=== PATIENT | female | born 1970 | race Caucasian/White ===

== ENCOUNTER 2019-08-09 15:07 | Outpatient (RCR) | payer OTHER, SELFPAY ==
[2019-08-09 15:28] LABS: Prothrombin Time 20.1 Seconds (9.64-11.0)
== END 2019-11-07 23:59 | disposition home or self-care (01) ==
LOC: CHSLAB 15:07
PROVIDERS: PCP Family Medicine; Visit Provider Nurse Practitioner Family
DX: Z86.711 Personal history of pulmonary embolism (principal)
CPT/HCPCS: 36415; 85610

== ENCOUNTER 2019-08-18 09:05 | Outpatient (CLI) | payer OTHER, SELFPAY ==
[2019-08-18 09:16] LABS: Basophils Absolute Auto 0.08 K/mm3 (0.00-0.10); Basophils Percent Auto 0.7 % (0.0-1.0); Eosinophils Absolute Auto 0.49 K/mm3 (0.02-0.50); Eosinophils Percent Auto 4.3 % (1.0-6.0); Hematocrit 45.2 % (35.0-49.0); Hemoglobin 15.2 g/dL (12.0-15.0); Immature Granulocyte Absolute 0.06 K/mm3 (0.00-0.00); Immature Granulocyte Percent A 0.5 % (0.0-0.0); Lymphocytes Percent Auto 25.5 % (18.0-42.0); Mean Corpuscular HGB Conc 33.6 g/dL (32.0-36.0); Mean Corpuscular Hemoglobin 27.5 pg (27.0-31.0); Mean Corpuscular Volume 81.7 fL (78.0-102.0); Mean Platelet Volume 9.4 fl (9.2-11.8); Monocytes Absolute Auto 0.67 K/mm3 (0.10-0.90); Monocytes Percent Auto 5.9 % (2.0-11.0); Neutrophils Absolute Auto 7.2 K/mm3 (1.7-7.2); Neutrophils Percent Auto 63.1 % (50.0-70.0); Platelet Count Result 352 K/mm3 (150-420); Red Blood Count 5.53 M/mm3 (4.20-5.40); Red Cell Distribution Width 13.8 % (11.6-14.4); White Blood Count 11.4 K/mm3 (4.8-10.8)
[2019-08-18 09:28] LABS: INR 2.5; Prothrombin Time 25.3 Seconds (9.64-11.0)
[2019-08-18 09:43] LABS: Hemoglobin A1C 8.4 % (<5.7)
[2019-08-18 10:00] LABS: Alanine Aminotransferase 33 U/L (14-59); Alkaline Phosphatase 125 U/L (46-116); Anion Gap 15.3 mmol/L (7-16); Aspartate Amino Transferase 23 U/L (15-37); Bilirubin,Total 0.3 mg/dL (0.00-1.00); Blood Urea Nitrogen 18 mg/dL (7-18); Calcium 9.4 mg/dL (8.5-10.1); Carbon Dioxide 28 mmol/L (21-32); Chloride 98 mmol/L (98-108); Estimated Glomerular Filt Rate > 60; Glucose 213 mg/dL (70-99); Osmolality Calculated 291 mOsm/kg (285-295); Potassium 4.3 mmol/L (3.5-5.1); Sodium 137 mmol/L (136-145); Total Protein 8.3 g/dL (6.4-8.2)
== END 2019-08-18 09:06 | disposition home or self-care (01) ==
LOC: CHSLAB 09:07
PROVIDERS: PCP Family Medicine; Visit Provider Nurse Practitioner Family
DX: E11.59 Type 2 diabetes mellitus with other circulatory complications (principal); Z86.711 Personal history of pulmonary embolism; E11.9 Type 2 diabetes mellitus without complications; I10 Essential (primary) hypertension
CPT/HCPCS: 36415; 80053; 83036; 85025; 85610

== ENCOUNTER 2019-08-23 13:47 | Inpatient (IN) | payer OTHER, SELFPAY ==
[2019-08-23] VITALS (7 sets, daily range): BP systolic 111–147; BP diastolic 71–99; PULSE 78–110; RESP 12–22; TEMP 36.2–36.7; O2SAT 92–100; BMI 47.1
--- NOTE | ~2019-08-23 | US_ITS ---
US right upper quadrant INDICATION: Right upper quadrant abdominal pain PROCEDURE: Realtime right upper abdominal ultrasound. COMPARISON: Ultrasound dated 05/13/2018 FINDINGS: The pancreas is normal without focal mass or pancreatic ductal dilation. Liver echotexture is increased, consistent with fatty infiltration. Liver is enlarged. There is normal directional fl ow in the portal vein. Gallbladder surgically absent. Common bile duct measures 8 mm. IMPRESSION: 1: Hepatomegaly with fatty infiltration. 2: Status post cholecystectomy with expected prominence of the common bile duct. Reviewed, dictated and finalized at location A. IMPRESSION: 1: Hepatomegaly with fatty infiltration. 2: Status post cholecystectomy with expected prominence of the common bile duct .
--- NOTE | ~2019-08-23 | CT_ITS ---
EXAMINATION: CT abdomen pelvis w con EXAM DATE: 08/23/2019 18:57 INDICATION: Epigastric pain. TECHNIQUE: Spiral CT of the abdomen and pelvis was performed following intravenous injection of 100 m L Omnipaque 350. Axial, coronal and sagittal images were reviewed. The dose-length product (DLP) fo r this examination was 1455.10 mGy-cm. The exposure was tailored according to patient size (auto mA exposure control), and iterative reconstruction (ASIR) was used as additional dose reduction techniqu e. There is no prior study for comparison. FINDINGS: There is mild descending/sigmoid colonic diverticulosis with mild adjacent inflammation, ac la posta uncomplicated diverticulitis. The liver, spleen, adrenal glands and pancreas are unremarkable. There are cholecystectomy clips. P ortal and splenic veins are patent. Kidneys enhance symmetrically. There is no hydronephrosis. Th e uterus is not identified and has likely been surgically resected. The bladder is unremarkable. Th ere is no retroperitoneal or pelvic lymphadenopathy. The appendix is not positively visualized. There is no pericecal inflammatory change to suggest appe ndicitis. The stomach and small bowel are unremarkable. There is expected amount of colonic stool. No free intraperitoneal gas. The heart is normal in size. There are no pericardial or pleural e ffusions. The lung bases are unremarkable. The bones are unremarkable. Chronic bilateral L5 spondyl olysis with posterior and interbody fusion. There are no osteoblastic or osteolytic lesions identifie d. IMPRESSION: 1. Mild acute uncomplicated descending/sigmoid colonic diverticulitis. Reviewed, dictated and finalized at location A.
[2019-08-23 14:13] LABS: Basophils Absolute Auto 0.1 K/mm3 (0.0-0.1); Basophils Percent Auto 0.7 % (0.2-1.2); Eosinophils Absolute Auto 0.5 K/mm3 (0-0.3); Eosinophils Percent Auto 3.1 % (0-4.4); Hematocrit 46.4 % (37.0-47.0); Hemoglobin 15.3 g/dL (12.0-15.0); Immature Granulocyte Absolute 0.08 K/mm3 (0.00-0.031); Immature Granulocyte Percent A 0.5 % (0-0.5); Lymphocytes Absolute Auto 3.26 K/mm3 (0.9-3.2); Lymphocytes Percent Auto 21.2 % (18.3-44.2); Mean Corpuscular Hemoglobin 27.4 pg (26-34); Mean Corpuscular Volume 83.2 fl (80-100); Mean Platelet Volume 9.8 fl (7.4-10.4); Monocytes Absolute Auto 0.8 K/mm3 (0.1-0.6); Monocytes Percent Auto 5.3 % (2.6-8.5); Neutrophils Absolute Auto 10.6 K/mm3 (1.3-6.7); Neutrophils Percent Auto 69.2 % (45.5-73.1); Platelet Count Result 351 k/mm3 (150-375); Red Blood Count 5.58 M/mm3 (4.2-5.4); Red Cell Distribution Width 14.1 % (11.5-14.5); White Blood Count 15.4 K/mm3 (4.5-10.0)
[2019-08-23 14:17] LABS: Add Urine Microscopic? YES; Appearance Urine Clear (Clear); Bacteria Urine Trace /hpf; Bilirubin Urine Negative (Negative); Blood Urine Negative (Negative); Color Urine Straw (Yellow); Glucose Urine UA 1+ mg/dL (Negative); Ketones Urine Negative (Negative); Leukocyte Esterase Ur Negative LEU/UL (Negative); Mucus Urine Rare /lpf; Nitrate Urine Negative (Negative); Protein Urine Negative (Negative); Squamous Epithelial Cell Urine Few /hpf (Few); Urobilinogen Urine Negative mg/dL (<2.0); WBC Urine 0-3 /hpf
[2019-08-23 14:25] LABS: Alanine Aminotransferase 28 U/L (4-35); Albumin Level 4.7 g/dL (3.5-5.1); Alkaline Phosphatase 128 U/L (38-126); Aspartate Amino Transferase 26 U/L (14-36); Bilirubin,Total 0.4 mg/dL (0.2-1.3); Blood Urea Nitrogen 13 mg/dL (7-17); Calcium 9.9 mg/dL (8.4-10.2); Carbon Dioxide 26 mmol/L (22-30); Chloride 100 mmol/L (98-107); Estimated CRCL calculation 109 ml/min; Estimated Glomerular Filt Rate > 60; Glucose 186 mg/dL (65-105); Lipase 101 U/L (23-300); Sodium 135 mmol/L (137-145)
--- NOTE | 2019-08-23 17:56 | ED.ABDPAIN ---
HPI - Abdominal Pain General Chief Complaint: Abdominal Pain Stated Complaint: bile duct disorder, abdominal pain Time Seen by Provider: 08/23/19 17:56 Source: patient and RN notes reviewed Mode of arrival: other Limitations: no limitations History of Present Illness HPI narrative: Pt is a 49 y/o female who presents to the ED with c/o intermittent sharp RUQ abdominal pain that began three weeks ago, but she notes that her pain has been worsened and been more constant for the past two days. Pt notes that her pain migrates to her LUQ abdomen and to her RLQ abdomen. Pt has a hx of biliary dysfunction and she notes that her last flare up was 2 years ago. She notes that her GI recently moved to [place] and she recently moved to the area. Pt took Tylenol this morning. Pt also reports a 101 degree fever, chills, and diaphoresis. Pt is taking Warfarin. MD elicited complaint: abdominal pain Onset (ago): week(s) (2) Pain Consistency: other (progressively worsening) Location: RUQ Quality: sharp Migration to: LUQ and RLQ Context: confirms history of similar episodes Associated symptoms: fever (of 101 degrees), chills and other (diaphoresis) Treatments prior to arrival: other (Tylenol) Related Data Home Medications Medication Instructions Recorded Confirmed gabapentin 600 mg tablet 600 mg PO TID 05/27/19 08/23/19 magnesium oxide 400 mg (241.3 mg 400 mg PO BID tablet 05/27/19 08/23/19 magnesium) tablet spironolactone 25 mg tablet 25 mg PO DAILY 05/27/19 08/23/19 hyoscyamine sulfate 0.25 mg PO TID 08/23/19 08/23/19 furosemide 80 mg PO DAILY 08/26/19 08/26/19 Allergies Allergy/AdvReac Type Severity Reaction Status Date / Time epinephrine Allergy Severe Unknown Verified 08/23/19 14:03 ibuprofen Allergy Intermediate Unknown Verified 08/23/19 14:03 bupropion Allergy Unknown Unknown Verified 08/23/19 14:03 celecoxib Allergy Unknown Unknown Verified 08/23/19 14:03 Sulfa (Sulfonamide Allergy Unknown Unknown Verified 08/23/19 14:03 Antibiotics) tetanus and diphtheria Allergy Unknown Unknown Verified 08/23/19 14:03 toxoids Review of Systems Review of Systems: All systems reviewed & are unremarkable except as noted in HPI and below Constitutional: Constitutional: Reports chills and Reports fever(s) (of 101 degrees) Cardiovascular: Cardiovascular: Reports diaphoresis Gastrointestinal: Gastrointestinal: Reports abdominal pain (RUQ, migrates to her LUQ and RLQ abdomen) [facility] Past Medical History Medical History Anxiety Arthritis Asthma 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 venous thrombosis) (~2015) 03/2000 & 04/2016 Fatty liver Fibromyalgia (~2011) Headache History of angina Hyperlipidemia associated with type 2 diabetes mellitus Hypertension associated with diabetes Kidney stone Major depression, recurrent Medical non-compliance Migraines Obesity, morbid, BMI 40.0-49.9 Ovarian cyst Overweight PCOS (polycystic ovarian syndrome) Peripheral vascular disease Post concussive syndrome (~2017) Pulmonary embolism Renal failure (~2017) Sepsis Sleep-disordered breathing Uterine fibroid Surgical History Surgical History History of adenoidectomy History of appendectomy History of cholecystectomy History of hysterectomy History of intravascular stent placement with removal in 2017 History of removal of ovarian cyst Hx of tonsillectomy Previous back surgery L4 and L5 fusion Status post lumbar spine surgery for decompression of spinal cord Family History Family History Mother Hypertension Fibromyalgia Osteoarthritis Father DVT (deep venous thrombosis)
[2019-08-23] MEDS: ONDANSETRON INJ 4 MG/2 ML VIAL IV PUSH ×3 (19:21→23:32)
[2019-08-23] MEDS: HYDROMORPHONE HCL 1 MG/ML INJ 0.5 MG IV PUSH ×2 (19:22→20:32)
--- NOTE | 2019-08-23 20:21 | PC.NURSE ---
pt reports pain 03/25 edp notified no further orders at this time.
[2019-08-23] MEDS: metroNIDAZOLE 500 MG/ISO 100ML 500 MG/100 ML BAG 100 MG IVPB (20:32)
[2019-08-23] MEDS: PANTOPRAZOLE SODIUM IV 40 MG VIAL IV PUSH (20:45)
--- NOTE | 2019-08-23 22:42 | ADMGEN ---
This patient, Olivia Thomas [facility], was admitted to 2 Medical Room 255-. Patient/family oriented to hospital policies and general routines including ID bracelet, bed and alarms, visiting hours, pain management, procedures, bathroom and other care routines, personal items, smoking policy, room service/diet, and visiting hours. Valuables list has been completed. Information on how to activate the Rapid Response Team has been discussed. Patient/Family are encouraged to report perceived risks to care and to ask questions if they do not understand what they are told or what they should do.
[2019-08-23] MEDS: LACTATED RINGERS 1,000 ML 125 ML IV CONT (23:06)
[2019-08-23] MEDS: FAMOTIDINE 20 MG/2 ML VIAL IV PUSH (23:20)
[2019-08-24] MEDS: HYDROMORPHONE HCL 1 MG/ML INJ 0.5 MG IV PUSH (00:21)
[2019-08-24 02:00] VITALS: BP 133/90; PULSE 95; RESP 20; TEMP 36.3; O2SAT 98
[2019-08-24] MEDS: HYDROMORPHONE HCL 1 MG/ML INJ IV PUSH ×6 (03:07→23:47)
[2019-08-24 05:45] LABS: Basophils Percent Auto 0.4 % (0.2-1.2); Eosinophils Absolute Auto 0.3 K/mm3 (0-0.3); Eosinophils Percent Auto 2.9 % (0-4.4); Hematocrit 41.7 % (37.0-47.0); Hemoglobin 13.3 g/dL (12.0-15.0); Immature Granulocyte Absolute 0.06 K/mm3 (0.00-0.031); Immature Granulocyte Percent A 0.5 % (0-0.5); Lymphocytes Absolute Auto 2.56 K/mm3 (0.9-3.2); Lymphocytes Percent Auto 23.2 % (18.3-44.2); Mean Corpuscular HGB Conc 31.9 g/dl (32-36); Mean Corpuscular Hemoglobin 27.1 pg (26-34); Mean Corpuscular Volume 84.9 fl (80-100); Mean Platelet Volume 9.7 fl (7.4-10.4); Monocytes Absolute Auto 0.7 K/mm3 (0.1-0.6); Monocytes Percent Auto 6.6 % (2.6-8.5); Neutrophils Absolute Auto 7.3 K/mm3 (1.3-6.7); Neutrophils Percent Auto 66.4 % (45.5-73.1); Platelet Count Result 295 k/mm3 (150-375); Red Blood Count 4.91 M/mm3 (4.2-5.4); Red Cell Distribution Width 14.2 % (11.5-14.5)
[2019-08-24] MEDS: metroNIDAZOLE 500 MG/ISO 100ML 500 MG/100 ML BAG 100 MG IVPB ×3 (05:48→23:17)
[2019-08-24 05:55] LABS: Prothrombin Time 13.1 Seconds (11.1-14.7)
[2019-08-24 06:00] VITALS: BP 130/81; PULSE 92; RESP 21; TEMP 36.9; O2SAT 100
[2019-08-24 06:14] LABS: Blood Urea Nitrogen 13 mg/dL (7-17); Carbon Dioxide 33 mmol/L (22-30); Chloride 96 mmol/L (98-107); Estimated CRCL calculation 96 ml/min; Estimated Glomerular Filt Rate > 60; Glucose 161 mg/dL (65-105); Potassium 4.2 mmol/L (3.4-5.0); Sodium 136 mmol/L (137-145)
[2019-08-24] MEDS: ONDANSETRON INJ 4 MG/2 ML VIAL IV PUSH ×3 (07:20→15:31)
[2019-08-24] MEDS: LACTATED RINGERS 1,000 ML 125 ML IV CONT (08:43)
[2019-08-24] MEDS: FAMOTIDINE 20 MG/2 ML VIAL IV PUSH ×2 (08:46→20:26)
--- NOTE | 2019-08-24 09:52 | PM.IMHP ---
H&P: HPI History of Present Illness Chief complaint: acute diverticulitis intractable right upper quadr Narrative: Date and Time of Service of History & Physical: August 24, 2019 at 9:30 a.m.. Date and Time of Placement in Observation Order: August 23, 2019 at 8:55 p.m.. Chief Complaint: Epigastric pain x3 and half to 4 weeks with nausea, vomiting and fever. History of Present Illness: Olivia Burks is a 49 year old female with multiple medical problems including heart failure, hypertension, hyperlipidemia and previous biliary disorder due to sphincter of OD dysfunction who presented to the emergency department yesterday with complaint of epigastric pain over the past 3 and half to 4 weeks. Patient reports 5 years ago she was hospitalized at [facility] in [place], [place], at which time she was evaluated by GI. Eventually, she had ERCP showing multiple stones and sludge with stent placed. Patient reports stent was removed 1 year later. She has had periodic problems with similar pain at least once a year. Current episode did begin 3 and half to 4 weeks ago as noted. Pain became more consistent in the past week. She does note her stool has now been a fluorescent green. She began having nausea and vomiting yesterday. She does report hematemesis x1 yesterday. She also had fever up to 101 yesterday along with cold sweats. Patient has had previous gallbladder removal 20 years prior to 1st episode of sludge issues. Patient was noted to have diverticulitis in the emergency room but patient reports no significant pain in the lower abdomen. No current chest pain or shortness of breath. She does have headache. She does report generalized itching in the past week but no rash. No urinary symptoms. Review of Systems Review of Systems: All systems reviewed & are unremarkable except as noted in HPI and below Constitutional: Constitutional: Reports fever(s) Eyes: Eyes: Denies blurry vision and Denies diplopia ENT: Denies nasal congestion and Denies nasal discharge Cardiovascular: Cardiovascular: Denies chest pain and Denies palpitations Respiratory: Respiratory: Denies dyspnea Gastrointestinal: Gastrointestinal: Reports abdominal pain (epigatric), Denies diarrhea, Reports nausea and Reports vomiting Genitourinary: Genitourinary: Denies hematuria, Denies nocturia and Denies dysuria Musculoskeletal: Musculoskeletal: Reports no additional musculoskeletal complaints Integumentary/Breasts: Skin/Breast: Reports pruritus (generalized) Neurologic: Denies confusion and Reports headache(s) Psychiatric: Psychiatric: Denies anxiety and Denies depression Endocrine: Endocrine: Reports no additional endocrine complaints Hematologic/Lymphatic: Hematologic/Lymphatic: Reports no additional hematologic/lymphatic complaints Allergic/Immunologic: Allergic/Immunologic: Reports no additional allergic/immunologic complaints [facility] Past Medical History Medical History Anxiety Arthritis Asthma 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 venous thrombosis) (~2015) 03/2000 & 04/2016 Fatty liver Fibromyalgia (~2011) Headache History of angina Hyperlipidemia associated with type 2 diabetes mellitus Hypertension associated with diabetes Kidney stone Major depression, recurrent Medical non-compliance Migraines Ovarian cyst Overweight PCOS (polycystic ovarian syndrome) Peripheral vascular disease Post concussive syndrome (~2017) Pulmonary embolism Renal failure (~2017) Sepsis Sleep-disordered breathing Uterine fibroid Surgical History Surgical History History of adenoidectomy History of appendectomy History of cholecystectomy His
[2019-08-24 10:50] VITALS: BP 133/81; PULSE 111; RESP 18; TEMP 36.1; O2SAT 96
[2019-08-24 12:00] LABS: Glucose Point of Care 143 (65-105)
[2019-08-24 14:00] VITALS: BP 128/87; PULSE 113; RESP 18; TEMP 35.9; O2SAT 97
[2019-08-24 16:33] LABS: Basophils Absolute Auto 0.1 K/mm3 (0.0-0.1); Basophils Percent Auto 0.7 % (0.2-1.2); Eosinophils Absolute Auto 0.3 K/mm3 (0-0.3); Eosinophils Percent Auto 3.3 % (0-4.4); Hematocrit 40.7 % (37.0-47.0); Hemoglobin 13.1 g/dL (12.0-15.0); Immature Granulocyte Absolute 0.05 K/mm3 (0.00-0.031); Immature Granulocyte Percent A 0.5 % (0-0.5); Lymphocytes Absolute Auto 1.64 K/mm3 (0.9-3.2); Lymphocytes Percent Auto 16.3 % (18.3-44.2); Mean Corpuscular HGB Conc 32.2 g/dl (32-36); Mean Corpuscular Hemoglobin 27.3 pg (26-34); Mean Corpuscular Volume 84.8 fl (80-100); Mean Platelet Volume 9.8 fl (7.4-10.4); Monocytes Absolute Auto 0.7 K/mm3 (0.1-0.6); Monocytes Percent Auto 6.7 % (2.6-8.5); Neutrophils Absolute Auto 7.3 K/mm3 (1.3-6.7); Neutrophils Percent Auto 72.5 % (45.5-73.1); Platelet Count Result 263 k/mm3 (150-375); Red Cell Distribution Width 14.2 % (11.5-14.5); White Blood Count 10.1 K/mm3 (4.5-10.0)
[2019-08-24 16:42] LABS: Partial Thromboplastin Time 23.6 SECONDS (22.3-36.8); Prothrombin Time 13.2 Seconds (11.1-14.7)
[2019-08-24] MEDS: HEPARIN SOD/D5W 100 UNITS/ML 25,000 UNITS/250 ML BAG 15 UNITS IV CONT (17:09)
[2019-08-24] MEDS: HEPARIN SODIUM 5,000 UNITS/ML VIAL 6500 UNITS IV PUSH (17:10)
[2019-08-24 18:00] VITALS: BP 129/75; PULSE 103; RESP 18; TEMP 36.1; O2SAT 94
[2019-08-24 18:07] LABS: Glucose Point of Care 145 (65-105)
--- NOTE | 2019-08-24 18:10 | WPDGICN ---
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 Continue with iv antibiotics for now (also mild diverticulitis) (2) Acute diverticulitis: Code(s): K57.92 - Diverticulitis of intestine, part unspecified, without perforation or abscess without bleeding Status: Acute Assessment and Plan: on iv abx but her pain is mostly ruq, denies pain in llq (3) Vomiting: Qualifiers: Nausea presence: with nausea Vomiting Intractability: intractable Vomiting type: unspecified Qualified Code(s): R11.2 - Nausea with vomiting, unspecified Code(s): R11.10 - Vomiting, unspecified Status: Acute Assessment and Plan: ok to try liquid diet as tolerated (4) Intractable right upper quadrant abdominal pain: Code(s): R10.11 - Right upper quadrant pain Status: Acute (5) History of pulmonary embolism: Code(s): Z86.711 - Personal history of pulmonary embolism Status: Acute Assessment and Plan: keep coumadin on hold- preparation for possible ERCP, she is on iv heparin (6) Diastolic dysfunction with heart failure: Qualifiers: Heart failure chronicity: chronic Qualified Code(s): I50.32 - Chronic diastolic (congestive) heart failure Code(s): I50.30 - Unspecified diastolic (congestive) heart failure Status: Acute (7) Obesity, morbid, BMI 40.0-49.9: Code(s): E66.01 - Morbid (severe) obesity due to excess calories Status: Acute GI Consult Note Consult date/time: 08/24/19 18:10 Reason for consult: ruq pain, SOD, diverticulitis HPI: Olivia Burks is a 49 year old female with 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 She had cholecystectomy ~ 26 yo ago, then about 4 years ago had severe pain in RUQ, work up by her GI doctor in [place] unrevealing and finally performed ERCP which revealed sludge with choledocholithiasis, had biliary stent placed and finally removed 1 year later, this helped with her symptoms. She started having nausea and vomiting last 1-2 days, also loose stool and fever T 101 F with chills. This was similar to her previous presentation of biliary pain. Ultrasound showed Hepatomegaly with fatty infiltration and status post cholecystectomy with expected prominence of the common bile duct. CT scan mild acute uncomplicated descending/sigmoid colonic diverticulitis. Started on iv antibiotics, pain is mostly in RUQ and better with iv pain meds. WBC 15k, now 11k, inr 1 despite using coumadin and now on iv heparin. Review of Systems Constitutional: Constitutional: Reports chills and Denies headache(s) Eyes: Eyes: Denies blurry vision ENT: Reports Normal hearing present, Denies headache(s) and Denies neck pain Cardiovascular: Cardiovascular: Denies chest pain and Denies dyspnea Respiratory: Respiratory: Denies dyspnea Gastrointestinal: Gastrointestinal: Reports abdominal pain and Reports vomiting Genitourinary: Genitourinary: Denies dysuria Musculoskeletal: Musculoskeletal: Denies neck pain Integumentary/Breasts: Skin/Breast: Denies dry skin Neurologic: Reports Normal hearing present, Denies headache(s) and Denies weakness Psychiatric: Psychiatric: Denies anxiety Endocrine: Endocrine: Denies change in body appearance Hematologic/Lymphatic: Hematologic/Lymphatic: Denies easy bleeding Allergic/Immunologic: Allergic/Immunologic: Denies urticaria PMFSH Past Medical History Medical History
[2019-08-24] MEDS: LACTATED RINGERS 1,000 ML 75 ML IV CONT (18:20)
[2019-08-24 22:00] VITALS: BP 143/92; PULSE 98; RESP 20; TEMP 36.2; O2SAT 97
[2019-08-24 23:30] LABS: Partial Thromboplastin Time 109.1 SECONDS (22.3-36.8)
[2019-08-25 02:00] VITALS: BP 116/67; PULSE 96; RESP 20; TEMP 35.9; O2SAT 98
[2019-08-25] MEDS: HYDROMORPHONE HCL 1 MG/ML INJ IV PUSH ×6 (02:49→21:31)
[2019-08-25 06:00] VITALS: BP 139/99; PULSE 92; RESP 21; TEMP 36; O2SAT 100
[2019-08-25 06:09] LABS: Basophils Percent Auto 0.5 % (0.2-1.2); Eosinophils Absolute Auto 0.3 K/mm3 (0-0.3); Eosinophils Percent Auto 4.3 % (0-4.4); Hematocrit 40.4 % (37.0-47.0); Hemoglobin 12.7 g/dL (12.0-15.0); Immature Granulocyte Absolute 0.04 K/mm3 (0.00-0.031); Immature Granulocyte Percent A 0.5 % (0-0.5); Lymphocytes Absolute Auto 2.06 K/mm3 (0.9-3.2); Lymphocytes Percent Auto 28.3 % (18.3-44.2); Mean Corpuscular HGB Conc 31.4 g/dl (32-36); Mean Platelet Volume 10.1 fl (7.4-10.4); Monocytes Absolute Auto 0.5 K/mm3 (0.1-0.6); Monocytes Percent Auto 6.3 % (2.6-8.5); Neutrophils Absolute Auto 4.4 K/mm3 (1.3-6.7); Neutrophils Percent Auto 60.1 % (45.5-73.1); Platelet Count Result 258 k/mm3 (150-375); Red Cell Distribution Width 14.2 % (11.5-14.5); White Blood Count 7.3 K/mm3 (4.5-10.0)
[2019-08-25 06:18] LABS: Prothrombin Time 12.7 Seconds (11.1-14.7)
[2019-08-25 06:53] LABS: Glucose Point of Care 146 (65-105)
[2019-08-25 07:20] LABS: Alanine Aminotransferase 43 U/L (4-35); Albumin Level 3.7 g/dL (3.5-5.1); Alkaline Phosphatase 126 U/L (38-126); Aspartate Amino Transferase 48 U/L (14-36); Bilirubin,Total 0.4 mg/dL (0.2-1.3); Blood Urea Nitrogen 9 mg/dL (7-17); Calcium 8.9 mg/dL (8.4-10.2); Carbon Dioxide 32 mmol/L (22-30); Chloride 99 mmol/L (98-107); Estimated CRCL calculation 109 ml/min; Estimated Glomerular Filt Rate > 60; Glucose 158 mg/dL (65-105); Potassium 3.9 mmol/L (3.4-5.0); Sodium 135 mmol/L (137-145)
[2019-08-25] MEDS: HEPARIN SODIUM 5,000 UNITS/ML VIAL 3500 UNITS IV PUSH (07:47)
[2019-08-25 07:52] LABS: Glucose Point of Care 151 (65-105)
[2019-08-25] MEDS: ONDANSETRON INJ 4 MG/2 ML VIAL IV PUSH ×2 (08:49→17:29)
[2019-08-25 09:13] LABS: Glucose Point of Care 160 (65-105)
[2019-08-25] MEDS: FAMOTIDINE 20 MG/2 ML VIAL IV PUSH ×2 (09:20→21:34)
[2019-08-25 10:00] VITALS: BP 122/83; PULSE 98; RESP 16; TEMP 36.9; O2SAT 98
[2019-08-25] MEDS: metroNIDAZOLE 500 MG/ISO 100ML 500 MG/100 ML BAG 100 MG IVPB ×2 (10:24→17:24)
[2019-08-25] MEDS: HEPARIN SOD/D5W 100 UNITS/ML 25,000 UNITS/250 ML BAG 15 UNITS IV CONT (11:22)
[2019-08-25] MEDS: HYOSCYAMINE SULFATE 0.125 MG TABLET 0.25 MG PO ×2 (12:44→17:25)
[2019-08-25] MEDS: GABAPENTIN 300 MG CAPSULE 600 MG PO ×2 (12:44→17:26)
[2019-08-25 14:00] VITALS: BP 117/74; PULSE 87; RESP 16; TEMP 36.6; O2SAT 95
[2019-08-25 14:17] LABS: Partial Thromboplastin Time 145.2 SECONDS (22.3-36.8)
[2019-08-25 14:37] LABS: Glucose Point of Care 170 (65-105)
--- NOTE | 2019-08-25 15:57 | PM.IMPN ---
Progress Note: A&P Assessment and Plan (1) Intractable right upper quadrant abdominal pain: Code(s): R10.11 - Right upper quadrant pain Status: Acute Assessment and Plan: Pain in the epigastric/RUQ area. Patient reports pain is same as when she has been known have sludge in ducts identified by ERCP. GI consulted and appreciate input. Did discuss with Dr. Dai yesterday. Currently on clear liquids. Records received from outside facility from procedure when stent was removed and filling defects were noted at that time. Additionally hospitalized at later time in 2018 with patient requesting ERCP but not felt appropriate at that point. LFTs minimally elevated with AST 48 and ALT 43 today. Normal total bilirubin. Will continue IV Benadryl for itching. Will add K-pad for symptomatic control. May continue IV Dilaudid. Now has scheduled IV acetaminophen every 6 hours. Per GI, plan for EGD tomorrow. 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 Plan for EGD alone tomorrow. (3) Acute diverticulitis: Code(s): K57.92 - Diverticulitis of intestine, part unspecified, without perforation or abscess without bleeding Status: Acute Assessment and Plan: CT abdomen/pelvis with mild uncomplicated descending/sigmoid diverticulitis. Does not appear to be causing more acute abdominal pain. Will leave IV metronidazole in place. Did receive dose of IV Levaquin in ER. WBC normal at 7.3 today. (4) History of pulmonary embolism: Code(s): Z86.711 - Personal history of pulmonary embolism Status: Acute Assessment and Plan: History of multiple upper extremity DVTs, lower extremity DVTs and pulmonary embolism. Normally on warfarin 9 mg. INR is 1.0 again today. Continue heparin drip at this time. (5) Hypertension associated with diabetes: Code(s): E11.59 - Type 2 diabetes mellitus with other circulatory complications; I10 - Essential (primary) hypertension Status: Acute Assessment and Plan: Blood pressure reviewed on 08/25/2019 and stable. Will continue to hold lisinopril metoprolol today. If necessary, can give IV medication. (6) DM2 (diabetes mellitus, type 2): Qualifiers: Diabetes mellitus complication status: without complication Diabetes mellitus retirement insulin use: without termite treater use Qualified Code(s): E11.9 - Type 2 diabetes mellitus without complications Code(s): E11.9 - Type 2 diabetes mellitus without complications Status: Acute Assessment and Plan: Hemoglobin A1c 8.4 on 08/18/2019. Glucose reviewed on 08/25/2019 and stable. Will continue to hold home metformin for now. Sliding scale insulin as needed. Will monitor glucose. (7) Diastolic dysfunction with heart failure: Qualifiers: Heart failure chronicity: chronic Qualified Code(s): I50.32 - Chronic diastolic (congestive) heart failure Code(s): I50.30 - Unspecified diastolic (congestive) heart failure Status: Acute Assessment and Plan: Remains stable. Holding lisinopril and metoprolol with GI issues but will monitor. Home spironolactone also on hold. Time Spent With Patient Time with patient: 15 - 25 minutes Subjective Date/time seen: 08/25/19 15:57 Interval history: Date of Service: 08/25/2019. Admitted with epigastric/RUQ pain and mild diverticulitis. Still having pains in the epigastric/RUQ area. No vomiting. Has had limited clear liquids. Does report spasm in the right upper quadrant area. No chest pain or shortness of breath. Does continue to have itching. Review of System
--- NOTE | 2019-08-25 16:48 | WPDANESEPP ---
Anes - Eval Pre Procedure Procedure: Operation Date: 08/26/19 13:15 Proposed Procedures p Endoscopic Retro Cholangiopancreatogram - Krzysztof Lutz MD Date/Time: 08/25/19 16:48 Pre Op Diagnosis: acute diverticulitis intractable right upper quadr Patient Data Age: 49 Gender: F Height: 5 ft 3.6 in Weight: 123 kg Last Vital Signs Temp 97.9 F 08/25/19 14:00 Pulse 87 08/25/19 14:00 Resp 16 08/25/19 14:00 BP 117/74 08/25/19 14:00 Pulse Ox 95 08/25/19 14:00 Allergies Allergy/AdvReac Type Severity Reaction Status Date / Time epinephrine Allergy Severe Unknown Verified 08/23/19 14:03 ibuprofen Allergy Intermediate Unknown Verified 08/23/19 14:03 bupropion Allergy Unknown Unknown Verified 08/23/19 14:03 celecoxib Allergy Unknown Unknown Verified 08/23/19 14:03 Sulfa (Sulfonamide Allergy Unknown Unknown Verified 08/23/19 14:03 Antibiotics) tetanus and diphtheria Allergy Unknown Unknown Verified 08/23/19 14:03 toxoids Home Medications Medication Instructions Recorded Confirmed Type fluoxetine 40 mg capsule 80 mg PO DAILY #60 cap 05/20/19 08/23/19 Rx gabapentin 600 mg tablet 600 mg PO TID 05/27/19 08/23/19 History magnesium oxide 400 mg (241.3 mg 400 mg PO BID tablet 05/27/19 08/23/19 History magnesium) tablet spironolactone 25 mg tablet 25 mg PO DAILY 05/27/19 08/23/19 History albuterol sulfate 90 mcg/actuation 1 - 2 puff INHALATION Q4H PRN #8.5 06/15/19 08/23/19 Rx aerosol inhaler gm cyclobenzaprine 10 mg tablet 10 mg PO TID PRN #30 tablet 06/22/19 08/23/19 Rx lisinopril 5 mg tablet 5 mg PO DAILY #30 tablet 07/16/19 08/23/19 Rx metoprolol tartrate 25 mg tablet 25 mg PO BID #60 tablet 07/16/19 08/23/19 Rx warfarin 3 mg tablet 9 mg PO DAILY #90 tablet 08/11/19 08/23/19 Rx hyoscyamine sulfate 0.25 mg PO TID 08/23/19 08/23/19 History metformin 1,000 mg tablet 1,000 mg PO BID #60 tablet 08/25/19 Rx Laboratory Tests 08/24/19 08/24/19 08/24/19 18:05 22:54 23:32 WBC RBC Hgb Hct MCV MCH MCHC RDW Plt Count MPV Immature Gran % (Auto) Neut % (Auto) Lymph % (Auto) [place] % (Auto) Eos % (Auto) Baso % (Auto) Lymph # (Auto) [place] # (Auto) Eos # (Auto) Baso # (Auto) Abs Immat Gran (auto) Absolute Neuts (auto) Absolute Nucleated RBC Nucleated RBC % PT INR APTT 109.1 SECONDS H SECONDS (22.3-36.8) Sodium Potassium Chloride Carbon Dioxide BUN Creatinine Estim Creat Clear Calc Estimated GFR Glucose POC Capillary Glucose 145 mg/dl H mg/dl 146 mg/dl H mg/dl (65-105) (65-105) Calcium Total Bilirubin Direct Bilirubin AST ALT Alkaline Phosphatase Total Protein Albumin 08/25/19 08/25/19 08/25/19 05:00 05:00 05:00 WBC 7.3 K/mm3 K/mm3 (4.5-10.0) RBC 4.70 M/mm3 M/mm3 (4.2-5.4) Hgb 12.7 g/dL g/dL (12.0-15.0) Hct 40.4 % % (37.0-47.0) MCV 86.0 fl fl (80-100) MCH 27.0 pg pg (26-34) MCHC 31.4 g/dl L g/dl (32-36) RDW 14.2 % % (11.5-14.5) Plt Count 258 k/mm3 k/mm3 (150-375) MPV 10.1 fl fl (7.4-10.4) Immature Gran % (Auto) 0.5 % % (0-0.5) Neut % (Auto) 60.1 % % (45.5-73.1) Lymph % (Auto) 28.3 % % (18.3-44.2) [place] % (Auto) 6.3 % % (2.6-8.5) Eos % (Auto) 4.3 % % (0-4.4) Baso % (Auto) 0.5 % % (0.2-1.2) Lymph # (Auto) 2.06 K/mm3 K/mm3 (0.9-3.2) [place] # (
[2019-08-25 17:19] LABS: Glucose Point of Care 151 (65-105)
--- NOTE | 2019-08-25 17:29 | WPDGIPROGNO ---
Progress Note: A&P Assessment and Plan (1) Intractable right upper quadrant abdominal pain: Code(s): R10.11 - Right upper quadrant pain Status: Acute Assessment and Plan: reviewed old records (she has been evaluated by GI physician and multiple work up), initially had ERCP 2014 for possible SOD, had biliary stent that was removed 1 year after (patient did not come back on time until a year to have it removed). Then in 2018 because intermittent pain in RUQ with n/v, admitted again to another hospital, another GI doctor was consulted for second opinion on ERCP (had MRCP with unrevealing new findings, previous CT scan, etc) and decision was that did not need another repeat ERCP but rather treat as functional or with pain modulator/antispasmodic- per notes patient also requested back then an ERCP which she is asking again during this hospitalization. There is not need to repeat another ERCP- she will be high risk for pancreatitis, also using blood thinners and I do not think will help with chronic pain in ruq. I will proceed with EGD (previous one showed moderate gastritis), npo after midnight only for EGD. Also previous notes indicate that she probably was malingering and left AMA, also recommendation to be evaluated by psych (notes from 04/2016) (2) Obesity, morbid, BMI 40.0-49.9: Code(s): E66.01 - Morbid (severe) obesity due to excess calories Status: Acute (3) Acute diverticulitis: Code(s): K57.92 - Diverticulitis of intestine, part unspecified, without perforation or abscess without bleeding Status: Acute Assessment and Plan: on antibiotics (4) Vomiting: Qualifiers: Nausea presence: with nausea Vomiting Intractability: intractable Vomiting type: unspecified Qualified Code(s): R11.2 - Nausea with vomiting, unspecified Code(s): R11.10 - Vomiting, unspecified Status: Acute Assessment and Plan: egd in am (5) History of pulmonary embolism: Code(s): Z86.711 - Personal history of pulmonary embolism Status: Acute Subjective Date/time seen: 08/25/19 17:29 Interval history: still with similar pain in ruq, no new events, requesting more iv pain medications Review of Systems Review of Systems: All systems reviewed & are unremarkable except as noted in HPI and below Exam Const: General: comfortable and no acute distress HENMT: General nose exam: Normal nares present Eyes: General: appearance normal, both eyes and all related structures Neck: Neck: no JVD Resp: Auscultation: clear to auscultation bilaterally Cardio: Rate: regular rate Rhythm: regular rhythm GI: GI Palp: Yes Soft to palpation and Yes Tenderness to palpation present (GI) (mild ttp, no rebound) Auscultation: normal bowel sounds Skin: General skin exam: normal color Neuro: General: gait normal Speech: normal speech Extrem: General: normal to inspection Psych: Mental Status: mental status grossly normal Objective Data Vital Signs Vital Signs: Vital Signs - 24 hr 08/24/19 18:00 08/24/19 22:00 08/25/19 02:00 Temperature 96.9 F L 97.1 F L 96.7 F L Pulse Rate 103 H 98 96 Respiratory Rate 18 20 20 Blood Pressure 129/75 143/92 H 116/67 Pulse Oximetry 94 97 98 08/25/19 06:00 08/25/19 10:00 08/25/19 14:00 Temperature 96.8 F L 98.5 F 97.9 F Pulse Rate 92 98 87 Respiratory Rate 21 H 16 16 Blood Pressure 139/99 H 122/83 117/74 Pulse Oximetry 100 98 95 Intake/Output Intake/Output: Intake & Output 08/22/19 08/23/19 08/24/19 08/25/19 23:59 23:59 23:59 23:59 Intake Total 250 2400 2060 Output Total 700 900 Balance 250 1700 1160 Meds/Results Medications: Active Medications Generic Name Dose Route Start Last Admin Trade Name Freq PRN Reason Stop Dose Admin Cyclobenzaprine HCl 10 mg 08/24/19 02:35 Flexeril PO TID PRN muscle spasm Dextrose 12.5 gm 08/24/19 10:21 Dextrose 50% Syringe IV PUSH PRN PRN Hypogly
[2019-08-25 18:00] VITALS: BP 138/74; PULSE 92; RESP 16; TEMP 36.4; O2SAT 96
[2019-08-25 22:10] LABS: Partial Thromboplastin Time 72.8 SECONDS (22.3-36.8)
[2019-08-25 22:32] VITALS: BP 127/83; PULSE 99; RESP 18; TEMP 36.3; O2SAT 94
[2019-08-26] VITALS (10 sets, daily range): BP systolic 101–148; BP diastolic 61–105; PULSE 80–106; RESP 16–18; TEMP 36.2–37.4; O2SAT 92–100
[2019-08-26] MEDS: ONDANSETRON INJ 4 MG/2 ML VIAL IV PUSH ×3 (00:16→12:31)
[2019-08-26] MEDS: HYDROMORPHONE HCL 1 MG/ML INJ IV PUSH ×6 (00:45→21:27)
[2019-08-26] MEDS: metroNIDAZOLE 500 MG/ISO 100ML 500 MG/100 ML BAG 100 MG IVPB ×3 (02:21→17:44)
[2019-08-26 05:09] LABS: Hematocrit 41.6 % (37.0-47.0); Hemoglobin 13.2 g/dL (12.0-15.0); Mean Corpuscular HGB Conc 31.7 g/dl (32-36); Mean Corpuscular Hemoglobin 27.2 pg (26-34); Mean Corpuscular Volume 85.6 fl (80-100); Mean Platelet Volume 10.5 fl (7.4-10.4); Platelet Count Result 273 k/mm3 (150-375); Red Blood Count 4.86 M/mm3 (4.2-5.4); Red Cell Distribution Width 14.2 % (11.5-14.5); White Blood Count 6.7 K/mm3 (4.5-10.0)
[2019-08-26 05:21] LABS: Partial Thromboplastin Time 95.6 SECONDS (22.3-36.8)
[2019-08-26 05:28] LABS: Alanine Aminotransferase 50 U/L (4-35); Albumin Level 3.7 g/dL (3.5-5.1); Alkaline Phosphatase 135 U/L (38-126); Aspartate Amino Transferase 46 U/L (14-36); Bilirubin,Total 0.3 mg/dL (0.2-1.3); Blood Urea Nitrogen 7 mg/dL (7-17); Calcium 8.7 mg/dL (8.4-10.2); Carbon Dioxide 33 mmol/L (22-30); Chloride 98 mmol/L (98-107); Estimated CRCL calculation 96 ml/min; Estimated Glomerular Filt Rate > 60; Glucose 151 mg/dL (65-105); Potassium 4.1 mmol/L (3.4-5.0); Sodium 137 mmol/L (137-145)
[2019-08-26 05:35] LABS: Glucose Point of Care 152 (65-105)
[2019-08-26 06:02] LABS: Glucose Point of Care 154 (65-105)
[2019-08-26] MEDS: FAMOTIDINE 20 MG/2 ML VIAL IV PUSH (08:20)
--- NOTE | 2019-08-26 09:55 | PC.NURSE ---
Stopped heparin drip per orders from Dr. Lutz for EGD scheduled for today.
[2019-08-26 13:02] LABS: Glucose Point of Care 157 (65-105)
--- NOTE | 2019-08-26 13:05 | PC.NURSE ---
Patient to GI lab for EGD via stretcher with IV's saline locked.
--- NOTE | 2019-08-26 13:18 | WPDANESEFPP ---
Anes - Eval Final PreProcedure Day of Procedure 08/26/19 13:18 Patient weight: morbidly obese Heart: regular rate and rhythm Lungs: clear to auscultation and normal air movement Airway: Mallampati scale class II and special considerations (small opening) Neurological: alert and oriented Last oral intake: >/= 8 hours ASA classification: IV Emergent: no Anesthetic plan: proceed Anesthesia type and monitoring: general GIVS and standard monitoring Informed Consent: The patient's anesthetic plan and its attendant risks and benefits were discussed with the patient/family/POA. Questions were solicited and answers provided to the satisfaction of the patient/family/POA.
[2019-08-26] MEDS: LACTATED RINGERS 1,000 ML 150 ML IV CONT (13:35)
--- NOTE | 2019-08-26 14:52 | PC.NURSE ---
Patient returned from EGD via stretcher.
[2019-08-26] MEDS: HYOSCYAMINE SULFATE 0.125 MG TABLET 0.25 MG PO ×2 (15:03→17:47)
[2019-08-26] MEDS: GABAPENTIN 300 MG CAPSULE 600 MG PO (15:03)
--- NOTE | 2019-08-26 15:08 | PC.NURSE ---
Patient upset with diet orders and lack of findings with EGD. Per patient she will not eat full liquid diet and requesting low fat diet orders be entered at this time.
--- NOTE | 2019-08-26 15:14 | PC.NURSE ---
Patient tearful and upset with testing. Verbalized she wanted an ERCP performed but EGD was only test performed by Dr. Lutz with gastritis found. Notified Dr. Bone of patient's frustrations and findings from EGD. Per Dr. Bone she will be in to see patient at bedside for rounds.
--- NOTE | 2019-08-26 15:41 | PM.IMPN ---
Progress Note: A&P Assessment and Plan (1) Intractable right upper quadrant abdominal pain: Code(s): R10.11 - Right upper quadrant pain Status: Acute Assessment and Plan: Pain in the epigastric/RUQ area. Patient reports pain is same as when she has been known have sludge in ducts identified by ERCP. GI consulted and appreciate input. EGD completed by Dr. Dai today with ERCP not felt appropriate at this time. EGD with gastritis but not felt because of cardiac Q pain. I did have a long discussion with patient regarding need to be cautious with having ERCP procedures done given potential risks of procedure. We also discussed possibility pain is not from sludge issues in could be related to some of her other chronic pain issues. I did offer starting medications such as amitriptyline or nortriptyline which patient currently declined. Patient is agreeable to increasing gabapentin. LFTs with no significant elevation with AST 46 and ALT 50 today. Advised patient low-fat diet is preferable in her situation. May still have IV Guillermo on and will not increase mouth. Does still have IV acetaminophen scheduled every 6 hours. Patient mentioned potentially asking for 2nd GI opinion which we did discuss. I encouraged her to further discuss any concerns regarding EGD with Dr. Dai 1st with patient agreeable. (2) Gastritis: Qualifiers: Gastritis type: unspecified gastritis Chronicity: unspecified Gastritis bleeding: without bleeding Qualified Code(s): K29.70 - Gastritis, unspecified, without bleeding Code(s): K29.70 - Gastritis, unspecified, without bleeding Status: Acute Assessment and Plan: As seen on EGD today. Continue Protonix. Will stop IV Pepcid. 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 EGD as noted above. (4) Acute diverticulitis: Code(s): K57.92 - Diverticulitis of intestine, part unspecified, without perforation or abscess without bleeding Status: Acute Assessment and Plan: CT abdomen/pelvis with mild uncomplicated descending/sigmoid diverticulitis. Does not appear to be causing more acute abdominal pain. Will leave IV metronidazole in place today but anticipate transition to oral antibiotic. Did receive dose of IV Levaquin in ER. WBC remains normal. (5) History of pulmonary embolism: Code(s): Z86.711 - Personal history of pulmonary embolism Status: Acute Assessment and Plan: History of multiple upper extremity DVTs, lower extremity DVTs and pulmonary embolism. With EGD completed and approval GI, will resume home warfarin 9 mg today. Continue heparin drip. Will continue heparin bridge until INR therapeutic given her history. (6) Hypertension associated with diabetes: Code(s): E11.59 - Type 2 diabetes mellitus with other circulatory complications; I10 - Essential (primary) hypertension Status: Acute Assessment and Plan: Blood pressure reviewed on 08/26/2019 with acceptable readings. Resume home lisinopril and metoprolol. Will continue to monitor. (7) DM2 (diabetes mellitus, type 2): Qualifiers: Diabetes mellitus complication status: without complication Diabetes mellitus fci insulin use: without equipment operator intermodal yard use Qualified Code(s): E11.9 - Type 2 diabetes mellitus without complications Code(s): E11.9 - Type 2 diabetes mellitus without complications Status: Acute Assessment and Plan: Hemoglobin A1c 8.4 on 08/18/2019. Glucose reviewed on 08/26/2019 with acceptable readings. Will resume home metformin as low-fat diet resumed.
[2019-08-26 16:10] LABS: Partial Thromboplastin Time 27.5 SECONDS (22.3-36.8)
[2019-08-26] MEDS: HEPARIN SODIUM 5,000 UNITS/ML VIAL 6500 UNITS IV PUSH (16:45)
[2019-08-26] MEDS: HEPARIN SOD/D5W 100 UNITS/ML 25,000 UNITS/250 ML BAG 16 UNITS IV CONT (16:46)
[2019-08-26] MEDS: metFORMIN HCL 500 MG TABLET 1000 MG PO (17:46)
[2019-08-26] MEDS: GABAPENTIN 400 MG CAPSULE 800 MG PO ×2 (17:46→21:26)
[2019-08-26] MEDS: METOPROLOL TARTRATE 25 MG TABLET PO (17:49)
[2019-08-26 18:13] LABS: Glucose Point of Care 182 (65-105)
[2019-08-26] MEDS: PANTOPRAZOLE 40 MG TABLET PO (19:00)
[2019-08-26 22:40] LABS: Glucose Point of Care 173 (65-105)
[2019-08-26 23:30] LABS: Partial Thromboplastin Time 124.5 SECONDS (22.3-36.8)
[2019-08-27] VITALS (8 sets, daily range): BP systolic 107–118; BP diastolic 68–81; PULSE 70–96; RESP 16–18; TEMP 36.5–36.7; O2SAT 94–100
[2019-08-27] MEDS: HYDROMORPHONE HCL 1 MG/ML INJ IV PUSH ×8 (00:33→22:16)
[2019-08-27] MEDS: metroNIDAZOLE 500 MG/ISO 100ML 500 MG/100 ML BAG 100 MG IVPB ×2 (02:21→10:27)
[2019-08-27 06:10] LABS: Prothrombin Time 12.6 Seconds (11.1-14.7)
[2019-08-27 06:12] LABS: Partial Thromboplastin Time 90.8 SECONDS (22.3-36.8)
[2019-08-27 06:15] LABS: Alanine Aminotransferase 42 U/L (4-35); Albumin Level 3.6 g/dL (3.5-5.1); Alkaline Phosphatase 121 U/L (38-126); Aspartate Amino Transferase 42 U/L (14-36); Bilirubin,Total 0.2 mg/dL (0.2-1.3); Blood Urea Nitrogen 11 mg/dL (7-17); Calcium 8.9 mg/dL (8.4-10.2); Carbon Dioxide 34 mmol/L (22-30); Chloride 98 mmol/L (98-107); Estimated CRCL calculation 86 ml/min; Estimated Glomerular Filt Rate > 60; Glucose 170 mg/dL (65-105); Potassium 4.3 mmol/L (3.4-5.0); Sodium 137 mmol/L (137-145)
[2019-08-27] MEDS: HEPARIN SOD/D5W 100 UNITS/ML 25,000 UNITS/250 ML BAG 14 UNITS IV CONT (06:21)
[2019-08-27] MEDS: GABAPENTIN 400 MG CAPSULE 800 MG PO ×3 (06:21→21:45)
--- NOTE | 2019-08-27 08:01 | WPDANESPN ---
Anes - Prog Note Post-Op Date/Time: 08/27/19 08:01 Cardiovascular status: normal Respiratory status: normal Airway patency: baseline Mental status: baseline Post-Op hydration status: normal Vital Signs: Last Vital Signs Temp 36.6 C 08/27/19 05:54 Pulse 88 08/27/19 05:54 Resp 18 08/27/19 05:54 BP 118/80 08/27/19 05:54 Pulse Ox 96 08/27/19 05:54 I/O: Intake & Output 08/26/19 08/27/19 08/27/19 23:59 07:59 15:59 Intake Total 820 2110 Output Total 2000 Balance 820 110 Laboratory Tests 08/26/19 04:19 08/27/19 05:50 08/26/19 08/26/19 08/26/19 11:50 15:42 17:53 PT INR APTT 27.5 Sodium Potassium Chloride Carbon Dioxide BUN Creatinine Estim Creat Clear Calc Estimated GFR Glucose POC Capillary Glucose 157 H 182 H Calcium Total Bilirubin AST ALT Alkaline Phosphatase Total Protein Albumin 08/26/19 08/26/19 08/27/19 21:25 23:12 05:50 PT INR APTT 124.5 H Sodium 137 Potassium 4.3 Chloride 98 Carbon Dioxide 34 H BUN 11 Creatinine 0.90 Estim Creat Clear Calc 86 Estimated GFR > 60 Glucose 170 H POC Capillary Glucose 173 H Calcium 8.9 Total Bilirubin 0.2 AST 42 H ALT 42 H Alkaline Phosphatase 121 Total Protein 7.0 Albumin 3.6 08/27/19 05:50 PT 12.6 INR 1.0 APTT 90.8 H Sodium Potassium Chloride Carbon Dioxide BUN Creatinine Estim Creat Clear Calc Estimated GFR Glucose POC Capillary Glucose Calcium Total Bilirubin AST ALT Alkaline Phosphatase Total Protein Albumin Post-procedural complaints: none Patient Feedback: Patient satisfied with anesthetic care.
[2019-08-27] MEDS: HYOSCYAMINE SULFATE 0.125 MG TABLET 0.25 MG PO ×3 (08:21→16:31)
[2019-08-27] MEDS: FLUOXETINE HCL 20 MG CAP 80 MG PO (08:21)
[2019-08-27] MEDS: metFORMIN HCL 500 MG TABLET 1000 MG PO ×2 (08:21→16:31)
[2019-08-27] MEDS: PANTOPRAZOLE 40 MG TABLET PO (08:22)
[2019-08-27] MEDS: SPIRONOLACTONE 25 MG TABLET PO (08:22)
[2019-08-27] MEDS: FUROSEMIDE 80 MG TABLET PO (08:23)
[2019-08-27] MEDS: METOPROLOL TARTRATE 25 MG TABLET PO ×2 (08:23→16:31)
[2019-08-27] MEDS: INSULIN ASPART (*BKC) 100 UNITS/ML SUB-Q ×2 (08:28→17:32)
[2019-08-27 09:29] LABS: Glucose Point of Care 213 (65-105)
--- NOTE | 2019-08-27 11:44 | PM.IMPN ---
Progress Note: A&P Assessment and Plan (1) Intractable right upper quadrant abdominal pain: Code(s): R10.11 - Right upper quadrant pain Status: Acute Assessment and Plan: Pain in the epigastric/RUQ area. Similar to pain she has had in the past when needed ERCP. GI consulted here and appreciate input. Did have EGD done by Dr. Dai on 08/26/2019. No ERCP done as not felt needed. EGD did show gastritis. AST and ALT both 42 today. Now on low-fat diet. Discussed with patient working on ways to help with pain which is recurrence. Gabapentin increased yesterday. Scheduled Flexeril added today. Have IV Dilaudid but no plan to send home with oral narcotics. MiraLax added for constipation. Will continue to monitor. (2) Gastritis: Qualifiers: Chronicity: unspecified Gastritis bleeding: without bleeding Gastritis type: unspecified gastritis Qualified Code(s): K29.70 - Gastritis, unspecified, without bleeding Code(s): K29.70 - Gastritis, unspecified, without bleeding Status: Acute Assessment and Plan: As seen on EGD. Continue Protonix. Tolerating diet. 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 EGD as noted above. Adjusting medication to help with pain issues. (4) Acute diverticulitis: Code(s): K57.92 - Diverticulitis of intestine, part unspecified, without perforation or abscess without bleeding Status: Acute Assessment and Plan: CT abdomen/pelvis with mild uncomplicated descending/sigmoid diverticulitis. Does not appear to be causing more acute abdominal pain. WBC is normal. Did receive IV Levaquin in ER. Remains on IV metronidazole but will transition to oral. Continue to follow. (5) History of pulmonary embolism: Code(s): Z86.711 - Personal history of pulmonary embolism Status: Acute Assessment and Plan: History of multiple upper extremity DVTs, lower extremity DVTs and pulmonary embolism. With EGD completed and approval GI, will home warfarin resumed at 9 mg on 08/26/2019. INR only 1.0 today. Continue heparin bridge until INR therapeutic. Will continue current dose of warfarin. (6) Hypertension associated with diabetes: Code(s): E11.59 - Type 2 diabetes mellitus with other circulatory complications; I10 - Essential (primary) hypertension Status: Acute Assessment and Plan: Blood pressure reviewed on 08/27/2019 with readings stable. Continue home lisinopril and metoprolol. Will continue to monitor. (7) DM2 (diabetes mellitus, type 2): Qualifiers: Diabetes mellitus complication status: without complication Diabetes mellitus intermission coordinator insulin use: without residential use Qualified Code(s): E11.9 - Type 2 diabetes mellitus without complications Code(s): E11.9 - Type 2 diabetes mellitus without complications Status: Acute Assessment and Plan: Hemoglobin A1c 8.4 on 08/18/2019. Glucose reviewed on 08/27/2019 and stable. Continue home metformin. Will continue to monitor. Hypoglycemia protocol remains in place. Sliding scale insulin available if needed. (8) Diastolic dysfunction with heart failure: Qualifiers: Heart failure chronicity: chronic Qualified Code(s): I50.32 - Chronic diastolic (congestive) heart failure Code(s): I50.30 - Unspecified diastolic (congestive) heart failure Status: Acute Assessment and Plan: Clinically euvolemic. Lisinopril, metoprolol and spironolactone all resumed. On room air. Will monitor. Time Spent With Patient Time with patient: 15 - 25 minutes Subjective Da
[2019-08-27] MEDS: lisinopriL 5 MG TABLET PO (12:13)
[2019-08-27] MEDS: polyethylene glycoL 3350 17 GM POWD.PACK PO (12:13)
[2019-08-27 12:15] LABS: Partial Thromboplastin Time 78.2 SECONDS (22.3-36.8)
[2019-08-27 12:47] LABS: Glucose Point of Care 174 (65-105)
[2019-08-27] MEDS: CYCLOBENZAPRINE HCL 10 MG TABLET PO ×2 (14:46→21:45)
[2019-08-27] MEDS: FLUCONAZOLE 150 MG TABLET PO (15:53)
[2019-08-27 17:43] LABS: Glucose Point of Care 201 (65-105)
[2019-08-27 20:54] LABS: Glucose Point of Care 113 (65-105)
[2019-08-27] MEDS: metroNIDAZOLE 250 MG TABLET 500 MG PO (21:45)
[2019-08-27] MEDS: ONDANSETRON INJ 4 MG/2 ML VIAL IV PUSH (21:49)
[2019-08-28] VITALS (8 sets, daily range): BP systolic 106–125; BP diastolic 64–78; PULSE 78–92; RESP 16–20; TEMP 36.4–36.8; O2SAT 93–100
[2019-08-28] MEDS: HEPARIN SOD/D5W 100 UNITS/ML 25,000 UNITS/250 ML BAG 14 UNITS IV CONT ×2 (00:23→17:54)
[2019-08-28] MEDS: HYDROMORPHONE HCL 1 MG/ML INJ IV PUSH ×6 (01:34→23:19)
[2019-08-28] MEDS: CYCLOBENZAPRINE HCL 10 MG TABLET PO ×3 (05:35→21:31)
[2019-08-28] MEDS: GABAPENTIN 400 MG CAPSULE 800 MG PO ×3 (05:35→21:31)
[2019-08-28] MEDS: metroNIDAZOLE 250 MG TABLET 500 MG PO ×3 (05:35→21:31)
[2019-08-28 05:47] LABS: INR 1.1; Prothrombin Time 13.7 Seconds (11.1-14.7)
[2019-08-28 05:49] LABS: Partial Thromboplastin Time 75.7 SECONDS (22.3-36.8)
[2019-08-28 06:03] LABS: Alanine Aminotransferase 46 U/L (4-35); Albumin Level 3.9 g/dL (3.5-5.1); Alkaline Phosphatase 118 U/L (38-126); Aspartate Amino Transferase 45 U/L (14-36); Bilirubin,Total 0.2 mg/dL (0.2-1.3); Blood Urea Nitrogen 11 mg/dL (7-17); Calcium 9.3 mg/dL (8.4-10.2); Carbon Dioxide 36 mmol/L (22-30); Chloride 96 mmol/L (98-107); Estimated CRCL calculation 71 ml/min; Estimated Glomerular Filt Rate 53; Glucose 175 mg/dL (65-105); Potassium 3.9 mmol/L (3.4-5.0); Sodium 136 mmol/L (137-145)
[2019-08-28 07:08] LABS: Glucose Point of Care 175 (65-105)
[2019-08-28] MEDS: SPIRONOLACTONE 25 MG TABLET PO (08:12)
[2019-08-28] MEDS: FLUOXETINE HCL 20 MG CAP 80 MG PO (08:12)
[2019-08-28] MEDS: FUROSEMIDE 80 MG TABLET PO (08:13)
[2019-08-28] MEDS: HYOSCYAMINE SULFATE 0.125 MG TABLET 0.25 MG PO ×3 (08:13→17:48)
[2019-08-28] MEDS: METOPROLOL TARTRATE 25 MG TABLET PO ×2 (08:13→17:48)
[2019-08-28] MEDS: metFORMIN HCL 500 MG TABLET 1000 MG PO ×2 (08:13→17:48)
[2019-08-28] MEDS: PANTOPRAZOLE 40 MG TABLET PO (08:13)
[2019-08-28] MEDS: lisinopriL 5 MG TABLET PO (08:13)
[2019-08-28] MEDS: polyethylene glycoL 3350 17 GM POWD.PACK PO (08:19)
[2019-08-28] MEDS: INSULIN ASPART (*BKC) 100 UNITS/ML SUB-Q (12:03)
[2019-08-28 12:04] LABS: Glucose Point of Care 234 (65-105)
--- NOTE | 2019-08-28 12:12 | PM.IMPN ---
Progress Note: A&P Assessment and Plan (1) Intractable right upper quadrant abdominal pain: Code(s): R10.11 - Right upper quadrant pain Status: Acute Assessment and Plan: Similar to pain she has had in the past when needed ERCP. GI consulted here and appreciate input. Did have EGD done by Dr. Dai on 08/26/2019. No ERCP done as not felt needed. EGD did show gastritis. AST 45 and ALT 46 today. Discussed situation again with patient. Recommended seeing biliary specialist as outpatient since has had recurring issues over past 5 years. Remains on low-fat diet. Continue to work with medications while here. Continue increased gabapentin and scheduled Flexeril. Will decrease IV Dilaudid to every 4 hours. Decrease IV Benadaryl to every 6 hours. No plan to send home with oral narcotics at discharge. Add Dulcolax as still no bowel movement with MiraLax. Will continue to monitor. (2) Gastritis: Qualifiers: Chronicity: unspecified Gastritis bleeding: without bleeding Gastritis type: unspecified gastritis Qualified Code(s): K29.70 - Gastritis, unspecified, without bleeding Code(s): K29.70 - Gastritis, unspecified, without bleeding Status: Acute Assessment and Plan: As seen on EGD. Continue Protonix. Tolerating low-fat diet. 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 EGD as noted above. Continue treatment as noted above. (4) Acute diverticulitis: Code(s): K57.92 - Diverticulitis of intestine, part unspecified, without perforation or abscess without bleeding Status: Acute Assessment and Plan: CT abdomen/pelvis with mild uncomplicated descending/sigmoid diverticulitis. Does not appear to be causing more acute abdominal pain. WBC is normal. Did receive IV Levaquin in ER. Continue oral metronidazole. Continue to follow. (5) History of pulmonary embolism: Code(s): Z86.711 - Personal history of pulmonary embolism Status: Acute Assessment and Plan: History of multiple upper extremity DVTs, lower extremity DVTs and pulmonary embolism. With EGD completed and approval GI, home warfarin resumed at 9 mg on 08/26/2019. INR only up to 1.1 today. Increase warfarin to 10 mg today. Continue heparin bridge until INR therapeutic. Will continue to monitor INR and adjust warfarin as needed. Home when INR therapeutic. (6) Hypertension associated with diabetes: Code(s): E11.59 - Type 2 diabetes mellitus with other circulatory complications; I10 - Essential (primary) hypertension Status: Acute Assessment and Plan: Blood pressure reviewed on 08/28/2019 and remains stable. Continue home lisinopril and metoprolol. Will continue to monitor. 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 Glucose reviewed on 08/28/2019. Remains acceptable. Continue home metformin. Will continue to monitor. Hypoglycemia protocol remains in place. Sliding scale insulin available if needed. (8) Diastolic dysfunction with heart failure: Qualifiers: Heart failure chronicity: chronic Qualified Code(s): I50.32 - Chronic diastolic (congestive) heart failure Code(s): I50.30 - Unspecified diastolic (congestive) heart failure Statu
[2019-08-28] MEDS: BISACODYL 5 MG TABLET EC PO (15:15)
[2019-08-28 16:48] LABS: Glucose Point of Care 187 (65-105)
[2019-08-28] MEDS: WARFARIN (*PBKC) 10 MG TABLET PO (17:49)
[2019-08-28 20:48] LABS: Glucose Point of Care 225 (65-105)
[2019-08-29] VITALS (7 sets, daily range): BP systolic 103–117; BP diastolic 66–81; PULSE 77–92; RESP 16–18; TEMP 36.2–36.5; O2SAT 93–98
[2019-08-29] MEDS: HYDROMORPHONE HCL 1 MG/ML INJ IV PUSH ×5 (04:36→22:10)
[2019-08-29 05:40] LABS: Blood Urea Nitrogen 12 mg/dL (7-17); Calcium 9.5 mg/dL (8.4-10.2); Carbon Dioxide 34 mmol/L (22-30); Chloride 95 mmol/L (98-107); Estimated CRCL calculation 96 ml/min; Estimated Glomerular Filt Rate > 60; Glucose 172 mg/dL (65-105); Sodium 135 mmol/L (137-145)
[2019-08-29 05:47] LABS: INR 1.2; Prothrombin Time 14.9 Seconds (11.1-14.7)
[2019-08-29 05:48] LABS: Partial Thromboplastin Time 80.4 SECONDS (22.3-36.8)
[2019-08-29] MEDS: GABAPENTIN 400 MG CAPSULE 800 MG PO ×3 (06:01→22:09)
[2019-08-29] MEDS: CYCLOBENZAPRINE HCL 10 MG TABLET PO ×3 (06:01→22:09)
[2019-08-29] MEDS: metroNIDAZOLE 250 MG TABLET 500 MG PO ×3 (06:02→22:16)
[2019-08-29 06:14] LABS: Glucose Point of Care 176 (65-105)
[2019-08-29] MEDS: FLUOXETINE HCL 20 MG CAP 80 MG PO (08:31)
[2019-08-29] MEDS: PANTOPRAZOLE 40 MG TABLET PO (08:31)
[2019-08-29] MEDS: HYOSCYAMINE SULFATE 0.125 MG TABLET 0.25 MG PO ×3 (08:32→16:55)
[2019-08-29] MEDS: lisinopriL 5 MG TABLET PO (08:33)
[2019-08-29] MEDS: FUROSEMIDE 80 MG TABLET PO (08:33)
[2019-08-29] MEDS: SPIRONOLACTONE 25 MG TABLET PO (08:34)
[2019-08-29] MEDS: METOPROLOL TARTRATE 25 MG TABLET PO ×2 (08:34→16:55)
[2019-08-29 10:12] LABS: Glucose Point of Care 198 (65-105)
[2019-08-29] MEDS: metFORMIN HCL 500 MG TABLET 1000 MG PO ×2 (10:27→17:46)
[2019-08-29] MEDS: polyethylene glycoL 3350 17 GM POWD.PACK PO ×2 (10:27→16:55)
--- NOTE | 2019-08-29 12:56 | PM.IMPN ---
Progress Note: A&P Assessment and Plan (1) Intractable right upper quadrant abdominal pain: Code(s): R10.11 - Right upper quadrant pain Status: Acute Assessment and Plan: Similar to pain she has had in the past when needed ERCP. GI consulted here and appreciate input. Did have EGD done by Dr. Dai on 08/26/2019. No ERCP done as not felt needed. EGD did show gastritis. AST 45 and ALT 46 on 08/28/2019 and stable. Recommended seeing biliary specialist as outpatient since has had recurring issues over past 5 years. Continue low-fat diet. Continue to work with medications while here. Continue increased gabapentin and scheduled Flexeril. Continue IV Dilaudid at every 4 hours. Continue IV Benadaryl at every 6 hours. No plan to send home with oral narcotics at discharge. Increase MiraLax to bid. Continue Dulcolax as needed. Will add Metamucil bid. Will continue to monitor. Hopefully, home soon. (2) Gastritis: Qualifiers: Chronicity: unspecified Gastritis bleeding: without bleeding Gastritis type: unspecified gastritis Qualified Code(s): K29.70 - Gastritis, unspecified, without bleeding Code(s): K29.70 - Gastritis, unspecified, without bleeding Status: Acute Assessment and Plan: As seen on EGD. Continue Protonix. Tolerating low-fat diet. 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 EGD as noted above. Will continue treatment as noted above. (4) Acute diverticulitis: Code(s): K57.92 - Diverticulitis of intestine, part unspecified, without perforation or abscess without bleeding Status: Acute Assessment and Plan: CT abdomen/pelvis with mild uncomplicated descending/sigmoid diverticulitis. Does not appear to be causing more acute abdominal pain. WBC is normal. Did receive IV Levaquin in ER. Continue oral metronidazole. Continue to follow. (5) History of pulmonary embolism: Code(s): Z86.711 - Personal history of pulmonary embolism Status: Acute Assessment and Plan: History of multiple upper extremity DVTs, lower extremity DVTs and pulmonary embolism. With EGD completed and approval GI, home warfarin resumed at 9 mg on 08/26/2019. INR 1.2 today. Increase warfarin to 12 mg today. Continue heparin bridge until INR therapeutic. Will continue to monitor INR and adjust warfarin as needed. Home when INR therapeutic. (6) URI (upper respiratory infection): Qualifiers: URI type: unspecified URI Qualified Code(s): J06.9 - Acute upper respiratory infection, unspecified Code(s): J06.9 - Acute upper respiratory infection, unspecified Status: Acute Assessment and Plan: Most likely viral. Will check influenza swab as well as Strep screen as she has been in hospital. Treat symptomatically for now. (7) Hypertension associated with diabetes: Code(s): E11.59 - Type 2 diabetes mellitus with other circulatory complications; I10 - Essential (primary) hypertension Status: Acute Assessment and Plan: Blood pressure reviewed on 08/29/2019. Remains controlled. Continue home lisinopril and metoprolol. Will continue to monitor. (8) DM2 (diabetes mellitus, type 2): Qualifiers: Diabetes mellitus complication status: without complication Diabetes mellitus half-way insulin use: without half-way use Qualified Code(s): E11.9 - Type 2 diabetes mellitus without complications Code(s): E11.9 - Type 2 diabetes mellitus without complications Status: Acute Assessment and Plan: Hemoglobin A1c 8.4 on 08/18/2019. Glucose reviewed on
[2019-08-29] MEDS: HEPARIN SOD/D5W 100 UNITS/ML 25,000 UNITS/250 ML BAG 14 UNITS IV CONT (13:19)
[2019-08-29] MEDS: BENZOCAINE/MENTHOL (*BKC) 18 EA LOZENGE 1 LOZENGE PO ×3 (13:42→22:14)
[2019-08-29] MEDS: PSYLLIUM POWDER PACKET 1 PACKET PO ×2 (13:44→20:16)
[2019-08-29 14:36] LABS: Glucose Point of Care 164 (65-105)
[2019-08-29] MEDS: BISACODYL 5 MG TABLET EC PO (16:53)
[2019-08-29] MEDS: WARFARIN (*PBKC) 4 MG TABLET 12 MG PO (16:54)
[2019-08-29 17:00] LABS: Influenza Control Positive
[2019-08-29 18:46] LABS: Glucose Point of Care 164 (65-105)
[2019-08-30] VITALS (8 sets, daily range): BP systolic 107–122; BP diastolic 66–79; PULSE 83–90; RESP 16–20; TEMP 36.1–36.7; O2SAT 93–98
[2019-08-30] MEDS: HYDROMORPHONE HCL 1 MG/ML INJ IV PUSH ×6 (02:11→22:00)
[2019-08-30 05:36] LABS: Glucose Point of Care 128 (65-105)
[2019-08-30 05:44] LABS: Hematocrit 40.6 % (37.0-47.0); Mean Corpuscular Hemoglobin 27.3 pg (26-34); Mean Corpuscular Volume 85.3 fl (80-100); Platelet Count Result 288 k/mm3 (150-375); Red Blood Count 4.76 M/mm3 (4.2-5.4); Red Cell Distribution Width 14.8 % (11.5-14.5); White Blood Count 10.9 K/mm3 (4.5-10.0)
[2019-08-30 05:49] LABS: INR 1.7; Prothrombin Time 19.3 Seconds (11.1-14.7)
[2019-08-30 05:50] LABS: Alanine Aminotransferase 35 U/L (4-35); Albumin Level 3.9 g/dL (3.5-5.1); Alkaline Phosphatase 107 U/L (38-126); Aspartate Amino Transferase 34 U/L (14-36); Bilirubin,Total 0.2 mg/dL (0.2-1.3); Blood Urea Nitrogen 12 mg/dL (7-17); Calcium 9.1 mg/dL (8.4-10.2); Carbon Dioxide 34 mmol/L (22-30); Chloride 93 mmol/L (98-107); Estimated CRCL calculation 86 ml/min; Estimated Glomerular Filt Rate > 60; Glucose 136 mg/dL (65-105); Potassium 4.2 mmol/L (3.4-5.0); Sodium 133 mmol/L (137-145)
[2019-08-30] MEDS: CYCLOBENZAPRINE HCL 10 MG TABLET PO ×3 (06:12→22:00)
[2019-08-30] MEDS: GABAPENTIN 400 MG CAPSULE 800 MG PO ×3 (06:14→22:00)
[2019-08-30] MEDS: metroNIDAZOLE 250 MG TABLET 500 MG PO ×3 (06:14→22:00)
[2019-08-30] MEDS: HEPARIN SOD/D5W 100 UNITS/ML 25,000 UNITS/250 ML BAG 14 UNITS IV CONT (06:18)
[2019-08-30] MEDS: BENZOCAINE/MENTHOL (*BKC) 18 EA LOZENGE 1 LOZENGE PO (06:20)
[2019-08-30 06:53] LABS: Glucose Point of Care 135 (65-105)
[2019-08-30] MEDS: PSYLLIUM POWDER PACKET 1 PACKET PO (08:58)
[2019-08-30] MEDS: metFORMIN HCL 500 MG TABLET 1000 MG PO ×2 (08:58→16:20)
[2019-08-30] MEDS: FLUOXETINE HCL 20 MG CAP 80 MG PO (08:58)
[2019-08-30] MEDS: METOPROLOL TARTRATE 25 MG TABLET PO ×2 (08:58→16:23)
[2019-08-30] MEDS: lisinopriL 5 MG TABLET PO (08:59)
[2019-08-30] MEDS: SPIRONOLACTONE 25 MG TABLET PO (08:59)
[2019-08-30] MEDS: HYOSCYAMINE SULFATE 0.125 MG TABLET 0.25 MG PO ×3 (08:59→16:20)
[2019-08-30] MEDS: FUROSEMIDE 80 MG TABLET PO (08:59)
[2019-08-30] MEDS: polyethylene glycoL 3350 17 GM POWD.PACK PO ×2 (09:02→16:20)
[2019-08-30] MEDS: PANTOPRAZOLE 40 MG TABLET PO (09:03)
--- NOTE | 2019-08-30 10:09 | PM.IMPN ---
Progress Note: A&P Assessment and Plan (1) Intractable right upper quadrant abdominal pain: Code(s): R10.11 - Right upper quadrant pain Status: Acute Assessment and Plan: Similar to pain she has had in the past when needed ERCP. GI consulted here and appreciate input. Did have EGD done by Dr. Dai on 08/26/2019. No ERCP done as not felt needed. EGD did show gastritis. AST 34 and ALT 35 on 08/30/2019 and stable. Recommend seeing biliary specialist as outpatient since has had recurring issues over past 5 years. Continue low-fat diet. Continue to work with medications while here. Continue increased gabapentin and scheduled Flexeril. Continue IV Dilaudid at every 4 hours. Continue IV Benadaryl at every 6 hours. No plan to send home with oral narcotics at discharge. Continue MiraLax and Metamucil to bid. Continue Dulcolax as needed. Patient aware may have enema if still no bowel movement later today. Patient also aware narcotic use will cause constipation. Will continue to monitor. Hopefully, home tomorrow. (2) Gastritis: Qualifiers: Gastritis type: unspecified gastritis Chronicity: unspecified Gastritis bleeding: without bleeding Qualified Code(s): K29.70 - Gastritis, unspecified, without bleeding Code(s): K29.70 - Gastritis, unspecified, without bleeding Status: Acute Assessment and Plan: As seen on EGD. Stable. Continue Protonix. Tolerating low-fat diet. 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 EGD as noted above. Will continue treatment as noted above. (4) Acute diverticulitis: Code(s): K57.92 - Diverticulitis of intestine, part unspecified, without perforation or abscess without bleeding Status: Acute Assessment and Plan: CT abdomen/pelvis with mild uncomplicated descending/sigmoid diverticulitis. Does not appear to be causing more acute abdominal pain. WBC 10.9 today. Did receive IV Levaquin in ER. Continue oral metronidazole. Continue to follow. (5) History of pulmonary embolism: Code(s): Z86.711 - Personal history of pulmonary embolism Status: Acute Assessment and Plan: History of multiple upper extremity DVTs, lower extremity DVTs and pulmonary embolism. With EGD completed and approval GI, home warfarin resumed on 08/26/2019. INR up to 1.7 today. Continue warfarin at 12 mg today. Continue heparin bridge until INR therapeutic. Will continue to monitor INR and adjust warfarin as needed. Hopefully, INR will be therapeutic tomorrow and can discharge home. (6) URI (upper respiratory infection): Qualifiers: URI type: unspecified URI Qualified Code(s): J06.9 - Acute upper respiratory infection, unspecified Code(s): J06.9 - Acute upper respiratory infection, unspecified Status: Acute Assessment and Plan: Most likely viral. Influenza screen and Strep screen both negative. (7) Hypertension associated with diabetes: Code(s): E11.59 - Type 2 diabetes mellitus with other circulatory complications; I10 - Essential (primary) hypertension Status: Acute Assessment and Plan: Blood pressure reviewed on 08/30/2019. Blood pressure remains controlled. Continue home lisinopril and metoprolol. Will continue to monitor. (8) DM2 (diabetes mellitus, type 2): Qualifiers: Diabetes mellitus meterman insulin use: without long-term use Diabetes mellitus complication status: without complication Qualified Code(s): E11.9 - Type 2 diabetes mellitus without complications Code(s): E11.9 - Type 2 diabetes mellitus without
[2019-08-30 12:08] LABS: Glucose Point of Care 239 (65-105)
[2019-08-30] MEDS: INSULIN ASPART (*BKC) 100 UNITS/ML SUB-Q (13:01)
[2019-08-30] MEDS: WARFARIN (*PBKC) 4 MG TABLET 12 MG PO (16:21)
[2019-08-30 16:43] LABS: Glucose Point of Care 154 (65-105)
[2019-08-30] MEDS: ONDANSETRON INJ 4 MG/2 ML VIAL IV PUSH ×2 (18:01→22:00)
[2019-08-30 20:02] LABS: Partial Thromboplastin Time 90.8 SECONDS (22.3-36.8)
[2019-08-30 21:18] LABS: Glucose Point of Care 148 (65-105)
[2019-08-31] MEDS: HEPARIN SOD/D5W 100 UNITS/ML 25,000 UNITS/250 ML BAG 14 UNITS IV CONT (00:08)
[2019-08-31 02:00] VITALS: BP 120/78; PULSE 95; RESP 20; TEMP 36.4; O2SAT 96
[2019-08-31] MEDS: HYDROMORPHONE HCL 1 MG/ML INJ IV PUSH ×2 (03:04→07:37)
[2019-08-31] MEDS: ONDANSETRON INJ 4 MG/2 ML VIAL IV PUSH ×2 (03:04→07:37)
[2019-08-31 05:59] VITALS: BP 127/84; PULSE 87; RESP 20; TEMP 37.1; O2SAT 96
[2019-08-31 06:00] LABS: INR 2.1; Prothrombin Time 23.2 Seconds (11.1-14.7)
[2019-08-31] MEDS: metroNIDAZOLE 250 MG TABLET 500 MG PO (06:04)
[2019-08-31] MEDS: CYCLOBENZAPRINE HCL 10 MG TABLET PO (06:04)
[2019-08-31] MEDS: GABAPENTIN 400 MG CAPSULE 800 MG PO (06:04)
[2019-08-31] MEDS: PSYLLIUM POWDER PACKET 1 PACKET PO (08:51)
[2019-08-31 08:54] VITALS: PULSE 87
[2019-08-31] MEDS: SPIRONOLACTONE 25 MG TABLET PO (08:54)
[2019-08-31] MEDS: PANTOPRAZOLE 40 MG TABLET PO (08:54)
[2019-08-31] MEDS: polyethylene glycoL 3350 17 GM POWD.PACK PO (08:54)
[2019-08-31] MEDS: metFORMIN HCL 500 MG TABLET 1000 MG PO (08:54)
[2019-08-31] MEDS: lisinopriL 5 MG TABLET PO (08:54)
[2019-08-31] MEDS: FUROSEMIDE 80 MG TABLET PO (08:54)
[2019-08-31] MEDS: METOPROLOL TARTRATE 25 MG TABLET PO (08:54)
[2019-08-31] MEDS: HYOSCYAMINE SULFATE 0.125 MG TABLET 0.25 MG PO (08:55)
[2019-08-31] MEDS: FLUOXETINE HCL 20 MG CAP 80 MG PO (08:55)
[2019-08-31 09:41] LABS: Glucose Point of Care 140 (65-105)
[2019-08-31 10:00] VITALS: BP 109/50; PULSE 96; RESP 16; TEMP 37.2; O2SAT 94
--- NOTE | 2019-08-31 10:02 | PM.IMPN ---
Progress Note: A&P Assessment and Plan (1) Intractable right upper quadrant abdominal pain: Code(s): R10.11 - Right upper quadrant pain Status: Acute Assessment and Plan: Similar to pain she has had in the past when needed ERCP. GI consulted here and appreciate input. Did have EGD done by Dr. Dai on 08/26/2019. No ERCP done as not felt needed. EGD did show gastritis. AST 34 and ALT 35 on 08/30/2019 and stable. Recommend seeing biliary specialist as outpatient since has had recurring issues over past 5 years. Continue low-fat diet. Continue increased gabapentin and scheduled Flexeril. Has been on IV Dilaudid at every 4 hours and IV Benadaryl at every 6 hours while here but no plan to send home with oral narcotics at discharge. Continue MiraLax and Metamucil to bid. Continue Dulcolax as needed. Discharge home today. (2) Gastritis: Qualifiers: Gastritis type: unspecified gastritis Chronicity: unspecified Gastritis bleeding: without bleeding Qualified Code(s): K29.70 - Gastritis, unspecified, without bleeding Code(s): K29.70 - Gastritis, unspecified, without bleeding Status: Acute Assessment and Plan: As seen on EGD. Stable. Continue Protonix. Tolerating low-fat diet. 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 EGD as noted above. Will continue treatment as noted above. (4) Acute diverticulitis: Code(s): K57.92 - Diverticulitis of intestine, part unspecified, without perforation or abscess without bleeding Status: Acute Assessment and Plan: CT abdomen/pelvis with mild uncomplicated descending/sigmoid diverticulitis. Does not appear to be causing more acute abdominal pain. WBC 10.9 today. Did receive IV Levaquin in ER. Will continue oral metronidazole to complete 7 day course. Follow as outpatient. (5) History of pulmonary embolism: Code(s): Z86.711 - Personal history of pulmonary embolism Status: Acute Assessment and Plan: History of multiple upper extremity DVTs, lower extremity DVTs and pulmonary embolism. With EGD completed and approval GI, home warfarin resumed on 08/26/2019. INR 2.1 today. Heparin drip stopped. Discussed with patient. Will have her resume home dose of warfarin at 9 mg but recheck in 48 hours. Continued adjustment per her PCP. (6) URI (upper respiratory infection): Qualifiers: URI type: unspecified URI Qualified Code(s): J06.9 - Acute upper respiratory infection, unspecified Code(s): J06.9 - Acute upper respiratory infection, unspecified Status: Acute Assessment and Plan: Most likely viral. Influenza screen and Strep screen both negative. Symptomatic treatment. (7) Hypertension associated with diabetes: Code(s): E11.59 - Type 2 diabetes mellitus with other circulatory complications; I10 - Essential (primary) hypertension Status: Acute Assessment and Plan: Blood pressure reviewed on 08/31/2019. Blood pressure remains controlled. Continue home lisinopril and metoprolol. (8) DM2 (diabetes mellitus, type 2): Qualifiers: Diabetes mellitus roasterman insulin use: without detention use Diabetes mellitus complication status: without complication Qualified Code(s): E11.9 - Type 2 diabetes mellitus without complications Code(s): E11.9 - Type 2 diabetes mellitus without complications Status: Acute Assessment and Plan: Hemoglobin A1c 8.4 on 08/18/2019. Glucose reviewed on 08/31/2019 and controlled. Continue home metformin. (9) Diastolic dysfunction with heart failure:
--- NOTE | 2019-08-31 17:17 | PM.DS ---
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: Code(s): K83.8 - Other specified diseases of biliary tract Status: Acute (4) Acute diverticulitis: Code(s): K57.92 - Diverticulitis of intestine, part unspecified, without perforation or abscess without bleeding Status: Acute (5) History of pulmonary embolism: Code(s): Z86.711 - Personal history of pulmonary embolism Status: Acute (6) URI (upper respiratory infection): Qualifiers: URI type: unspecified URI Qualified Code(s): J06.9 - Acute upper respiratory infection, unspecified Code(s): J06.9 - Acute upper respiratory infection, unspecified Status: Acute (7) Hypertension associated with diabetes: Code(s): E11.59 - Type 2 diabetes mellitus with other circulatory complications; I10 - Essential (primary) hypertension Status: Acute (8) DM2 (diabetes mellitus, type 2): Qualifiers: Diabetes mellitus terminal makeup operator insulin use: without snf use Diabetes mellitus complication status: without complication Qualified Code(s): E11.9 - Type 2 diabetes mellitus without complications Code(s): E11.9 - Type 2 diabetes mellitus without complications Status: Acute (9) Diastolic dysfunction with heart failure: Qualifiers: Heart failure chronicity: chronic Qualified Code(s): I50.32 - Chronic diastolic (congestive) heart failure Code(s): I50.30 - Unspecified diastolic (congestive) heart failure Status: Acute DS: Summary Hospital Course Reason for hospitalization: Epigastric pain x3 1/2 to 4 weeks with nausea, vomiting and fever. Hospital Course: Date of Service of Discharge: August 31, 2019. 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 Patient reports 5 years ago she was hospitalized at [facility] in [facility] at which time she was evaluated by gastroenterology. She eventually had ERCP showing multiple stones and sludge with stent placed. One year later stent was removed at which time some sludge was also present. She has had periodic problems similar pain at least once a year since that time. Current episode did began 3-4 weeks ago. Pain is become more consistent in the past week. She reports her stool has now been a fluorescent green. She also began having nausea and vomiting with hematemesis x1. Patient reports fever up to 101 along with cold sweats. Gallbladder removal occurred 20 years ago prior to 1st episode of sludge issues. In the emergency room, she was noted to have mild diverticulitis on imaging but patient with no significant pain in the lower abdomen. No chest pain or shortness of breath. Patient with generalized itching. With her findings, she was admitted for further evaluation and treatment. Course in Hospital: Patient was admitted to the medical floor where she remained for the duration of her stay. She initially was made NPO and started on IV fluids. She did have IV Zofran available for nausea. IV Dilaudid was available for pain. She additionally had IV Benadryl added for itching. Initial CT with mild diverticulitis as noted. She did have hepatic ultrasou
== END 2019-08-31 11:12 | disposition home or self-care (01) | DRG 241 ==
LOC: ANHED 18:19 → ANH2MED 22:02
PROVIDERS: Emergency Medicine; Internal Medicine Gastroenterology; Admitting Provider Internal Medicine; Emergency Provider Emergency Medicine; PCP Family Medicine; Visit Provider Hospitalist
PROC: 0DJ08ZZ Inspection of Upper Intestinal Tract, Via Natural or Artificial Opening Endoscopic (ICD-10-PCS; CPT 43235; principal; 2019-08-26 13:15)
DX: K29.00 Acute gastritis without bleeding (principal); K83.8 Other specified diseases of biliary tract; K57.92 Diverticulitis of intestine, part unspecified, without perforation or abscess without bleeding; J06.9 Acute upper respiratory infection, unspecified; E11.59 Type 2 diabetes mellitus with other circulatory complications; I11.0 Hypertensive heart disease with heart failure; I50.32 Chronic diastolic (congestive) heart failure; E11.51 Type 2 diabetes mellitus with diabetic peripheral angiopathy without gangrene; I73.9 Peripheral vascular disease, unspecified; E78.5 Hyperlipidemia, unspecified; F41.9 Anxiety disorder, unspecified; M19.90 Unspecified osteoarthritis, unspecified site; M79.7 Fibromyalgia; Z86.711 Personal history of pulmonary embolism; Z86.718 Personal history of other venous thrombosis and embolism; Z90.49 Acquired absence of other specified parts of digestive tract; Z90.710 Acquired absence of both cervix and uterus; Z98.1 Arthrodesis status; Z79.01 Long term (current) use of anticoagulants
CPT/HCPCS: 36415; 74177; 76705; 80048; 80053; 80076; 81001; 83690; 85025; 85027; 85610; 85730; 87081; 87804; 87880; 96361; 96365; 96366; 96367; 96368; 96375; 96376; 99285; A9270; C9113; G0378; G0379; J0131; J1170; J1200; J1644; J1815; J1956; J2405; J2704; J3360; J7120; Q9967

== ENCOUNTER 2019-12-24 09:37 | Outpatient (CLI) | payer OTHER, SELFPAY ==
[2019-12-24 09:57] LABS: Basophils Absolute Auto 0.06 K/mm3 (0.00-0.10); Basophils Percent Auto 0.6 % (0.0-1.0); Eosinophils Absolute Auto 0.26 K/mm3 (0.02-0.50); Eosinophils Percent Auto 2.5 % (1.0-6.0); Hematocrit 46.3 % (35.0-49.0); Hemoglobin 15.2 g/dL (12.0-15.0); Immature Granulocyte Absolute 0.07 K/mm3 (0.00-0.00); Immature Granulocyte Percent A 0.7 % (0.0-0.0); Lymphocytes Absolute Auto 2.71 K/mm3 (1.10-4.50); Lymphocytes Percent Auto 26.1 % (18.0-42.0); Mean Corpuscular HGB Conc 32.8 g/dL (32.0-36.0); Mean Corpuscular Hemoglobin 27.7 pg (27.0-31.0); Mean Corpuscular Volume 84.5 fL (78.0-102.0); Mean Platelet Volume 9.7 fl (9.2-11.8); Monocytes Absolute Auto 0.71 K/mm3 (0.10-0.90); Monocytes Percent Auto 6.8 % (2.0-11.0); Neutrophils Absolute Auto 6.6 K/mm3 (1.7-7.2); Neutrophils Percent Auto 63.3 % (50.0-70.0); Platelet Count Result 296 K/mm3 (150-420); Red Blood Count 5.48 M/mm3 (4.20-5.40); Red Cell Distribution Width 12.7 % (11.6-14.4); White Blood Count 10.4 K/mm3 (4.8-10.8)
[2019-12-24 09:57] LABS: Add Urine Microscopic? YES; Appearance Urine Clear (Clear); Bilirubin Urine Negative (Negative); Blood Urine Negative (Negative); Color Urine Yellow (Yellow); Glucose Urine UA 2+ (Negative); Ketones Urine Negative (Negative); Leukocyte Esterase Ur Negative (Negative); Nitrate Urine Negative (Negative); Protein Urine Negative (Negative); Specific Grav Ur 1.025 (1.010-1.020); Urobilinogen Urine 0.2 mg/dL (0.2-1.0); pH Urine 5.5 (5.0-8.0)
[2019-12-24 10:14] LABS: Bacteria Urine 3+ /hpf; RBC Urine 0-2 /hpf (0-2); Squamous Epithelial Cell Urine Moderate /hpf (Few)
[2019-12-24 10:16] LABS: INR 4.4; Prothrombin Time 43.3 Seconds (9.64-11.0)
[2019-12-24 10:33] LABS: Hemoglobin A1C 9.8 % (<5.7)
[2019-12-24 10:55] LABS: Alanine Aminotransferase 33 U/L (14-59); Albumin Level 3.5 g/dL (3.4-5.0); Alkaline Phosphatase 109 U/L (46-116); Aspartate Amino Transferase 23 U/L (15-37); Bilirubin,Total 0.3 mg/dL (0.00-1.00); Blood Urea Nitrogen 22 mg/dL (7-18); Calcium 9.1 mg/dL (8.5-10.1); Carbon Dioxide 29 mmol/L (21-32); Chloride 99 mmol/L (98-108); Cholesterol 216 mg/dL (0-200); Estimated Glomerular Filt Rate 53; Glucose 324 mg/dL (70-99); HDL Direct 70 mg/dL (40-60); LDL Cholesterol Calculated 121 mg/dL (<130); Osmolality Calculated 298 mOsm/kg (285-295); Sodium 136 mmol/L (136-145); Total Protein 7.2 g/dL (6.4-8.2); Triglycerides 126 mg/dL (0-150)
[2019-12-24 10:59] LABS: Thyroid Stimulating Hormone Reflex 0.73 u/IU/mL (0.36-3.74)
== END 2019-12-24 09:38 | disposition home or self-care (01) ==
LOC: CHSLAB 09:41
PROVIDERS: PCP Family Medicine; Visit Provider Family Medicine
DX: E03.9 Hypothyroidism, unspecified (principal); E11.9 Type 2 diabetes mellitus without complications; R30.0 Dysuria; Z86.711 Personal history of pulmonary embolism
CPT/HCPCS: 36415; 80053; 80061; 81001; 83036; 84443; 85025; 85610

== ENCOUNTER 2019-12-31 13:08 | Emergency (ER) | payer OTHER, SELFPAY ==
--- NOTE | ~2019-12-31 | CT_ITS ---
EXAMINATION: CT brain wo con DATE: 12/31/2019 14:06 INDICATION: Syncope. TECHNIQUE: Computed tomography (CT) of the head was performed without intravenous contrast. The mA wa s adjusted according to patient size. Iterative reconstruction technique was employed. The dose-lengt h product was 605.33 mGy-cm. COMPARISON: Head CT 08/19/2018 FINDINGS: There is no intracranial hemorrhage, acute infarction, or abnormal intracranial mass lesion . The ventricles are normal in size. The orbits are normal. The paranasal sinuses are clear. The mast oid air cells are normal. IMPRESSION: 1. Normal brain. Reviewed, dictated and finalized at location A. IMPRESSION: 1. Normal brain.
[2019-12-31 13:08] VITALS: BP 146/98; PULSE 111; RESP 20; TEMP 36.9; O2SAT 97
[2019-12-31 13:19] LABS: Glucose Point of Care 207 (65-105)
--- NOTE | 2019-12-31 13:25 | ED.SYNCOPE ---
HPI - Syncope General Chief Complaint: Syncope Stated Complaint: mowing and passed out Time Seen by Provider: 12/31/19 13:25 History of Present Illness HPI narrative: 49-year-old female patient was brought into the ER by the family with chief complaints of passing out. The patient is the main history provider and states that she was outdoors mowing the lawn for a neighbor. She states that she was using the push lawnmower and airway no uneven surfaces. She states that she was out there for approximately 45 minutes and felt very hot lightheaded and nauseated. The next thing she remembers is that she woke up on the ground. She does not recall falling however she is complaining of headache and thinks that she might have hit her head. She is unsure as to how long she was out for. She did call her sister and she was brought in by the 50s to the ER. The patient states that she has multitude of medical problems and is also on Coumadin and is a diabetic. She apparently had 1 small emesis but denies any chest pain. He denies any abdominal pain. She is complaining of headache which is diffuse Related Data Home Medications Medication Instructions Recorded Confirmed furosemide 80 mg PO DAILY 08/26/19 12/31/19 hyoscyamine sulfate 0.125 mg tablet 0.25 mg PO TID 09/27/19 12/31/19 Allergies Allergy/AdvReac Type Severity Reaction Status Date / Time epinephrine Allergy Severe Unknown Verified 12/22/19 08:57 ibuprofen Allergy Intermediate Unknown Verified 12/22/19 08:57 bupropion Allergy Unknown Unknown Verified 12/22/19 08:57 celecoxib Allergy Unknown Unknown Verified 12/22/19 08:57 Sulfa (Sulfonamide Allergy Unknown Unknown Verified 12/22/19 08:57 Antibiotics) tetanus and diphtheria Allergy Unknown Unknown Verified 12/22/19 08:57 toxoids Review of Systems Review of Systems: All systems reviewed & are unremarkable except as noted in HPI and below Constitutional: Constitutional: Reports as per HPI, Denies chills, Reports fatigue, Denies fever(s) and Reports weakness Eyes: Eyes: Reports no additional eye complaints Respiratory: Respiratory: Reports no additional respiratory complaints, Denies chest congestion, Denies cough, Denies dyspnea and Denies wheezing Gastrointestinal: Gastrointestinal: Reports as per HPI, Denies bloating, Denies constipation, Denies heartburn, Denies diarrhea, Reports nausea and Reports vomiting Genitourinary: Genitourinary: Denies urinary incontinence Musculoskeletal: Musculoskeletal: Reports no additional musculoskeletal complaints Integumentary/Breasts: Skin/Breast: Reports as per HPI Neurologic: Reports system reviewed and no additional complaints, except as documented Psychiatric: Psychiatric: Reports no additional psychiatric complaints Endocrine: Endocrine: Reports no additional endocrine complaints Hematologic/Lymphatic: Hematologic/Lymphatic: Reports no additional hematologic/lymphatic complaints Allergic/Immunologic: Allergic/Immunologic: Reports no additional allergic/immunologic complaints [facility] Past Medical History Medical History Anxiety Arthritis Asthma 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 venous thrombosis) (~2015) 03/2000 & 04/2016 Fatty liver Fibromyalgia (~2011) Headache History of angina Hyperlipidemia associated with type 2 diabetes mellitus Hypertension associated with diabetes Kidney stone Major depression, recurrent Medical non-compliance Migraines Obesity, morbid, BMI 40.0-49.9 Ovarian cyst Overweight PCOS (polycystic ovarian syndrome) Peripheral vascular disease Post concussive syndrome (~2017) Pulmonary embolism Renal failure (~2017) Sepsis Sleep-disordered breathing Uterine fibroid Surgical History Ingris
--- NOTE | 2019-12-31 13:31 | ECG_ITS ---
Measurements Intervals Elmer Rate: 99 P: 52 MT: 153 QRS: 4 QRSD: 91 T: -3 QT: 356 QTc: 457 Interpretive Statements SINUS RHYTHM POOR R WAVE PROGRESSION, ANTERIOR LEADS MINIMAL Q WAVES- INFERIOR LEADS BORDERLINE ST-T WAVE ABNORMALITY- INFERIOR LEADS BASELINE ARTIFACT- I, II, III, AVL, AVF BORDERLINE ECG Electronically Signed On 12-31-2019 14:58:06 CDT by Alphonso Martinez D.O.
[2019-12-31] MEDS: MORPHINE SULFATE 2 MG/ML INJ (13:40)
[2019-12-31] MEDS: ONDANSETRON INJ 4 MG/2 ML VIAL IV PUSH (13:40)
[2019-12-31] MEDS: SODIUM CHLORIDE 0.9% IV 1,000 ML 500 ML IV CONT (13:42)
[2019-12-31 13:57] LABS: Basophils Absolute Auto 0.07 K/mm3 (0.00-0.10); Basophils Percent Auto 0.7 % (0.0-1.0); Eosinophils Absolute Auto 0.32 K/mm3 (0.02-0.50); Hematocrit 44.6 % (35.0-49.0); Hemoglobin 14.8 g/dL (12.0-15.0); Immature Granulocyte Absolute 0.05 K/mm3 (0.00-0.00); Immature Granulocyte Percent A 0.5 % (0.0-0.0); Lymphocytes Absolute Auto 2.87 K/mm3 (1.10-4.50); Lymphocytes Percent Auto 27.1 % (18.0-42.0); Mean Corpuscular HGB Conc 33.2 g/dL (32.0-36.0); Mean Corpuscular Hemoglobin 27.4 pg (27.0-31.0); Mean Corpuscular Volume 82.6 fL (78.0-102.0); Mean Platelet Volume 9.6 fl (9.2-11.8); Monocytes Absolute Auto 0.69 K/mm3 (0.10-0.90); Monocytes Percent Auto 6.5 % (2.0-11.0); Neutrophils Absolute Auto 6.6 K/mm3 (1.7-7.2); Neutrophils Percent Auto 62.2 % (50.0-70.0); Platelet Count Result 315 K/mm3 (150-420); Red Cell Distribution Width 12.5 % (11.6-14.4); White Blood Count 10.6 K/mm3 (4.8-10.8)
[2019-12-31 14:14] LABS: INR 1.4
[2019-12-31 14:16] LABS: Alanine Aminotransferase 39 U/L (14-59); Albumin Level 3.6 g/dL (3.4-5.0); Alkaline Phosphatase 107 U/L (46-116); Aspartate Amino Transferase 26 U/L (15-37); Bilirubin,Total 0.6 mg/dL (0.00-1.00); Blood Urea Nitrogen 15 mg/dL (7-18); Calcium 8.9 mg/dL (8.5-10.1); Carbon Dioxide 30 mmol/L (21-32); Estimated Glomerular Filt Rate 54; Glucose 208 mg/dL (70-99); Magnesium 1.5 mg/dL (1.8-2.4); Total Protein 7.8 g/dL (6.4-8.2)
[2019-12-31 14:19] LABS: Add Urine Microscopic? NO; Appearance Urine Clear (Clear); Bilirubin Urine Negative (Negative); Blood Urine Negative (Negative); Color Urine Yellow (Yellow); Glucose Urine UA Negative (Negative); Ketones Urine Negative (Negative); Leukocyte Esterase Ur Negative LEU/UL (Negative); Nitrate Urine Negative (Negative); Protein Urine Negative (Negative); Urobilinogen Urine 0.2 mg/dL (0.2-1.0)
[2019-12-31 14:23] LABS: BNP 5.6 pg/mL (0-100); Troponin I < 0.02 ng/mL (0.00-0.056)
[2019-12-31 14:35] VITALS: BP 118/69; PULSE 93
[2019-12-31 14:36] VITALS: BP 117/75
[2019-12-31] MEDS: MORPHINE SULFATE 2 MG/ML INJ IV PUSH (14:37)
[2019-12-31] MEDS: SODIUM CHLORIDE 0.9% IV 500 ML 999 ML (14:38)
[2019-12-31 15:23] LABS: Anion Gap 12.3 mmol/L (7-16); Chloride 97 mmol/L (98-108); Osmolality Calculated 288 mOsm/kg (285-295); Potassium 3.3 mmol/L (3.5-5.1); Sodium 136 mmol/L (136-145)
[2019-12-31] MEDS: POTASSIUM CHLORIDE 20 MEQ TABLET 40 MEQ PO (16:23)
[2019-12-31 16:29] VITALS: BP 129/72; PULSE 86; RESP 19; O2SAT 100
== END 2019-12-31 16:33 | disposition home or self-care (01) ==
PROVIDERS: Emergency Provider Emergency Medicine; PCP Family Medicine
DX: T67.5XXA Heat exhaustion, unspecified, initial encounter (principal)
CPT/HCPCS: 36415; 70450; 80053; 81003; 82948; 83735; 83880; 84484; 85025; 85610; 93005; 96361; 96374; 96375; 96376; 99283; 99284; A9270; J2270; J2405; J7030; J7040

== ENCOUNTER 2020-01-18 09:04 | Outpatient (RCR) | payer OTHER, SELFPAY ==
--- NOTE | 2020-01-13 08:55 | PTOPEVAL ---
Thank you for referring Olivia Burks to [facility]. Please review, sign, date and return this plan of care PRINCE. I agree with and certify that the following plan of care is medically necessary. Referring Physician Date Admitting Provider: Attending Provider: Portia Arenas, WORK[employer] COMPENSATION CONSULTANT-LILLIE Referring Provider: *PT Outpatient Evaluation Start: 01/13/20 08:05 Freq: Status: Active Protocol: Document 01/13/20 08:05 JUANA (Rec: 01/13/20 08:34 JUANA [id number]) Therapy Assessment Status Assessment Status Assessment Status Evaluation Outpatient Past Medical History Neurological History Hx Migraine Yes Cardiovascular History Hx Congestive Heart Failure Yes Hx Deep Vein Thrombosis Yes: 40 UPPER EXTREMETIES, 3 LOWER EXTREMTIES Hx Hypertension Yes Respiratory History Hx Asthma Yes Hx Pulmonary Embolism Yes: 2 Gastrointestinal History Hx Cholecystectomy Yes Hx Diverticulitis Yes Hx Other Gastrointestinal Disorders Yes: BILIARY DUCT DISFUNCTION, STENTS PLACED AND REMOVED Genitourinary History Hx Kidney Stones Yes Musculoskeletal History Hx Spinal Surgery Yes: MAR 2019 Endocrine History Hx Diabetes Yes Integumentary History Hx Cellulitis Yes: BILAT ARMS Reproductive History Hx Hysterectomy Yes Psychosocial History Hx Anxiety Yes Hx Depression Yes Evaluation Information Problem Diagnosis cervicalgia Onset 12/23/19 Additional Evaluation Detail NDI=74% Subjective Information pt. reports she has had about Query Text:As Reported By Patient/ 2 years of on/off neck pain. Family She states that she does boat frequently and states that pain is most notable on the boat. She states that driving also increases her neck pain. She describes pain in the back of the neck and going into the back of the head and into the jaw. She states that sleep is difficult due to pain. she reports that her goal is to decrease her neck pain. Prior Level of Function Activity Level (Last 3 Months) Occupation unemployed Hand Dominance Right Activity of Daily Living Ability Independent Indoor/Home Mobility Indep
--- NOTE | 2020-02-17 15:13 | PCPTNOTE ---
02/17/20-pt did not show for appointment. -.
--- NOTE | 2020-03-22 12:46 | PCPTNOTE ---
Mrs. Ferrara attended a total of 8 treatment sessions from 01/13/20 to 02/10/20. She has failed to return to treatment and cannot be contacted via phone. She will be discharged from our care. Refer to last daily noted for pt. discharge status. Thank you for the referral of this pt. Osmar Braga, MPT
== END 2020-02-10 17:11 | disposition home or self-care (01) ==
LOC: CHSPT 09:04
PROVIDERS: Visit Provider Nurse Practitioner Family
DX: M54.2 Cervicalgia (principal); M54.10 Radiculopathy, site unspecified
CPT/HCPCS: 97014; 97110; 97140; 97161; G0283

== ENCOUNTER 2020-02-03 14:19 | Emergency (ER) | payer OTHER, SELFPAY ==
--- NOTE | ~2020-02-03 | XR_ITS ---
EXAMINATION: XR hip RT 2V w AP pelvis EXAM DATE: 02/03/2020 16:15 INDICATION: Right hip pain, fell one year ago. TECHNIQUE: Right hip frontal, 'frog leg' projections for interpretation. Frontal projection pelvis. There is no prior study for comparison. FINDINGS: Smooth right hip femoral head contour, no radiographic evidence of avascular necrosis. The re are no acute fractures or dislocations identified. There is no subcutaneous gas. The soft tissue is unremarkable. L5-S1 fusion. There is minimal bilateral hip primary osteoarthritis. IMPRESSION: Minimal bilateral hip osteoarthritis. Reviewed, dictated and finalized at location B.
--- NOTE | ~2020-02-03 | XR_ITS ---
EXAMINATION: XR knee RT min 4V DATE: 02/03/2020 16:16 INDICATION: Medial right knee pain post fall TECHNIQUE: Anteroposterior, 2 oblique and crosstable lateral views of the right knee were obtained COMPARISON: None. FINDINGS: Alignment is normal. No fracture. At least moderate joint space narrowing in the medial compartment which can be underestimated on nonweightbearing imaging. Small to moderate size marginal osteophytes in all 3 compartments. No joint effusion/layering lipohemarthrosis. Soft tissues are unremarkable. IMPRESSION: 1. No right knee joint effusion or acute osseous abnormality. 2. Tricompartmental osteoarthritis of at least moderate severity in the medial compartment. Reviewed, dictated and finalized at location A.
--- NOTE | ~2020-02-03 | US_ITS ---
EXAMINATION: US venous doppler LE RT EXAM DATE: 02/03/2020 15:17 INDICATION: Right leg pain. TECHNIQUE: Multiple grayscale, color flow and Doppler images of the right lower extremity deep venous system were obtained and reviewed. Comparison is made to prior examination from 03/31/2019. FINDINGS: The right common femoral, femoral and profunda veins demonstrate normal color flow, respira tory variation, augmentation and compressibility. Compressibility, color flow confirmed within the r ight popliteal, posterior tibial, peroneal, and greater saphenous veins. IMPRESSION: 1. No right lower extremity deep venous thrombosis. Reviewed, dictated and finalized at location B.
[2020-02-03 14:24] VITALS: BP 142/92; PULSE 96; RESP 20; TEMP 37; O2SAT 99
[2020-02-03 14:47] VITALS: PULSE 109; RESP 18; O2SAT 97
--- NOTE | 2020-02-03 14:59 | PC.NURSE ---
pt in ultrasound at this time, will medicate per provider order upon return.
--- NOTE | 2020-02-03 15:08 | ED.EXTPRO ---
HPI - Extremity Problem General Chief complaint: Extremity Problem,Nontraumatic Stated complaint: rt leg pain, swelling. hx dvt Time Seen by Provider: 02/03/20 14:32 Source: patient Mode of arrival: ambulatory Limitations: no limitations History of Present Illness HPI Narrative: This patient is a 49 year old female with history of fibromyalgia, DVT, chronic knee who presents for evaluation of right hip pain and right knee pain. She reports she has been referred to pain management for her chronic knee pain. She had a right knee joint injection a week ago due to continued pain. She has come to ER because she is having worsening pain , and it is shoot pain up to her right hip and right foot. She has only been taking tylenol for her pain. She reports her pain is causing nausea and vomiting. She does take coumadin Related Data Home Medications Medication Instructions Recorded Confirmed furosemide 80 mg PO DAILY 08/26/19 01/20/20 hyoscyamine sulfate 0.125 mg tablet 0.25 mg PO TID 09/27/19 01/20/20 baclofen 10 mg tablet 10 mg PO DAILY tablet 01/20/20 01/20/20 Allergies Allergy/AdvReac Type Severity Reaction Status Date / Time epinephrine Allergy Severe Unknown Verified 02/03/20 14:28 ibuprofen Allergy Intermediate Unknown Verified 02/03/20 14:28 bupropion Allergy Unknown Unknown Verified 02/03/20 14:28 celecoxib Allergy Unknown Unknown Verified 02/03/20 14:28 Sulfa (Sulfonamide Allergy Unknown Unknown Verified 02/03/20 14:28 Antibiotics) tetanus and diphtheria Allergy Unknown Unknown Verified 02/03/20 14:28 toxoids Review of Systems Review of Systems: All systems reviewed & are unremarkable except as noted in HPI and below Constitutional: Constitutional: Denies chills and Denies fever(s) Eyes: Eyes: Denies as per HPI ENT: Denies dysphagia, Denies dizziness and Denies epistaxis Cardiovascular: Cardiovascular: Denies chest pain Respiratory: Respiratory: Denies cough Gastrointestinal: Gastrointestinal: Denies abdominal pain, Denies diarrhea, Reports nausea and Reports vomiting Musculoskeletal: Musculoskeletal: Reports arthralgias (right knee, right hp) Neurologic: Denies focal weakness and Denies numbness PMFSH Past Medical History Medical History (Updated 02/03/20 @ 18:35 by Jennifer Solo MD) Anxiety Arthritis Asthma 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 venous thrombosis) (~2015) 03/2000 & 04/2016 Fatty liver Fibromyalgia (~2011) Headache History of angina History of DVT (deep vein thrombosis) Hyperlipidemia associated with type 2 diabetes mellitus Hypertension associated with diabetes Kidney stone Major depression, recurrent Medical non-compliance Migraines Obesity, morbid, BMI 40.0-49.9 Ovarian cyst Overweight PCOS (polycystic ovarian syndrome) Peripheral vascular disease Post concussive syndrome (~2017) Pulmonary embolism Renal failure (~2018) Sepsis Sleep-disordered breathing Uterine fibroid Surgical History Surgical History History of adenoidectomy History of appendectomy History of cholecystectomy History of hysterectomy History of intravascular stent placement with removal in 2017 History of removal of ovarian cyst Hx of tonsillectomy Previous back surgery L4 and L5 fusion Status post lumbar spine surgery for decompression of spinal cord Social History Social History Social History: 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 She occasionally drinks alcohol but not on a regular basis. No tobacco use. She is a full code. Smoking status: Never smoker Alcohol intake: former Substance use: never Substance use type: does not use Additional living arra
[2020-02-03] MEDS: ONDANSETRON INJ 4 MG/2 ML VIAL IV PUSH (15:25)
[2020-02-03 15:38] LABS: Basophils Absolute Auto 0.1 K/mm3 (0.0-0.1); Basophils Percent Auto 0.7 % (0.2-1.2); Eosinophils Absolute Auto 0.4 K/mm3 (0-0.3); Eosinophils Percent Auto 4.7 % (0-4.4); Hematocrit 44.4 % (37.0-47.0); Hemoglobin 14.6 g/dL (12.0-15.0); Immature Granulocyte Absolute 0.07 K/mm3 (0.00-0.031); Immature Granulocyte Percent A 0.8 % (0-0.5); Lymphocytes Percent Auto 23.8 % (18.3-44.2); Mean Corpuscular HGB Conc 32.9 g/dl (32-36); Mean Corpuscular Hemoglobin 27.5 pg (26-34); Mean Corpuscular Volume 83.6 fl (80-100); Monocytes Absolute Auto 0.6 K/mm3 (0.1-0.6); Monocytes Percent Auto 6.1 % (2.6-8.5); Neutrophils Absolute Auto 5.9 K/mm3 (1.3-6.7); Neutrophils Percent Auto 63.9 % (45.5-73.1); Platelet Count Result 355 k/mm3 (150-375); Red Blood Count 5.31 M/mm3 (4.2-5.4); Red Cell Distribution Width 13.7 % (11.5-14.5); White Blood Count 9.2 K/mm3 (4.5-10.0)
[2020-02-03 15:51] LABS: Alanine Aminotransferase 28 U/L (4-35); Albumin Level 4.2 g/dL (3.5-5.1); Alkaline Phosphatase 96 U/L (38-126); Anion Gap 10 mmol/L (8-16); Aspartate Amino Transferase 28 U/L (14-36); Bilirubin,Total 0.2 mg/dL (0.2-1.3); Blood Urea Nitrogen 14 mg/dL (7-17); Calcium 9.2 mg/dL (8.4-10.2); Carbon Dioxide 28 mmol/L (22-30); Chloride 98 mmol/L (98-107); Estimated CRCL calculation 98 ml/min; Estimated Glomerular Filt Rate > 60; Glucose 288 mg/dL (65-105); Potassium 4.3 mmol/L (3.4-5.0); Sodium 136 mmol/L (137-145)
[2020-02-03 15:55] LABS: INR 4.1; Prothrombin Time 38.8 Seconds (11.1-14.7)
[2020-02-03 15:56] LABS: Partial Thromboplastin Time 55.1 SECONDS (22.3-36.8)
[2020-02-03 16:07] VITALS: BP 110/77; PULSE 93; RESP 21; O2SAT 95
--- NOTE | 2020-02-03 16:22 | PC.NURSE ---
PT C/O PAIN, CLAUDIO DIANA INFORMED, ASKING FOR RN TO PLACE ICE PACK ON KNEE.
[2020-02-03 18:16] VITALS: BP 115/78; PULSE 75; RESP 16; O2SAT 100
== END 2020-02-03 18:39 | disposition home or self-care (01) ==
PROVIDERS: Emergency Provider General Practice; PCP Family Medicine
DX: M25.561 Pain in right knee (principal); G89.29 Other chronic pain; R79.1 Abnormal coagulation profile; I11.0 Hypertensive heart disease with heart failure; I50.30 Unspecified diastolic (congestive) heart failure; M79.7 Fibromyalgia; J45.909 Unspecified asthma, uncomplicated; M16.0 Bilateral primary osteoarthritis of hip; Z86.718 Personal history of other venous thrombosis and embolism; Z98.1 Arthrodesis status; Z79.01 Long term (current) use of anticoagulants; E78.5 Hyperlipidemia, unspecified; Z87.442 Personal history of urinary calculi; E28.2 Polycystic ovarian syndrome; E11.51 Type 2 diabetes mellitus with diabetic peripheral angiopathy without gangrene; Z86.711 Personal history of pulmonary embolism; E66.01 Morbid (severe) obesity due to excess calories; Z68.42 Body mass index [BMI] 45.0-49.9, adult; F41.9 Anxiety disorder, unspecified; F33.9 Major depressive disorder, recurrent, unspecified; Z79.84 Long term (current) use of oral hypoglycemic drugs
CPT/HCPCS: 36415; 73502; 73564; 80053; 85025; 85610; 85730; 93971; 96374; 96375; 96376; 99284; J0131; J1170; J2405

== ENCOUNTER 2020-02-09 09:35 | Outpatient (NON) | payer OTHER, SELFPAY ==
[2020-02-10 14:54] LABS: SARS-CoV-2 RNA PCR Negative
== END 2020-12-12 12:10 | disposition home or self-care (01) ==
PROVIDERS: Visit Provider Family Medicine
DX: Z20.828 Contact with and (suspected) exposure to other viral communicable diseases (principal); R68.89 Other general symptoms and signs
CPT/HCPCS: 87635; C9803; U0003

== ENCOUNTER 2020-02-10 09:12 | Outpatient (RCR) | payer OTHER, SELFPAY ==
[2020-01-18 09:39] LABS: INR 3.6; Prothrombin Time 35.6 Seconds (9.64-11.0)
[2020-01-18 10:27] LABS: Alanine Aminotransferase 28 U/L (14-59); Albumin Level 3.5 g/dL (3.4-5.0); Alkaline Phosphatase 127 U/L (46-116); Anion Gap 11.3 mmol/L (7-16); Aspartate Amino Transferase 29 U/L (15-37); Bilirubin,Total 0.2 mg/dL (0.00-1.00); Blood Urea Nitrogen 20 mg/dL (7-18); Calcium 9.1 mg/dL (8.5-10.1); Carbon Dioxide 30 mmol/L (21-32); Chloride 100 mmol/L (98-108); Estimated Glomerular Filt Rate 56; Glucose 249 mg/dL (70-99); Osmolality Calculated 294 mOsm/kg (285-295); Potassium 4.3 mmol/L (3.5-5.1); Sodium 137 mmol/L (136-145); Total Protein 7.4 g/dL (6.4-8.2)
[2020-02-10 09:35] LABS: INR 2.4; Prothrombin Time 23.9 Seconds (9.64-11.0)
== END 2020-04-17 23:59 | disposition home or self-care (01) ==
LOC: CHSLAB 09:12
PROVIDERS: PCP Family Medicine; Visit Provider Nurse Practitioner Family
DX: Z86.711 Personal history of pulmonary embolism (principal)
CPT/HCPCS: 36415; 80053; 85610

== ENCOUNTER 2020-03-26 16:33 | Emergency (ER) | payer OTHER, SELFPAY ==
--- NOTE | ~2020-03-26 | XR_ITS ---
XR chest 1V portable DATE: 03/26/2020 16:59 INDICATION: Dyspnea. Upper chest pain. TECHNIQUE: Portable AP chest on 03/26/2020 at 1706 hours COMPARISON: 07/12/2019 CT pulmonary scan 02/01/2019 two-view chest FINDINGS: Normal heart size. No hilar or mediastinal enlargement. No pulmonary infiltrate or consolid ation, pleural effusion or pulmonary vascular congestion or pneumothorax. IMPRESSION: No active cardiopulmonary disease Reviewed, dictated and finalized at location A.
[2020-03-26 16:33] VITALS: BP 160/97; PULSE 87; RESP 24; TEMP 36.4; O2SAT 95
[2020-03-26 16:40] VITALS: PULSE 87
--- NOTE | 2020-03-26 16:41 | ECG_ITS ---
Measurements Intervals [place] Rate: 87 P: 30 ID: [id number] QRS: 7 QRSD: 87 T: 12 QT: 350 QTc: 423 Interpretive Statements SINUS RHYTHM BASELINE ARTIFACT- I, II, III, AVR, AVL, AVF NORMAL ECG Electronically Signed On 03-27-2020 6:59:13 CDT by Alphonso Martinez D.O.
--- NOTE | 2020-03-26 16:49 | ED.SOB ---
HPI - SOB/Dyspnea General Chief Complaint: Shortness of Breath/Dyspnea Stated Complaint: chest pain, SOB Source: patient Mode of arrival: ambulatory Limitations: no limitations History of Present Illness HPI Narrative: Pt is a 49yo female with a hx of CHF, and SOB for several days. 3 weeks ago the central supply technician supervisor changed her diuretic from lasix to bumex. She states she doesn't feel any better. SHe denies fevers or cough or any other illness. She does state late last night (midnight she started to develop some chest pain that is sharp and constant. MD elicited complaint: shortness of breath, pain with inspiration and chest pain Pertinent past history: congestive heart failure, diabetes and DVT Context: recent illness Timing: constant Severity: mild Exacerbating factors: lying flat and movement Relieving factors: nothing Known history of: congestive heart failure Associated symptoms: denies other symptoms Related Data Home Medications Medication Instructions Recorded Confirmed bumetanide 1 mg PO BID 03/26/20 03/26/20 metoprolol tartrate 25 mg PO BID 03/26/20 03/26/20 Allergies Allergy/AdvReac Type Severity Reaction Status Date / Time epinephrine Allergy Severe Unknown Verified 02/09/20 09:18 ibuprofen Allergy Intermediate Unknown Verified 02/09/20 09:18 bupropion Allergy Unknown Unknown Verified 02/09/20 09:18 celecoxib Allergy Unknown Unknown Verified 02/09/20 09:18 Sulfa (Sulfonamide Allergy Unknown Unknown Verified 02/09/20 09:18 Antibiotics) tetanus and diphtheria Allergy Unknown Unknown Verified 02/09/20 09:18 toxoids Review of Systems Review of Systems: All systems reviewed & are unremarkable except as noted in HPI and below Constitutional: Constitutional: Reports no additional constitutional complaints Eyes: Eyes: Reports no additional eye complaints ENT: Reports system reviewed and no additional complaints, except as documented Cardiovascular: Cardiovascular: Reports chest pain, Denies rapid heart rate, Denies radiating jaw, neck or arm pain and Denies slow heart rate Respiratory: Respiratory: Denies chest congestion, Denies cough, Reports dyspnea and Denies wheezing Gastrointestinal: Gastrointestinal: Reports no additional gastrointestinal complaints Musculoskeletal: Musculoskeletal: Reports no additional musculoskeletal complaints Integumentary/Breasts: Skin/Breast: Reports system reviewed and no additional complaints, except as docu Neurologic: Reports system reviewed and no additional complaints, except as documented Psychiatric: Psychiatric: Reports no additional psychiatric complaints Endocrine: Endocrine: Reports no additional endocrine complaints Hematologic/Lymphatic: Hematologic/Lymphatic: Reports no additional hematologic/lymphatic complaints Allergic/Immunologic: Allergic/Immunologic: Reports no additional allergic/immunologic complaints [facility] Past Medical History Medical History Anxiety Arthritis Asthma 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 venous thrombosis) (~2015) 03/2000 & 04/2016 Fatty liver Fibromyalgia (~2011) Headache History of angina History of DVT (deep vein thrombosis) Hyperlipidemia associated with type 2 diabetes mellitus Hypertension associated with diabetes Kidney stone Major depression, recurrent Medical non-compliance Migraines Obesity, morbid, BMI 40.0-49.9 Ovarian cyst Overweight PCOS (polycystic ovarian syndrome) Peripheral vascular disease Post concussive syndrome (~2017) Pulmonary embolism Renal failure (~2017) Sepsis Sleep-disordered breathing Uterine fibroid Surgical History Surgical History History of adenoidectomy History of
[2020-03-26 16:58] LABS: Basophils Absolute Auto 0.05 K/mm3 (0.00-0.10); Basophils Percent Auto 0.6 % (0.0-1.0); Eosinophils Absolute Auto 0.37 K/mm3 (0.02-0.50); Eosinophils Percent Auto 4.6 % (1.0-6.0); Hemoglobin 13.5 g/dL (12.0-15.0); Immature Granulocyte Absolute 0.02 K/mm3 (0.00-0.00); Immature Granulocyte Percent A 0.2 % (0.0-0.0); Lymphocytes Absolute Auto 2.45 K/mm3 (1.10-4.50); Lymphocytes Percent Auto 30.3 % (18.0-42.0); Mean Corpuscular HGB Conc 32.9 g/dL (32.0-36.0); Mean Corpuscular Hemoglobin 27.3 pg (27.0-31.0); Mean Platelet Volume 9.7 fl (9.2-11.8); Monocytes Absolute Auto 0.38 K/mm3 (0.10-0.90); Monocytes Percent Auto 4.7 % (2.0-11.0); Neutrophils Absolute Auto 4.8 K/mm3 (1.7-7.2); Neutrophils Percent Auto 59.6 % (50.0-70.0); Platelet Count Result 349 K/mm3 (150-420); Red Blood Count 4.94 M/mm3 (4.20-5.40); Red Cell Distribution Width 12.6 % (11.6-14.4); White Blood Count 8.1 K/mm3 (4.8-10.8)
[2020-03-26 17:11] LABS: INR 2.1; Prothrombin Time 20.8 Seconds (9.64-11.0)
[2020-03-26 17:14] LABS: BNP 132 pg/mL (0-100)
[2020-03-26 17:16] LABS: Alanine Aminotransferase 21 U/L (14-59); Albumin Level 3.2 g/dL (3.4-5.0); Alkaline Phosphatase 109 U/L (46-116); Anion Gap 9 mmol/L (8-16); Aspartate Amino Transferase 17 U/L (15-37); Bilirubin,Total 0.2 mg/dL (0.00-1.00); Blood Urea Nitrogen 12 mg/dL (7-18); Calcium 8.6 mg/dL (8.5-10.1); Carbon Dioxide 28 mmol/L (21-32); Chloride 104 mmol/L (98-108); Estimated CRCL calculation 93 ml/min; Estimated Glomerular Filt Rate > 60; Glucose 200 mg/dL (70-99); Osmolality Calculated 297 mOsm/kg (285-295); Potassium 3.8 mmol/L (3.5-5.1); Sodium 141 mmol/L (136-145); Total Protein 6.7 g/dL (6.4-8.2); Troponin I < 0.02 ng/mL (0.00-0.056)
[2020-03-26] MEDS: ALBUTEROL SULFATE NEB 2.5 MG/3 ML INH INHALATION (17:35)
[2020-03-26 17:38] VITALS: PULSE 85; RESP 20
[2020-03-26 17:52] VITALS: PULSE 88; RESP 20
[2020-03-26 17:53] VITALS: BP 111/70; PULSE 88; RESP 20; TEMP 36.3; O2SAT 98
== END 2020-03-26 18:01 | disposition home or self-care (01) ==
PROVIDERS: Emergency Provider Emergency Medicine; PCP Family Medicine
DX: J45.909 Unspecified asthma, uncomplicated (principal)
CPT/HCPCS: 36415; 71045; 80053; 83880; 84484; 85025; 85610; 93005; 94640; 99283; 99284

== ENCOUNTER 2020-04-07 10:59 | Outpatient (CLI) | payer OTHER, SELFPAY ==
--- NOTE | ~2020-04-07 | MR_ITS ---
. EXAMINATION: MR lumbar spine wo/w con DATE: 04/07/2020 12:08 INDICATION: Lumbar radiculopathy. TECHNIQUE: Magnetic resonance imaging (MRI) of the lumbar spine was performed without and with 20 mL MultiHance intravenous contrast. Sequences included sagittal T2-weighted FSE, sagittal T2-weighted FS FSE, and sagittal and axial T1-weighted FSE. Postcontrast sequences included axial T2-weighted FSE a nd axial and sagittal T1-weighted FS FSE. COMPARISON: Lumbar spine MRI 08/06/2018 FINDINGS: There is 3 mm anterolisthesis of L5 on S1. There are changes of anterior and posterior fusi on procedures at L5-S1 with interbody device and pedicle screws. There is mild chronic height loss of L5 vertebral body posteriorly. There is mildly decreased disc height at T12-L1 and L4-L5. The distal spinal cord signal intensity is normal. The conus medullaris is at L1. The following disc levels are specifically discussed: L1-L2: The disc does not extend beyond the endplate margin. There is no facet joint osteoarthritis. T here is no neural foraminal stenosis. There is no central canal stenosis. L2-L3: The disc does not extend beyond the endplate margin. There is no facet joint osteoarthritis. T here is no neural foraminal stenosis. There is no central canal stenosis. L3-L4: The disc does not extend beyond the endplate margin. There is moderate bilateral facet joint o steoarthritis. There is no neural foraminal stenosis. There is no central canal stenosis. L4-L5: The disc is mildly bulging. There is no facet joint hypertrophy. There is mild bilateral neura l foraminal stenosis. There is no central canal stenosis. L5-S1: There is mild bilateral facet joint hypertrophy. There is mild right and moderate left neural foraminal stenosis. There is no central canal stenosis. IMPRESSION: 1. Mild lumbar spondylosis. 2. Anterior and posterior fusion procedures at L5-S1. Reviewed, dictated and finalized at location A.
== END 2020-04-07 11:00 | disposition home or self-care (01) ==
PROVIDERS: PCP Family Medicine; Visit Provider Nurse Practitioner Family
DX: M47.26 Other spondylosis with radiculopathy, lumbar region (principal); Z98.1 Arthrodesis status
CPT/HCPCS: 72158; A9577

== ENCOUNTER 2020-04-25 09:03 | Outpatient (CLI) | payer OTHER, SELFPAY ==
[2020-04-25 09:18] LABS: Hemoglobin 14.7 g/dL (12.0-15.0); Mean Corpuscular HGB Conc 32.7 g/dL (32.0-36.0); Mean Corpuscular Hemoglobin 27.1 pg (27.0-31.0); Mean Platelet Volume 9.7 fl (9.2-11.8); Platelet Count Result 334 K/mm3 (150-420); Red Blood Count 5.42 M/mm3 (4.20-5.40); Red Cell Distribution Width 12.1 % (11.6-14.4); White Blood Count 9.1 K/mm3 (4.8-10.8)
[2020-04-25 09:30] LABS: Prothrombin Time 10.8 Seconds (9.64-11.0)
[2020-04-25 10:26] LABS: Anion Gap 8 mmol/L (8-16); Blood Urea Nitrogen 12 mg/dL (7-18); Calcium 9.2 mg/dL (8.5-10.1); Carbon Dioxide 31 mmol/L (21-32); Chloride 101 mmol/L (98-108); Estimated Glomerular Filt Rate > 60; Glucose 205 mg/dL (70-99); Osmolality Calculated 295 mOsm/kg (285-295); Potassium 3.7 mmol/L (3.5-5.1); Sodium 140 mmol/L (136-145)
== END 2020-04-25 09:04 | disposition home or self-care (01) ==
LOC: CHSLAB 09:05
PROVIDERS: PCP Nurse Practitioner Family; Visit Provider Internal Medicine
DX: I50.22 Chronic systolic (congestive) heart failure (principal); Z86.711 Personal history of pulmonary embolism
CPT/HCPCS: 36415; 80048; 85027; 85610

== ENCOUNTER 2020-05-03 10:57 | Outpatient (CLI) | payer OTHER, SELFPAY ==
[2020-05-04 14:03] LABS: SARS-CoV-2 RNA PCR Negative
== END 2020-05-03 10:58 | disposition home or self-care (01) ==
LOC: CHSLAB 10:59
PROVIDERS: PCP Nurse Practitioner Family; Visit Provider Nurse Practitioner Family
DX: J06.9 Acute upper respiratory infection, unspecified (principal); Z20.828 Contact with and (suspected) exposure to other viral communicable diseases
CPT/HCPCS: 87635; C9803; U0003

== ENCOUNTER 2020-05-09 09:02 | Outpatient (RCR) | payer OTHER, SELFPAY ==
[2020-05-09 09:29] LABS: Prothrombin Time 10.5 Seconds (9.64-11.0)
== END 2020-08-07 23:59 | disposition home or self-care (01) ==
LOC: CHSLAB 09:02
PROVIDERS: PCP Family Medicine; Visit Provider Nurse Practitioner Family
DX: Z86.711 Personal history of pulmonary embolism (principal)
CPT/HCPCS: 36415; 85610

== ENCOUNTER 2020-07-19 17:54 | Emergency (ER) | payer OTHER, SELFPAY ==
--- NOTE | ~2020-07-19 | CT_ITS ---
EXAMINATION: CT abdomen pelvis w con DATE: 07/19/2020 19:52 INDICATION: History of biliary stones. Nausea, vomiting and diarrhea. Right upper quadrant abdominal pain. TECHNIQUE: Computed tomography (CT) of the abdomen and pelvis was performed with 100 cc Omnipaque 350 intravenous contrast. The dose-length product was 1573.96 mGy-cm. Automated exposure control and ite rative reconstruction technique were employed. COMPARISON: CT dated 08/23/2019. FINDINGS: Lung bases are unremarkable. No significant pleural or pericardial effusion. Heart size is normal. No significant vascular abnormality. No lymphadenopathy. Status post cholecystectomy. Fatty infiltration of the liver. The spleen, pancreas, adrenal glands an d left kidney are unremarkable. There is a small exophytic low-density lesion measuring 10 mm, business management intern ior margin of the right kidney. This is most likely cysts. No significant change. Nonobstructive bowel gas pattern. Diverticulosis without evidence for diverticulitis. No free air or free fluid. There is grade 1 spondylolisthesis at L5-S1 secondary to spondylolysis. Status post inter nal fixation with pedicle screws at L5-S1. IMPRESSION: 1. No acute abdominal abnormality. No findings to account for patient's symptoms. Reviewed, dictated and finalized at location A. [facility] IMPRESSION: 1. No acute abdominal abnormality. No findings to account for patient's symptom s.
[2020-07-19 18:21] LABS: Glucose Point of Care 217 (65-105)
--- NOTE | 2020-07-19 18:24 | ED.GENADULT ---
HPI - General Adult General Chief complaint: Abdominal Pain Stated complaint: throwing up Source: patient Mode of arrival: ambulatory Limitations: no limitations History of Present Illness HPI narrative: Olivia is a 50F with a complex PMH including a hx of DVT on anticoagulation, fibromyalgia, gastritis, morbid obesity, DMII, diverticulitis, HFpEF, HTN, depression, asthma and choledocholithiasis s/p cholecystectomy and 4 following ERCP for stones that presented to the ED with abdominal pain and vomiting. She started feeling poor 3-4 days ago. However, 2 days ago she started having intense right upper quadrant pain with 30+ episodes of vomiting and some diarrhea. There is some blood tinged vomit and bile in the vomit as well. No melena or hematochezia reported. No CP, SOB, near syncope/syncope, ALBA, vision changes fevers or chills. She reports this feels like her previous episodes of gallstone problems. Related Data Home Medications Medication Instructions Recorded Confirmed bumetanide 1 mg PO BID 03/26/20 07/19/20 dulaglutide [Trulicity] 0.75 mg SUBCUT WEEKLY 07/19/20 07/19/20 fluoxetine [Prozac] 80 mg PO DAILY 07/19/20 07/19/20 furosemide 40 mg PO QPM 07/19/20 07/19/20 metoprolol tartrate 25 mg PO BID 07/19/20 07/19/20 pantoprazole [Protonix] 40 mg PO QAM 07/19/20 07/19/20 pregabalin [Lyrica] 150 mg PO BID 07/19/20 07/19/20 warfarin 6 mg PO DAILY 07/19/20 07/19/20 Allergies Allergy/AdvReac Type Severity Reaction Status Date / Time epinephrine Allergy Severe Unknown Verified 07/19/20 09:54 ibuprofen Allergy Intermediate Unknown Verified 07/19/20 09:54 bupropion Allergy Unknown Unknown Verified 07/19/20 09:54 celecoxib Allergy Unknown Unknown Verified 07/19/20 09:54 Sulfa (Sulfonamide Allergy Unknown Unknown Verified 07/19/20 09:54 Antibiotics) tetanus and diphtheria Allergy Unknown Unknown Verified 07/19/20 09:54 toxoids Review of Systems Constitutional: Constitutional: Reports anorexia Comments: no fevers or chills Eyes: Eyes: Reports no additional eye complaints ENT: Reports system reviewed and no additional complaints, except as documented Cardiovascular: Cardiovascular: Reports no additional cardiovascular complaints Respiratory: Respiratory: Reports no additional respiratory complaints Gastrointestinal: Gastrointestinal: Reports as per HPI Genitourinary: Genitourinary: Reports no additional female genitourinary complaints Musculoskeletal: Musculoskeletal: Reports no additional musculoskeletal complaints Integumentary/Breasts: Skin/Breast: Reports system reviewed and no additional complaints, except as docu Neurologic: Reports system reviewed and no additional complaints, except as documented Psychiatric: Psychiatric: Reports no additional psychiatric complaints Endocrine: Endocrine: Reports no additional endocrine complaints Hematologic/Lymphatic: Hematologic/Lymphatic: Reports no additional hematologic/lymphatic complaints Allergic/Immunologic: Allergic/Immunologic: Reports no additional allergic/immunologic complaints [facility] Past Medical History Medical History (Updated 07/19/20 @ 20:34 by Earnest Jason DO) Anxiety Arthritis Asthma 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 venous thrombosis) (~2015) 03/2000 & 04/2016 Fatty liver Fibromyalgia (~2011) Headache History of angina History of DVT (deep vein thrombosis) Hyperlipidemia associated with type 2 diabetes mellitus Hypertension associated with diabetes Kidney stone Major depression, recurrent Medical non-compliance Migraines Obesity, morbid, BMI 40.0-49.9 Ovarian cyst Overweight PCOS (polycystic ovarian syndrome) Peripheral vascular disease Post concussive syndrome (~2017) Pulmonary embolism Renal failure (~2017) Sepsis Sleep-diso
[2020-07-19 18:42] VITALS: BP 141/99; PULSE 95; RESP 20; TEMP 36.4; O2SAT 96
[2020-07-19 18:45] LABS: Basophils Absolute Auto 0.09 K/mm3 (0.00-0.10); Basophils Percent Auto 0.8 % (0.0-1.0); Eosinophils Absolute Auto 0.84 K/mm3 (0.02-0.50); Eosinophils Percent Auto 7.2 % (1.0-6.0); Hematocrit 43.7 % (35.0-49.0); Hemoglobin 14.3 g/dL (12.0-15.0); Immature Granulocyte Absolute 0.04 K/mm3 (0.00-0.00); Immature Granulocyte Percent A 0.3 % (0.0-0.0); Lymphocytes Absolute Auto 3.61 K/mm3 (1.10-4.50); Lymphocytes Percent Auto 31.1 % (18.0-42.0); Mean Corpuscular HGB Conc 32.7 g/dL (32.0-36.0); Mean Corpuscular Hemoglobin 26.5 pg (27.0-31.0); Mean Corpuscular Volume 81.1 fL (78.0-102.0); Mean Platelet Volume 9.7 fl (9.2-11.8); Monocytes Absolute Auto 0.62 K/mm3 (0.10-0.90); Monocytes Percent Auto 5.3 % (2.0-11.0); Neutrophils Absolute Auto 6.4 K/mm3 (1.7-7.2); Neutrophils Percent Auto 55.3 % (50.0-70.0); Platelet Count Result 336 K/mm3 (150-420); Red Blood Count 5.39 M/mm3 (4.20-5.40); Red Cell Distribution Width 12.8 % (11.6-14.4); White Blood Count 11.6 K/mm3 (4.8-10.8)
[2020-07-19] MEDS: ONDANSETRON INJ 4 MG/2 ML VIAL IV PUSH ×2 (18:47→20:38)
[2020-07-19] MEDS: LACTATED RINGERS 1,000 ML 999 ML IV CONT (18:47)
[2020-07-19] MEDS: MORPHINE SULFATE (*CRX) 4 MG/ML INJ IV PUSH ×2 (18:47→19:24)
[2020-07-19 19:00] VITALS: BP 150/117; PULSE 91; RESP 20; O2SAT 94
[2020-07-19 19:01] LABS: Alanine Aminotransferase 23 U/L (14-59); Albumin Level 3.6 g/dL (3.4-5.0); Alkaline Phosphatase 130 U/L (46-116); Anion Gap 13 mmol/L (8-16); Aspartate Amino Transferase 15 U/L (15-37); Bilirubin,Total 0.3 mg/dL (0.00-1.00); Blood Urea Nitrogen 12 mg/dL (7-18); Carbon Dioxide 27 mmol/L (21-32); Chloride 98 mmol/L (98-108); Estimated CRCL calculation 75 ml/min; Estimated Glomerular Filt Rate 56; Glucose 233 mg/dL (70-99); Lipase 84 U/L (73-393); Osmolality Calculated 292 mOsm/kg (285-295); Potassium 3.1 mmol/L (3.5-5.1); Sodium 138 mmol/L (136-145); Total Protein 7.5 g/dL (6.4-8.2)
[2020-07-19 19:02] LABS: CRP 2.9 mg/dL (0.0-0.9)
[2020-07-19 19:07] LABS: Lactic Acid Reflex 3.1 mmol/L (0.4-2.0)
[2020-07-19 19:17] LABS: Add Urine Microscopic? YES; Appearance Urine Clear (Clear); Bilirubin Urine Negative (Negative); Blood Urine Negative (Negative); Color Urine Yellow (Yellow); Glucose Urine UA 1+ (Negative); Ketones Urine Negative (Negative); Leukocyte Esterase Ur Negative (Negative); Nitrate Urine Negative (Negative); Protein Urine Negative (Negative); Specific Grav Ur >= 1.030 (1.010-1.020); Urobilinogen Urine 0.2 mg/dL (0.2-1.0); pH Urine 5.5 (5.0-8.0)
[2020-07-19 19:22] LABS: Bacteria Urine Trace /hpf; RBC Urine 0-2 /hpf (0-2); Squamous Epithelial Cell Urine Few /hpf (Few); WBC Urine 0-3 /hpf (0-3)
[2020-07-19] MEDS: diphenhydrAMINE HCl INJ 50 MG/ML VIAL IV PUSH (19:23)
[2020-07-19 20:00] VITALS: PULSE 90; RESP 20; O2SAT 94
[2020-07-19] MEDS: MAG HYDROX/ALUMINUM HYD/SIMETH 30 ML, PHENobarb/HYOSCY/ATROPINE/SCOP 32.4 MG, LIDOCAINE... PO (20:10)
[2020-07-19] MEDS: HYDROcodone/acetaminophen (*CRX) 5-325 MG TABLET 2 TAB PO (20:37)
[2020-07-19 20:54] VITALS: BP 165/102; PULSE 90; RESP 20; TEMP 36.8; O2SAT 95
== END 2020-07-19 20:57 | disposition home or self-care (01) ==
PROVIDERS: Emergency Provider Family Medicine; PCP Family Medicine
DX: R10.9 Unspecified abdominal pain (principal); E11.9 Type 2 diabetes mellitus without complications; I50.9 Heart failure, unspecified; Z86.718 Personal history of other venous thrombosis and embolism; Z79.01 Long term (current) use of anticoagulants
CPT/HCPCS: 36415; 74177; 80053; 81001; 82948; 83605; 83690; 85025; 86140; 96361; 96374; 96375; 96376; 99283; 99284; A9270; J1200; J2270; J2405; J7120; Q9967

== ENCOUNTER 2020-07-20 10:43 | Outpatient (CLI) | payer OTHER, SELFPAY ==
--- NOTE | ~2020-07-20 | US_ITS ---
US abdomen limited DATE: 07/20/2020 11:44 INDICATION: Abdominal pain TECHNIQUE: Real-time imaging of liver, pancreas, gallbladder fossa areas COMPARISON: July 19, 2020 CT abdomen pelvis FINDINGS: The gallbladder is surgically absent. No hepatic or pancreatic space-occupying mass lesion is evident. Normal hepatopedal portal venous brittny w direction. The common bile duct measures 4.7 mm, normal. IMPRESSION: Status post cholecystectomy Reviewed, dictated and finalized at Location A. Reviewed, dictated and finalized at location A. [employer] IMPRESSION: Status post cholecystectomy
== END 2020-07-20 10:44 | disposition home or self-care (01) ==
LOC: CHSIMG 10:45
PROVIDERS: PCP Family Medicine; Visit Provider Family Medicine
DX: R10.9 Unspecified abdominal pain (principal)
CPT/HCPCS: 76705

== ENCOUNTER 2020-07-20 19:46 | Inpatient (IN) | payer OTHER, SELFPAY ==
[2020-07-20 19:47] VITALS: BP 142/86; PULSE 87; RESP 16; TEMP 36.6; O2SAT 97
[2020-07-20 20:07] LABS: Basophils Absolute Auto 0.1 K/mm3 (0.0-0.1); Basophils Percent Auto 0.8 % (0.2-1.2); Eosinophils Absolute Auto 0.7 K/mm3 (0-0.3); Eosinophils Percent Auto 7.3 % (0-4.4); Hematocrit 44.3 % (37.0-47.0); Hemoglobin 14.5 g/dL (12.0-15.0); Immature Granulocyte Absolute 0.03 K/mm3 (0.00-0.031); Immature Granulocyte Percent A 0.3 % (0-0.5); Lymphocytes Absolute Auto 3.34 K/mm3 (0.9-3.2); Lymphocytes Percent Auto 35.8 % (18.3-44.2); Mean Corpuscular HGB Conc 32.7 g/dl (32-36); Mean Corpuscular Hemoglobin 26.7 pg (26-34); Mean Corpuscular Volume 81.6 fl (80-100); Mean Platelet Volume 9.4 fl (7.4-10.4); Monocytes Absolute Auto 0.5 K/mm3 (0.1-0.6); Monocytes Percent Auto 5.8 % (2.6-8.5); Neutrophils Absolute Auto 4.7 K/mm3 (1.3-6.7); Platelet Count Result 303 k/mm3 (150-375); Red Blood Count 5.43 M/mm3 (4.2-5.4); Red Cell Distribution Width 12.9 % (11.5-14.5); White Blood Count 9.3 K/mm3 (4.5-10.0)
[2020-07-20 20:16] LABS: Alanine Aminotransferase 24 U/L (4-35); Albumin Level 4.1 g/dL (3.5-5.1); Alkaline Phosphatase 113 U/L (38-126); Anion Gap 6 mmol/L (8-16); Aspartate Amino Transferase 27 U/L (14-36); Bilirubin,Total 0.3 mg/dL (0.2-1.3); Blood Urea Nitrogen 15 mg/dL (7-17); Calcium 8.9 mg/dL (8.4-10.2); Carbon Dioxide 31 mmol/L (22-30); Chloride 101 mmol/L (98-107); Estimated CRCL calculation 95 ml/min; Estimated Glomerular Filt Rate > 60; Glucose 171 mg/dL (65-105); Lipase 72 U/L (23-300); Potassium 3.6 mmol/L (3.4-5.0); Sodium 138 mmol/L (137-145)
--- NOTE | 2020-07-20 20:56 | ED.NAVMDI ---
HPI - Nausea/Vomiting/Diarrhea General Chief complaint: Nausea/Vomiting/Diarrhea Stated complaint: N/V/D, vomiting blood Time Seen by Provider: 07/20/20 20:24 Source: patient Mode of arrival: ambulatory Limitations: no limitations History of Present Illness HPI Narrative: Patient is a 50-year-old female who presents with right upper quadrant pain, nausea, vomiting, and diarrhea. Patient reports signs and symptoms for the past week, increasing over the past 2 days. Patient was seen at [facility] yesterday and had CT which was unremarkable. Patient also had an ultrasound of her right upper quadrant that was unremarkable. She had an ERCP approximately 1 year ago at [place] and she reports that she has completed and was stented. She reports pain as well as nausea and vomiting feeling exactly the same. Patient has seen Dr. Dai in the past. Patient reports pain of 8/10 at this time. MD elicited complaint: nausea, vomiting, diarrhea and abdominal pain Related Data Home Medications Medication Instructions Recorded Confirmed bumetanide 1 mg PO BID 03/26/20 07/20/20 dulaglutide [Trulicity] 0.75 mg SUBCUT WEEKLY 07/19/20 07/20/20 fluoxetine [Prozac] 80 mg PO DAILY 07/19/20 07/20/20 furosemide 40 mg PO QPM 07/19/20 07/20/20 metoprolol tartrate 25 mg PO BID 07/19/20 07/20/20 pantoprazole [Protonix] 40 mg PO QAM 07/19/20 07/20/20 pregabalin [Lyrica] 150 mg PO BID 07/19/20 07/20/20 warfarin 6 mg PO DAILY 07/19/20 07/20/20 Allergies Allergy/AdvReac Type Severity Reaction Status Date / Time epinephrine Allergy Severe Unknown Verified 07/20/20 19:50 ibuprofen Allergy Intermediate Unknown Verified 07/20/20 19:50 bupropion Allergy Unknown Unknown Verified 07/20/20 19:50 celecoxib Allergy Unknown Unknown Verified 07/20/20 19:50 Sulfa (Sulfonamide Allergy Unknown Unknown Verified 07/20/20 19:50 Antibiotics) tetanus and diphtheria Allergy Unknown Unknown Verified 07/20/20 19:50 toxoids Review of Systems Review of Systems: Narrative: CONSTITUTIONAL: Denies fever, chills, or sweats. EYES: Denies visual changes, redness, or discharge. ENT: Denies rhinorrhea, congestion, sore throat, or otalgia. CARDIOVASCULAR: Denies chest pain, palpitations, or edema. RESPIRATORY: Denies cough or dyspnea. GASTROINTESTINAL: Reports abdominal pain, nausea, vomiting, and diarrhea. GENITOURINARY: Denies dysuria or hematuria. SKIN: Denies rash or itching. MUSCULOSKELETAL: Denies back pain, joint pain, or myalgia. NEUROLOGIC: Denies headache, numbness, dizziness, or weakness. PSYCHIATRIC: Denies anxiety or depression. 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 venous thrombosis) (~2015) 03/2000 & 04/2016 Fatty liver Fibromyalgia (~2011) Headache History of angina History of DVT (deep vein thrombosis) Hyperlipidemia associated with type 2 diabetes mellitus Hypertension associated with diabetes Kidney stone Major depression, recurrent Medical non-compliance Migraines Obesity, morbid, BMI 40.0-49.9 Ovarian cyst Overweight PCOS (polycystic ovarian syndrome) Peripheral vascular disease Post concussive syndrome (~2017) Pulmonary embolism Renal failure (~2017) Sepsis Sleep-disordered breathing Uterine fibroid Surgical History Surgical History History of adenoidectomy History of appendectomy History of cholecystectomy History of hysterectomy History of intravascular stent placement with removal in 2017 History of removal of ovarian cyst Hx of tonsillectomy Previous back surgery L4 and L5 fusion Status post lumbar spine surgery for decompression of spinal cord Family
[2020-07-20] MEDS: ONDANSETRON INJ 4 MG/2 ML VIAL IV PUSH (21:17)
[2020-07-20] MEDS: SODIUM CHLORIDE 0.9% IV 1,000 ML 999 ML IV CONT (21:17)
[2020-07-20 21:48] LABS: Add Urine Microscopic? YES; Appearance Urine Cloudy (Clear); Bacteria Urine Trace /hpf; Bilirubin Urine Negative (Negative); Blood Urine Negative (Negative); Color Urine Yellow (Yellow); Glucose Urine UA 1+ mg/dL (Negative); Ketones Urine Negative (Negative); Leukocyte Esterase Ur Negative LEU/UL (Negative); Mucus Urine Few /lpf; Nitrate Urine Negative (Negative); Protein Urine 1+ mg/dL (Negative); Squamous Epithelial Cell Urine Many /hpf (Few); Urobilinogen Urine Negative mg/dL (<2.0); WBC Urine 0-3 /hpf
[2020-07-20 21:49] LABS: Specific Grav Ur 1.032 (1.001-1.035)
[2020-07-20] MEDS: PROMETHAZINE HCL 25 MG/ML AMPUL 12.5 MG IV PUSH (23:51)
[2020-07-20 23:56] VITALS: BP 136/86; PULSE 76; RESP 30; TEMP 36.8; O2SAT 95
[2020-07-21] VITALS (9 sets, daily range): BP systolic 106–147; BP diastolic 59–86; PULSE 71–84; RESP 14–20; TEMP 36–36.7; O2SAT 95–99; BMI 51.5
--- NOTE | 2020-07-21 | ADMGEN ---
This patient, Olivia Fernandez, was admitted to [facility] Surg Room 319-01. Patient/family oriented to hospital policies and general routines including ID bracelet, bed and alarms, visiting hours, pain management, procedures, bathroom and other care routines, personal items, smoking policy, room service/diet, and visiting hours. Information on how to activate the Rapid Response Team has been discussed. Patient/Family are encouraged to report perceived risks to care and to ask questions if they do not understand what they are told or what they should do.
[2020-07-21] MEDS: SODIUM CHLORIDE 0.9% IV 1,000 ML 150 ML IV CONT ×2 (00:55→08:22)
[2020-07-21] MEDS: ONDANSETRON INJ 4 MG/2 ML VIAL IV PUSH ×4 (05:17→22:20)
[2020-07-21] MEDS: HYDROmorphone HCL INJ (*CRX) 1 MG/ML SYR 0.5 MG IV PUSH ×5 (06:07→23:14)
[2020-07-21 08:03] LABS: Glucose Point of Care 156 (65-105)
[2020-07-21 10:02] LABS: INR 1.3; Prothrombin Time 16.7 Seconds (11.1-14.7)
[2020-07-21 10:11] LABS: Lactic Acid Reflex 0.9 mmol/L (0.7-2.1)
--- NOTE | 2020-07-21 10:36 | PM.IMHP ---
H&P: HPI History of Present Illness Date/Time: 07/21/20 10:36 Chief Complaint: RUQ Abdominal pain Narrative: Olivia Fernandez is a 50 year old female with a history of chronic right upper quadrant recurrent abdominal pain, status post cholecystectomy in 1994, diastolic CHF, diabetes, history of multiple DVTs in the past on chronic Coumadin, hypertension, who presents emergency room for constant, waxing and waning right upper quadrant pain with intermittent spasming and radiation to her right back. The patient her family when out of town this past weekend was eating a lot of fast food that she has not used to having. The patient started having some dull right upper quadrant pain on 07/16/20, but she was still able to eat and drink like normal. Then on Friday morning after eating breakfast she developed nausea and vomiting. Over the next few days she had increased abdominal pain, increased nausea and vomiting. She noticed a few episodes of bright red blood in her vomit, denies any coffee-ground emesis. She also reports some associated intermittent chills, throbbing headache without visual disturbances, lightheadedness, and weakness. She missed her some Zofran with temporary relief of her nausea. She came to the ER on 07/19/2020 and was given medications IV with improvement of her symptoms and was discharged home. On 07/20/2020 she went to her primary care provider's office where she had a COVID test that was negative and due to continued symptoms she was sent back to the ER for further evaluation and treatment. Vitals showed she was afebrile, non tachycardic, normal oxygenation respiratory rate, blood pressure slightly elevated at 142/86. Initial labs showed normal white blood cell count at 9300, normal neutrophil count, normal CMP, normal lipase other than elevated glucose at 171. Urinalysis showed cloudy urine with 1+ protein and 1+ glucose, many squamous cells which is not consistent with an infection. CT abdomen/pelvis done 07/19/2020 showed no acute abnormality. Right upper quadrant ultrasound 07/20/2020 showed status post cholecystectomy. Common bile duct measured 4.7 mm which is normal. No signs of hepatic or pancreatic mass or lesion. She was admitted into the hospital with a GI consultation, IV fluid hydration, placed NPO, given antiemetics and pain medications p.r.n.. 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 venous thrombosis) (~2015) 03/2000 & 04/2016 Fatty liver Fibromyalgia (~2011) Headache History of angina History of DVT (deep vein thrombosis) Hyperlipidemia associated with type 2 diabetes mellitus Hypertension associated with diabetes Kidney stone Major depression, recurrent Medical non-compliance Migraines Obesity, morbid, BMI 40.0-49.9 Ovarian cyst Overweight PCOS (polycystic ovarian syndrome) Peripheral vascular disease Post concussive syndrome (~2017) Pulmonary embolism Renal failure (~2017) Sepsis Sleep-disordered breathing Uterine fibroid Surgical History Surgical History History of adenoidectomy History of appendectomy History of cholecystectomy History of hysterectomy History of intravascular stent placement with removal in 2017 History of removal of ovarian cyst Hx of tonsillectomy Previous back surgery L4 and L5 fusion Status post lumbar spine surgery for decompression of spinal cord Family History Family History (Reviewed 07/21/20 @ 1
[2020-07-21 11:06] LABS: Aspartate Amino Transferase 41 U/L (14-36); Blood Urea Nitrogen 12 mg/dL (7-17); Sodium 140 mmol/L (137-145)
[2020-07-21 11:09] LABS: Alanine Aminotransferase 27 U/L (4-35); Albumin Level 3.3 g/dL (3.5-5.1); Alkaline Phosphatase 102 U/L (38-126); Anion Gap 4 mmol/L (8-16); Bilirubin,Total 0.4 mg/dL (0.2-1.3); CRP 1.7 mg/dL (<1.0); Calcium 8.3 mg/dL (8.4-10.2); Carbon Dioxide 29 mmol/L (22-30); Chloride 107 mmol/L (98-107); Estimated CRCL calculation 111 ml/min; Estimated Glomerular Filt Rate > 60; Glucose 148 mg/dL (65-105); Lipase 49 U/L (23-300); Potassium 3.6 mmol/L (3.4-5.0)
[2020-07-21] MEDS: PANTOPRAZOLE SODIUM IV 40 MG VIAL IV PUSH ×2 (11:11→20:02)
[2020-07-21 11:58] LABS: Glucose Point of Care 129 (65-105)
[2020-07-21] MEDS: LACTATED RINGERS 1,000 ML 150 ML IV CONT (11:58)
[2020-07-21 12:25] LABS: Hemoglobin A1C 9.5 % (<5.7)
--- NOTE | 2020-07-21 13:21 | WPDGICN ---
Assessment and Plan Assessment and plan (1) Nausea vomiting and diarrhea: Code(s): R11.2 - Nausea with vomiting, unspecified; R19.7 - Diarrhea, unspecified Status: Acute Assessment and Plan: gi work up in he past unrevealing, will repeat EGD again (last time only mild gastritis) probably functional she also will need gastric emptying study as outpatient because diabetes to assess if component of gastroparesis no need to do ERCP and explained to patient will check random porphyria in urine because chronic pain but probably will be normal. 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: without marine oil terminal superintendent use Qualified Code(s): E11.9 - Type 2 diabetes mellitus without complications Code(s): E11.9 - Type 2 diabetes mellitus without complications Status: Acute Assessment and Plan: on medical treatment (4) History of DVT (deep vein thrombosis): Code(s): Z86.718 - Personal history of other venous thrombosis and embolism Status: Chronic Assessment and Plan: on coumadin GI Consult Note Consult date/time: 07/21/20 13:21 Reason for consult: nausea and vomiting HPI: Olivia Fernandez is a 50 year old female with multiple medical problems including uncontrolled DM, post cholecystectomy, morbid obese, PE/DVT on coumadin, diastolic heart failure on diuretics and seen by cardiology who I met during her last hospitalization on 08/2019, EGD showed mild gastritis and I was able to review records from her other GI doctors because intermittent abdominal pain- initially had ERCP 2014 for possible SOD, had biliary stent that was removed 1 year after (patient did not come back on time and removed after a year). Then in 2018 because intermittent pain in RUQ with n/v, admitted again to another hospital, another GI doctor was consulted for second opinion on ERCP (had MRCP with unrevealing new findings, previous CT scan, etc) and decision was that did not need another repeat ERCP but rather treat as functional or with pain modulator/antispasmodic- per notes patient also requested back then an ERCP. This time she came with similar symptoms, few days of nausea with vomiting and also intermittent epigastric/ruq pain, she says that similar when her ERCP was done. Recent CT scan and ultrasound reviewed and normal, no acute findings. She was admitted because of n/v, blood work mostly unremarkable. Review of Systems Constitutional: Constitutional: Denies headache(s) and Denies weakness Eyes: Eyes: Denies blurry vision ENT: Reports Normal hearing present, Denies headache(s) and Denies neck pain Cardiovascular: Cardiovascular: Denies chest pain and Denies dyspnea Respiratory: Respiratory: Denies dyspnea Gastrointestinal: Gastrointestinal: Reports no additional gastrointestinal complaints Genitourinary: Genitourinary: Denies dysuria Musculoskeletal: Musculoskeletal: Denies neck pain Integumentary/Breasts: Skin/Breast: Denies dry skin Neurologic: Reports Normal hearing present, Denies headache(s) and Denies weakness Psychiatric: Psychiatric: Denies anxiety Endocrine: Endocrine: Denies change in body appearance Hematologic/Lymphatic: Hematologic/Lymphatic: Denies easy bleeding Allergic/Immunologic: Allergic/Immunologic: Denies urticaria [facility] Past Medical History Medical History (Updated 07/21/20 @ 11:27 by Paloma Nicholas PA-C) Anxiety Arthritis Asthma 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
--- NOTE | 2020-07-21 13:48 | PC.NURSE ---
Patient returned from GI lab.
[2020-07-21 14:06] LABS: Glucose Point of Care 126 (65-105)
[2020-07-21] MEDS: diphenhydrAMINE HCl INJ 50 MG/ML VIAL 25 MG IV PUSH ×2 (15:55→20:01)
[2020-07-21 16:50] LABS: Glucose Point of Care 138 (65-105)
--- NOTE | 2020-07-21 16:58 | PC.NURSE ---
Pt laterally transferred from 3 med/surg per bed. Report received from ANTONIO Membreno.
--- NOTE | 2020-07-21 17:13 | PC.NURSE ---
This patient, Olivia Fernandez, was transferred to [[address] [place] [address] ] on 07/21/20 at 1700. Personal belongings sent with patient. Report given to [ Camryn]. Appropriate documentation sent with patient.
[2020-07-21 17:26] LABS: Glucose Point of Care 141 (65-105)
[2020-07-21] MEDS: HYDROcodone/acetaminophen (*CRX) 5-325 MG TABLET 1 TAB PO (18:30)
[2020-07-21] MEDS: SODIUM CHLORIDE 0.9% IV 1,000 ML 120 ML IV CONT (18:33)
[2020-07-21 20:28] LABS: Glucose Point of Care 188 (65-105)
[2020-07-21] MEDS: HYDROcodone/acetaminophen (*CRX) 7.5-325 MG TABLET 1 TAB PO (22:20)
[2020-07-22] MEDS: diphenhydrAMINE HCl INJ 50 MG/ML VIAL 25 MG IV PUSH ×6 (00:02→20:59)
[2020-07-22] MEDS: HYDROcodone/acetaminophen (*CRX) 7.5-325 MG TABLET 1 TAB PO ×4 (02:25→23:08)
[2020-07-22] MEDS: ONDANSETRON INJ 4 MG/2 ML VIAL IV PUSH ×4 (02:25→20:15)
[2020-07-22] MEDS: HYDROmorphone HCL INJ (*CRX) 1 MG/ML SYR 0.5 MG IV PUSH ×5 (03:30→20:15)
[2020-07-22] MEDS: SODIUM CHLORIDE 0.9% IV 1,000 ML 120 ML IV CONT (04:20)
[2020-07-22 07:59] LABS: Glucose Point of Care 137 (65-105)
[2020-07-22 08:00] VITALS: BP 118/74; PULSE 86; RESP 16; TEMP 36.8; O2SAT 99
--- NOTE | 2020-07-22 08:49 | WPDANESPN ---
Anes - Prog Note Post-Op Date/Time: 07/22/20 08:49 Cardiovascular status: normal Respiratory status: normal Airway patency: baseline Mental status: baseline Post-Op hydration status: normal Vital Signs: Last Vital Signs Temp 36.8 C 07/22/20 08:00 Pulse 86 07/22/20 08:00 Resp 16 07/22/20 08:00 BP 118/74 07/22/20 08:00 Pulse Ox 99 07/22/20 08:00 Pain Score (VAS): no complaints I/O: Intake & Output 07/21/20 07/22/20 07/22/20 23:59 07:59 15:59 Intake Total 1540 1500 240 Output Total 450 400 Balance 1090 1100 240 Laboratory Tests 07/20/20 19:58 07/21/20 07/21/20 07/21/20 09:38 09:38 09:38 PT 16.7 H INR 1.3 Sodium 140 Potassium 3.6 Chloride 107 Carbon Dioxide 29 Anion Gap 4 L BUN 12 Creatinine 0.70 Estim Creat Clear Calc 111 Estimated GFR > 60 Glucose 148 H POC Capillary Glucose Hemoglobin A1c 9.5 H Lactic Acid Calcium 8.3 L Total Bilirubin 0.4 AST 41 H ALT 27 Alkaline Phosphatase 102 C-Reactive Protein 1.7 H Total Protein 6.0 L Albumin 3.3 L Lipase 49 Ur Total Porphyrins Random Uroporphyrins I Random Uroporphyrin III U Rdm Heptacarboxylpor U Rndm Hexacarboxylpor U Rdm Pentacarboxylpor U Random Coproporphyr I U Rndm Coproporphyr III Ur Porphyrins Interp 07/21/20 07/21/20 07/21/20 09:38 11:56 13:54 PT INR Sodium Potassium Chloride Carbon Dioxide Anion Gap BUN Creatinine Estim Creat Clear Calc Estimated GFR Glucose POC Capillary Glucose 129 H 126 H Hemoglobin A1c Lactic Acid 0.9 Calcium Total Bilirubin AST ALT Alkaline Phosphatase C-Reactive Protein Total Protein Albumin Lipase Ur Total Porphyrins Random Uroporphyrins I Random Uroporphyrin III U Rdm Heptacarboxylpor U Rndm Hexacarboxylpor U Rdm Pentacarboxylpor U Random Coproporphyr I U Rndm Coproporphyr III Ur Porphyrins Interp 02/05/21 02/05/21 02/05/21 16:42 17:23 19:54 PT INR Sodium Potassium Chloride Carbon Dioxide Anion Gap BUN Creatinine Estim Creat Clear Calc Estimated GFR Glucose POC Capillary Glucose 138 H 141 H 188 H Hemoglobin A1c Lactic Acid Calcium Total Bilirubin AST ALT Alkaline Phosphatase C-Reactive Protein Total Protein Albumin Lipase Ur Total Porphyrins Random Uroporphyrins I Random Uroporphyrin III U Rdm Heptacarboxylpor U Rndm Hexacarboxylpor U Rdm Pentacarboxylpor U Random Coproporphyr I U Rndm Coproporphyr III Ur Porphyrins Interp 07/21/20 07/22/20 07/22/20 22:28 06:50 07:56 PT INR Sodium Pending Potassium Pending Chloride Pending Carbon Dioxide Pending Anion Gap Pending BUN Pending Creatinine Pending Estim Creat Clear Calc Pending Estimated GFR Pending Glucose Pending POC Capillary Glucose 137 H Hemoglobin A1c Lactic Acid Calcium Pending Total Bilirubin Pending AST Pending ALT Pending Alkaline Phosphatase Pending C-Reactive Protein Pending Total Protein Pending Albumin Pending Lipase Ur Total Porphyrins Pending Random Uroporphyrins I Pending Random Uroporphyrin III Pending U Rdm Heptacarboxylpor Pending U Rndm Hexacarboxylpor Pending U Rdm Pentacarboxylpor Pending U Random Coproporphyr I Pending U Rndm Coproporphyr III Pending Ur Porphyrins Interp Pending Post-procedural complaints: none Patient Feedback: Patient satisfied with anesthetic care.
[2020-07-22] MEDS: PANTOPRAZOLE SODIUM IV 40 MG VIAL IV PUSH (09:07)
[2020-07-22 10:06] VITALS: O2SAT 93
[2020-07-22 11:50] LABS: Glucose Point of Care 164 (65-105)
[2020-07-22 12:41] LABS: Alanine Aminotransferase 39 U/L (4-35); Albumin Level 3.5 g/dL (3.5-5.1); Alkaline Phosphatase 118 U/L (38-126); Anion Gap 8 mmol/L (8-16); Aspartate Amino Transferase 48 U/L (14-36); Bilirubin,Total 0.3 mg/dL (0.2-1.3); Blood Urea Nitrogen 10 mg/dL (7-17); CRP 1.7 mg/dL (<1.0); Calcium 9.2 mg/dL (8.4-10.2); Carbon Dioxide 25 mmol/L (22-30); Chloride 113 mmol/L (98-107); Estimated CRCL calculation 75 ml/min; Estimated Glomerular Filt Rate > 60; Glucose 130 mg/dL (65-105); Potassium 3.7 mmol/L (3.4-5.0); Sodium 146 mmol/L (137-145)
--- NOTE | 2020-07-22 13:06 | PM.IMPN ---
Progress Note: A&P Assessment and Plan (1) Abdominal pain: Qualifiers: Abdominal location: right upper quadrant Qualified Code(s): R10.11 - Right upper quadrant pain Code(s): R10.9 - Unspecified abdominal pain Status: Acute Assessment and Plan: DDX includes DIABETIC THORACOABDOMINAL NEUROPATHY, GASTRIC MOTILITY DISORDER, BILIARY SPASM, GASTRITIS Continue acid supression Add Cymbalta (do not resume Prozac) and topical lidocaine Resume Lyrica (2) Gastritis: Qualifiers: Gastritis type: unspecified gastritis Chronicity: unspecified Gastritis bleeding: without bleeding Qualified Code(s): K29.70 - Gastritis, unspecified, without bleeding Code(s): K29.70 - Gastritis, unspecified, without bleeding Status: Acute Assessment and Plan: Continue acid supression (3) DM2 (diabetes mellitus, type 2): Qualifiers: 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 insulin use: without custodial use Diabetes mellitus complication status: without complication Qualified Code(s): E11.9 - Type 2 diabetes mellitus without complications Code(s): E11.9 - Type 2 diabetes mellitus without complications Status: Acute Assessment and Plan: Resume metformin Continue SSI (4) Hypertension associated with diabetes: Code(s): E11.59 - Type 2 diabetes mellitus with other circulatory complications; I10 - Essential (primary) hypertension Status: Acute Assessment and Plan: Resume metoprolol (5) Diastolic dysfunction with heart failure: Qualifiers: Heart failure chronicity: chronic Qualified Code(s): I50.32 - Chronic diastolic (congestive) heart failure Code(s): I50.30 - Unspecified diastolic (congestive) heart failure Status: Acute Assessment and Plan: Resume spironolactone One dose of IV furosemide 2/6 D/c IVF as she is tolerating diet (6) History of pulmonary embolism: Code(s): Z86.711 - Personal history of pulmonary embolism Status: Acute Assessment and Plan: Resume warfarin and f/u INR Subjective Date/time seen: 07/22/20 13:06 Interval history: Admitted with RUQ pain, n/v 2/. EGD with gastritis. Similar issues intermittently for about 4 years. Negative ERCP. Had biliary stent for about one year. Intermittent mild LFT elevation. Diabetes has been poorly controlled. Takes Lyrica for fibromyalgia and Prozac for depression. 2/: Tolerated lunch. Still with moderate pain. Eating doesn't seem to aggravate pain. But the pain seems to cause nausea. Denied weight loss. Hurts even to touch the RUQ region. Pain radiates to back. Review of Systems Review of Systems: All systems reviewed & are unremarkable except as noted in HPI and below Exam Narrative: Exam Narrative: HEENT: PERRL, sclerae nonicteric, pharyngeal mucosa pink and intact NECK: No JVD CHEST: Clear to auscultation. Normal effort. HEART: NL S1/S2, regular, no murmur ABDOMEN: BS+, soft. TENDER TO PALPATION AND TO LIGHT TOUCH IN RUQ, WORST IN MIDLINE, BUT SENSITIVITY EXTENDS TO RIGHT FLANK TOWARD CVA. EXTREMITIES: No cyanosis, edema, or clubbing NEUROLOGIC: CN intact and symmetric to inspection. MUSCULOSKELETAL: Tone and strength symmetric. PSYCH: Alert. Oriented to person, place, and time. Objective Data Vital Signs Vital Signs: Vital Signs - 24 hr 07/21/20 13:21 07/21/20 13:31 07/21/20 13:40 Temperature Pulse Rate 82 74 74 Respiratory Rate 18 16 17 Blood Pressure 106/60 119/63 120/59 L Pulse Oximetry 97 99 97 07/21/20 14:03 07/21/20 17:49 07/21/20 19:43 Temperature 96.8 F L 97.1 F L 98.1 F Pulse Rate 71 83 84 Respiratory Rate 18 16 14 Blood Pressure 120/63 110/65 128/73 Pulse Oximetry 97 95 97 07/22/20 08:00 07/22/20 10:06 Temperature 98.2 F Pulse Rate 86 Respiratory Rate 16 Blood Pressure 118/74 Pulse Oximetry 99 93 Intake/Output Intake/Output: Intake & Output 07/19/20 07/20/20 07/21/20 07/22/20 23:5
[2020-07-22] MEDS: FUROSEMIDE INJ 40 MG/4 ML VIAL 20 MG IV PUSH (14:33)
[2020-07-22 16:00] VITALS: BP 167/97; PULSE 83; RESP 18; TEMP 36.4; O2SAT 100
[2020-07-22 16:40] LABS: Glucose Point of Care 141 (65-105)
[2020-07-22] MEDS: metFORMIN HCL 500 MG TABLET 1000 MG PO (16:54)
[2020-07-22] MEDS: PREGABALIN (*CRX) 75 MG CAPSULE 150 MG PO (16:54)
[2020-07-22] MEDS: WARFARIN (*PBKC) 3 MG TABLET 6 MG PO (16:54)
[2020-07-22] MEDS: PROMETHAZINE HCL 25 MG/ML AMPUL 12.5 MG IV PUSH (17:15)
[2020-07-22] MEDS: ALBUTEROL SULFATE (*SP) AEROSOL 1 PUFF INHALATION (18:37)
[2020-07-22 19:19] VITALS: BP 142/83; PULSE 92; RESP 12; TEMP 36.8; O2SAT 98
[2020-07-22 20:14] VITALS: PULSE 92
[2020-07-22] MEDS: METOPROLOL TARTRATE 25 MG TABLET PO (20:14)
[2020-07-23] MEDS: ONDANSETRON INJ 4 MG/2 ML VIAL IV PUSH ×2 (02:14→08:14)
[2020-07-23] MEDS: diphenhydrAMINE HCl INJ 50 MG/ML VIAL 25 MG IV PUSH ×2 (02:14→09:37)
[2020-07-23] MEDS: HYDROmorphone HCL INJ (*CRX) 1 MG/ML SYR 0.5 MG IV PUSH ×2 (02:15→08:14)
[2020-07-23] MEDS: HYDROcodone/acetaminophen (*CRX) 7.5-325 MG TABLET 1 TAB PO (06:24)
[2020-07-23 06:39] VITALS: BP 135/71; PULSE 72; RESP 14; TEMP 36.5; O2SAT 98
[2020-07-23 06:44] LABS: Hematocrit 41.5 % (37.0-47.0); Hemoglobin 13.1 g/dL (12.0-15.0); Mean Corpuscular HGB Conc 31.6 g/dl (32-36); Mean Corpuscular Hemoglobin 26.3 pg (26-34); Mean Corpuscular Volume 83.3 fl (80-100); Mean Platelet Volume 9.9 fl (7.4-10.4); Platelet Count Result 266 k/mm3 (150-375); Red Blood Count 4.98 M/mm3 (4.2-5.4); Red Cell Distribution Width 13.3 % (11.5-14.5); White Blood Count 7.2 K/mm3 (4.5-10.0)
[2020-07-23 06:50] LABS: INR 1.1; Prothrombin Time 14.5 Seconds (11.1-14.7)
[2020-07-23 07:01] LABS: Alanine Aminotransferase 32 U/L (4-35); Albumin Level 3.3 g/dL (3.5-5.1); Alkaline Phosphatase 106 U/L (38-126); Anion Gap 3 mmol/L (8-16); Aspartate Amino Transferase 33 U/L (14-36); Bilirubin,Total 0.3 mg/dL (0.2-1.3); Blood Urea Nitrogen 8 mg/dL (7-17); Calcium 8.7 mg/dL (8.4-10.2); Carbon Dioxide 32 mmol/L (22-30); Chloride 105 mmol/L (98-107); Estimated CRCL calculation 67 ml/min; Estimated Glomerular Filt Rate > 60; Glucose 133 mg/dL (65-105); Potassium 3.5 mmol/L (3.4-5.0); Sodium 140 mmol/L (137-145)
[2020-07-23 07:41] LABS: Glucose Point of Care 130 (65-105)
[2020-07-23 08:13] VITALS: PULSE 76
[2020-07-23] MEDS: METOPROLOL TARTRATE 25 MG TABLET PO (08:13)
[2020-07-23] MEDS: metFORMIN HCL 500 MG TABLET 1000 MG PO (08:13)
[2020-07-23] MEDS: LIDOCAINE 5% PATCH 1 PATCH TRANSDERM (08:13)
[2020-07-23] MEDS: DULoxetine HCL 60 MG CAPSULE.DR PO (08:13)
[2020-07-23] MEDS: PREGABALIN (*CRX) 75 MG CAPSULE 150 MG PO (08:14)
[2020-07-23] MEDS: SPIRONOLACTONE 25 MG TABLET PO (08:14)
[2020-07-23] MEDS: ENOXAPARIN 80 MG/0.8 ML SYRINGE SUB-Q (09:37)
--- NOTE | 2020-07-23 11:09 | PM.DS ---
DS: Admitting Diagnosis Admitting Diagnosis Admitting Diagnosis: Abdominal pain DS: Discharge Diagnosis Discharge Diagnosis (1) Abdominal pain: Qualifiers: Abdominal location: right upper quadrant Qualified Code(s): R10.11 - Right upper quadrant pain Code(s): R10.9 - Unspecified abdominal pain Status: Acute Assessment and Plan: DDX includes DIABETIC THORACOABDOMINAL NEUROPATHY, GASTRIC MOTILITY DISORDER, BILIARY SPASM, GASTRITIS Continue acid supression upon discharge Add Cymbalta (discontinued Prozac) and topical lidocaine Resume Lyrica (2) Gastritis: Qualifiers: Chronicity: unspecified Gastritis bleeding: without bleeding Gastritis type: unspecified gastritis Qualified Code(s): K29.70 - Gastritis, unspecified, without bleeding Code(s): K29.70 - Gastritis, unspecified, without bleeding Status: Acute Assessment and Plan: Continue acid supression (3) DM2 (diabetes mellitus, type 2): Qualifiers: Diabetes mellitus complication status: without complication Diabetes mellitus skilled nursing insulin use: without termite renewal inspector use Qualified Code(s): E11.9 - Type 2 diabetes mellitus without complications Code(s): E11.9 - Type 2 diabetes mellitus without complications Status: Acute Assessment and Plan: Resume metformin (4) Hypertension associated with diabetes: Code(s): E11.59 - Type 2 diabetes mellitus with other circulatory complications; I10 - Essential (primary) hypertension Status: Acute Assessment and Plan: Resume metoprolol (5) Diastolic dysfunction with heart failure: Qualifiers: Heart failure chronicity: chronic Qualified Code(s): I50.32 - Chronic diastolic (congestive) heart failure Code(s): I50.30 - Unspecified diastolic (congestive) heart failure Status: Acute Assessment and Plan: Resume spironolactone One dose of IV furosemide 2/6 D/c IVF as she is tolerating diet (6) History of pulmonary embolism: Code(s): Z86.711 - Personal history of pulmonary embolism Status: Acute Assessment and Plan: Resume warfarin and f/u INR as outpatient She has not history of Antiphosphlipid antibody syndrome. (7) Supratherapeutic INR: Code(s): R79.1 - Abnormal coagulation profile Status: Acute (8) Anticoagulation goal of INR 2 to 3: Code(s): Z51.81 - Encounter for therapeutic drug level monitoring; Z79.01 - parts counterman (current) use of anticoagulants Status: Acute (9) History of DVT (deep vein thrombosis): Code(s): Z86.718 - Personal history of other venous thrombosis and embolism Status: Chronic DS: Summary Hospital Course Reason for hospitalization: Olivia Fernandez is a 50 year old female with a history of chronic right upper quadrant recurrent abdominal pain, status post cholecystectomy in 1994, diastolic CHF, diabetes, history of multiple DVTs in the past on chronic Coumadin, hypertension, who presents emergency room for constant, waxing and waning right upper quadrant pain with intermittent spasming and radiation to her right back. Initial Vitals showed she was afebrile, non tachycardic, normal oxygenation respiratory rate, blood pressure slightly elevated at 142/86. Initial labs showed normal white blood cell count at 9300, normal neutrophil count, normal CMP, normal lipase other than elevated glucose at 171. Urinalysis showed cloudy urine with 1+ protein and 1+ glucose, many squamous cells which is not consistent with an infection. CT abdomen/pelvis done 07/19/2020 showed no acute abnormality. Right upper quadrant ultrasound 07/20/2020 showed status post cholecystectomy. Common bile duct measured 4.7 mm which is normal. No signs of hepatic or pancreatic mass or lesion. She was admitted into the hospital with a GI consultation, IV fluid hydration, placed NPO, given antiemetics and pain medications p.r.n.. Dr. Sutherland
[2020-07-23] MEDS: HYDROcodone/acetaminophen (*CRX) 5-325 MG TABLET 1 TAB PO (11:30)
[2020-07-23] MEDS: WARFARIN (*PBKC) 3 MG TABLET 6 MG PO (11:30)
[2020-07-31 20:36] LABS: Coproporphyrin I 17.1 (6.5-33.2); Coproporphyrin III 22.9 (4.8-88.6)
== END 2020-07-23 12:30 | disposition home or self-care (01) | DRG 392 ==
LOC: ANHED 20:33 → ANH3MEDSUR 23:31 → ANH3MED 07-21 16:56
PROVIDERS: Emergency Medicine; Internal Medicine; Internal Medicine Gastroenterology; Physician Assistant; Admitting Provider Internal Medicine; Emergency Provider Nurse Practitioner; PCP Family Medicine; Visit Provider Internal Medicine
PROC: 0DJ08ZZ Inspection of Upper Intestinal Tract, Via Natural or Artificial Opening Endoscopic (ICD-10-PCS; CPT 43235; principal; 2020-07-21 15:15)
DX: K29.50 Unspecified chronic gastritis without bleeding (principal); I50.32 Chronic diastolic (congestive) heart failure; F33.9 Major depressive disorder, recurrent, unspecified; E11.59 Type 2 diabetes mellitus with other circulatory complications; I11.0 Hypertensive heart disease with heart failure; E11.40 Type 2 diabetes mellitus with diabetic neuropathy, unspecified; F41.9 Anxiety disorder, unspecified; M19.90 Unspecified osteoarthritis, unspecified site; J45.909 Unspecified asthma, uncomplicated; K76.0 Fatty (change of) liver, not elsewhere classified; M79.7 Fibromyalgia; E78.5 Hyperlipidemia, unspecified; E11.51 Type 2 diabetes mellitus with diabetic peripheral angiopathy without gangrene; I73.9 Peripheral vascular disease, unspecified; R79.1 Abnormal coagulation profile; T45.515A Adverse effect of anticoagulants, initial encounter; Z79.01 Long term (current) use of anticoagulants; Z86.718 Personal history of other venous thrombosis and embolism; Z86.711 Personal history of pulmonary embolism; Z90.49 Acquired absence of other specified parts of digestive tract; Z98.1 Arthrodesis status; Z90.710 Acquired absence of both cervix and uterus; E66.01 Morbid (severe) obesity due to excess calories; Z68.32 Body mass index [BMI] 32.0-32.9, adult
CPT/HCPCS: 36415; 80053; 81001; 82948; 83036; 83605; 83690; 84120; 85025; 85027; 85610; 86140; 88305; 96361; 96374; 96375; 96376; 99285; A9270; C9113; G0378; J0131; J1170; J1200; J1650; J1940; J2405; J2550; J2704; J7030; J7120

== ENCOUNTER 2020-08-24 18:35 | Outpatient (CLI) | payer OTHER, SELFPAY ==
[2020-08-24 19:07] LABS: Basophils Absolute Auto 0.05 K/mm3 (0.00-0.10); Basophils Percent Auto 0.4 % (0.0-1.0); Eosinophils Absolute Auto 0.76 K/mm3 (0.02-0.50); Eosinophils Percent Auto 6.8 % (1.0-6.0); Hematocrit 44.9 % (35.0-49.0); Hemoglobin 14.4 g/dL (12.0-15.0); Immature Granulocyte Absolute 0.05 K/mm3 (0.00-0.00); Immature Granulocyte Percent A 0.4 % (0.0-0.0); Lymphocytes Absolute Auto 3.55 K/mm3 (1.10-4.50); Lymphocytes Percent Auto 31.9 % (18.0-42.0); Mean Corpuscular HGB Conc 32.1 g/dL (32.0-36.0); Mean Corpuscular Hemoglobin 26.2 pg (27.0-31.0); Mean Corpuscular Volume 81.6 fL (78.0-102.0); Mean Platelet Volume 9.6 fl (9.2-11.8); Monocytes Absolute Auto 0.61 K/mm3 (0.10-0.90); Monocytes Percent Auto 5.5 % (2.0-11.0); Neutrophils Absolute Auto 6.1 K/mm3 (1.7-7.2); Platelet Count Result 315 K/mm3 (150-420); White Blood Count 11.1 K/mm3 (4.8-10.8)
[2020-08-24 19:15] LABS: Hemoglobin A1C 8.7 % (<5.7)
[2020-08-24 19:20] LABS: INR 2.7; Prothrombin Time 27.7 Seconds (9.50-12.10)
[2020-08-24 19:32] LABS: Alanine Aminotransferase 24 U/L (14-59); Albumin Level 3.6 g/dL (3.4-5.0); Alkaline Phosphatase 160 U/L (46-116); Amylase 27 U/L (25-115); Anion Gap 8 mmol/L (8-16); Aspartate Amino Transferase < 10 U/L (15-37); Bilirubin,Total 0.3 mg/dL (0.00-1.00); Blood Urea Nitrogen 12 mg/dL (7-18); CRP 4.1 mg/dL (0.0-0.9); Calcium 9.1 mg/dL (8.5-10.1); Carbon Dioxide 31 mmol/L (21-32); Chloride 96 mmol/L (98-108); Estimated Glomerular Filt Rate 60; Free T3 2.48 pg/mL (2.18-3.98); Glucose 270 mg/dL (70-99); Lipase 63 U/L (73-393); Osmolality Calculated 289 mOsm/kg (285-295); Potassium 3.5 mmol/L (3.5-5.1); Sodium 135 mmol/L (136-145); Thyroid Stimulating Hormone 1.32 uIU/mL (0.36-3.74); Total Protein 7.4 g/dL (6.4-8.2)
[2020-08-24 19:34] LABS: BNP 16.8 pg/mL (0-100)
[2020-08-24 20:13] LABS: Erythrocyte Sedimentation Rate 13 mm/hr (0-15)
[2020-08-28 05:15] LABS: Thyroid Peroxidase Antibodies <1 IU/mL (<9)
== END 2020-08-24 18:36 | disposition home or self-care (01) ==
LOC: CHSLAB 18:37
PROVIDERS: PCP Nurse Practitioner Family; Visit Provider Family Medicine
DX: R07.9 Chest pain, unspecified (principal); E11.9 Type 2 diabetes mellitus without complications; I10 Essential (primary) hypertension; Z79.899 Other long term (current) drug therapy; Z98.84 Bariatric surgery status; K21.9 Gastro-esophageal reflux disease without esophagitis; E66.01 Morbid (severe) obesity due to excess calories; Z68.42 Body mass index [BMI] 45.0-49.9, adult; R53.83 Other fatigue
CPT/HCPCS: 36415; 80053; 82150; 83036; 83690; 83880; 84439; 84443; 84481; 85025; 85610; 85652; 86140; 86376

== ENCOUNTER 2020-08-30 13:45 | Outpatient (CLI) | payer OTHER, SELFPAY ==
--- NOTE | ~2020-08-30 | XR_ITS ---
EXAMINATION: XR chest 2V DATE: 08/30/2020 14:22 INDICATION: Chest pain. Shortness of breath. TECHNIQUE: Frontal and lateral views of the chest were obtained. COMPARISON: Chest single view 03/26/2020, abdomen CT 08/30/2020 FINDINGS: The chest demonstrates clear lungs without pneumonia, pleural effusion, or pneumothorax. Th e heart size is normal. IMPRESSION: 1. No acute cardiopulmonary disease. Reviewed, dictated and finalized at location A.
--- NOTE | ~2020-08-30 | CT_ITS ---
EXAMINATION: CT abdomen w con EXAM DATE: 08/30/2020 14:21 INDICATION: Abdominal pain. Nausea, diarrhea, hypertension. History biliary duct disease and cholecys tectomy. TECHNIQUE: Spiral CT of the abdomen was performed following intravenous injection of 100 mL Omnipaque 350. Axial, coronal and sagittal images were reviewed. The dose-length product (DLP) for this exam ination was 725.16 mGy-cm. The exposure was tailored according to patient size (auto mA exposure con trol), and iterative reconstruction (ASIR) was used as additional dose reduction technique. Compariso n is made to prior examination from 07/19/2020. FINDINGS: The liver, spleen, adrenal glands and pancreas are unremarkable. There are cholecystectomy clips. Portal and splenic veins are patent. Kidneys enhance symmetrically. There is no hydronephr osis. There is no retroperitoneal lymphadenopathy. The stomach and small bowel are unremarkable. There is expected amount of colonic stool. No free i ntraperitoneal gas. The heart is normal in size. There are no pericardial or pleural effusions. T he lung bases are unremarkable. Chronic L5-S1 spondylolysis and grade 1 anterolisthesis, with intact posterior fusion hardware and interbody devices. There is no significant interval change. IMPRESSION: No acute intra-abdominal findings. Reviewed, dictated and finalized at location A.
[2020-08-30 14:10] LABS: Estimated Glomerular Filt Rate > 60
== END 2020-08-30 13:46 ==
PROVIDERS: PCP Nurse Practitioner Family; Visit Provider Family Medicine
DX: R10.9 Unspecified abdominal pain (principal); R07.9 Chest pain, unspecified
CPT/HCPCS: 71046; 74160; Q9967

== ENCOUNTER 2020-09-04 00:05 | Observation (INO) | payer OTHER, SELFPAY ==
[2020-09-04] VITALS (29 sets, daily range): BP systolic 111–144; BP diastolic 66–115; PULSE 88–119; RESP 12–28; TEMP 36.1–36.8; O2SAT 92–100; BMI 51.6
--- NOTE | ~2020-09-04 | XR_ITS ---
XR chest 2V 09/04/2020 00:56 Indication: Dyspnea Procedure: PA and lateral views of the chest Comparison: Comparison to multiple prior studies sequentially, with oldest reviewed study dated 10/05. Findings: Bibasilar airspace disease. Low lung volumes with crowding of the pulmonary vasculature. No significant effusion or pneumothorax. No acute osseous abnormality. Impression: 1: Bibasilar airspace consolidation may represent atelectasis, pneumonia or less likely edema. Reviewed, dictated and finalized at location A. Impression: 1: Bibasilar airspace consolidation may represent atelectasis, pneumonia or les s likely edema.
--- NOTE | ~2020-09-04 | US_ITS ---
US abdomen limited INDICATION: Right upper quadrant pain. History of biliary dyskinesia. PROCEDURE: Realtime right upper abdominal ultrasound. COMPARISON: Ultrasound dated 07/20/2020 FINDINGS: Evaluation of the pancreas and liver limited by overlying bowel gas. There is normal direct ional flow in the portal vein. Gallbladder is surgically absent. Common bile duct measures 5.9 mm. IMPRESSION: 1: Fatty infiltration of the liver. 2: Status post cholecystectomy. Reviewed, dictated and finalized at location A.
--- NOTE | ~2020-09-04 | XR_ITS ---
EXAMINATION: XR chest 1V portable 09/04/2020 13:16 INDICATION: Shortness of breath and wheezing PROCEDURE: AP portable chest COMPARISON: Comparison to multiple prior studies sequentially, with oldest reviewed study dated 11/30. FINDINGS: The lungs are clear. Mild cardiomegaly. There are no pleural effusions. There is no pneumo thorax suspected. IMPRESSION: 1: NO ACUTE CARDIOPULMONARY DISEASE. Reviewed, dictated and finalized at location A.
--- NOTE | ~2020-09-04 | MR_ITS ---
EXAMINATION: MR MRCP wo/w con/w 3D wo ind DATE: 09/06/2020 11:42 INDICATION: Abdominal pain. Biliary dysfunction. TECHNIQUE: Magnetic resonance imaging (MRI) of the abdomen was performed without and with 20 mL Multi gina intravenous contrast. Sequences included coronal T2-weighted SS-FSE, coronal T2-weighted FS SS- FSE, coronal T2-weighted FS FIESTA, axial T2-weighted FS FIESTA, axial T2-weighted FIESTA, sagittal T 2-weighted SS-FSE, axial T1-weighted dual-echo FSPGR, axial T2-weighted SS-FSE, axial T1-weighted LAV A, axial T2-weighted STIR FSE. Thick-slab T2-weighted FRFSE-XL images were obtained for magnetic reso nance cholangiopancreatography (MRCP). Rotating maximum intensity projection 3-D reconstructions of t he volumetric data were created by the technologist. Postcontrast sequences included a time course of axial T1-weighted LAVA. COMPARISON: CT dated 08/30/2020 FINDINGS: ABDOMEN MRI: Heart size is normal. No pericardial or pleural effusion. Diffuse hepatic steatosis with signal dropo ut on opposed phase images. Spleen, pancreas, bilateral adrenal glands and left kidney are normal. 1 cm T2 hyperintense nonenhancing right renal cyst. Gallbladder is surgically absent with susceptibilit y artifact associated with surgical clips at the gallbladder fossa. Visualized portions of the bowels are unremarkable. No pathologically enlarged abdominal lymphadenopathy. Mild thoracolumbar spondylos is with metallic magnetic field artifact associated with bilateral vertical rods and pedicle screw fi xation for posterior spinal fusion at L5-S1. Bone marrow signal is normal. ABDOMEN MRCP: Intrahepatic biliary tree is normal with no ductal dilation. The common bile duct is also normal antonino uring 5-6 mm maximal diameter. No filling defects to suggest choledocholithiasis, mucosal regularity, strictures or impinging masses. Main pancreatic duct is normal. IMPRESSION: 1. Diffuse hepatic steatosis. 2. Status post cholecystectomy. Otherwise unremarkable MRCP with normal main pancreatic duct and intr a and extrahepatic biliary ducts. Reviewed, dictated and finalized at location A. IMPRESSION: 1. Diffuse hepatic steatosis. 2. Status post cholecystectomy. Otherwise unremarkable MRCP with normal main pa ncreatic duct and intra and extrahepatic biliary ducts.
--- NOTE | ~2020-09-04 | CT_ITS ---
EXAMINATION: CTA chest PE protocol EXAM DATE: 09/04/2020 15:17 INDICATION: Dyspnea, wheezing. TECHNIQUE: Spiral CTA of the chest (pulmonary arteries) was performed with 100 cc Omnipaque 350 intr avenous contrast injection. Images were acquired during the pulmonary arterial phase. Coronal maxi mum intensity projection 3D-reconstructions were created by the technologist on dedicated workstation . Axial, coronal and sagittal reformatted images were reviewed. The dose-length product (DLP) for t his examination was 826.89 mGy-cm. The exposure was tailored according to patient size (auto mA exp osure control), and iterative reconstruction (ASIR) was used as additional dose reduction technique. Comparison is made to prior examination from 07/12/2019. FINDINGS: There are no pulmonary emboli in the 1st through 3rd order (central and interlobar) pulmon [place] arteries. Some loss of attenuation in the segmental pulmonary arteries due to respiratory motion and suboptimal opacification, but no intraluminal filling defects suspected. No thoracic aortic di ssection. Linear left lower lobe subsegmental atelectasis. Tiny calcified pleural plaque identified above the right hemidiaphragm. There are no pleural or pericardial effusions. Tracheobronchial araceli e is patent. There is no mediastinal, hilar or axillary lymphadenopathy. There is no pneumothorax . Heart normal in size. There is mild coronary arterial calcification, arterial sclerosis. There are cholecystectomy clips. There is mild thoracic spondylosis without osteoblastic or osteolytic le sions identified. IMPRESSION: 1. Limited segmental evaluation, but no pulmonary emboli are suspected. 2. No acute cardiopulmonary findings. Reviewed, dictated and finalized at location A.
[2020-09-04] MEDS: IPRATROPIUM 0.5 MG/ALBUTEROL SULFATE 2.5 MG AMPUL.NEB 3 ML INHALATION ×2 (00:15→15:02)
--- NOTE | 2020-09-04 00:18 | ED.SOB ---
HPI - SOB/Dyspnea General Source: patient and RN notes reviewed Mode of arrival: ambulatory Limitations: no limitations History of Present Illness HPI Narrative: patient is speaking in few word sentences. Dyspneic, tachypneic, labored breathing with audible inspiratory expiratory wheezes. MD elicited complaint: shortness of breath and asthma attack Pertinent past history: asthma Onset (ago): day(s) (2) Timing: constant Severity: severe Exacerbating factors: exertion Relieving factors: nothing Known history of: asthma Associated symptoms: denies other symptoms Treatment prior to arrival: bronchodilator Related Data Home oxygen amount: none Home Medications Medication Instructions Recorded Confirmed furosemide 40 mg PO QPM 07/19/20 09/04/20 metoprolol tartrate 25 mg PO BID 07/19/20 09/04/20 pregabalin [Lyrica] 150 mg PO BID 07/19/20 09/04/20 warfarin 6 mg PO DAILY 07/19/20 09/04/20 furosemide 80 mg PO QAM 09/04/20 09/04/20 methocarbamol 100 mg PO DAILY 09/04/20 09/04/20 Allergies Allergy/AdvReac Type Severity Reaction Status Date / Time epinephrine Allergy Severe Unknown Verified 07/21/20 11:53 ibuprofen Allergy Intermediate Unknown Verified 07/21/20 11:53 bupropion Allergy Unknown Unknown Verified 07/21/20 11:53 celecoxib Allergy Unknown Unknown Verified 07/21/20 11:53 Sulfa (Sulfonamide Allergy Unknown Unknown Verified 07/21/20 11:53 Antibiotics) tetanus and diphtheria Allergy Unknown Unknown Verified 07/21/20 11:53 toxoids Review of Systems Constitutional: Constitutional: Reports no additional constitutional complaints Eyes: Eyes: Reports no additional eye complaints ENT: Reports system reviewed and no additional complaints, except as documented Cardiovascular: Cardiovascular: Reports no additional cardiovascular complaints Respiratory: Respiratory: Reports as per HPI Gastrointestinal: Gastrointestinal: Reports no additional gastrointestinal complaints Genitourinary: Genitourinary: Reports no additional female genitourinary complaints Musculoskeletal: Musculoskeletal: Reports no additional musculoskeletal complaints Integumentary/Breasts: Skin/Breast: Reports system reviewed and no additional complaints, except as docu Neurologic: Reports system reviewed and no additional complaints, except as documented [facility] Past Medical History Medical History Anxiety Arthritis Asthma 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 venous thrombosis) (~2015) 03/2000 & 04/2016 Fatty liver Fibromyalgia (~2011) Headache History of angina History of DVT (deep vein thrombosis) Hyperlipidemia associated with type 2 diabetes mellitus Hypertension associated with diabetes Kidney stone Major depression, recurrent Medical non-compliance Migraines Obesity, morbid, BMI 40.0-49.9 Ovarian cyst Overweight PCOS (polycystic ovarian syndrome) Peripheral vascular disease Post concussive syndrome (~2017) Pulmonary embolism Renal failure (~2017) Sepsis Sleep-disordered breathing Uterine fibroid Surgical History Surgical History History of adenoidectomy History of appendectomy History of cholecystectomy History of hysterectomy History of intravascular stent placement with removal in 2017 History of removal of ovarian cyst Hx of tonsillectomy Previous back surgery L4 and L5 fusion Status post lumbar spine surgery for decompression of spinal cord Family History Family History Mother Hypertension Fibromyalgia Osteoarthritis Father DVT (deep venous thrombosis) Social History Social History Social His
[2020-09-04] MEDS: INSULIN HUMAN REGULAR (*BKC) 100 UNITS/ML 15 UNITS SUB-Q (00:33)
[2020-09-04] MEDS: methylPREDNISolone SOD SUCC 125 MG VIAL IV PUSH ×3 (00:33→21:30)
--- NOTE | 2020-09-04 00:39 | PC.NURSE ---
0010 fingerstick glucose 369, dr castillo notified.
[2020-09-04 00:47] LABS: Hematocrit 44.9 % (35.0-49.0); Hemoglobin 14.4 g/dL (12.0-15.0); Mean Corpuscular HGB Conc 32.1 g/dL (32.0-36.0); Mean Corpuscular Hemoglobin 26.3 pg (27.0-31.0); Mean Corpuscular Volume 81.9 fL (78.0-102.0); Mean Platelet Volume 9.8 fl (9.2-11.8); Platelet Count Result 351 K/mm3 (150-420); Red Blood Count 5.48 M/mm3 (4.20-5.40); Red Cell Distribution Width 13.2 % (11.6-14.4); White Blood Count 13.5 K/mm3 (4.8-10.8)
[2020-09-04 00:54] LABS: Alanine Aminotransferase 23 U/L (14-59); Albumin Level 3.4 g/dL (3.4-5.0); Alkaline Phosphatase 174 U/L (46-116); Anion Gap 12 mmol/L (8-16); Aspartate Amino Transferase 11 U/L (15-37); Bilirubin,Total 0.3 mg/dL (0.00-1.00); Blood Urea Nitrogen 12 mg/dL (7-18); Calcium 8.8 mg/dL (8.5-10.1); Carbon Dioxide 30 mmol/L (21-32); Chloride 95 mmol/L (98-108); Estimated CRCL calculation 51 ml/min; Estimated Glomerular Filt Rate 36; Magnesium 1.7 mg/dL (1.8-2.4); Osmolality Calculated 301 mOsm/kg (285-295); Potassium 3.7 mmol/L (3.5-5.1); Sodium 137 mmol/L (136-145); Total Protein 7.3 g/dL (6.4-8.2)
[2020-09-04 01:00] LABS: Glucose 418 mg/dL (70-99)
[2020-09-04 01:01] LABS: CRP 5.2 mg/dL (0.0-0.9)
[2020-09-04] MEDS: LEVALBUTEROL NEB 1.25 MG/3 ML (01:05)
[2020-09-04 01:07] LABS: Glucose Point of Care 397 (65-105)
--- NOTE | 2020-09-04 01:14 | PC.NURSE ---
fingerstick glucose 397
[2020-09-04 01:15] LABS: Total Cells Counted 100
[2020-09-04 01:16] LABS: Atypical Lymphocytes Present; Basophils Absolute Manual 0.27 K/mm3 (0-0.1); Basophils Percent Manual 2 % (0-1); Eosinophils Absolute Manual 3.24 K/mm3 (0.02-0.5); Eosinophils Percent Manual 24 % (1-6); Giant Platelets Present; Large Platelets Present; Lymphocytes Absolute Manual 5.53 K/mm3 (1.1-4.5); Lymphocytes Percent Manual 41 % (18-44); Monocytes Absolute Manual 0.13 K/mm3 (0.1-0.90); Monocytes Percent Manual 1 % (3-9); Neutrophils Percent Manual 32 % (46-73); Platelet Estimate Adequate (Adequate)
[2020-09-04 01:36] LABS: Glucose Point of Care 335 (65-105)
[2020-09-04 02:08] LABS: Glucose Point of Care 327 (65-105)
[2020-09-04] MEDS: MAGNESIUM SULF 2 GM/WATER 50ML 2 GM/50 ML BAG IVPB ×2 (02:13→13:41)
--- NOTE | 2020-09-04 02:54 | ADMGEN ---
This patient, Olivia Fernandez, was admitted to 2nd Floor Room 205-2 for exacerbation for asmtha. . Patient/family oriented to hospital policies and general routines including ID bracelet, bed and alarms, visiting hours, pain management, procedures, bathroom and other care routines, personal items, smoking policy, room service/diet, and visiting hours. Information on how to activate the Rapid Response Team has been discussed. Patient/Family are encouraged to report perceived risks to care and to ask questions if they do not understand what they are told or what they should do.
[2020-09-04 03:21] LABS: Glucose Point of Care 318 (65-105)
[2020-09-04] MEDS: ONDANSETRON INJ 4 MG/2 ML VIAL (03:30)
--- NOTE | 2020-09-04 03:43 | PC.NURSE ---
Patient continues to be short of breath Breath sounds diminished and wheezing continues.
[2020-09-04] MEDS: LEVALBUTEROL NEB 1.25 MG/3 ML INHALATION ×4 (05:37→22:47)
--- NOTE | 2020-09-04 05:57 | PC.NURSE ---
Wheezing decreased. Appears to be some improvement air movement in lungs
[2020-09-04 07:53] LABS: Glucose Point of Care 363 (65-105)
[2020-09-04] MEDS: metFORMIN HCL 500 MG TABLET 1000 MG PO ×2 (08:14→17:43)
[2020-09-04] MEDS: ACETAMINOPHEN 325 MG TABLET 650 MG PO (08:15)
[2020-09-04] MEDS: DULoxetine HCL 30 MG CAPSULE.DR 60 MG PO (08:22)
[2020-09-04] MEDS: PANTOPRAZOLE 40 MG TABLET PO (08:22)
[2020-09-04] MEDS: methocarbamoL 500 MG TABLET PO (08:22)
[2020-09-04] MEDS: PREGABALIN (*CRX) 50 MG CAPSULE 150 MG PO ×2 (08:22→17:43)
[2020-09-04] MEDS: FUROSEMIDE 40 MG TABLET 80 MG PO (08:22)
[2020-09-04] MEDS: SPIRONOLACTONE 25 MG TABLET PO (08:22)
[2020-09-04] MEDS: METOPROLOL TARTRATE 25 MG TABLET PO ×2 (08:22→21:28)
[2020-09-04] MEDS: ONDANSETRON INJ 4 MG/2 ML VIAL IV PUSH ×2 (08:35→14:43)
--- NOTE | 2020-09-04 09:06 | PM.IMHP ---
H&P: HPI History of Present Illness Date/Time: 09/04/20 09:06 patient admitted because she through the ER because she was having increased shortness of breath unable to complete sentences, does have a history of asthma and patient is on inhalers at, the patient has been afebrile heart rate has been elevated secondary to her use of her ProAir and neb treatments. Patient denies abdominal pain no peripheral edema no fever chills no no productive cough does have some chest. The patient has a history of CHF, diabetes mellitus type 2 and hypertension. 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 venous thrombosis) (~2015) 03/2000 & 04/2016 Fatty liver Fibromyalgia (~2011) Headache History of angina History of DVT (deep vein thrombosis) Hyperlipidemia associated with type 2 diabetes mellitus Hypertension associated with diabetes Kidney stone Major depression, recurrent Medical non-compliance Migraines Obesity, morbid, BMI 40.0-49.9 Ovarian cyst Overweight PCOS (polycystic ovarian syndrome) Peripheral vascular disease Post concussive syndrome (~2017) Pulmonary embolism Renal failure (~2017) Sepsis Sleep-disordered breathing Uterine fibroid Surgical History Surgical History History of adenoidectomy History of appendectomy History of cholecystectomy History of hysterectomy History of intravascular stent placement with removal in 2017 History of removal of ovarian cyst Hx of tonsillectomy Previous back surgery L4 and L5 fusion Status post lumbar spine surgery for decompression of spinal cord Family History Family History Mother Hypertension Fibromyalgia Osteoarthritis Father DVT (deep venous thrombosis) Social History Social History Social History: 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 She occasionally drinks alcohol but not on a regular basis. No tobacco use. She is a full code. POA Behzad Fernandez. Years smoked: 0 Smoking status: Never smoker Alcohol intake: never Substance use: never Substance use type: does not use Additional living arrangements comments: with Additional occupation/education comments: semi-retired nurse Gender identity (if verbalized by the patient): Female Spiritual care concerns: No Agree to blood products: Yes Meds Home Medications and Allergies Home Medications Medication Instructions Recorded Confirmed Type metformin 1,000 mg tablet 1,000 mg PO BID #60 tablet 03/09/20 09/04/20 Rx spironolactone 25 mg tablet 25 mg PO DAILY #30 tablet 05/05/20 09/04/20 Rx blood sugar diagnostic #100 ea 06/19/20 09/04/20 Rx blood-glucose meter #1 ea 06/19/20 09/04/20 Rx furosemide 40 mg PO QPM 07/19/20 09/04/20 History metoprolol tartrate 25 mg PO BID 07/19/20 09/04/20 History pregabalin [Lyrica] 150 mg PO BID 07/19/20 09/04/20 History warfarin 6 mg PO DAILY 07/19/20 09/04/20 History ondansetron HCl 8 mg tablet 8 mg PO Q12H #60 tablet 07/20/20 09/04/20 Rx duloxetine 60 mg PO QAM #30 cap 07/23/20 09/04/20 Rx pantoprazole 40 mg tablet,delayed 40 mg PO QAM #30 tablet 07/26/20 09/04/20 Rx release dulaglutide 0.75 mg/0.5 mL See Rx Instructions .ROUTE 08/21/20 09/04/20 Rx subcutaneous pen injector .COMPLEX #2 ml albuterol sulfate 90 mcg/actuation 1 - 2 puff INHALATION Q4H PRN #8.5 08/30/20 09/04/20 Rx aer
[2020-09-04 09:08] LABS: INR 2.9; Prothrombin Time 29.1 Seconds (9.50-12.10)
[2020-09-04] MEDS: diphenhydrAMINE HCl CAP 25 MG CAPSULE PO ×2 (10:10→21:28)
[2020-09-04 11:53] LABS: Glucose Point of Care 335 (65-105)
--- NOTE | 2020-09-04 12:56 | PC.NURSE ---
Call placed to transfer center at [place] for possible transfer, patient feels she is not better and would benefit from transfer, Dr Clark aware
--- NOTE | 2020-09-04 13:00 | PC.NURSE ---
Patient reports feeling worse, having more difficulty breathing. States she feels like I'm drowning Patient requesting to be transferred to [place]. Pulse ox noted to fluctuate to mid eighties as low as 84 while patient is speaking. Recovers to ninety three with rested breathing and limited talking.
--- NOTE | 2020-09-04 13:02 | PC.NURSE ---
Orders pending from Dr Clark, spoke with [facility] and feels that patient may benefit from bipap and repeating some lab work before accepting in transfer
[2020-09-04 13:45] LABS: Base Excess ABG 1.9 mmol/L (0-2); HCO3 ABG 25.5 mmol/L (23-29); Oxygen Content ABG 20.5 %vol (16.0-22.0); Oxygen Saturation ABG 96.8 % (95-97); Oxyhemoglobin 95.6 % (94-100); PCO2 ABG 36.8 mmHg (35-45); PO2 ABG 81.2 mmHg (80-90); Total Hemoglobin 15.2 g/dL; pH ABG 7.46 (7.35-7.45)
[2020-09-04 13:46] LABS: Device ROOM AIR; Modified Allen's Test Pass; Site Drawn LEFT RADIAL
[2020-09-04 13:52] LABS: Lipase 87 U/L (73-393)
[2020-09-04 13:55] LABS: D Dimer 0.19 mg/L (0.19-0.50)
[2020-09-04 14:32] LABS: SARS-CoV-2 Ag Negative (Negative)
[2020-09-04] MEDS: KETOROLAC 30 MG/ML VIAL (*BKC) IM ×2 (15:25→21:34)
[2020-09-04 17:11] LABS: Glucose Point of Care 300 (65-105)
[2020-09-04] MEDS: WARFARIN (*PBKC) 2 MG TABLET 6 MG PO (17:43)
[2020-09-04] MEDS: FUROSEMIDE 40 MG TABLET PO (17:43)
--- NOTE | 2020-09-04 18:39 | PC.NURSE ---
Patient status update given to
[2020-09-04] MEDS: ONDANSETRON HCL ODT 4 MG TABLET 8 MG PO (19:24)
--- NOTE | 2020-09-04 19:26 | PC.NURSE ---
Patient voiced c/o nausea and abdominal discomfort PRN zofran tabs administered.
[2020-09-04 21:50] LABS: Glucose Point of Care 327 (65-105)
[2020-09-05] VITALS (19 sets, daily range): BP systolic 100–140; BP diastolic 54–100; PULSE 89–112; RESP 16–20; TEMP 35.7–37.1; O2SAT 83–100
--- NOTE | 2020-09-05 01:09 | PC.NURSE ---
SPO2 dropped to 87% on room air while sleeping. BiPAP reapplied SPO2 up to 100%
--- NOTE | 2020-09-05 02:19 | P.PNCROSS_ITS ---
Event Note Event Note Event Note: received call from nursing station about patient, the patient has asthma exacerbation and is feeling like she is not improving and is requesting a transfer to [place]. After speaking to [place] they feel like this is a lateral transfer unless the patient is declining. Patient is satting at 98% and started on BiPAP for to make the patient less anxious and this has improved the patient's breathing. The patient has a history of PE and check D-dimer which was negative, also had ABGs which showed abnormal findings with a pH of 7.46/ pCO2 of 36.8/ HC03 of 25, patient had a CTA which was negative for PE chest x-ray performed showed atelectasis and patient is more comfortable at this time on BiPAP and currently on Solu-Medrol 125 IV b.i.d..
[2020-09-05] MEDS: KETOROLAC 30 MG/ML VIAL (*BKC) IM (03:37)
[2020-09-05] MEDS: ONDANSETRON INJ 4 MG/2 ML VIAL IV PUSH ×3 (03:37→16:53)
--- NOTE | 2020-09-05 04:56 | PC.NURSE ---
BiPAP was dislodged while patient was sleeping SPO2 dropped to 82% . Up to 100% when reapplied
[2020-09-05] MEDS: LEVALBUTEROL NEB 1.25 MG/3 ML INHALATION ×4 (05:33→22:50)
[2020-09-05 05:37] LABS: Hematocrit 41.2 % (35.0-49.0); Hemoglobin 13.2 g/dL (12.0-15.0); Mean Corpuscular Hemoglobin 26.5 pg (27.0-31.0); Mean Corpuscular Volume 82.6 fL (78.0-102.0); Mean Platelet Volume 9.9 fl (9.2-11.8); Platelet Count Result 303 K/mm3 (150-420); Red Blood Count 4.99 M/mm3 (4.20-5.40); Red Cell Distribution Width 13.6 % (11.6-14.4)
[2020-09-05 06:02] LABS: Alanine Aminotransferase 22 U/L (14-59); Albumin Level 3.1 g/dL (3.4-5.0); Alkaline Phosphatase 151 U/L (46-116); Anion Gap 9 mmol/L (8-16); Aspartate Amino Transferase < 10 U/L (15-37); Bilirubin,Total 0.2 mg/dL (0.00-1.00); Blood Urea Nitrogen 24 mg/dL (7-18); Calcium 9.1 mg/dL (8.5-10.1); Carbon Dioxide 31 mmol/L (21-32); Chloride 97 mmol/L (98-108); Estimated CRCL calculation 59 ml/min; Estimated Glomerular Filt Rate 41; Osmolality Calculated 305 mOsm/kg (285-295); Potassium 4.5 mmol/L (3.5-5.1); Sodium 137 mmol/L (136-145); Total Protein 6.4 g/dL (6.4-8.2)
[2020-09-05 06:04] LABS: Glucose 401 mg/dL (70-99)
--- NOTE | 2020-09-05 06:15 | PC.NURSE ---
Dr. Clark notified of pt's high blood sugar; New orders received and noted.
[2020-09-05] MEDS: INSULIN HUMAN REGULAR (*BKC) 100 UNITS/ML 10 UNITS SUB-Q (06:25)
[2020-09-05 07:40] LABS: Glucose Point of Care 386 (65-105)
[2020-09-05] MEDS: methocarbamoL 500 MG TABLET PO (09:09)
[2020-09-05] MEDS: methylPREDNISolone SOD SUCC 125 MG VIAL IV PUSH ×2 (09:09→20:44)
[2020-09-05] MEDS: HYDROmorphone HCL INJ (*CRX) 2 MG/ML VIAL 0.5 MG IV PUSH ×4 (09:20→21:02)
[2020-09-05] MEDS: traMADol HCL (*CRX) 25 MG TABLET PO (09:25)
[2020-09-05] MEDS: PREGABALIN (*CRX) 50 MG CAPSULE 150 MG PO ×2 (09:29→16:51)
[2020-09-05] MEDS: guaiFENesin 12 HR 600 MG TABCR 1200 MG PO ×2 (09:30→20:45)
[2020-09-05] MEDS: DULoxetine HCL 30 MG CAPSULE.DR 60 MG PO (09:30)
[2020-09-05] MEDS: metFORMIN HCL 500 MG TABLET 1000 MG PO (09:31)
[2020-09-05] MEDS: MONTELUKAST SODIUM 10 MG TABLET PO (09:31)
[2020-09-05] MEDS: PANTOPRAZOLE 40 MG TABLET PO (09:31)
[2020-09-05] MEDS: FUROSEMIDE 40 MG TABLET 80 MG PO (09:31)
[2020-09-05 09:32] LABS: Hemoglobin A1C 8.6 % (<5.7)
[2020-09-05 09:35] LABS: Lactic Acid Reflex 3.7 mmol/L (0.4-2.0)
[2020-09-05] MEDS: LORazepam INJ (*CRX) 2 MG/ML VIAL 1 MG IV PUSH ×3 (09:53→23:30)
[2020-09-05] MEDS: KETOROLAC 30 MG/ML VIAL (*BKC) IV PUSH (11:23)
[2020-09-05 11:40] LABS: Glucose Point of Care 299 (65-105)
[2020-09-05 12:01] LABS: Reflex Lactic Acid Yes or No Add Lactic
[2020-09-05 12:33] LABS: Add Urine Microscopic? YES; Appearance Urine Clear (Clear); Bilirubin Urine Negative (Negative); Blood Urine Negative (Negative); Color Urine Yellow (Yellow); Glucose Urine UA 3+ (Negative); Ketones Urine Negative (Negative); Leukocyte Esterase Ur Negative (Negative); Nitrate Urine Negative (Negative); Protein Urine Negative (Negative); Specific Grav Ur 1.015 (1.010-1.020); Urobilinogen Urine Negative mg/dL (0.2-1.0)
[2020-09-05 12:34] LABS: Bacteria Urine 1+ /hpf; RBC Urine None seen /hpf (0-2); Squamous Epithelial Cell Urine Moderate /hpf (Few); WBC Urine None seen /hpf (0-3)
--- NOTE | 2020-09-05 13:52 | P.PN_ITS ---
Progress Note: A&P Assessment and Plan (1) Respiratory distress: Code(s): R06.03 - Acute respiratory distress <Giovanna Porter BRIMMER BLOCKER-C - Last Filed: 09/05/20 14:57> Status: Acute <Giovanna Porter JENNIEVannessa - Last Filed: 09/05/20 14:57> Assessment and Plan: * Possibly secondary to pneumonia versus asthma * Referred to asthma and pneumonia * Blood gas normal <Giovanna Porter BRIMMER BLOCKERCarlieDemetrio - Last Filed: 09/05/20 14:57> (2) Asthma: Qualifiers: Asthma complication type: with acute exacerbation Asthma persistence: persistent Asthma severity: severe Qualified Code(s): J45.51 - Severe persistent asthma with (acute) exacerbation <Giovanna Porter BRIMMER BLOCKERCarlieDemetrio - Last Filed: 09/05/20 14:57> Code(s): J45.909 - Unspecified asthma, uncomplicated <Giovanna Porter BRIMMER BLOCKER-C - Last Filed: 09/05/20 14:57> Status: Acute <Giovanna Porter BRIMMER BLOCKERCarlieDemetrio - Last Filed: 09/05/20 14:57> Assessment and Plan: * Continue supplementary oxygen and BiPAP * Continue Solu-Medrol and duo nebulizers * Continue guaifenesin * Continue Singulair <Giovanna Porter BRIMMER BLOCKER-C - Last Filed: 09/05/20 14:57> (3) Nausea vomiting and diarrhea: Code(s): R11.2 - Nausea with vomiting, unspecified; R19.7 - Diarrhea, unspecified <Giovanna PorterGINNA - Last Filed: 09/05/20 14:57> Status: Acute <Giovanna Porter BRIMMER BLOCKERCarlieDemetrio - Last Filed: 09/05/20 14:57> Assessment and Plan: * Resolved * Continue Zofran <Giovanna PorterGINNA - Last Filed: 09/05/20 14:57> (4) CHF (congestive heart failure): Qualifiers: Heart failure chronicity: chronic Heart failure type: diastolic Qualified Code(s): I50.32 - Chronic diastolic (congestive) heart failure <Giovanna PorterGINNA - Last Filed: 09/05/20 14:57> Code(s): I50.9 - Heart failure, unspecified <JENNIE Thomas-C - Last Filed: 09/05/20 14:57> Status: Acute <JENNIE Thomas-C - Last Filed: 09/05/20 14:57> Assessment and Plan: * Compensated * BnP 18 * Will slowly hydrate <Giovanna Porter JENNIE-C - Last Filed: 09/05/20 14:57> (5) Fatty liver: Code(s): K76.0 - Fatty (change of) liver, not elsewhere classified <Giovanna Porter JENNIE-C - Last Filed: 09/05/20 14:57> Status: Acute <Giovanna Porter CONNIEC - Last Filed: 09/05/20 14:57> Assessment and Plan: * Follow-up with primary care physician <Giovanna Porter BRIMMER BLOCKERCarlieC - Last Filed: 09/05/20 14:57> (6) Overweight: Code(s): E66.3 - Overweight <Giovanna Porter JENNIE-C - Last Filed: 09/05/20 14:57> Status: Acute <Giovanna Porter JENNIE-C - Last Filed: 09/05/20 14:57> Assessment and Plan: * Patient educated on healthy lifestyle <Giovanna Porter CONNIEC - Last Filed: 09/05/20 14:57> (7) DM2 (diabetes mellitus, type 2): Qualifiers: Diabetes mellitus complication status: without complication Diabetes mellitus senior living insulin use: without termite helper use Qualified Code( s): E11.9 - Type 2 diabetes mellitus without complications <Giovanna Porter JENNIE-C - Last Filed: 09/05/20 14:57> Code(s): E11.9 - Type 2 diabetes mellitus without complications <Giovanna Porter JENNIE-C - Last Filed: 09/05/20 14:57> Status: Acute <Giovanna Porter JENNIE-C - Last Filed: 09/05/20 14:57> Assessment and Plan: * Blood sugar remains elevated could also be caused by the use of steroids * Patient A1c 8.6 * Continue sliding scale with Accu-Cheks and hypoglycemic protocol, patient received Lantus at
--- NOTE | 2020-09-05 13:52 | WPDPN ---
Progress Note: A&P Assessment and Plan (1) Respiratory distress: Code(s): R06.03 - Acute respiratory distress <Giovanna Porter MILL CRANE OPERATOR-C - Last Filed: 09/05/20 14:57> Status: Acute <Giovanna Porter MILL CRANE OPERATOR-C - Last Filed: 09/05/20 14:57> Assessment and Plan: Possibly secondary to pneumonia versus asthma Referred to asthma and pneumonia Blood gas normal <Giovanna Porter MILL CRANE OPERATOR-C - Last Filed: 09/05/20 14:57> (2) Asthma: Qualifiers: Asthma complication type: with acute exacerbation Asthma persistence: persistent Asthma severity: severe Qualified Code(s): J45.51 - Severe persistent asthma with (acute) exacerbation <Giovanna Porter MILL CRANE OPERATOR-C - Last Filed: 09/05/20 14:57> Code(s): J45.909 - Unspecified asthma, uncomplicated <Giovanna PorterJENNIECarlieDemetrio - Last Filed: 09/05/20 14:57> Status: Acute <Giovanna Porter MILL CRANE OPERATOR-C - Last Filed: 09/05/20 14:57> Assessment and Plan: Continue supplementary oxygen and BiPAP Continue Solu-Medrol and duo nebulizers Continue guaifenesin Continue Singulair <Giovanna PorterGINNA - Last Filed: 09/05/20 14:57> (3) Nausea vomiting and diarrhea: Code(s): R11.2 - Nausea with vomiting, unspecified; R19.7 - Diarrhea, unspecified <Giovanna PorterGINNA - Last Filed: 09/05/20 14:57> Status: Acute <Giovanna PorterJENNIECarlieDemetrio - Last Filed: 09/05/20 14:57> Assessment and Plan: Resolved Continue Zofran <Giovanna PorterGINNA - Last Filed: 09/05/20 14:57> (4) CHF (congestive heart failure): Qualifiers: Heart failure chronicity: chronic Heart failure type: diastolic Qualified Code(s): I50.32 - Chronic diastolic (congestive) heart failure <Giovanna BarajasGINNA Thornton - Last Filed: 09/05/20 14:57> Code(s): I50.9 - Heart failure, unspecified <JENNIE Thomas-C - Last Filed: 09/05/20 14:57> Status: Acute <CONNIE ThomasC - Last Filed: 09/05/20 14:57> Assessment and Plan: Compensated BnP 18 Will slowly hydrate <JENNIE Thomas-C - Last Filed: 09/05/20 14:57> (5) Fatty liver: Code(s): K76.0 - Fatty (change of) liver, not elsewhere classified <JENNIE Thomas-C - Last Filed: 09/05/20 14:57> Status: Acute <CONNIE ThomasC - Last Filed: 09/05/20 14:57> Assessment and Plan: Follow-up with primary care physician <CONNIE ThomasC - Last Filed: 09/05/20 14:57> (6) Overweight: Code(s): E66.3 - Overweight <CONNIE ThomasC - Last Filed: 09/05/20 14:57> Status: Acute <JENNIE Thomas-C - Last Filed: 09/05/20 14:57> Assessment and Plan: Patient educated on healthy lifestyle <CONNIE ThomasC - Last Filed: 09/05/20 14:57> (7) DM2 (diabetes mellitus, type 2): Qualifiers: Diabetes mellitus complication status: without complication 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: without jail use Qualified Code(s): E11.9 - Type 2 diabetes mellitus without complications <JENNIE Thomas-C - Last Filed: 09/05/20 14:57> Code(s): E11.9 - Type 2 diabetes mellitus without complications <JENNIE Thomas-C - Last Filed: 09/05/20 14:57> Status: Acute <CONNIE ThomasC - Last Filed: 09/05/20 14:57> Assessment and Plan: Blood sugar remains elevated could also be caused by the use of steroids Patient A1c 8.6 Continue sliding scale with Accu-Cheks and hypoglycemic protocol, patient received Lantus at bedtime and 3 times daily Humalog for better control Will adjust medication as needed <Giovanna Porter, JENNIE-C - Last Filed: 09/05/20 14:57> (8) Major depression, recurrent: Qualifiers: Active/Remission status: currently active Major depression episode severity: mild Qualified Code(s): F33.0 - Major depressive dis
[2020-09-05] MEDS: SODIUM CHLORIDE 0.9% IV 1,000 ML 200 ML IV CONT ×2 (14:23→21:04)
[2020-09-05 16:29] LABS: Glucose Point of Care 364 (65-105)
--- NOTE | 2020-09-05 16:39 | PC.NURSE ---
PT SITTING UP IN BED, NO DISTRESS, AT BEDSIDE, BROUGHT PATIENT TOMATO SOUP AND GRILLED CHEESE, EATING WITHOUT DIFFICULTY.
[2020-09-05] MEDS: SIMETHICONE 80 MG TAB.CHEW PO ×2 (16:54→20:45)
[2020-09-05] MEDS: WARFARIN (*PBKC) 2 MG, WARFARIN (*PBKC) 5 MG 7 MG PO (16:55)
[2020-09-05] MEDS: FUROSEMIDE 40 MG TABLET PO (16:55)
[2020-09-05 20:41] LABS: Glucose Point of Care 399 (65-105)
[2020-09-05] MEDS: METOPROLOL TARTRATE 25 MG TABLET PO (20:44)
[2020-09-05] MEDS: INSULIN GLARGINE (*BKC) 100 UNITS/ML 10 UNITS SUB-Q (20:45)
[2020-09-05] MEDS: diphenhydrAMINE HCl CAP 25 MG CAPSULE PO (23:30)
[2020-09-06] VITALS (10 sets, daily range): BP systolic 140–161; BP diastolic 81–94; PULSE 74–136; RESP 16–20; TEMP 35.8–36.8; O2SAT 90–99
--- NOTE | 2020-09-06 02:26 | PC.NURSE ---
Dr. Vyas called and said he would put orders in for a lactic acid in the AM. Orders received and noted.
--- NOTE | 2020-09-06 04:00 | PC.NURSE ---
Patient asked to take BiPap off and see how her SpO2 does. BiPap off. Patient @ 92% @ this time. No distress noted. Call light in reach.
[2020-09-06] MEDS: ONDANSETRON INJ 4 MG/2 ML VIAL IV PUSH ×2 (04:22→12:24)
[2020-09-06] MEDS: HYDROmorphone HCL INJ (*CRX) 2 MG/ML VIAL 0.5 MG IV PUSH ×2 (04:22→08:12)
--- NOTE | 2020-09-06 05:05 | PC.NURSE ---
Patient's SpO2 staying 86-88% without the BiPap machine. BiPap machine back on patient and SpO2 came up to 93% almost immediately. No distress noted. Call light in reach.
[2020-09-06] MEDS: LEVALBUTEROL NEB 1.25 MG/3 ML INHALATION ×2 (05:33→12:40)
[2020-09-06 05:50] LABS: Hematocrit 40.7 % (35.0-49.0); Hemoglobin 13.3 g/dL (12.0-15.0); Mean Corpuscular HGB Conc 32.7 g/dL (32.0-36.0); Mean Corpuscular Hemoglobin 27.1 pg (27.0-31.0); Mean Corpuscular Volume 82.9 fL (78.0-102.0); Mean Platelet Volume 10.1 fl (9.2-11.8); Platelet Count Result 276 K/mm3 (150-420); Red Blood Count 4.91 M/mm3 (4.20-5.40); Red Cell Distribution Width 13.4 % (11.6-14.4); White Blood Count 12.8 K/mm3 (4.8-10.8)
[2020-09-06 06:10] LABS: Alanine Aminotransferase 17 U/L (14-59); Albumin Level 3.1 g/dL (3.4-5.0); Alkaline Phosphatase 142 U/L (46-116); Anion Gap 8 mmol/L (8-16); Aspartate Amino Transferase 12 U/L (15-37); Bilirubin,Total 0.3 mg/dL (0.00-1.00); Blood Urea Nitrogen 25 mg/dL (7-18); Calcium 8.7 mg/dL (8.5-10.1); Carbon Dioxide 29 mmol/L (21-32); Chloride 97 mmol/L (98-108); Estimated CRCL calculation 65 ml/min; Estimated Glomerular Filt Rate 46; Osmolality Calculated 299 mOsm/kg (285-295); Potassium 4.6 mmol/L (3.5-5.1); Sodium 134 mmol/L (136-145); Total Protein 6.9 g/dL (6.4-8.2)
[2020-09-06 06:12] LABS: Glucose 406 mg/dL (70-99); Lactic Acid Reflex 2.7 mmol/L (0.4-2.0)
--- NOTE | 2020-09-06 06:26 | PC.NURSE ---
Lab called to report critical glucose of 406; Dr. Vyas notified and orders were received and noted.
[2020-09-06] MEDS: LORazepam INJ (*CRX) 2 MG/ML VIAL 1 MG IV PUSH ×2 (08:01→08:25)
[2020-09-06 08:49] LABS: Reflex Lactic Acid Yes or No Add Lactic
[2020-09-06 09:07] LABS: INR 2.8; Prothrombin Time 28.7 Seconds (9.50-12.10)
[2020-09-06 09:49] LABS: Glucose Point of Care 367 (65-105)
[2020-09-06] MEDS: methocarbamoL 500 MG TABLET PO (10:02)
[2020-09-06] MEDS: PREGABALIN (*CRX) 50 MG CAPSULE 150 MG PO (10:03)
[2020-09-06] MEDS: SPIRONOLACTONE 25 MG TABLET PO (10:03)
[2020-09-06] MEDS: MONTELUKAST SODIUM 10 MG TABLET PO (10:03)
[2020-09-06] MEDS: SIMETHICONE 80 MG TAB.CHEW PO (10:03)
[2020-09-06] MEDS: guaiFENesin 12 HR 600 MG TABCR 1200 MG PO (10:04)
[2020-09-06] MEDS: DULoxetine HCL 30 MG CAPSULE.DR 60 MG PO (10:04)
[2020-09-06] MEDS: FUROSEMIDE 40 MG TABLET 80 MG PO (10:04)
[2020-09-06] MEDS: METOPROLOL TARTRATE 25 MG TABLET PO (10:05)
[2020-09-06] MEDS: PANTOPRAZOLE 40 MG TABLET PO (10:05)
--- NOTE | 2020-09-06 10:44 | HOMEO2EVAL ---
Home Oxygen Evaluation RC: Home Oxygen (O2) Evaluation Start: 09/06/20 07:27 Freq: ONCE Status: Active Protocol: RPE Activity Type Activity Date Activity User E-Sign Co-Sign Detail Recorded Client Recorded Date Recorded By Document 09/06/20 10:30 SOPHIE [id number] 09/06/20 10:44 SJB Document 09/06/20 10:31 SJB [id number] 09/06/20 10:44 SJB 09/06/20 09/06/20 10:30 10:31 Home O2 Evaluation Test Phase Resting Exercise Oxygen Delivery Room Air Room Air Pulse Oximetry (90-100 %) 93 90 Pulse Rate (60-100 beats/min) 135 H 136 H Activity Tolerance Good Rating of Perceived Dyspnea (PD) +1 Mild, +1 Mild, Noticeable to Noticeable to the Participant the Participant but Not to an but Not to an Observer Observer Rate of Perceived Exertion (PE) 10 11 Fairly light Ambulation Distance (feet) 375 Home Oxygen Evaluation Comments Pt walked approx. 375 ft pushing w/c on room air. Sp02s were between 90-93%. PLB encouraged. Tolerated well. Treatment Charges O2 Evaluation - Inpatient
--- NOTE | 2020-09-06 11:31 | P.DS_ITS ---
DS: Admitting Diagnosis Admitting Diagnosis Admitting Diagnosis: Asthma exacerbation, pneumonia, hyperglycemia <Giovanna PorterGINNA - Last Filed: 09/06/20 11:45> DS: Discharge Diagnosis Discharge Diagnosis (1) Respiratory distress: Code(s): R06.03 - Acute respiratory distress <Giovanna PorterGINNA - Last Filed: 09/06/20 11:45> Status: Acute <Giovanna PorterGINNA - Last Filed: 09/06/20 11:45> Assessment and Plan: * Resolved * Possibly secondary to pneumonia versus asthma * Referred to asthma and pneumonia * Blood gas normal * Home O2 eval completed oxygen not necessary <Giovanna BarajasGINNA Thornton - Last Filed: 09/06/20 11:45> (2) Asthma: Qualifiers: Asthma complication type: with acute exacerbation Asthma persistence: persistent Asthma severity: severe Qualified Code(s): J45.51 - Severe persistent asthma with (acute) exacerbation <Selwynsonia JennGINNA Thornton - Last Filed: 09/06/20 11:45> Code(s): J45.909 - Unspecified asthma, uncomplicated <Giovanna PorterGINNA - Last Filed: 09/06/20 11:45> Status: Acute <Giovanna PorterGINNA - Last Filed: 09/06/20 11:45> Assessment and Plan: * Stable * Patient will discharge home with nebulizers and inhalers and prednisone * Continue guaifenesin * She will need to follow-up with her primary care physician <GINNA Thomas - Last Filed: 09/06/20 11:45> (3) Nausea vomiting and diarrhea: Code(s): R11.2 - Nausea with vomiting, unspecified; R19.7 - Diarrhea, unspecified <Giovanna JennGINNA Thornton - Last Filed: 09/06/20 11:45> Status: Acute <Selwynsonia JennJanette GermanGINNA - Last Filed: 09/06/20 11:45> Assessment and Plan: * Resolved <Giovanna JennGINNA Thornton - Last Filed: 09/06/20 11:45> (4) CHF (congestive heart failure): Qualifiers: Heart failure chronicity: chronic Heart failure type: diastolic Qualified Code(s): I50.32 - Chronic diastolic (congestive) heart failure <Giovanna Porter CONNIEC - Last Filed: 09/06/20 11:45> Code(s): I50.9 - Heart failure, unspecified <Giovanna Porter JENNIE-C - Last Filed: 09/06/20 11:45> Status: Acute <Giovanna Porter JENNIE-C - Last Filed: 09/06/20 11:45> Assessment and Plan: * Compensated * BnP 18 * Continue Lasix * Follow-up primary care physician <Giovanna BarajasJanette German ELECTRONIC ENGINEERING TECHNICIAN-C - Last Filed: 09/06/20 11:45> (5) Fatty liver: Code(s): K76.0 - Fatty (change of) liver, not elsewhere classified <Giovanna Porter JENNIE-C - Last Filed: 09/06/20 11:45> Status: Acute <Giovanna Porter JENNIE-C - Last Filed: 09/06/20 11:45> Assessment and Plan: * Follow-up with primary care physician <Giovanna Porter JENNIE-C - Last Filed: 09/06/20 11:45> (6) Overweight: Code(s): E66.3 - Overweight <Giovanna Porter JENNIE-C - Last Filed: 09/06/20 11:45> Status: Acute <Giovanna Porter JENNIE-C - Last Filed: 09/06/20 11:45> Assessment and Plan: * Patient educated on healthy lifestyle <Giovanna Porter JENNIE-C - Last Filed: 09/06/20 11:45> (7) DM2 (diabetes mellitus, type 2): Qualifiers: Diabetes mellitus complication status: without complication Diabetes mellitus superintendent terminal insulin use: without shelter use Qualified Code(s): E11.9 - Type 2 diabetes mellitus without complications <Giovanna Porter ELECTRONIC ENGINEERING TECHNICIAN-C - Last Filed: 09/06/20 11:45> Code(s): E11.9 - Type 2 diabetes mellitus without complications <Giovanna BarajasJanette German ELECTRONIC ENGINEERING TECHNICIAN-C - Last Filed: 09/06/20 11:45>
--- NOTE | 2020-09-06 11:31 | PM.DS ---
DS: Admitting Diagnosis Admitting Diagnosis Admitting Diagnosis: Asthma exacerbation, pneumonia, hyperglycemia <Giovanna BarajasGINNA Thornton - Last Filed: 09/06/20 11:45> DS: Discharge Diagnosis Discharge Diagnosis (1) Respiratory distress: Code(s): R06.03 - Acute respiratory distress <Giovanna PorterGINNA - Last Filed: 09/06/20 11:45> Status: Acute <Giovanna PorterGINNA - Last Filed: 09/06/20 11:45> Assessment and Plan: Resolved Possibly secondary to pneumonia versus asthma Referred to asthma and pneumonia Blood gas normal Home O2 eval completed oxygen not necessary <Selwynsonia JennGINNA Thornton - Last Filed: 09/06/20 11:45> (2) Asthma: Qualifiers: Asthma complication type: with acute exacerbation Asthma persistence: persistent Asthma severity: severe Qualified Code(s): J45.51 - Severe persistent asthma with (acute) exacerbation <Selwynsonia JennGINNA Thornton - Last Filed: 09/06/20 11:45> Code(s): J45.909 - Unspecified asthma, uncomplicated <Giovanna BarajasGINNA Thornton - Last Filed: 09/06/20 11:45> Status: Acute <Giovanna PorterGINNA - Last Filed: 09/06/20 11:45> Assessment and Plan: Stable Patient will discharge home with nebulizers and inhalers and prednisone Continue guaifenesin She will need to follow-up with her primary care physician <GINNA Thomas - Last Filed: 09/06/20 11:45> (3) Nausea vomiting and diarrhea: Code(s): R11.2 - Nausea with vomiting, unspecified; R19.7 - Diarrhea, unspecified <Giovanna JennGINNA Thornton - Last Filed: 09/06/20 11:45> Status: Acute <Selwynsonia JennGINNA Thornton - Last Filed: 09/06/20 11:45> Assessment and Plan: Resolved <Giovanna JennGINNA Thornton - Last Filed: 09/06/20 11:45> (4) CHF (congestive heart failure): Qualifiers: Heart failure chronicity: chronic Heart failure type: diastolic Qualified Code(s): I50.32 - Chronic diastolic (congestive) heart failure <Giovanna BarajasCONNIE ThorntonC - Last Filed: 09/06/20 11:45> Code(s): I50.9 - Heart failure, unspecified <Giovanna BarajasCONNIE ThorntonC - Last Filed: 09/06/20 11:45> Status: Acute <Giovanna BarajasJanette GermanGINNA - Last Filed: 09/06/20 11:45> Assessment and Plan: Compensated BnP 18 Continue Lasix Follow-up primary care physician <SelwynCONNIE LaneC - Last Filed: 09/06/20 11:45> (5) Fatty liver: Code(s): K76.0 - Fatty (change of) liver, not elsewhere classified <Giovanna BarajasCONNIE ThorntonC - Last Filed: 09/06/20 11:45> Status: Acute <Giovanna BarajasGINNA Thornton - Last Filed: 09/06/20 11:45> Assessment and Plan: Follow-up with primary care physician <SelwynGINNA Lane - Last Filed: 09/06/20 11:45> (6) Overweight: Code(s): E66.3 - Overweight <Giovanna BarajasGINNA Thornton - Last Filed: 09/06/20 11:45> Status: Acute <Giovanna BarajasJanette GermanCONNIEC - Last Filed: 09/06/20 11:45> Assessment and Plan: Patient educated on healthy lifestyle <GINNA Thomas - Last Filed: 09/06/20 11:45> (7) DM2 (diabetes mellitus, type 2): Qualifiers: Diabetes mellitus complication status: without complication Diabetes mellitus jail insulin use: without terminal clerk use Qualified Code(s): E11.9 - Type 2 diabetes mellitus without complications <GINNA Thomas - Last Filed: 09/06/20 11:45> Code(s): E11.9 - Type 2 diabetes mellitus without complications <GINNA Thomas - Last Filed: 09/06/20 11:45> Status: Acute <GINNA Thomas - Last Filed: 09/06/20 11:45> Assessment and Plan: Blood sugar remains elevated could also be caused by the use of steroids Patient A1c 8.6 Patient will discharge home with Lantus 10 units at bedtime, sliding scale high-dose she will need to follow-up with her primary care physician f
[2020-09-06 12:02] LABS: Glucose Point of Care 392 (65-105)
[2020-09-06] MEDS: predniSONE 20 MG TABLET 60 MG PO (12:13)
[2020-09-06] MEDS: diphenhydrAMINE HCl CAP 25 MG CAPSULE PO (12:21)
--- NOTE | 2020-09-06 13:20 | PC.NURSE ---
Patient discharged home driven by friend via personal vehicle. Staff transported down to facility entrance via WC and assisted to transfer to vehicle. Patient has taken all personal belongings with at discharge. Discharge instructions given and patient acknowledged understanding of instructions. Both IV locks have been removed prior to discharge.
--- NOTE | 2020-09-11 12:09 | PC.NURSE ---
Unable to contact for discharge call back.
== END 2020-09-06 13:20 | disposition home or self-care (01) ==
LOC: CHSED 02:01 → CHS2ND 07:42
PROVIDERS: Emergency Medicine; Nurse Practitioner; Admitting Provider Emergency Medicine; Emergency Provider Emergency Medicine; PCP Nurse Practitioner Family; Visit Provider Emergency Medicine
DX: J45.51 Severe persistent asthma with (acute) exacerbation (principal); J18.9 Pneumonia, unspecified organism; R06.03 Acute respiratory distress; I50.32 Chronic diastolic (congestive) heart failure; I73.9 Peripheral vascular disease, unspecified; E11.9 Type 2 diabetes mellitus without complications; E78.5 Hyperlipidemia, unspecified; E66.01 Morbid (severe) obesity due to excess calories; K76.0 Fatty (change of) liver, not elsewhere classified; K57.30 Diverticulosis of large intestine without perforation or abscess without bleeding; M79.7 Fibromyalgia; F32.9 Major depressive disorder, single episode, unspecified; F41.9 Anxiety disorder, unspecified; Z86.718 Personal history of other venous thrombosis and embolism; Z79.01 Long term (current) use of anticoagulants; Z87.442 Personal history of urinary calculi; Z86.711 Personal history of pulmonary embolism; Z90.49 Acquired absence of other specified parts of digestive tract; Z90.710 Acquired absence of both cervix and uterus; Z20.822 Contact with and (suspected) exposure to COVID-19
CPT/HCPCS: 36415; 36600; 71045; 71046; 71275; 74183; 76376; 76705; 80053; 81001; 82805; 82948; 83036; 83605; 83690; 83735; 83880; 84145; 85025; 85027; 85380; 85610; 86140; 87040; 87426; 88321; 94618; 94640; 94660; 96361; 96365; 96367; 96372; 96374; 96375; 96376; 99285; A9270; C9803; G0378; J0696; J1170; J1815; J1885; J2060; J2405; J2930; J3475; J7030; J7512; Q9967

== ENCOUNTER 2020-09-10 16:17 | Outpatient (CLI) | payer OTHER, SELFPAY ==
[2020-09-10 16:39] LABS: Basophils Absolute Auto 0.04 K/mm3 (0.00-0.10); Basophils Percent Auto 0.3 % (0.0-1.0); Eosinophils Absolute Auto 0.05 K/mm3 (0.02-0.50); Eosinophils Percent Auto 0.4 % (1.0-6.0); Hemoglobin 14.8 g/dL (12.0-15.0); Immature Granulocyte Absolute 0.27 K/mm3 (0.00-0.00); Immature Granulocyte Percent A 1.9 % (0.0-0.0); Lymphocytes Absolute Auto 1.09 K/mm3 (1.10-4.50); Lymphocytes Percent Auto 7.7 % (18.0-42.0); Mean Corpuscular HGB Conc 31.5 g/dL (32.0-36.0); Mean Corpuscular Hemoglobin 25.9 pg (27.0-31.0); Mean Corpuscular Volume 82.3 fL (78.0-102.0); Mean Platelet Volume 9.7 fl (9.2-11.8); Monocytes Absolute Auto 0.33 K/mm3 (0.10-0.90); Monocytes Percent Auto 2.3 % (2.0-11.0); Neutrophils Absolute Auto 12.3 K/mm3 (1.7-7.2); Neutrophils Percent Auto 87.4 % (50.0-70.0); Platelet Count Result 336 K/mm3 (150-420); Red Blood Count 5.71 M/mm3 (4.20-5.40); Red Cell Distribution Width 13.2 % (11.6-14.4); White Blood Count 14.1 K/mm3 (4.8-10.8)
[2020-09-10 16:54] LABS: Lactic Acid 2.6 mmol/L (0.4-2.0)
[2020-09-10 17:14] LABS: Alanine Aminotransferase 28 U/L (14-59); Albumin Level 3.3 g/dL (3.4-5.0); Alkaline Phosphatase 135 U/L (46-116); Anion Gap 4 mmol/L (8-16); Aspartate Amino Transferase 18 U/L (15-37); Bilirubin,Total 0.4 mg/dL (0.00-1.00); Blood Urea Nitrogen 28 mg/dL (7-18); Calcium 8.3 mg/dL (8.5-10.1); Carbon Dioxide 34 mmol/L (21-32); Chloride 97 mmol/L (98-108); Estimated Glomerular Filt Rate 39; Osmolality Calculated 303 mOsm/kg (285-295); Potassium 4.7 mmol/L (3.5-5.1); Sodium 135 mmol/L (136-145); Total Protein 6.5 g/dL (6.4-8.2)
[2020-09-10 17:35] LABS: Glucose 417 mg/dL (70-99)
== END 2020-09-10 16:18 | disposition home or self-care (01) ==
LOC: CHSLAB 16:20
PROVIDERS: PCP Nurse Practitioner Family; Visit Provider Family Medicine
DX: E11.65 Type 2 diabetes mellitus with hyperglycemia (principal); D72.829 Elevated white blood cell count, unspecified
CPT/HCPCS: 36415; 80053; 83605; 85025

== ENCOUNTER 2020-10-05 10:10 | Outpatient (CLI) | payer OTHER, SELFPAY ==
--- NOTE | ~2020-10-05 | XR_ITS ---
EXAMINATION: XR knee RT min 4V DATE: 10/05/2020 10:33 INDICATION: Right knee pain. TECHNIQUE: 4 views of right knee were obtained. COMPARISON: Right knee radiograph 02/03/2020 FINDINGS: Bone alignment is normal. No fracture. There is severe osteoarthritis of medial compartment , moderate osteoarthritis of patellofemoral compartment, and mild osteoarthritis of lateral compartme nt. No knee joint effusion. IMPRESSION: 1. Severe right knee osteoarthritis. Reviewed, dictated and finalized at location B.
[2020-10-05 10:21] LABS: Eosinophils Absolute Auto 0.36 K/mm3 (0.02-0.50); Eosinophils Percent Auto 3.6 % (1.0-6.0); Hematocrit 46.2 % (35.0-49.0); Hemoglobin 14.8 g/dL (12.0-15.0); Immature Granulocyte Absolute 0.03 K/mm3 (0.00-0.00); Immature Granulocyte Percent A 0.3 % (0.0-0.0); Lymphocytes Absolute Auto 3.61 K/mm3 (1.10-4.50); Lymphocytes Percent Auto 35.8 % (18.0-42.0); Mean Corpuscular Hemoglobin 26.4 pg (27.0-31.0); Mean Corpuscular Volume 82.4 fL (78.0-102.0); Mean Platelet Volume 9.7 fl (9.2-11.8); Monocytes Absolute Auto 0.64 K/mm3 (0.10-0.90); Monocytes Percent Auto 6.3 % (2.0-11.0); Neutrophils Absolute Auto 5.3 K/mm3 (1.7-7.2); Platelet Count Result 385 K/mm3 (150-420); Red Blood Count 5.61 M/mm3 (4.20-5.40); Red Cell Distribution Width 13.5 % (11.6-14.4); White Blood Count 10.1 K/mm3 (4.8-10.8)
[2020-10-05 11:30] LABS: Alanine Aminotransferase 28 U/L (14-59); Albumin Level 3.6 g/dL (3.4-5.0); Alkaline Phosphatase 165 U/L (46-116); Amylase 36 U/L (25-115); Anion Gap 11 mmol/L (8-16); Aspartate Amino Transferase 14 U/L (15-37); Bilirubin,Total 0.4 mg/dL (0.00-1.00); Blood Urea Nitrogen 22 mg/dL (7-18); CRP 3.1 mg/dL (0.0-0.9); Calcium 9.5 mg/dL (8.5-10.1); Carbon Dioxide 26 mmol/L (21-32); Chloride 102 mmol/L (98-108); Estimated Glomerular Filt Rate > 60; Glucose 222 mg/dL (70-99); Lipase 93 U/L (73-393); Osmolality Calculated 298 mOsm/kg (285-295); Potassium 4.5 mmol/L (3.5-5.1); Sodium 139 mmol/L (136-145); Thyroid Stimulating Hormone 0.87 uIU/mL (0.36-3.74); Total Protein 7.2 g/dL (6.4-8.2); Uric Acid 6.5 mg/dL (2.6-6.0)
[2020-10-05 13:50] LABS: GGT 146 U/L (5-55)
[2020-10-08 19:16] LABS: Hepatitis A Antibody IgM Nonreactive; Hepatitis B Core Antibody Nonreactive (Nonreactive); Hepatitis B Surface Antigen Nonreactive (Nonreactive); Hepatitis C Signal to Cutoff 0.21 ratio (<1.00); Hepatitis C Virus Antibody Nonreactive (Nonreactive)
== END 2020-10-05 10:11 | disposition home or self-care (01) ==
LOC: CHSLAB 10:11
PROVIDERS: PCP Internal Medicine; Visit Provider Internal Medicine
DX: E11.9 Type 2 diabetes mellitus without complications (principal); M25.561 Pain in right knee; R10.9 Unspecified abdominal pain; R94.5 Abnormal results of liver function studies
CPT/HCPCS: 36415; 73564; 80053; 80074; 82150; 82977; 83690; 84443; 84550; 85025; 86140

== ENCOUNTER 2020-11-20 15:54 | Outpatient (CLI) | payer OTHER, SELFPAY ==
--- NOTE | ~2020-11-20 | CT_ITS ---
EXAMINATION: CT abdomen pelvis wo con DATE: 11/20/2020 16:39 INDICATION: Right flank pain. TECHNIQUE: Computed tomography (CT) of the abdomen and pelvis was performed without intravenous contr ast. Automated exposure control and iterative reconstruction technique were employed. The dose-length product was 1261.40 mGy-cm. COMPARISON: CT abdomen 08/30/2020 FINDINGS: The visualized portions of the lung bases demonstrate a 4 mm nodule in left lower lobe, lik ida benign. A calcified right lung nodule is consistent with old granulomatous disease. No pleural ef fusion. The heart size is normal. No pericardial effusion. The liver and spleen are normal. There are changes of cholecystectomy. The pancreas, adrenal glands, and left kidney are normal. There is a 10 mm cyst in right kidney. There is no urolithiasis. There is diverticulosis of the colon without evide nce of diverticulitis. There are no dilated loops of bowel. The appendix is not visualized. There are no pathologically enlarged lymph nodes. There is no free intraperitoneal fluid. There are chronic bi lateral L5 pars defects. There are changes of anterior and posterior fusion procedures at L5-S1. Ther e is mild thoracolumbar spondylosis. IMPRESSION: 1. No etiology for the patient's symptoms. Reviewed, dictated and finalized at location A.
[2020-11-20 16:33] LABS: Basophils Absolute Auto 0.07 K/mm3 (0.00-0.10); Basophils Percent Auto 0.5 % (0.0-1.0); Eosinophils Absolute Auto 0.44 K/mm3 (0.02-0.50); Eosinophils Percent Auto 3.4 % (1.0-6.0); Hematocrit 43.9 % (35.0-49.0); Hemoglobin 14.4 g/dL (12.0-15.0); Immature Granulocyte Absolute 0.04 K/mm3 (0.00-0.00); Immature Granulocyte Percent A 0.3 % (0.0-0.0); Lymphocytes Absolute Auto 2.84 K/mm3 (1.10-4.50); Lymphocytes Percent Auto 22.2 % (18.0-42.0); Mean Corpuscular HGB Conc 32.8 g/dL (32.0-36.0); Mean Corpuscular Hemoglobin 26.8 pg (27.0-31.0); Mean Corpuscular Volume 81.6 fL (78.0-102.0); Mean Platelet Volume 9.8 fl (9.2-11.8); Monocytes Absolute Auto 0.62 K/mm3 (0.10-0.90); Monocytes Percent Auto 4.8 % (2.0-11.0); Neutrophils Absolute Auto 8.8 K/mm3 (1.7-7.2); Neutrophils Percent Auto 68.8 % (50.0-70.0); Platelet Count Result 372 K/mm3 (150-420); Red Blood Count 5.38 M/mm3 (4.20-5.40); Red Cell Distribution Width 12.7 % (11.6-14.4); White Blood Count 12.8 K/mm3 (4.8-10.8)
[2020-11-20 16:45] LABS: INR 1.4; Prothrombin Time 14.2 Seconds (9.50-12.10)
[2020-11-20 16:47] LABS: Appearance Urine Clear (Clear); Bilirubin Urine Negative (Negative); Blood Urine Negative (Negative); Glucose Urine UA Negative (Negative); Ketones Urine Negative (Negative); Leukocyte Esterase Ur Negative (Negative); Nitrate Urine Negative (Negative); Protein Urine Negative (Negative); Specific Grav Ur 1.015 (1.010-1.020); Urobilinogen Urine 0.2 mg/dL (0.2-1.0); pH Urine 5.5 (5.0-8.0)
[2020-11-20 16:50] LABS: Add Urine Microscopic? NO; Color Urine Light Yellow (Yellow)
[2020-11-20 16:51] LABS: Alanine Aminotransferase 22 U/L (14-59); Albumin Level 3.6 g/dL (3.4-5.0); Alkaline Phosphatase 161 U/L (46-116); Amylase 45 U/L (25-115); Anion Gap 10 mmol/L (8-16); Aspartate Amino Transferase 17 U/L (15-37); Bilirubin,Total 0.3 mg/dL (0.00-1.00); Blood Urea Nitrogen 22 mg/dL (7-18); Calcium 9.1 mg/dL (8.5-10.1); Carbon Dioxide 29 mmol/L (21-32); Chloride 98 mmol/L (98-108); Estimated Glomerular Filt Rate 50; Glucose 229 mg/dL (70-99); Lipase 112 U/L (73-393); Osmolality Calculated 294 mOsm/kg (285-295); Potassium 3.5 mmol/L (3.5-5.1); Sodium 137 mmol/L (136-145); Total Protein 7.6 g/dL (6.4-8.2)
== END 2020-11-20 15:55 | disposition home or self-care (01) ==
LOC: CHSIMG 15:58
PROVIDERS: PCP Internal Medicine; Visit Provider Nurse Practitioner Family
DX: R10.9 Unspecified abdominal pain (principal); Z79.01 Long term (current) use of anticoagulants
CPT/HCPCS: 36415; 74176; 80053; 81003; 82150; 83690; 85025; 85610; 87077; 87086; 87088

== ENCOUNTER 2021-01-17 11:35 | Outpatient (CLI) | payer OTHER, SELFPAY ==
[2021-01-17 12:02] LABS: Anion Gap 7 mmol/L (8-16); Blood Urea Nitrogen 19 mg/dL (7-18); Calcium 9.6 mg/dL (8.5-10.1); Carbon Dioxide 34 mmol/L (21-32); Chloride 97 mmol/L (98-108); Estimated Glomerular Filt Rate > 60; Glucose 152 mg/dL (70-99); Osmolality Calculated 291 mOsm/kg (285-295); Potassium 3.9 mmol/L (3.5-5.1); Sodium 138 mmol/L (136-145)
== END 2021-01-17 11:36 | disposition home or self-care (01) ==
LOC: CHSLAB 11:39
PROVIDERS: PCP Internal Medicine; Visit Provider Internal Medicine
DX: I50.22 Chronic systolic (congestive) heart failure (principal)
CPT/HCPCS: 36415; 80048; 83735

== ENCOUNTER 2021-01-25 12:29 | Observation (INO) | payer OTHER, MEDICAID, SELFPAY ==
[2021-01-25] VITALS (7 sets, daily range): BP systolic 116–156; BP diastolic 80–95; PULSE 75–90; RESP 12–18; TEMP 36.4; O2SAT 95–98; BMI 48.4
--- NOTE | ~2021-01-25 | US_ITS ---
EXAMINATION: US right upper quadrant DATE: 01/26/2021 11:38 INDICATION: Elevated liver enzymes TECHNIQUE: Multiple grayscale and Doppler ultrasound images of the abdomen were obtained. COMPARISON: 09/05/2020 FINDINGS: Bowel gas obscures visualization of the pancreas. The visualized portions of the pancreas a re unremarkable. The liver is normal with normal echogenicity and echotexture. No surface nodularity. Normal hepatopetal flow in the main portal vein. The gallbladder is surgically absent. The normal co mmon bile duct measures 5 mm. IMPRESSION: 1. No sonographic correlate for the patient's symptoms. Reviewed, dictated and finalized at location B.
--- NOTE | ~2021-01-25 | XR_ITS ---
EXAMINATION: XR chest 2V DATE: 01/25/2021 13:27 INDICATION: Chest pain. TECHNIQUE: Frontal and lateral views of the chest were obtained. COMPARISON: Chest single view 09/04/2020, CT abdomen and pelvis 11/20/20 FINDINGS: The chest demonstrates clear lungs without pneumonia, pleural effusion, or pneumothorax. Th e heart size is normal. Surgical clips in the right upper quadrant are likely from cholecystectomy. IMPRESSION: 1. No acute cardiopulmonary disease. Reviewed, dictated and finalized at location A.
--- NOTE | ~2021-01-25 | CT_ITS ---
EXAMINATION: CT abdomen wo con DATE: 01/25/2021 23:56 INDICATION: Abdominal pain TECHNIQUE: Computed tomography (CT) of the abdomen was performed without intravenous contrast. Automa biju exposure control and iterative reconstruction technique were employed. The dose-length product wa s 1036.44 mGy-cm. COMPARISON: 11/20/2020 FINDINGS: Lung bases are clear. Arch size normal. No pericardial or pleural effusion. Atherosclerotic coronary artery calcification. Cholecystectomy clips at the gallbladder fossa. Liver, spleen and bilateral adr enal glands are normal. Moderate fatty atrophy of the pancreas. 10 mm exophytic cyst at the mid right kidney. Left kidney is normal. No urolithiasis or hydronephrosis in either kidney. Visualized portio ns of the bowels are unremarkable. No pathologically enlarged abdominal lymphadenopathy. Moderate tho racolumbar spondylosis. L5 bilateral pars interarticularis defects with minor enhancement at the ante rior and posterior spinal fusion with interbody fusion device and bilateral vertical mary alice and pedicle screw fixation. IMPRESSION: 1. No acute intra-abdominal process. Reviewed, dictated and finalized at location A.
--- NOTE | ~2021-01-25 | US_ITS ---
EXAMINATION: US carotid duplex BI DATE: 01/26/2021 11:39 INDICATION: Syncope. TECHNIQUE: Grayscale, color Doppler, and pulsed Doppler images of the cervical carotid arteries were obtained. The degree of vessel stenosis is placed in one of the following categories: normal, <50%, 5 0-69%, >=70% but less than near-occlusion, near-occlusion, or total occlusion. Note that percent sten osis relative to normal distal artery lumen diameter is indirectly measured from velocity measurement s as described by Connor, et al. Radiology 2003; [id number]. COMPARISON: None. FINDINGS: RIGHT: The right common carotid artery (CCA) peak systolic velocity (PSV) is 69 cm/s. The right internal car otid artery (ICA) PSV is 69 cm/s. The right ICA end-diastolic velocity (EDV) is 25 cm/s. The right IC A/CCA PSV ratio is 1.0. Grayscale and color Doppler images yield an estimate of 0% diameter reduction from plaque in the ICA. There is antegrade flow in the right vertebral artery. LEFT: The left CCA PSV is 81 cm/s. The left ICA PSV is 74 cm/s. The left ICA EDV is 30 cm/s. The left ICA/C CA PSV ratio is 0.9. Grayscale and color Doppler images yield an estimate of 0% diameter reduction fr om plaque in the ICA. There is antegrade flow in the left vertebral artery. IMPRESSION: 1. Normal internal carotid arteries. Reviewed, dictated and finalized at location A.
--- NOTE | 2021-01-25 12:33 | ECG_ITS ---
Measurements Intervals [place] Rate: 85 P: 11 [place]: 136 QRS: -16 QRSD: 94 T: -7 QT: 382 QTc: 455 Interpretive Statements SINUS RHYTHM POOR R WAVE PROGRESSION, ANTERIOR LEADS CONSIDER INFERIOR INFARCT, AGE INDETERMINATE BASELINE ARTIFACT- I, II, III, AVR, AVL, AVF ABNORMAL ECG Electronically Signed On 01-25-2021 12:55:07 CDT by Alphonso Martinez D.O.
[2021-01-25 13:11] LABS: Basophils Absolute Auto 0.1 K/mm3 (0.0-0.1); Basophils Percent Auto 0.5 % (0.2-1.2); Eosinophils Absolute Auto 0.4 K/mm3 (0-0.3); Hematocrit 52.7 % (37.0-47.0); Hemoglobin 17.2 g/dL (12.0-15.0); Immature Granulocyte Absolute 0.28 K/mm3 (0.00-0.031); Immature Granulocyte Percent A 1.4 % (0-0.5); Lymphocytes Absolute Auto 3.27 K/mm3 (0.9-3.2); Mean Corpuscular HGB Conc 32.6 g/dl (32-36); Mean Corpuscular Hemoglobin 25.7 pg (26-34); Mean Corpuscular Volume 78.9 fl (80-100); Mean Platelet Volume 9.3 fl (7.4-10.4); Monocytes Absolute Auto 1.2 K/mm3 (0.1-0.6); Monocytes Percent Auto 5.8 % (2.6-8.5); Neutrophils Absolute Auto 15.2 K/mm3 (1.3-6.7); Neutrophils Percent Auto 74.3 % (45.5-73.1); Platelet Count Result 467 k/mm3 (150-375); Red Blood Count 6.68 M/mm3 (4.2-5.4); Red Cell Distribution Width 14.1 % (11.5-14.5); White Blood Count 20.4 K/mm3 (4.5-10.0)
[2021-01-25 13:13] LABS: Prothrombin Time 13.4 Seconds (11.1-14.7)
[2021-01-25 13:14] LABS: Partial Thromboplastin Time 23.5 SECONDS (22.3-36.8)
[2021-01-25 13:18] LABS: Blood Urea Nitrogen 45 mg/dL (7-17); Carbon Dioxide > 40 mmol/L (22-30); Chloride 77 mmol/L (98-107); Estimated CRCL calculation 80 ml/min; Estimated Glomerular Filt Rate 59; Glucose 240 mg/dL (65-110); Potassium 2.5 mmol/L (3.4-5.0); Sodium 127 mmol/L (137-145)
[2021-01-25 13:24] LABS: Troponin I < 0.012 ng/mL (0.000-0.034)
[2021-01-25 16:34] LABS: Troponin I < 0.012 ng/mL (0.000-0.034)
[2021-01-25] MEDS: POTASSIUM CHLORIDE 20 MEQ PACKET (FOR LIQUID) 40 MEQ PO ×2 (16:52→18:23)
--- NOTE | 2021-01-25 16:54 | ED.CHESTPAIN ---
HPI - Chest Pain General Chief Complaint: Chest Pain Stated Complaint: chest pain, syncope Time Seen by Provider: 01/25/21 16:37 Source: patient and RN notes reviewed Limitations: no limitations History of Present Illness HPI narrative: Patient is 50 years old white female presented to the ED because of chest pain started at midnight associated with diaphoresis, intermittent loss of consciousness without fall, nausea, palpitation. Patient reported the chest pain is pressure type last usually up to 15 sec at rest. Currently patient denying any fever, chills, vomiting, shortness of breath, back pain or abdominal pain. Patient is fully vaccinated for COVID-19. Patient was hospitalized for 5 days and got discharged from [facility] 5 days ago because of congestive heart failure. At the time of discharge patient used to be on Lasix 80 mg a.m. and 40 p.m., got discharged on 40 a.m. and 40 p.m. Patient also used to be on Coumadin for the last 22 years because of recurrent deep vein thrombosis, changed to Eliquis the day of discharge.. Patient doesn't smoke or drink or uses drugs. Related Data Home Medications Medication Instructions Recorded Confirmed warfarin 6 mg PO DAILY 07/19/20 01/08/21 furosemide 40 mg tablet 40 mg PO QAM 01/08/21 01/08/21 gabapentin 800 mg tablet 800 mg PO TID 01/08/21 01/08/21 insulin glargine 100 unit/mL (3 20 unit SUBCUT BID 01/08/21 01/08/21 mL) subcutaneous pen spironolactone 25 mg tablet 25 mg PO DAILY 01/08/21 01/08/21 Allergies Allergy/AdvReac Type Severity Reaction Status Date / Time epinephrine Allergy Severe Unknown Verified 01/25/21 16:40 ibuprofen Allergy Intermediate Unknown Verified 01/25/21 16:40 bupropion Allergy Unknown Unknown Verified 01/25/21 16:40 celecoxib Allergy Unknown Unknown Verified 01/25/21 16:40 Sulfa (Sulfonamide Allergy Unknown Unknown Verified 01/25/21 16:40 Antibiotics) tetanus and diphtheria Allergy Unknown Unknown Verified 01/25/21 16:40 toxoids vancomycin AdvReac Severe renal Verified 01/25/21 16:40 failure Review of Systems Review of Systems: CONSTITUTIONAL: Denies fever, chills, or sweats. EYES: Denies visual changes, redness, or discharge. ENT: Denies rhinorrhea, congestion, sore throat, or otalgia. CARDIOVASCULAR: Denies chest pain, palpitations, or edema. RESPIRATORY: Denies cough or dyspnea. GASTROINTESTINAL: Denies abdominal pain, nausea, vomiting, or diarrhea. GENITOURINARY: Denies dysuria or hematuria. SKIN: Denies rash or itching. MUSCULOSKELETAL: Denies back pain, joint pain, or myalgia. NEUROLOGIC: Denies headache, numbness, or weakness. PSYCHIATRIC: Denies anxiety or depression. 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 venous thrombosis) (~2015) 03/2000 & 04/2016 Fatty liver Fibromyalgia (~2011) Headache History of angina History of DVT (deep vein thrombosis) Hyperlipidemia associated with type 2 diabetes mellitus Hypertension associated with diabetes Kidney stone Major depression, recurrent Medical non-compliance Migraines Obesity, morbid, BMI 40.0-49.9 Ovarian cyst Overweight PCOS (polycystic ovarian syndrome) Peripheral vascular disease Post concussive syndrome (~2017) Pulmonary embolism Renal failure (~2017) Sepsis Sleep-disordered breathing Uterine fibroid Surgical History Surgical History History of adenoidectomy History of appendectomy History of cholecystectomy History of hysterectomy History of intravascular stent placement with removal in 2017 History of removal of ovarian cyst Hx of tonsillectomy Previous back surgery L4 and L5 fusion Status p
[2021-01-25] MEDS: MORPHINE SULFATE (*CRX) 4 MG/ML INJ IV PUSH (17:12)
[2021-01-25] MEDS: ONDANSETRON INJ 4 MG/2 ML VIAL IV PUSH (17:12)
--- NOTE | 2021-01-25 18:29 | PC.NURSE ---
Dietary tray ordered for pt at this time.
[2021-01-25 18:41] LABS: Alanine Aminotransferase 43 U/L (4-35); Albumin Level 4.3 g/dL (3.5-5.1); Alkaline Phosphatase 206 U/L (38-126); Aspartate Amino Transferase 57 U/L (14-36)
--- NOTE | 2021-01-25 18:41 | PC.NURSE ---
Per EDP ELBERT dickerson to give IV Tylenol for c/o h/a. Order placed.
[2021-01-25 18:42] LABS: Add Urine Microscopic? NO; Appearance Urine Clear (Clear); Bilirubin Urine Negative (Negative); Blood Urine Negative (Negative); Color Urine Straw (Yellow); Glucose Urine UA Negative (Negative); Ketones Urine Negative (Negative); Leukocyte Esterase Ur Negative LEU/UL (Negative); Nitrate Urine Negative (Negative); Protein Urine Negative (Negative); Specific Grav Ur 1.012 (1.001-1.035); Urobilinogen Urine Negative mg/dL (<2.0)
[2021-01-25 18:42] LABS: NT Pro B Type Natriuretic Pept 31 pg/mL (5-100); Troponin I < 0.012 ng/mL (0.000-0.034)
--- NOTE | 2021-01-25 18:46 | PC.NURSE ---
I WAS ASKED.TO GO TO PT ROOM TO CHECK TIE CARRIER LIGHT, PT WAS IN ROOM, WRITHING AND CRYING ABOUT HER POTASSIUM DRIP. PT INFORMED THAT DRIP WAS RUNNING A LOW INFUSION RATE. PT CONTINUED TO SHOW GREAT EMOTION ABOUT THE PAIN CAUSED BY INFUSION. PT WAS ASKED TO GIVE THIS SIZE STAMPER A CHANCE TO SPEAK TO PROVIDER TO DISCUSS ALTERNATIVE TREATMENTS. WITHIN ONE MINUTE, PT WAS BACK TIE CARRIER LIGHT, ON ENTRY TO ROOM, PT AGAIN SOBBING AND ROCKING IN BED. PT ASKED TO PLEASE GIVE THIS SIZE STAMPER A CHANCE TO SPEAK TO PROVIDER ABOUT PATIENT CONCERNS. PT AGREED. LEFT ROOM AND WENT DIRECTLY TO DR VASQUES WHO STATED THAT WE COULD STOP INFUSION, AND THAT HER POTASSIUM COULD BE GIVEN ORALLY. IMMEDIATELY WENT BACK TO ROOM WITH A BAG OF NS, INFUSION STOPPED PER PROVIDER ORDER, FLUIDS DISCONNECTED, INFORMED THE PT I WOULD START NORMAL SALINE TO COOL OFF VEIN AFTER POTASSIUM INFUSION. PT THANKED STAFF AND WAS APOLOGETIC FOR BEHAVIOR
--- NOTE | 2021-01-25 20:07 | ADMGEN ---
This patient, Olivia Fernandez, was admitted to 2 Medical Room 260-01. Patient/family oriented to hospital policies and general routines including ID bracelet, bed and alarms, visiting hours, pain management, procedures, bathroom and other care routines, personal items, smoking policy, room service/diet, and visiting hours. Information on how to activate the Rapid Response Team has been discussed. Patient/Family are encouraged to report perceived risks to care and to ask questions if they do not understand what they are told or what they should do.
--- NOTE | 2021-01-25 21:35 | PM.IMHP ---
H&P: HPI History of Present Illness Date/Time: 01/25/21 21:35 Chief Complaint: chest pain, syncope Narrative: Patient is 50 years old white female presented to the ED because of chest pain which is in the middle of the chest. Associated discomfort in the upper abdominal. Along with nausea headache and multiple different complaints. She fell herself diaphoretic and also reports she passed out 1 time finds she was getting out to go to the bathroom. Denies any fever chills or vomiting. She deny any shortness of breath. She was recently discharged from [facility] 5 days ago and was in there for 5 days for congestive heart failure where she was diuresed with IV Lasix and had approximately 12-16 lb loss of weight. She was discharged on Lasix 40 mg in the morning 40 mg in the evening. Echocardiogram was done in the hospital which was reviewed showed ejection fraction 55-60% grade 1 diastolic dysfunction and no other valvular abnormality. She has a known diagnosis of congestive heart failure and follows up with Dr. Obrien. She also has recurrent history of DVT and PE used to be on Coumadin for last 22 years however because of recurrent DVT he was switched to Xarelto which caused her to get headaches and hands was switched to Eliquis. She has been tolerating Eliquis okay. In the ED evaluation she is noted to be hyponatremic and severely hypokalemic. She was given IV potassium however it caused her severe burning in her arm. She was also noted to be having metabolic alkalosis and mild elevation in her liver function. She does report abdominal pain on the right side. She is status post cholecystectomy but does have biliary dyskinesis. Review of Systems Review of Systems: - CONSTITUTIONAL: Denies weight loss, fever and chills. - HEENT: Denies changes in vision and hearing - RESPIRATORY: denies SOB and cough. - CV: Denies palpitations and reports CP. - GI: reports abdominal pain, nausea, no vomiting and diarrhea. - : Denies dysuria and urinary frequency. - MSK: Reports myalgia and joint pain. - SKIN: Denies rash and pruritus. - NEUROLOGICAL: Reports headache and syncope. - PSYCHIATRIC: Denies recent changes in mood. Denies anxiety and depression. 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 venous thrombosis) (~2015) 03/2000 & 04/2016 Fatty liver Fibromyalgia (~2011) Headache History of angina History of DVT (deep vein thrombosis) Hyperlipidemia associated with type 2 diabetes mellitus Hypertension associated with diabetes Kidney stone Major depression, recurrent Medical non-compliance Migraines Obesity, morbid, BMI 40.0-49.9 Ovarian cyst Overweight PCOS (polycystic ovarian syndrome) Peripheral vascular disease Post concussive syndrome (~2017) Pulmonary embolism Renal failure (~2017) Sepsis Sleep-disordered breathing Uterine fibroid Surgical History Surgical History History of adenoidectomy History of appendectomy History of cholecystectomy History of hysterectomy History of intravascular stent placement with removal in 2016 History of removal of ovarian cyst Hx of tonsillectomy Previous back surgery L4 and L5 fusion Status post lumbar spine surgery for decompression of spinal cord Family History Family History Mother Hypertension Fibromyalgia Osteoarthrit
[2021-01-25] MEDS: SODIUM CHLORIDE 0.9% IV 1,000 ML 100 ML IV CONT (21:40)
[2021-01-25] MEDS: MORPHINE SULFATE (*CRX) 2 MG/ML INJ IV PUSH (21:43)
[2021-01-25] MEDS: PROPRANOLOL HCL 60 MG CAPSULE CR 120 MG PO (23:00)
[2021-01-25] MEDS: GABAPENTIN 400 MG CAPSULE 800 MG PO (23:01)
[2021-01-25] MEDS: methocarbamoL 500 MG TABLET PO (23:01)
[2021-01-25] MEDS: INSULIN GLARGINE (*BKC) 100 UNITS/ML 50 UNITS SUB-Q (23:01)
[2021-01-25] MEDS: POTASSIUM CHLORIDE 20 MEQ TABLET.ER PO (23:01)
[2021-01-25] MEDS: APIXABAN 5 MG TABLET PO (23:01)
[2021-01-25 23:16] LABS: Glucose Point of Care 224 mg/dl (65-105)
[2021-01-26] VITALS (13 sets, daily range): BP systolic 111–143; BP diastolic 73–87; PULSE 71–90; RESP 16–20; TEMP 36–36.4; O2SAT 20–97
[2021-01-26 00:12] LABS: Troponin I < 0.012 ng/mL (0.000-0.034)
[2021-01-26] MEDS: GABAPENTIN 400 MG CAPSULE 800 MG PO ×3 (06:16→21:45)
[2021-01-26 06:50] LABS: Anion Gap 8 mmol/L (8-16); Blood Urea Nitrogen 32 mg/dL (7-17); Calcium 8.8 mg/dL (8.4-10.2); Carbon Dioxide 38 mmol/L (22-30); Chloride 82 mmol/L (98-107); Estimated CRCL calculation 95 ml/min; Estimated Glomerular Filt Rate > 60; Glucose 147 mg/dL (65-110); Potassium 2.8 mmol/L (3.4-5.0); Sodium 128 mmol/L (137-145)
[2021-01-26 08:18] LABS: Glucose Point of Care 132 mg/dl (65-105)
[2021-01-26] MEDS: APIXABAN 5 MG TABLET PO ×2 (09:12→20:57)
[2021-01-26] MEDS: methocarbamoL 500 MG TABLET PO ×2 (09:12→20:58)
[2021-01-26] MEDS: PANTOPRAZOLE 40 MG TABLET PO (09:12)
[2021-01-26] MEDS: FLUoxetine HCL 20 MG CAPSULE 80 MG PO (09:12)
[2021-01-26] MEDS: INSULIN GLARGINE (*BKC) 100 UNITS/ML 50 UNITS SUB-Q ×2 (09:13→21:20)
[2021-01-26] MEDS: POTASSIUM CHLORIDE 20 MEQ TABLET.ER 40 MEQ PO ×2 (09:14→17:13)
[2021-01-26] MEDS: ASPIRIN 81 MG CHEWABLE TABLET PO (09:14)
[2021-01-26] MEDS: SODIUM CHLORIDE 0.9% IV 1,000 ML 60 ML IV CONT (09:21)
[2021-01-26] MEDS: MORPHINE SULFATE (*CRX) 2 MG/ML INJ 1 MG IV PUSH ×2 (10:36→18:05)
[2021-01-26] MEDS: ONDANSETRON INJ 4 MG/2 ML VIAL IV PUSH ×2 (10:36→17:17)
--- NOTE | 2021-01-26 11:12 | P.PNIM_ITS ---
Progress Note: A&P Assessment and Plan (1) Hypokalemia: Code(s): E87.6 - Hypokalemia Status: Acute Assessment and Plan: * Potassium 2.5 upon admission * potassium 2.8 this morning's labs 01/26/2021 * replaced with 80 mcqs p.o. * recheck at 1:00 p.m. 01/26/2021 * replace as needed * trend potassium * labs in a.m. (2) Abdominal pain: Qualifiers: Abdominal location: right upper quadrant Qualified Code(s): R10.11 - Right upper quadrant pain Code(s): R10.9 - Unspecified abdominal pain Status: Acute Assessment and Plan: * liver enzymes slightly elevated * AST 57 ALT 43 alkaline phosphatase 206 total bilirubin is 1 * right upper quadrant ultrasound ordered * abdominal CTs showed no acute intra-abdominal processes * trend labs * labs in a.m. 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 daily to 40 mg p.o. b.i.d. * will hold for now since patient looks dehydrated * BNP was 31 * echo showed an EF of 55-60% with diastolic dysfunction * 1 to 2+ pitting edema bilateral lower extremities * hold home furosemide, spironolactone (5) DM2 (diabetes mellitus, type 2): Qualifiers: Diabetes mellitus complication status: without complication Diabetes mellitus alf insulin use: without long chain dyeing machine operator use Qualified Code(s): E11.9 - Type 2 diabetes mellitus without complications Code(s): E11.9 - Type 2 diabetes mellitus without complications Status: Acute Assessment and Plan: * glucose on labs was 147 * continue 50 units of Lantus b.i.d. * sliding scale insulin * Accu-Cheks a.c. HS * adjust medications as needed * trend glucose on labs * hypoglycemia protocol (6) Asthma: Qualifiers: Asthma complication type: with acute exacerbation Asthma persistence: persistent Asthma severity: severe Qualified Code(s): J45.51 - Severe persistent asthma with (acute) exacerbation Code(s): J45.909 - Unspecified asthma, uncomplicated Status: Acute Assessment and Plan: * continue home albuterol * albuterol p.r.n. * monitor for symptoms (7) History of pulmonary embolism: Code(s): Z86.711 - Personal history of pulmonary embolism Status: Acute Assessment and Plan: * history of DVT and PE * continue home Eliquis 5 mg p.o. q.12 (8) Metabolic alkalosis: Code(s): E87.3 - Alkalosis Status: Acute (9) Hyponatremia: Code(s): E87.1 - Hypo-osmolality and hyponatremia Status: Acute Assessment and Plan: * current sodium 128 * normal saline at 60 mL an hour * trend sodium * labs in a.m. (10) Chest pain: Code(s): R07.9 - Chest pain, unspecified Status: Acute Assessment and Plan
--- NOTE | 2021-01-26 11:12 | PM.IMPN ---
Progress Note: A&P Assessment and Plan (1) Hypokalemia: Code(s): E87.6 - Hypokalemia Status: Acute Assessment and Plan: Potassium 2.5 upon admission potassium 2.8 this morning's labs 01/26/2021 replaced with 80 mcqs p.o. recheck at 1:00 p.m. 01/26/2021 replace as needed trend potassium labs in a.m. (2) Abdominal pain: Qualifiers: Abdominal location: right upper quadrant Qualified Code(s): R10.11 - Right upper quadrant pain Code(s): R10.9 - Unspecified abdominal pain Status: Acute Assessment and Plan: liver enzymes slightly elevated AST 57 ALT 43 alkaline phosphatase 206 total bilirubin is 1 right upper quadrant ultrasound ordered abdominal CTs showed no acute intra-abdominal processes trend labs labs in a.m. 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 daily to 40 mg p.o. b.i.d. will hold for now since patient looks dehydrated BNP was 31 echo showed an EF of 55-60% with diastolic dysfunction 1 to 2+ pitting edema bilateral lower extremities hold home furosemide, spironolactone (5) DM2 (diabetes mellitus, type 2): Qualifiers: Diabetes mellitus complication status: without complication Diabetes mellitus termination clerk insulin use: without termination clerk use Qualified Code(s): E11.9 - Type 2 diabetes mellitus without complications Code(s): E11.9 - Type 2 diabetes mellitus without complications Status: Acute Assessment and Plan: glucose on labs was 147 continue 50 units of Lantus b.i.d. sliding scale insulin Accu-Cheks a.c. HS adjust medications as needed trend glucose on labs hypoglycemia protocol (6) Asthma: Qualifiers: Asthma complication type: with acute exacerbation Asthma persistence: persistent Asthma severity: severe Qualified Code(s): J45.51 - Severe persistent asthma with (acute) exacerbation Code(s): J45.909 - Unspecified asthma, uncomplicated Status: Acute Assessment and Plan: continue home albuterol albuterol p.r.n. monitor for symptoms (7) History of pulmonary embolism: Code(s): Z86.711 - Personal history of pulmonary embolism Status: Acute Assessment and Plan: history of DVT and PE continue home Eliquis 5 mg p.o. q.12 (8) Metabolic alkalosis: Code(s): E87.3 - Alkalosis Status: Acute (9) Hyponatremia: Code(s): E87.1 - Hypo-osmolality and hyponatremia Status: Acute Assessment and Plan: current sodium 128 normal saline at 60 mL an hour trend sodium labs in a.m. (10) Chest pain: Code(s): R07.9 - Chest pain, unspecified Status: Acute Assessment and Plan: unrelieved by nitro troponin x3 negative cardiac consult for recommendations continue home propranolol 120 mg p.o. at night (11) Syncope: Code(s): R55 - Syncope and collapse Status: Acute Assessment and Plan: could be from dehydration or orthostatic hypotension from over diuresis carotid ultrasounds are ordered slowly change positions and take breaks in between each position change orthostatic blood pressures (12) Leukocytosis: Code(s): D72.829 - Elevated white blood cell count, unspecified
[2021-01-26 11:59] LABS: Glucose Point of Care 142 mg/dl (65-105)
[2021-01-26] MEDS: POTASSIUM CHLORIDE 20 MEQ TABLET 80 MEQ PO (13:08)
[2021-01-26 13:28] LABS: Basophils Absolute Auto 0.1 K/mm3 (0.0-0.1); Basophils Percent Auto 0.5 % (0.2-1.2); Eosinophils Absolute Auto 0.5 K/mm3 (0-0.3); Eosinophils Percent Auto 3.1 % (0-4.4); Hematocrit 46.4 % (37.0-47.0); Hemoglobin 14.9 g/dL (12.0-15.0); Immature Granulocyte Absolute 0.16 K/mm3 (0.00-0.031); Lymphocytes Absolute Auto 5.91 K/mm3 (0.9-3.2); Lymphocytes Percent Auto 35.1 % (18.3-44.2); Mean Corpuscular HGB Conc 32.1 g/dl (32-36); Mean Corpuscular Hemoglobin 25.5 pg (26-34); Mean Corpuscular Volume 79.3 fl (80-100); Mean Platelet Volume 9.4 fl (7.4-10.4); Monocytes Absolute Auto 1.1 K/mm3 (0.1-0.6); Monocytes Percent Auto 6.5 % (2.6-8.5); Neutrophils Absolute Auto 9.1 K/mm3 (1.3-6.7); Neutrophils Percent Auto 53.8 % (45.5-73.1); Platelet Count Result 362 k/mm3 (150-375); Red Blood Count 5.85 M/mm3 (4.2-5.4); Red Cell Distribution Width 13.3 % (11.5-14.5); White Blood Count 16.8 K/mm3 (4.5-10.0)
[2021-01-26 14:18] LABS: Alanine Aminotransferase 30 U/L (4-35); Albumin Level 3.6 g/dL (3.5-5.1); Alkaline Phosphatase 162 U/L (38-126); Aspartate Amino Transferase 28 U/L (14-36); Bilirubin,Total 0.7 mg/dL (0.2-1.3)
--- NOTE | 2021-01-26 14:57 | PM.CNCAR ---
Assessment and Plan Assessment and plan (1) Chest pain: Code(s): R07.9 - Chest pain, unspecified Status: Acute Assessment and Plan: Atypical, likely noncardiac, resolved unresponsive to sublingual nitroglycerin ruled out for myocardial infarction negative serial cardiac enzymes. Possibly related to sphincter of Oddi dysfunction. Patient has a history of minimal nonobstructive CAD on left heart catheterization 18 months ago in [facility]. Echocardiogram as reported 1 week ago EF 60% diastolic dysfunction. EKG without acute ischemic changes. Most likely musculoskeletal and/or GI etiology. No further invasive workup cardiovascular testing indicated at this time. Please do not hesitate to contact with any additional questions or concerns. Further GI workup evaluation as clinically warranted. (2) Syncope: Code(s): R55 - Syncope and collapse Status: Acute (3) Hypokalemia: Code(s): E87.6 - Hypokalemia Status: Acute Assessment and Plan: Severe hypokalemia presentation. Replete potassium around 4.0. Repeat BMP pending. She will likely require at least 40-60mEq potassium daily with furosemide 40 mg twice daily, metolazone 2.5 mg 3 times weekly and spironolactone 25 mg daily. (4) CAD (coronary artery disease): Code(s): I25.10 - Atherosclerotic heart disease of koi coronary artery without angina pectoris Status: Acute Assessment and Plan: Continue home cardiovascular medical therapy. Aspirin 81 mg daily ideally and if not able to tolerate clopidogrel 75 mg daily alternative due to known history of CAD. Also, do not see statin therapy on her medical therapy. Would add atorvastatin or rosuvastatin to regimen goal LDL less than 70. Hold for now given LFTs, abdominal pain and presentation with nausea vomiting. I would strongly advise initiation prior to discharge as tolerated. She will follow-up with her buyer liaison Dr. Lockett as an outpatient. (5) CHF (congestive heart failure): Qualifiers: Heart failure type: diastolic Heart failure chronicity: chronic Qualified Code(s): I50.32 - Chronic diastolic (congestive) heart failure Code(s): I50.9 - Heart failure, unspecified Status: Acute Assessment and Plan: Heart failure with preserved ejection fraction. Compensated. Not acute issue. Resume diuretic therapy with potassium supplementation. Patient states she just received CPAP at home but has yet to be again as she was in the hospital. This may also further reduce risk for decompensated heart failure with preserved ejection fraction. Discussed at length, patient verbalized understanding and agrees. (6) History of DVT (deep vein thrombosis): Code(s): Z86.718 - Personal history of other venous thrombosis and embolism Status: Chronic Assessment and Plan: Clearly, patient has a hypercoagulable state which is yet to be clearly identified per her description as she has seen hematology/oncology in the past. Lifelong systemic anticoagulation advised. To decrease bleeding risk consider discontinuation of aspirin with ongoing Eliquis. (7) History of pulmonary embolism: Code(s): Z86.711 - Personal history of pulmonary embolism Status: Acute Assessment and Plan: See above. (8) Hyperlipidemia associated with type 2 diabetes mellitus: Code(s): E11.69 - Type 2 diabetes mellitus with other specified complication; E78.5 - Hyperlipidemia, unspecified Status: Acute Assessment and Plan: See above. Strongly advise statin therapy initiation as tolerated. (9) Hypertension associated with diabetes: Code(s): E11.59 - Type 2 diabetes mellitus with other circulatory complications; I10 - Essential (primary) hypertension Status: Acute Assessment and Plan: Fair control at this time. Continue medical therapy. (10) SHREYA on CPAP: Code(s): G47.33 - Obstructive sleep apnea (adul
[2021-01-26 16:25] LABS: Anion Gap 7 mmol/L (8-16); Blood Urea Nitrogen 27 mg/dL (7-17); Calcium 9.4 mg/dL (8.4-10.2); Carbon Dioxide 34 mmol/L (22-30); Chloride 89 mmol/L (98-107); Estimated CRCL calculation 95 ml/min; Estimated Glomerular Filt Rate > 60; Glucose 178 mg/dL (65-110); Potassium 3.2 mmol/L (3.4-5.0); Sodium 130 mmol/L (137-145)
[2021-01-26] MEDS: INSULIN ASPART (*BKC) 100 UNITS/ML SUB-Q (17:12)
[2021-01-26 17:16] LABS: Glucose Point of Care 243 mg/dl (65-105)
[2021-01-26] MEDS: BELLADONNA ALK/PHENOB ELIX 10 ML, MAG HYDROX/ALUMINUM HYD/SIMETH 30 ML, LIDOCAINE HCL 2... PO (20:53)
[2021-01-26] MEDS: POTASSIUM CHLORIDE 20 MEQ TABLET.ER PO (20:57)
[2021-01-26] MEDS: HYDROcodone/acetaminophen (*CRX) 5-325 MG TABLET 1 TAB PO (21:44)
[2021-01-26] MEDS: PROPRANOLOL HCL 60 MG CAPSULE CR 120 MG PO (21:44)
[2021-01-26 21:52] LABS: Glucose Point of Care 121 mg/dl (65-105)
[2021-01-26] MEDS: ALBUTEROL SULFATE NEB 2.5 MG/3 ML INH 0.63 MG INHALATION (22:31)
[2021-01-27] VITALS (20 sets, daily range): BP systolic 96–136; BP diastolic 55–90; PULSE 69–87; RESP 18–22; TEMP 36.1–36.7; O2SAT 95–100
[2021-01-27] MEDS: ALBUTEROL SULFATE NEB 2.5 MG/3 ML INH 0.63 MG INHALATION ×2 (01:07→09:58)
[2021-01-27] MEDS: CALCIUM CARBONATE (TUMS) 500 MG (200 MG ELEMENTAL) PO (01:45)
[2021-01-27] MEDS: ONDANSETRON INJ 4 MG/2 ML VIAL IV PUSH ×3 (01:46→21:35)
[2021-01-27] MEDS: MORPHINE SULFATE (*CRX) 2 MG/ML INJ 1 MG IV PUSH ×3 (04:17→18:37)
[2021-01-27 05:52] LABS: Basophils Absolute Auto 0.1 K/mm3 (0.0-0.1); Basophils Percent Auto 0.7 % (0.2-1.2); Eosinophils Absolute Auto 0.5 K/mm3 (0-0.3); Eosinophils Percent Auto 3.9 % (0-4.4); Hematocrit 44.1 % (37.0-47.0); Hemoglobin 14.2 g/dL (12.0-15.0); Immature Granulocyte Absolute 0.11 K/mm3 (0.00-0.031); Immature Granulocyte Percent A 0.8 % (0-0.5); Lymphocytes Absolute Auto 5.31 K/mm3 (0.9-3.2); Lymphocytes Percent Auto 39.2 % (18.3-44.2); Mean Corpuscular HGB Conc 32.2 g/dl (32-36); Mean Corpuscular Hemoglobin 25.9 pg (26-34); Mean Corpuscular Volume 80.5 fl (80-100); Mean Platelet Volume 9.6 fl (7.4-10.4); Monocytes Absolute Auto 0.9 K/mm3 (0.1-0.6); Monocytes Percent Auto 6.4 % (2.6-8.5); Neutrophils Absolute Auto 6.6 K/mm3 (1.3-6.7); Platelet Count Result 308 k/mm3 (150-375); Red Blood Count 5.48 M/mm3 (4.2-5.4); Red Cell Distribution Width 13.2 % (11.5-14.5); White Blood Count 13.5 K/mm3 (4.5-10.0)
[2021-01-27] MEDS: GABAPENTIN 400 MG CAPSULE 800 MG PO ×3 (06:14→21:51)
[2021-01-27 06:23] LABS: Alanine Aminotransferase 24 U/L (4-35); Albumin Level 3.3 g/dL (3.5-5.1); Alkaline Phosphatase 138 U/L (38-126); Anion Gap 6 mmol/L (8-16); Aspartate Amino Transferase 27 U/L (14-36); Bilirubin,Total 0.4 mg/dL (0.2-1.3); Blood Urea Nitrogen 18 mg/dL (7-17); Calcium 8.5 mg/dL (8.4-10.2); Carbon Dioxide 30 mmol/L (22-30); Chloride 94 mmol/L (98-107); Estimated CRCL calculation 107 ml/min; Estimated Glomerular Filt Rate > 60; Glucose 108 mg/dL (65-110); Magnesium 2.1 mg/dL (1.6-2.3); Potassium 3.7 mmol/L (3.4-5.0); Sodium 130 mmol/L (137-145)
[2021-01-27] MEDS: methocarbamoL 500 MG TABLET PO ×2 (08:14→21:36)
[2021-01-27] MEDS: PANTOPRAZOLE 40 MG TABLET PO (08:14)
[2021-01-27] MEDS: ASPIRIN 81 MG CHEWABLE TABLET PO (08:15)
[2021-01-27] MEDS: APIXABAN 5 MG TABLET PO ×2 (08:15→21:36)
[2021-01-27] MEDS: FLUoxetine HCL 20 MG CAPSULE 80 MG PO (08:16)
[2021-01-27] MEDS: POTASSIUM CHLORIDE 20 MEQ TABLET.ER 40 MEQ PO ×2 (08:16→17:06)
[2021-01-27 08:19] LABS: Glucose Point of Care 95 mg/dl (65-105)
[2021-01-27] MEDS: INSULIN GLARGINE (*BKC) 100 UNITS/ML 50 UNITS SUB-Q (08:22)
[2021-01-27] MEDS: HYDROcodone/acetaminophen (*CRX) 5-325 MG TABLET 1 TAB PO ×2 (08:23→16:01)
[2021-01-27] MEDS: SODIUM CHLORIDE 0.9% IV 1,000 ML 60 ML IV CONT (10:48)
[2021-01-27 11:38] LABS: Glucose Point of Care 189 mg/dl (65-105)
--- NOTE | 2021-01-27 11:57 | P.PNIM_ITS ---
Progress Note: A&P Assessment and Plan (1) Hypokalemia: Code(s): E87.6 - Hypokalemia Status: Acute Assessment and Plan: * Potassium 2.5 upon admission * K this am 3.7 * Trend * Replace as needed (2) Abdominal pain: Qualifiers: Abdominal location: right upper quadrant Qualified Code(s): R10.11 - Right upper quadrant pain Code(s): R10.9 - Unspecified abdominal pain Status: Acute Assessment and Plan: * liver enzymes slightly elevated * AST 27 ALT 24 alkaline phosphatase 138 total bilirubin is 0.4 * right upper quadrant ultrasound unremarkable * abdominal CTs showed no acute intra-abdominal processes * trend labs * GI consult thank you for your recommendations (3) 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 daily to 40 mg p.o. b.i.d. * will hold for now since patient looks dehydrated * BNP was 31 * echo showed an EF of 55-60% with diastolic dysfunction * 1 to 2+ pitting edema bilateral lower extremities * hold home furosemide, spironolactone (5) DM2 (diabetes mellitus, type 2): Qualifiers: Diabetes mellitus complication status: without complication Diabetes mellitus keno terminal operator insulin use: without senior care use Qualified Code(s): E11.9 - Type 2 diabetes mellitus without complications Code(s): E11.9 - Type 2 diabetes mellitus without complications Status: Acute Assessment and Plan: * glucose on labs was 108 * continue 50 units of Lantus b.i.d. * sliding scale insulin * Accu-Cheks a.c. HS * adjust medications as needed * trend glucose on labs * hypoglycemia protocol (6) Asthma: Qualifiers: Asthma complication type: with acute exacerbation Asthma persistence: persistent Asthma severity: severe Qualified Code(s): J45.51 - Severe persistent asthma with (acute) exacerbation Code(s): J45.909 - Unspecified asthma, uncomplicated Status: Acute Assessment and Plan: * continue home albuterol * albuterol p.r.n. * monitor for symptoms (7) History of pulmonary embolism: Code(s): Z86.711 - Personal history of pulmonary embolism Status: Acute Assessment and Plan: * history of DVT and PE * continue home Eliquis 5 mg p.o. q.12 (8) Metabolic alkalosis: Code(s): E87.3 - Alkalosis Status: Acute (9) Hyponatremia: Code(s): E87.1 - Hypo-osmolality and hyponatremia Status: Acute Assessment and Plan: * current sodium 130 * normal saline at 60 mL an hour * trend sodium * labs in a.m. (10) Chest pain: Code(s): R07.9 - Chest pain, unspecified Status: Acute Assessment and Plan: * unrelieved by nitro * troponin x3 negative
--- NOTE | 2021-01-27 11:57 | PM.IMPN ---
Progress Note: A&P Assessment and Plan (1) Hypokalemia: Code(s): E87.6 - Hypokalemia Status: Acute Assessment and Plan: Potassium 2.5 upon admission K this am 3.7 Trend Replace as needed (2) Abdominal pain: Qualifiers: Abdominal location: right upper quadrant Qualified Code(s): R10.11 - Right upper quadrant pain Code(s): R10.9 - Unspecified abdominal pain Status: Acute Assessment and Plan: liver enzymes slightly elevated AST 27 ALT 24 alkaline phosphatase 138 total bilirubin is 0.4 right upper quadrant ultrasound unremarkable abdominal CTs showed no acute intra-abdominal processes trend labs GI consult thank you for your recommendations (3) 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 daily to 40 mg p.o. b.i.d. will hold for now since patient looks dehydrated BNP was 31 echo showed an EF of 55-60% with diastolic dysfunction 1 to 2+ pitting edema bilateral lower extremities hold home furosemide, spironolactone (5) DM2 (diabetes mellitus, type 2): Qualifiers: Diabetes mellitus complication status: without complication Diabetes mellitus chcf insulin use: without chcf use Qualified Code(s): E11.9 - Type 2 diabetes mellitus without complications Code(s): E11.9 - Type 2 diabetes mellitus without complications Status: Acute Assessment and Plan: glucose on labs was 108 continue 50 units of Lantus b.i.d. sliding scale insulin Accu-Cheks a.c. HS adjust medications as needed trend glucose on labs hypoglycemia protocol (6) Asthma: Qualifiers: Asthma complication type: with acute exacerbation Asthma persistence: persistent Asthma severity: severe Qualified Code(s): J45.51 - Severe persistent asthma with (acute) exacerbation Code(s): J45.909 - Unspecified asthma, uncomplicated Status: Acute Assessment and Plan: continue home albuterol albuterol p.r.n. monitor for symptoms (7) History of pulmonary embolism: Code(s): Z86.711 - Personal history of pulmonary embolism Status: Acute Assessment and Plan: history of DVT and PE continue home Eliquis 5 mg p.o. q.12 (8) Metabolic alkalosis: Code(s): E87.3 - Alkalosis Status: Acute (9) Hyponatremia: Code(s): E87.1 - Hypo-osmolality and hyponatremia Status: Acute Assessment and Plan: current sodium 130 normal saline at 60 mL an hour trend sodium labs in a.m. (10) Chest pain: Code(s): R07.9 - Chest pain, unspecified Status: Acute Assessment and Plan: unrelieved by nitro troponin x3 negative cardiac consult for recommendations continue home propranolol 120 mg p.o. at night (11) Syncope: Code(s): R55 - Syncope and collapse Status: Acute Assessment and Plan: could be from dehydration or orthostatic hypotension from over diuresis carotid ultrasounds are ordered slowly change positions and take breaks in between each position change orthostatic blood pressures (12) Leukocytosis: Code(s): D72.829 - Elevated white blood cell count, unspecified Status: Acute Assessment and Plan: white blood
--- NOTE | 2021-01-27 13:32 | WPDGICN ---
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 with ERCP and sphincterotomy, no need to repeat scope she has seeing another GI doctor in [facility] will add bentyl prn, may need elavil or similar if functional pain (2) Elevated LFTs: Code(s): R79.89 - Other specified abnormal findings of blood chemistry Status: Acute Assessment and Plan: only on admission and now resolved, GI imaging unremarkable (3) Syncope: Code(s): R55 - Syncope and collapse Status: Acute Assessment and Plan: resolved, cardiology on board (4) Metabolic alkalosis: Code(s): E87.3 - Alkalosis Status: Acute Assessment and Plan: when she was on diuretics (5) Abdominal pain: Qualifiers: Abdominal location: right upper quadrant Qualified Code(s): R10.11 - Right upper quadrant pain Code(s): R10.9 - Unspecified abdominal pain Status: Acute (6) Colon cancer screening: Code(s): Z12.11 - Encounter for screening for malignant neoplasm of colon Status: Acute Assessment and Plan: she would like to have a colonoscopy as outpatient at some point, will schedule (never had one) GI Consult Note Consult date/time: 01/27/21 13:32 Reason for consult: abdominal pain, bloating HPI: Olivia Fernandez is a 50 year old female with multiple medical problems including uncontrolled DM, post cholecystectomy, morbid obese, PE/DVT on AC, diastolic heart failure on diuretics who I have seen her in previous hospitalization 07/2020. She had EGD showed mild gastritis and back then I reviewed medical records from other GI doctors because intermittent abdominal pain (initially had ERCP 2014 for possible SOD, had biliary stent that was removed 1 year after mostly because she did not come back on time to have it removed, then in 2018 because intermittent pain in RUQ with n/v, admitted again to another hospital, another GI doctor was consulted for second opinion on ERCP- had MRCP with unrevealing new findings- decision was that did not need another repeat ERCP but rather treat as functional or with pain modulator/antispasmodic). Since then she says that has seen another GI doctor in [facility] for possible OD dysfunction . She is here with non-cardiac chest pain and syncopal episode (recently discharged from [facility] with CHF exacerbation treated with diuretics), evaluated by cardiology and no acute findings (had cardiac cath 18 months ago). She is eating now lunch and still some abdominal discomfort. On admisssion had mild elevated transaminases 50's, normal bili. Abdominal us reviewed and was normal. Review of Systems Constitutional: Constitutional: Denies chills Eyes: Eyes: Denies blurry vision ENT: Reports Normal hearing present Cardiovascular: Cardiovascular: Reports chest pain Respiratory: Respiratory: Denies cough Gastrointestinal: Gastrointestinal: Reports abdominal pain Genitourinary: Genitourinary: Denies hematuria Musculoskeletal: Musculoskeletal: Denies neck pain Integumentary/Breasts: Skin/Breast: Denies dry skin Neurologic: Denies confusion Psychiatric: Psychiatric: Reports no additional psychiatric complaints [facility] Past Medical History Medical History (Updated 01/27/21 @ 13:47 by Krzysztof Lutz MD) Anxiety Arthritis Asthma 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
[2021-01-27] MEDS: SENNA/DOCUSATE SODIUM TABLET 1 TAB PO (14:17)
[2021-01-27] MEDS: DICYCLOMINE HCL 10 MG CAPSULE PO (16:01)
[2021-01-27 16:34] LABS: Glucose Point of Care 192 mg/dl (65-105)
[2021-01-27] MEDS: DOCUSATE SODIUM 100 MG CAPSULE PO (21:35)
[2021-01-27] MEDS: POTASSIUM CHLORIDE 20 MEQ TABLET.ER PO (21:36)
[2021-01-27] MEDS: PROPRANOLOL HCL 60 MG CAPSULE CR 120 MG PO (21:37)
[2021-01-27] MEDS: INSULIN GLARGINE (*BKC) 100 UNITS/ML 40 UNITS SUB-Q (22:26)
[2021-01-28] VITALS (15 sets, daily range): BP systolic 106–145; BP diastolic 54–85; PULSE 75–88; RESP 18–20; TEMP 35.8–36.7; O2SAT 96–98
[2021-01-28] MEDS: MORPHINE SULFATE (*CRX) 2 MG/ML INJ 1 MG IV PUSH ×2 (00:08→07:03)
[2021-01-28 00:37] LABS: Glucose Point of Care 286 mg/dl (65-105)
[2021-01-28] MEDS: SODIUM CHLORIDE 0.9% IV 1,000 ML 60 ML IV CONT (02:29)
[2021-01-28] MEDS: ALBUTEROL SULFATE NEB 2.5 MG/3 ML INH 0.63 MG INHALATION ×2 (03:01→13:07)
--- NOTE | 2021-01-28 05:42 | PCRCNOTE ---
Window of time for administration has passed. See next scheduled administration.
[2021-01-28 05:45] LABS: Basophils Absolute Auto 0.1 K/mm3 (0.0-0.1); Basophils Percent Auto 0.9 % (0.2-1.2); Eosinophils Absolute Auto 0.5 K/mm3 (0-0.3); Eosinophils Percent Auto 4.5 % (0-4.4); Hematocrit 44.6 % (37.0-47.0); Hemoglobin 13.6 g/dL (12.0-15.0); Immature Granulocyte Percent A 0.9 % (0-0.5); Lymphocytes Absolute Auto 4.23 K/mm3 (0.9-3.2); Lymphocytes Percent Auto 40.1 % (18.3-44.2); Mean Corpuscular HGB Conc 30.5 g/dl (32-36); Mean Corpuscular Hemoglobin 25.9 pg (26-34); Mean Platelet Volume 9.7 fl (7.4-10.4); Monocytes Absolute Auto 0.6 K/mm3 (0.1-0.6); Monocytes Percent Auto 5.7 % (2.6-8.5); Neutrophils Absolute Auto 5.1 K/mm3 (1.3-6.7); Neutrophils Percent Auto 47.9 % (45.5-73.1); Platelet Count Result 228 k/mm3 (150-375); Red Blood Count 5.25 M/mm3 (4.2-5.4); Red Cell Distribution Width 13.6 % (11.5-14.5); White Blood Count 10.6 K/mm3 (4.5-10.0)
[2021-01-28 06:09] LABS: Alanine Aminotransferase 19 U/L (4-35); Albumin Level 3.1 g/dL (3.5-5.1); Alkaline Phosphatase 126 U/L (38-126); Anion Gap 8 mmol/L (8-16); Aspartate Amino Transferase 22 U/L (14-36); Bilirubin,Total 0.2 mg/dL (0.2-1.3); Blood Urea Nitrogen 20 mg/dL (7-17); Calcium 8.6 mg/dL (8.4-10.2); Carbon Dioxide 25 mmol/L (22-30); Chloride 100 mmol/L (98-107); Estimated CRCL calculation 107 ml/min; Estimated Glomerular Filt Rate > 60; Glucose 152 mg/dL (65-110); Magnesium 1.9 mg/dL (1.6-2.3); Potassium 4.4 mmol/L (3.4-5.0); Sodium 133 mmol/L (137-145)
[2021-01-28] MEDS: GABAPENTIN 400 MG CAPSULE 800 MG PO ×2 (07:00→14:06)
--- NOTE | 2021-01-28 07:39 | PCRCNOTE ---
pt ref tx she wanted to eat instead
[2021-01-28 07:53] LABS: Glucose Point of Care 120 mg/dl (65-105)
[2021-01-28] MEDS: methocarbamoL 500 MG TABLET PO (08:47)
[2021-01-28] MEDS: APIXABAN 5 MG TABLET PO (08:48)
[2021-01-28] MEDS: DICYCLOMINE HCL 10 MG CAPSULE PO (08:48)
[2021-01-28] MEDS: PANTOPRAZOLE 40 MG TABLET PO (08:48)
[2021-01-28] MEDS: ASPIRIN 81 MG CHEWABLE TABLET PO (08:49)
[2021-01-28] MEDS: SENNA/DOCUSATE SODIUM TABLET 1 TAB PO (08:49)
[2021-01-28] MEDS: FLUoxetine HCL 20 MG CAPSULE 80 MG PO (08:50)
[2021-01-28] MEDS: POTASSIUM CHLORIDE 20 MEQ TABLET.ER 40 MEQ PO (08:50)
[2021-01-28] MEDS: DOCUSATE SODIUM 100 MG CAPSULE PO (08:50)
[2021-01-28] MEDS: INSULIN ASPART (*BKC) 100 UNITS/ML SUB-Q ×3 (08:58→16:42)
[2021-01-28] MEDS: INSULIN GLARGINE (*BKC) 100 UNITS/ML 50 UNITS SUB-Q (08:58)
--- NOTE | 2021-01-28 10:15 | WPDGIPROGNO ---
Progress Note: A&P Assessment and Plan (1) Abdominal pain: Qualifiers: Abdominal location: right upper quadrant Qualified Code(s): R10.11 - Right upper quadrant pain Code(s): R10.9 - Unspecified abdominal pain Status: Acute Assessment and Plan: probably functional, also questionable SOD for which she had ERCP in the past- no need to repeat now normal liver enzymes bentyl prn and she can go home by GI standpoint tolerating diet (2) Non-cardiac chest pain: Code(s): R07.89 - Other chest pain Status: Acute Assessment and Plan: evaluated by cardiology (3) Elevated LFTs: Code(s): R79.89 - Other specified abnormal findings of blood chemistry Status: Acute Assessment and Plan: mild on admission and now normal (4) CHF (congestive heart failure): Qualifiers: Heart failure type: diastolic Heart failure chronicity: chronic Qualified Code(s): I50.32 - Chronic diastolic (congestive) heart failure Code(s): I50.9 - Heart failure, unspecified Status: Acute Assessment and Plan: on diuretics (5) Hypokalemia: Code(s): E87.6 - Hypokalemia Status: Acute Assessment and Plan: treated and resolved (6) Obesity, morbid, BMI 40.0-49.9: Code(s): E66.01 - Morbid (severe) obesity due to excess calories Status: Acute (7) History of pulmonary embolism: Code(s): Z86.711 - Personal history of pulmonary embolism Status: Acute Assessment and Plan: chronic anticoagulation (8) Colon cancer screening: Code(s): Z12.11 - Encounter for screening for malignant neoplasm of colon Status: Acute Assessment and Plan: she would like to have colonoscopy as outpatient, my office will set up Subjective Date/time seen: 01/28/21 10:15 Interval history: doing better, she says that will have upset stomach after swallowing KCL tablet otherwise no major issues. Review of Systems Review of Systems: All systems reviewed & are unremarkable except as noted in HPI and below Exam Const: General: comfortable and no acute distress Nutritional Appearance: obese HENMT: General nose exam: Normal nares present Eyes: Sclera: sclerae normal Neck: Neck: supple Resp: Auscultation: clear to auscultation bilaterally Cardio: Rate: regular rate GI: Inspection: non-distended GI Palp: Yes Soft to palpation and No Guarding due to palpation present (GI) Auscultation: normal bowel sounds Skin: General skin exam: normal color Neuro: Speech: normal speech Motor exam (neuro): Normal motor muscle tone present throughout Extrem: General: pedal edema (trace) Psych: Mental Status: mental status grossly normal Objective Data Vital Signs Vital Signs: Vital Signs - 24 hr 01/27/21 12:00 01/27/21 14:00 01/27/21 14:02 Temperature 98.0 F 98.0 F Pulse Rate 80 75 76 Respiratory Rate 20 20 Blood Pressure 126/78 136/85 Pulse Oximetry 96 95 01/27/21 14:03 01/27/21 16:00 01/27/21 18:00 Temperature 98.0 F 98.0 F Pulse Rate 72 75 76 Respiratory Rate 20 20 Blood Pressure 120/74 124/74 Pulse Oximetry 97 98 01/27/21 20:00 01/27/21 21:37 01/27/21 22:00 Temperature 97.3 F L Pulse Rate 83 83 77 Respiratory Rate 20 Blood Pressure 96/55 L Pulse Oximetry 98 01/27/21 22:05 01/27/21 22:07 01/28/21 01:39 Temperature 97.8 F 97.0 F L Pulse Rate 80 87 79 Respiratory Rate 22 H 20 Blood Pressure 119/67 124/90 Pulse Oximetry 97 98 01/28/21 02:00 01/28/21 03:05 01/28/21 03:14 Temperature 98.0 F Pulse Rate 78 75 79 Respiratory Rate 20 18 18 Blood Pressure 106/69 Pulse Oximetry 98 01/28/21 04:00 01/28/21 06:00 01/28/21 09:50 Temperature 97.0 F L Pulse Rate 76 77 Respiratory Rate 20 Blood Pressure 117/74 106/54 L Pulse Oximetry 98 01/28/21 09:51 01/28/21 09:53 01/28/21 09:57 Temperature 96.5 F L Pulse Rate 83 Respiratory Rate 18 Blood Pre
[2021-01-28 11:54] LABS: Glucose Point of Care 156 mg/dl (65-105)
--- NOTE | 2021-01-28 12:28 | P.DS_ITS ---
DS: Admitting Diagnosis Admitting Diagnosis Electrolyte imbalance chest pain dehydration DS: Discharge Diagnosis Discharge Diagnosis (1) Hypokalemia: Code(s): E87.6 - Hypokalemia Status: Acute Assessment and Plan: * Potassium 2.5 upon admission * K this am 3.7 * Trend * Replace as needed this is been better and patient is 4.4 upon discharge (2) Abdominal pain: Qualifiers: Abdominal location: right upper quadrant Qualified Code(s): R10.11 - Right upper quadrant pain Code(s): R10.9 - Unspecified abdominal pain Status: Acute Assessment and Plan: * liver enzymes slightly elevated * AST 27 ALT 24 alkaline phosphatase 138 total bilirubin is 0.4 * right upper quadrant ultrasound unremarkable * abdominal CTs showed no acute intra-abdominal processes * trend labs * GI consult thank you for your recommendations (3) 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 daily to 40 mg p.o. b.i.d. * will hold for now since patient looks dehydrated * BNP was 31 * echo showed an EF of 55-60% with diastolic dysfunction * 1 to 2+ pitting edema bilateral lower extremities * hold home furosemide, spironolactone (5) DM2 (diabetes mellitus, type 2): Qualifiers: Diabetes mellitus complication status: without complication Diabetes mellitus prison insulin use: without long filler cigar roller machine use Qualified Code(s): E11.9 - Type 2 diabetes mellitus without complications Code(s): E11.9 - Type 2 diabetes mellitus without complications Status: Acute Assessment and Plan: * glucose on labs was 108 * continue 50 units of Lantus b.i.d. * sliding scale insulin * Accu-Cheks a.c. HS * adjust medications as needed * trend glucose on labs * hypoglycemia protocol (6) Asthma: Qualifiers: Asthma complication type: with acute exacerbation Asthma persistence: persistent Asthma severity: severe Qualified Code(s): J45.51 - Severe persistent asthma with (acute) exacerbation Code(s): J45.909 - Unspecified asthma, uncomplicated Status: Acute Assessment and Plan: * continue home albuterol * albuterol p.r.n. * monitor for symptoms (7) History of pulmonary embolism: Code(s): Z86.711 - Personal history of pulmonary embolism Status: Acute Assessment and Plan: * history of DVT and PE * continue home Eliquis 5 mg p.o. q.12 (8) Metabolic alkalosis: Code(s): E87.3 - Alkalosis Status: Acute (9) Hyponatremia: Code(s): E87.1 - Hypo-osmolality and hyponatremia Status: Acute Assessment and Plan: * current sodium 130 * normal saline at 60 mL an hour * trend sodium * labs in a.m. (10) Ch
--- NOTE | 2021-01-28 12:28 | PM.DS ---
DS: Admitting Diagnosis Admitting Diagnosis Electrolyte imbalance chest pain dehydration DS: Discharge Diagnosis Discharge Diagnosis (1) Hypokalemia: Code(s): E87.6 - Hypokalemia Status: Acute Assessment and Plan: Potassium 2.5 upon admission K this am 3.7 Trend Replace as needed this is been better and patient is 4.4 upon discharge (2) Abdominal pain: Qualifiers: Abdominal location: right upper quadrant Qualified Code(s): R10.11 - Right upper quadrant pain Code(s): R10.9 - Unspecified abdominal pain Status: Acute Assessment and Plan: liver enzymes slightly elevated AST 27 ALT 24 alkaline phosphatase 138 total bilirubin is 0.4 right upper quadrant ultrasound unremarkable abdominal CTs showed no acute intra-abdominal processes trend labs GI consult thank you for your recommendations (3) 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 daily to 40 mg p.o. b.i.d. will hold for now since patient looks dehydrated BNP was 31 echo showed an EF of 55-60% with diastolic dysfunction 1 to 2+ pitting edema bilateral lower extremities hold home furosemide, spironolactone (5) DM2 (diabetes mellitus, type 2): Qualifiers: Diabetes mellitus complication status: without complication Diabetes mellitus shelter insulin use: without terminal block assembler use Qualified Code(s): E11.9 - Type 2 diabetes mellitus without complications Code(s): E11.9 - Type 2 diabetes mellitus without complications Status: Acute Assessment and Plan: glucose on labs was 108 continue 50 units of Lantus b.i.d. sliding scale insulin Accu-Cheks a.c. HS adjust medications as needed trend glucose on labs hypoglycemia protocol (6) Asthma: Qualifiers: Asthma complication type: with acute exacerbation Asthma persistence: persistent Asthma severity: severe Qualified Code(s): J45.51 - Severe persistent asthma with (acute) exacerbation Code(s): J45.909 - Unspecified asthma, uncomplicated Status: Acute Assessment and Plan: continue home albuterol albuterol p.r.n. monitor for symptoms (7) History of pulmonary embolism: Code(s): Z86.711 - Personal history of pulmonary embolism Status: Acute Assessment and Plan: history of DVT and PE continue home Eliquis 5 mg p.o. q.12 (8) Metabolic alkalosis: Code(s): E87.3 - Alkalosis Status: Acute (9) Hyponatremia: Code(s): E87.1 - Hypo-osmolality and hyponatremia Status: Acute Assessment and Plan: current sodium 130 normal saline at 60 mL an hour trend sodium labs in a.m. (10) Chest pain: Code(s): R07.9 - Chest pain, unspecified Status: Acute Assessment and Plan: unrelieved by nitro troponin x3 negative cardiac consult for recommendations continue home propranolol 120 mg p.o. at night (11) Syncope: Code(s): R55 - Syncope and collapse Status: Acute Assessment and Plan: could be from dehydration or orthostatic hypotension from over diuresis carotid ultrasounds are ordered slowly change positions and take breaks in between each position change orthostatic blood pressures
[2021-01-28 12:42] LABS: NT Pro B Type Natriuretic Pept 275 pg/mL (5-100)
[2021-01-28] MEDS: BUMETANIDE 1 MG TABLET 2 MG PO (14:04)
[2021-01-28 16:17] LABS: Alanine Aminotransferase 22 U/L (4-35); Albumin Level 3.6 g/dL (3.5-5.1); Alkaline Phosphatase 144 U/L (38-126); Anion Gap 1 mmol/L (8-16); Aspartate Amino Transferase 23 U/L (14-36); Bilirubin,Total 0.2 mg/dL (0.2-1.3); Blood Urea Nitrogen 17 mg/dL (7-17); Calcium 9.1 mg/dL (8.4-10.2); Carbon Dioxide 31 mmol/L (22-30); Chloride 102 mmol/L (98-107); Estimated CRCL calculation 107 ml/min; Estimated Glomerular Filt Rate > 60; Glucose 119 mg/dL (65-110); Potassium 4.4 mmol/L (3.4-5.0); Sodium 134 mmol/L (137-145)
== END 2021-01-28 18:15 | disposition home or self-care (01) ==
LOC: ANHED 19:59 → ANH2MED 20:06
PROVIDERS: Emergency Medicine; Nurse Practitioner; Admitting Provider Internal Medicine; Emergency Provider Emergency Medicine; PCP Internal Medicine; Visit Provider Hospitalist
DX: E87.6 Hypokalemia (principal); R10.11 Right upper quadrant pain; R07.89 Other chest pain; E87.1 Hypo-osmolality and hyponatremia; R79.89 Other specified abnormal findings of blood chemistry; N17.9 Acute kidney failure, unspecified; I25.10 Atherosclerotic heart disease of native coronary artery without angina pectoris; K83.8 Other specified diseases of biliary tract; E87.3 Alkalosis; R55 Syncope and collapse; D72.829 Elevated white blood cell count, unspecified; G47.33 Obstructive sleep apnea (adult) (pediatric); I13.2 Hypertensive heart and chronic kidney disease with heart failure and with stage 5 chronic kidney disease, or end stage renal disease; E11.22 Type 2 diabetes mellitus with diabetic chronic kidney disease; N18.6 End stage renal disease; I50.30 Unspecified diastolic (congestive) heart failure; Z99.2 Dependence on renal dialysis; J45.909 Unspecified asthma, uncomplicated; K76.0 Fatty (change of) liver, not elsewhere classified; E78.5 Hyperlipidemia, unspecified; F41.9 Anxiety disorder, unspecified; F33.9 Major depressive disorder, recurrent, unspecified; E28.2 Polycystic ovarian syndrome; E11.51 Type 2 diabetes mellitus with diabetic peripheral angiopathy without gangrene; Z86.718 Personal history of other venous thrombosis and embolism; Z86.711 Personal history of pulmonary embolism; Z98.1 Arthrodesis status; Z79.01 Long term (current) use of anticoagulants; Z79.4 Long term (current) use of insulin; Z79.51 Long term (current) use of inhaled steroids; E66.01 Morbid (severe) obesity due to excess calories; Z68.42 Body mass index [BMI] 45.0-49.9, adult
CPT/HCPCS: 36415; 71046; 74150; 76705; 80048; 80053; 80076; 81003; 82948; 83735; 83880; 84484; 85025; 85610; 85730; 93005; 93880; 94640; 96361; 96365; 96366; 96374; 96375; 96376; 99285; A9270; G0378; J0131; J1815; J2270; J2405; J3480; J7030

== ENCOUNTER 2021-02-12 09:30 | Emergency (ER) | payer OTHER, SELFPAY ==
--- NOTE | 2021-02-12 10:11 | ECG_ITS ---
Measurements Intervals [place] Rate: 88 P: 64 [place]: 148 QRS: 30 QRSD: 97 T: 0 QT: 392 QTc: 475 Interpretive Statements SINUS RHYTHM INCOMPLETE RIGHT BUNDLE BRANCH BLOCK DELAYED PRECORDIAL R/S TRANSITION BORDERLINE ST-T WAVE ABNORMALITY- ANT/INF LEADS BASELINE ARTIFACT- I, II, III, AVL, AVF BORDERLINE ECG Electronically Signed On 02-12-2021 11:12:21 CDT by Alphonso Martinez D.O.
[2021-02-12 10:15] VITALS: BP 132/89; PULSE 88; RESP 24; TEMP 36.8; O2SAT 94
[2021-02-12] MEDS: MORPHINE SULFATE (*CRX) 2 MG/ML INJ IV PUSH (10:33)
[2021-02-12 10:36] LABS: Basophils Absolute Auto 0.07 K/mm3 (0.00-0.10); Basophils Percent Auto 0.7 % (0.0-1.0); Eosinophils Absolute Auto 0.48 K/mm3 (0.02-0.50); Eosinophils Percent Auto 4.7 % (1.0-6.0); Hematocrit 46.9 % (35.0-49.0); Hemoglobin 15.5 g/dL (12.0-15.0); Immature Granulocyte Absolute 0.05 K/mm3 (0.00-0.00); Immature Granulocyte Percent A 0.5 % (0.0-0.0); Lymphocytes Absolute Auto 2.44 K/mm3 (1.10-4.50); Lymphocytes Percent Auto 23.8 % (18.0-42.0); Mean Corpuscular Hemoglobin 26.3 pg (27.0-31.0); Mean Corpuscular Volume 79.5 fL (78.0-102.0); Mean Platelet Volume 9.9 fl (9.2-11.8); Monocytes Absolute Auto 0.77 K/mm3 (0.10-0.90); Monocytes Percent Auto 7.5 % (2.0-11.0); Neutrophils Absolute Auto 6.5 K/mm3 (1.7-7.2); Neutrophils Percent Auto 62.8 % (50.0-70.0); Platelet Count Result 412 K/mm3 (150-420); Red Cell Distribution Width 13.3 % (11.6-14.4); White Blood Count 10.3 K/mm3 (4.8-10.8)
[2021-02-12] MEDS: ONDANSETRON INJ 4 MG/2 ML VIAL IV PUSH (10:46)
[2021-02-12 10:55] LABS: SARS-CoV-2 Ag Negative (Negative)
[2021-02-12 11:00] LABS: Lactic Acid Reflex 1.3 mmol/L (0.4-2.0)
[2021-02-12 11:01] LABS: Alanine Aminotransferase 31 U/L (14-59); Albumin Level 3.7 g/dL (3.4-5.0); Alkaline Phosphatase 150 U/L (46-116); Anion Gap 6 mmol/L (8-16); Aspartate Amino Transferase 23 U/L (15-37); Bilirubin,Total 0.7 mg/dL (0.00-1.00); Blood Urea Nitrogen 17 mg/dL (7-18); Calcium 9.2 mg/dL (8.5-10.1); Carbon Dioxide 37 mmol/L (21-32); Chloride 94 mmol/L (98-108); Estimated Glomerular Filt Rate 58; Glucose 201 mg/dL (70-99); Osmolality Calculated 291 mOsm/kg (285-295); Potassium 2.6 mmol/L (3.5-5.1); Sodium 137 mmol/L (136-145); Total Protein 8.1 g/dL (6.4-8.2); Troponin I 6.6 ng/L (0.00-60.4)
[2021-02-12 11:06] LABS: NT Pro B Type Natriuretic Pept 16 pg/mL (0-125)
[2021-02-12] MEDS: POTASSIUM CHLORIDE 20 MEQ TABLET 40 MEQ PO (11:18)
[2021-02-12] MEDS: KCL 20 MEQ/SW 100 ML 100 ML 50 MEQ IVPB (11:18)
--- NOTE | 2021-02-12 11:39 | PC.NURSE ---
RN IS CALLED INTO ROOM, STATES SHE CANNOT TAKE THE BURNING SENSATION FROM THE POTASSIUM, PT IS GIVEN ICE PACK - ERP AT BEDSIDE STATES THE TREATMENT FOR HYPOKALEMIA IS POTASSIUM INFUSION - PT UNABLE TO TOLERATE DILUTED POTASSIUM, REQUESTED, D/T CONGESTIVE HEART FAILURE. ERP OFFERS PATIENT AMA FORM.
[2021-02-12 11:49] VITALS: BP 117/74; PULSE 94; O2SAT 99
[2021-02-12 12:00] VITALS: BP 134/83; PULSE 88; O2SAT 95
--- NOTE | 2021-02-12 12:12 | ED.WEAKNESS ---
HPI - Weakness General Chief complaint: Recheck/Abnormal Lab/Rx Stated complaint: LOW POTASSIUM LEVELS Source: patient Mode of arrival: ambulatory History of Present Illness HPI Narrative: this is a 50-year-old female with history of CHF currently on Lasix and spironolactone which has had previous episodes were she was hypokalemic and currently she has a mild headache with some weakness and describes that she when she had these previous symptoms that she was hypokalemic. Currently there was some no chest pain no shortness of breath no nausea vomiting no abdominal pain no diarrhea constipation no fever or chills. Complaint: generalized weakness Onset (ago): day(s) Duration: constant Related Data Home Medications Medication Instructions Recorded Confirmed gabapentin 800 mg tablet 800 mg PO TID 01/08/21 01/25/21 insulin glargine 100 unit/mL (3 50 unit SUBCUT BID 01/08/21 01/25/21 mL) subcutaneous pen blood-glucose meter [Advocate 01/25/21 01/25/21 Redi-Code Glu Monitor] fluoxetine [Prozac] 80 mg PO DAILY 01/25/21 01/25/21 hydroxyzine HCl 25 mg PO TID PRN 01/25/21 01/25/21 methocarbamol 500 mg PO BID 01/25/21 01/25/21 metolazone 2.5 mg PO DAILY 01/25/21 01/25/21 potassium chloride 20 meq PO HS 01/25/21 01/25/21 propranolol 120 mg PO HS 01/25/21 01/25/21 insulin aspart U-100 [Novolog 4 unit SUBCUT TID 01/27/21 01/27/21 U-100 Insulin aspart] Allergies Allergy/AdvReac Type Severity Reaction Status Date / Time epinephrine Allergy Severe Unknown Verified 01/25/21 21:00 ibuprofen Allergy Intermediate Unknown Verified 01/25/21 21:00 bupropion Allergy Unknown Unknown Verified 01/25/21 21:00 celecoxib Allergy Unknown Unknown Verified 01/25/21 21:00 Sulfa (Sulfonamide Allergy Unknown Unknown Verified 01/25/21 21:00 Antibiotics) tetanus and diphtheria Allergy Unknown Unknown Verified 01/25/21 21:00 toxoids vancomycin AdvReac Severe renal Verified 01/25/21 21:00 failure Review of Systems Review of Systems: All systems reviewed & are unremarkable except as noted in HPI and below PMFSH Past Medical History Medical History Anxiety Arthritis Asthma 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demia associated with type 2 diabetes mellitus Hypertension associated with diabetes Kidney stone Major depression, recurrent Medical non-compliance Migraines Non-cardiac chest pain Obesity, morbid, BMI 40.0-49.9 Ovarian cyst Overweight PCOS (polycystic ovarian syndrome) Peripheral vascular disease Post concussive syndrome (~2017) Pulmonary embolism Renal failure (~2017) Sepsis Sleep-disordered breathing Uterine fibroid Surgical History Surgical History History of adenoidectomy History of appendectomy History of cholecystectomy History of hysterectomy History of intravascular stent placement with removal in 2017 History of removal of ovarian cyst Hx of tonsillectomy Previous back surgery L4 and L5 fusion Status post lumbar spine surgery for decompression of spinal cord Family History Family History Mother Hypertension Fibromyalgia Osteoarthritis Asthma Depression Thyroid disorder Father DVT (deep venous thrombosis) Alcoholic Sibling Alcoholic Depression Other Asthma Depression Grandparent Asthma Diabetes mellitus Hypertension Cerebrovascular accident Depression Heart disease Thyroid disorder Grandparent Diabetes mellitus Depression Hyp
== END 2021-02-12 12:10 | disposition left against medical advice (07) ==
PROVIDERS: Emergency Provider Emergency Medicine; PCP Internal Medicine
DX: E87.6 Hypokalemia (principal); Z20.822 Contact with and (suspected) exposure to COVID-19; I50.9 Heart failure, unspecified; E11.9 Type 2 diabetes mellitus without complications; E78.5 Hyperlipidemia, unspecified; I10 Essential (primary) hypertension; Z79.4 Long term (current) use of insulin
CPT/HCPCS: 36415; 80053; 83605; 83880; 84484; 85025; 87426; 93005; 96365; 96375; 99283; 99284; A9270; C9803; J2270; J2405; J3480

== ENCOUNTER 2021-02-23 10:12 | Outpatient (CLI) | payer OTHER, SELFPAY ==
[2021-02-23 11:18] LABS: Alanine Aminotransferase 30 U/L (14-59); Albumin Level 3.9 g/dL (3.4-5.0); Alkaline Phosphatase 165 U/L (46-116); Anion Gap 7 mmol/L (8-16); Aspartate Amino Transferase 28 U/L (15-37); Bilirubin,Total 0.7 mg/dL (0.00-1.00); Blood Urea Nitrogen 19 mg/dL (7-18); Calcium 9.8 mg/dL (8.5-10.1); Carbon Dioxide 38 mmol/L (21-32); Chloride 93 mmol/L (98-108); Estimated Glomerular Filt Rate > 60; Glucose 189 mg/dL (70-99); Magnesium 2.1 mg/dL (1.8-2.4); Osmolality Calculated 293 mOsm/kg (285-295); Phosphorus 3.1 mg/dL (2.6-4.7); Potassium 3.3 mmol/L (3.5-5.1); Sodium 138 mmol/L (136-145); Total Protein 7.9 g/dL (6.4-8.2)
== END 2021-02-23 10:13 | disposition home or self-care (01) ==
LOC: CHSLAB 10:15
PROVIDERS: PCP Internal Medicine; Visit Provider Internal Medicine
DX: E87.6 Hypokalemia (principal); J45.909 Unspecified asthma, uncomplicated
CPT/HCPCS: 36415; 80053; 83735; 84100

== ENCOUNTER 2021-08-20 09:05 | Outpatient (CLI) | payer OTHER, MEDICAID, SELFPAY ==
--- NOTE | ~2021-08-20 | XR_ITS ---
EXAMINATION: XR knee LT 3V DATE: 08/20/2021 09:52 INDICATION: Medial left knee pain. Fall. TECHNIQUE: 3 views of left knee were obtained. COMPARISON: None. FINDINGS: Bone alignment is normal. No fracture. There is moderate osteoarthritis of medial and wills lofemoral compartments and mild osteoarthritis of lateral compartment. No knee joint effusion. There is a 2 mm loose body in the posterior knee joint. IMPRESSION: 1. Moderate left knee osteoarthritis. 2. Small knee joint loose body. Reviewed, dictated and finalized at location A. 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
== END 2021-08-20 09:06 | disposition home or self-care (01) ==
PROVIDERS: PCP Family Medicine; Visit Provider Family Medicine
DX: S83.207A Unspecified tear of unspecified meniscus, current injury, left knee, initial encounter (principal)
CPT/HCPCS: 73562

== ENCOUNTER 2021-09-03 19:20 | Emergency (ER) | payer OTHER, MEDICAID, SELFPAY ==
--- NOTE | ~2021-09-03 | CT_ITS ---
EXAMINATION: CT brain wo [facility] EXAM DATE: 09/03/2021 20:24 INDICATION: Syncope episode today with ALBA and dizziness. TECHNIQUE: Spiral CT of the head was performed without contrast. Axial, coronal and sagittal images were reviewed. The dose-length product (DLP) for this examination was 605.33 mGy-cm. The exposure w as tailored according to patient size, and iterative reconstruction (ASIR) was used as additional dos e reduction technique. Comparison is made to prior examination from 12/31/2019. FINDINGS: There is no acute intraparenchymal hemorrhage. No evidence of intraparenchymal brain mass lesion. No evidence of acute infarction. There is no mass effect or midline shift. The ventricles are normal in size. There are no extra-axial collections. There are no acute calvarial fractures. T he orbits are unremarkable. Soft tissue is unremarkable. The visualized sinuses and mastoid air sarah ls are well aerated. IMPRESSION: No acute intracranial findings. Reviewed, dictated and finalized at location G.
--- NOTE | ~2021-09-03 | XR_ITS ---
EXAMINATION: XR chest 1V portable EXAM DATE: 09/03/2021 20:24 INDICATION: chest pain @ center of chest on/off x 2 wks. TECHNIQUE: Portable AP frontal chest x-ray was obtained. Comparison is made to prior examination from 01/25/2021. FINDINGS: The lungs are clear. There are no pleural effusions. Cardiomediastinal silhouette is norm al. There is no pneumothorax suspected. The bones and soft tissues are unremarkable. IMPRESSION: No acute cardiopulmonary findings. Reviewed, dictated and finalized at location G.
--- NOTE | 2021-09-03 19:22 | ECG_ITS ---
Measurements Intervals [place] Rate: 96 P: 64 [place]: 156 QRS: 6 QRSD: 84 T: 8 QT: 345 QTc: 438 Interpretive Statements SINUS RHYTHM POSSIBLE INFERIOR MYOCARDIAL INFARCTION , PROBABLY OLD [30 ms Q WAVE IN II/aVF] NONSPECIFIC ST ABNORMALITY ABNORMAL ECG ARTIFACT LIMITS INTERPRETATION Electronically Signed On 09-04-2021 11:07:30 CDT by Dev Eastman M.D.
[2021-09-03 19:29] VITALS: BP 130/90; PULSE 90; RESP 20; TEMP 36.6; O2SAT 100
--- NOTE | 2021-09-03 19:32 | ED.SYNCOPE ---
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 -- Severe pounding headache. The patient has a history of migraines but she thinks her current headaches are different from prior headaches -- the patient had an anxiety attack -- the patient passed out and hit her head. She was found on the floor semiconscious. No seizure activity. No incontinence. MD complaint: loss of consciousness Onset (ago): unknown Prodromal symptoms: headache, lightheaded and chest pain Witnessed: No Injuries sustained associated with event: other ( Worsening of left knee pain) Current symptoms: headache and chest pain History: history of CAD Related Data Home Medications Medication Instructions Recorded Confirmed gabapentin 800 mg tablet 800 mg PO TID 01/08/21 09/03/21 insulin glargine 100 unit/mL (3 50 unit SUBCUT BID 01/08/21 09/03/21 mL) subcutaneous pen blood-glucose meter [Advocate 01/25/21 09/03/21 Redi-Code Glu Monitor] fluoxetine [Prozac] 80 mg PO DAILY 01/25/21 09/03/21 hydroxyzine HCl 25 mg PO TID PRN 01/25/21 09/03/21 metolazone 2.5 mg PO DAILY 01/25/21 09/03/21 potassium chloride 20 meq PO HS 01/25/21 09/03/21 propranolol 120 mg PO HS 01/25/21 09/03/21 insulin aspart U-100 [Novolog 4 unit SUBCUT TID 01/27/21 09/03/21 U-100 Insulin aspart] furosemide 40 mg tablet 80 mg PO DAILY tablet 08/23/21 09/03/21 spironolactone 25 mg tablet 50 mg PO DAILY tablet 08/23/21 09/03/21 buspirone 10 mg PO BID 09/03/21 09/03/21 Allergies Allergy/AdvReac Type Severity Reaction Status Date / Time epinephrine Allergy Severe Unknown Verified 08/23/21 09:55 ibuprofen Allergy Intermediate Unknown Verified 08/23/21 09:55 bupropion Allergy Unknown Unknown Verified 08/23/21 09:55 celecoxib Allergy Unknown Unknown Verified 08/23/21 09:55 Sulfa (Sulfonamide Allergy Unknown Unknown Verified 08/23/21 09:55 Antibiotics) tetanus and diphtheria Allergy Unknown Unknown Verified 08/23/21 09:55 toxoids vancomycin AdvReac Severe renal Verified 08/23/21 09:55 failure Review of Systems Review of Systems: All systems reviewed & are unremarkable except as noted in HPI and below Constitutional: Constitutional: Reports as per HPI and Reports no additional constitutional complaints Eyes: Eyes: Reports as per HPI and Reports no additional eye complaints ENT: Reports system reviewed and no additional complaints, except as documented and Reports as per HPI Cardiovascular: Cardiovascular: Reports as per HPI and Reports no additional cardiovascular complaints Respiratory: Respiratory: Reports as per HPI and Reports no additional respiratory complaints Gastrointestinal: Gastrointestinal: Reports as per HPI and Reports no additional gastrointestinal complaints Musculoskeletal: Musculoskeletal: Reports no additional musculoskeletal complaints Comments: worsening of left knee pain which is thought to be secondary to meniscal tear Integumentary/Breasts: Skin/Breast: Reports system reviewed and no additional complaints, except as docu and Reports as per HPI Neurologic: Reports system reviewed and no additional complaints, except as documented and Reports as per HPI Psychiatric: Psychiatric: Reports no additional psychiatric complaints and Reports anxiety Endocrine: Endocrine: Reports no additional endocrine complaints Hematologic/Lymphatic: Hematologic/Lymphatic: Reports no additional hematologic/lymphati
[2021-09-03] MEDS: LIDOCAINE HCL 2% VISC SOLN 15 ML UDC (19:49)
[2021-09-03] MEDS: HYOSCY (19:50)
[2021-09-03] MEDS: SCOP (19:50)
[2021-09-03] MEDS: PHENOBARB (19:50)
[2021-09-03] MEDS: MAG HYDROX/AL HYDROX/SIMETH 30 ML UDC (19:50)
[2021-09-03] MEDS: ATROPINE (19:50)
[2021-09-03 20:16] LABS: Basophils Absolute Auto 0.11 K/mm3 (0.00-0.10); Basophils Percent Auto 0.7 % (0.0-1.0); Eosinophils Absolute Auto 0.47 K/mm3 (0.02-0.50); Eosinophils Percent Auto 2.8 % (1.0-6.0); Hematocrit 46.2 % (35.0-49.0); Hemoglobin 15.2 g/dL (12.0-15.0); Immature Granulocyte Absolute 0.09 K/mm3 (0.00-0.00); Immature Granulocyte Percent A 0.5 % (0.0-0.0); Lymphocytes Absolute Auto 4.53 K/mm3 (1.10-4.50); Lymphocytes Percent Auto 27.3 % (18.0-42.0); Mean Corpuscular HGB Conc 32.9 g/dL (32.0-36.0); Mean Corpuscular Hemoglobin 26.6 pg (27.0-31.0); Mean Corpuscular Volume 80.8 fL (78.0-102.0); Mean Platelet Volume 9.7 fl (9.2-11.8); Monocytes Absolute Auto 0.93 K/mm3 (0.10-0.90); Monocytes Percent Auto 5.6 % (2.0-11.0); Neutrophils Absolute Auto 10.5 K/mm3 (1.7-7.2); Neutrophils Percent Auto 63.1 % (50.0-70.0); Platelet Count Result 370 K/mm3 (150-420); Red Blood Count 5.72 M/mm3 (4.20-5.40); Red Cell Distribution Width 13.7 % (11.6-14.4); White Blood Count 16.6 K/mm3 (4.8-10.8)
[2021-09-03 20:25] VITALS: BP 115/80; PULSE 90; RESP 20
[2021-09-03 20:28] VITALS: BP 124/80; PULSE 93; RESP 22
[2021-09-03 20:30] VITALS: BP 134/78; PULSE 94; RESP 22
[2021-09-03 20:30] LABS: D Dimer 0.22 mg/L (0.19-0.50)
[2021-09-03 20:38] LABS: Lactic Acid Reflex 2.3 mmol/L (0.4-2.0)
[2021-09-03 20:41] LABS: Alanine Aminotransferase 28 U/L (14-59); Albumin Level 3.3 g/dL (3.4-5.0); Alkaline Phosphatase 149 U/L (46-116); Anion Gap 6 mmol/L (8-16); Aspartate Amino Transferase 15 U/L (15-37); Bilirubin,Total 0.3 mg/dL (0.00-1.00); Blood Urea Nitrogen 21 mg/dL (7-18); Calcium 9.7 mg/dL (8.5-10.1); Carbon Dioxide 36 mmol/L (21-32); Chloride 93 mmol/L (98-108); Estimated CRCL calculation 63 ml/min; Estimated Glomerular Filt Rate 47; Glucose 184 mg/dL (70-99); NT Pro B Type Natriuretic Pept 52 pg/mL (0-125); Osmolality Calculated 288 mOsm/kg (285-295); Potassium 2.6 mmol/L (3.5-5.1); Sodium 135 mmol/L (136-145); Thyroid Stimulating Hormone 1.19 uIU/mL (0.36-3.74); Total Protein 7.6 g/dL (6.4-8.2); Troponin I 7.8 ng/L (0.00-60.4)
[2021-09-03 20:54] LABS: Add Urine Microscopic? NO; Appearance Urine Clear (Clear); Bilirubin Urine Negative (Negative); Blood Urine Negative (Negative); Color Urine Light Yellow (Yellow); Glucose Urine UA Negative (Negative); Ketones Urine Negative (Negative); Leukocyte Esterase Ur Negative (Negative); Nitrate Urine Negative (Negative); Protein Urine Negative (Negative); Urobilinogen Urine 0.2 mg/dL (0.2-1.0)
[2021-09-03] MEDS: POTASSIUM BICARBONATE 25 MEQ TABEF 50 MEQ (21:11)
[2021-09-03] MEDS: HYDROmorphone HCL INJ (*CRX) 2 MG/ML VIAL 1 MG IM (21:11)
[2021-09-03] MEDS: SPIRONOLACTONE 25 MG TABLET PO (21:28)
[2021-09-03] MEDS: ONDANSETRON HCL ODT 4 MG TABLET PO (21:29)
[2021-09-03] MEDS: KCL 20 MEQ/SW 100 ML 100 ML 50 MEQ IVPB (21:46)
[2021-09-03] MEDS: SODIUM CHLORIDE 0.9% IV 250 ML 150 ML (21:47)
[2021-09-03] MEDS: diphenhydrAMINE HCl INJ 50 MG/ML VIAL (22:13)
[2021-09-03] MEDS: METOCLOPRAMIDE HCL INJ 10 MG/2 ML VIAL IV PUSH (22:46)
[2021-09-03] MEDS: POTASSIUM CHLORIDE 20 MEQ TABLET 40 MEQ PO (22:46)
[2021-09-03 23:16] LABS: Reflex Lactic Acid Yes or No Add Lactic
[2021-09-03 23:21] VITALS: BP 122/80; PULSE 84; RESP 20; O2SAT 99
[2021-09-03] MEDS: ACETAMINOPHEN 325 MG TABLET 650 MG (23:40)
[2021-09-04 00:42] LABS: Potassium 3.6 mmol/L (3.5-5.1); Troponin I 7.5 ng/L (0.00-60.4)
[2021-09-04 00:43] LABS: Lactic Acid 1.4 mmol/L (0.4-2.0)
[2021-09-04 00:59] VITALS: BP 118/70; PULSE 78; RESP 20; TEMP 36.6; O2SAT 100
== END 2021-09-04 01:00 | disposition home or self-care (01) ==
PROVIDERS: Emergency Provider Internal Medicine Critical Care Medicine; PCP Family Medicine
DX: N28.9 Disorder of kidney and ureter, unspecified (principal); E87.6 Hypokalemia; R51.9 Headache, unspecified; R07.9 Chest pain, unspecified; R55 Syncope and collapse; Z79.899 Other long term (current) drug therapy; I50.9 Heart failure, unspecified
CPT/HCPCS: 36415; 70450; 71045; 80053; 81003; 83605; 83735; 83880; 84132; 84443; 84484; 85025; 85380; 93005; 96365; 96366; 96372; 96375; 99284; A9270; J1170; J1200; J2765; J3480; J7050

== ENCOUNTER 2021-09-06 13:58 | Observation (INO) | payer OTHER, MEDICAID, SELFPAY ==
[2021-09-06] VITALS (10 sets, daily range): BP systolic 96–150; BP diastolic 73–108; PULSE 92–112; RESP 16–20; TEMP 36.6–36.9; O2SAT 95–97; BMI 54.3
--- NOTE | ~2021-09-06 | US_ITS ---
US abdomen limited DATE: 09/07/2021 11:57 INDICATION: Abdominal pain TECHNIQUE: Real-time imaging of liver, pancreas, gallbladder fossa COMPARISON: 09/02/2021 CT abdomen pelvis FINDINGS: The gallbladder is surgically absent. No hepatic space-occupying mass lesion is evident. Normal hepatopedal portal venous flow direction. The pancreas is partially obscured by bowel gas and not optimally evaluated, but appears unremarkable on 09/02/2021 CT examination of 11 pancreatic atrophy. The common bile duct measures 3 mm, normal. IMPRESSION: Status post cholecystectomy Reviewed, dictated and finalized at [facility]. Reviewed, dictated and finalized at location [facility]. IMPRESSION: Status post cholecystectomy
--- NOTE | ~2021-09-06 | CT_ITS ---
EXAMINATION: CT brain wo con INDICATION: Transient alteration of awareness COMPARISON: 09/03/2021 TECHNIQUE: Standard unenhanced head CT. The dose-length product (DLP) was 529.67 mGy-cm. The mA was a djusted according to patient size. Iterative reconstruction technique was employed. FINDINGS: There is no intracranial hemorrhage, acute infarction, or abnormal mass lesion. The ventric les are normal. There is no abnormal mass effect or midline shift. The salas-white matter differentiat ion is normal. The basal cisterns are patent. The orbits are normal. The paranasal sinuses, mastoids and calvarium are normal. IMPRESSION: 1. No acute intracranial abnormality. Reviewed, dictated and finalized at location B.
--- NOTE | ~2021-09-06 | XR_ITS ---
EXAMINATION: XR chest 1V portable 09/06/2021 15:17 INDICATION: Syncope PROCEDURE: AP portable chest COMPARISON: Comparison to multiple prior studies sequentially, with oldest reviewed study dated 09/04. FINDINGS: The lungs are clear. The cardiomediastinal silhouette is within normal limits. There are no pleural effusions. There is no pneumothorax suspected. IMPRESSION: 1: NO ACUTE CARDIOPULMONARY DISEASE. Reviewed, dictated and finalized at location A.
--- NOTE | ~2021-09-06 | CT_ITS ---
EXAMINATION: CT abdomen pelvis w con INDICATION: Abdominal pain TECHNIQUE: Computed tomographic images of the abdomen and pelvis were obtained after the administrati on of 100 cc of Omnipaque 350 intravenous contrast. The dose-length product (DLP) was eight mGy-cm. A utomated exposure control and iterative reconstruction technique were employed. COMPARISON: 01/25/2021 FINDINGS: Minimal dependent atelectasis is present in the lung bases. The heart size is normal. The g allbladder is surgically absent. There is mild enlargement of the common bile duct and central intrah epatic ducts which is likely due to post cholecystectomy state. The liver, spleen, pancreas, and adre nal glands are normal. The left kidney is unremarkable. There is an 8 mm cyst of the right kidney. No pathologically enlarged abdominal or pelvic lymph nodes are identified. There is no free intraperito regine gas or evidence of bowel obstruction. The appendix is normal. There is a tiny focus of gas in th e urinary bladder. There are changes of posterior fusion at L5-S1. IMPRESSION: 1. No CT correlate for the patient's symptoms. 2. Tiny focus of gas in the urinary bladder which could reflect catheterization. If no such history i s present, correlation with urinalysis is recommended. Reviewed, dictated and finalized at location B. IMPRESSION: 1. No CT correlate for the patient's symptoms. 2. Tiny focus of gas in the urinary bladder which could reflect catheterization . If no such history is present, correlation with urinalysis is recommended.
--- NOTE | 2021-09-06 14:18 | ECG_ITS ---
Measurements Intervals [place] Rate: 102 P: 54 [place]: 148 QRS: -5 QRSD: 90 T: 10 QT: 344 QTc: 450 Interpretive Statements SINUS TACHYCARDIA POSSIBLE ANTERIOR MYOCARDIAL INFARCTION , PROBABLY OLD [30 ms Q WAVE IN V3/V4, OR R < 0.2 mV IN V4] NONSPECIFIC T-WAVE ABNORMALITY ABNORMAL ECG Electronically Signed On 09-06-2021 15:37:39 CDT by Dev Eastman M.D.
[2021-09-06 14:55] LABS: Hematocrit 54.3 % (35.0-49.0); Hemoglobin 16.6 g/dL (12.0-15.0); Mean Corpuscular HGB Conc 30.6 g/dL (32.0-36.0); Mean Corpuscular Hemoglobin 27.2 pg (27.0-31.0); Mean Platelet Volume 9.5 fl (9.2-11.8); Platelet Count Result 395 K/mm3 (150-420); Red Cell Distribution Width 13.9 % (11.6-14.4); White Blood Count 19.2 K/mm3 (4.8-10.8)
[2021-09-06 15:05] LABS: Band Neutrophils Percent 1 % (0-6); Basophils Absolute Manual 0.19 K/mm3 (0-0.1); Basophils Percent Manual 1 % (0-1); Eosinophils Percent Manual 0 % (1-6); Lymphocytes Absolute Manual 4.99 K/mm3 (1.1-4.5); Lymphocytes Percent Manual 26 % (18-44); Monocytes Absolute Manual 0.57 K/mm3 (0.1-0.90); Monocytes Percent Manual 3 % (3-9); Neutrophils Absolute Manual 13.44 K/mm3 (1.7-7.2); Neutrophils Percent Manual 69 % (46-73); Platelet Estimate Adequate (Adequate); Total Cells Counted 100
[2021-09-06 15:09] LABS: D Dimer 0.28 mg/L (0.19-0.50); INR 1.2; Partial Thromboplastin Time 23.9 SEC (23.90-30.70)
--- NOTE | 2021-09-06 15:10 | ED.SYNCOPE ---
HPI - Syncope General Chief Complaint: Chest Pain Stated Complaint: Chest pain/passed out Time Seen by Provider: 09/06/21 15:14 History of Present Illness HPI narrative: This is a 51-year-old female presents with syncopal episode has had similar episode approximately 3 to 4 days ago was seen in the emergency department. The patient has a history of DVT/ PE history of asthma, diabetes history of diastolic dysfunction. The patient apparently passed out she did hit her head there was no bowel or bladder dysfunction no tongue biting. The patient denies any fever or chills does have a elevated heart rate, with a sharp pain in her chest and goes toward her back with some currently no shortness of breath no nausea vomiting no abdominal pain trace edema peripherally. patient does have a history of migraines, currently no nausea vomiting no neck stiffness. Related Data Home Medications Medication Instructions Recorded Confirmed gabapentin 800 mg tablet 800 mg PO TID 01/08/21 09/06/21 insulin glargine 100 unit/mL (3 50 unit SUBCUT BID 01/08/21 09/06/21 mL) subcutaneous pen blood-glucose meter [Advocate 01/25/21 09/06/21 Redi-Code Glu Monitor] fluoxetine [Prozac] 80 mg PO DAILY 01/25/21 09/06/21 hydroxyzine HCl 25 mg PO TID PRN 01/25/21 09/06/21 metolazone 2.5 mg PO DAILY 01/25/21 09/06/21 potassium chloride 20 meq PO HS 01/25/21 09/06/21 propranolol 120 mg PO HS 01/25/21 09/06/21 insulin aspart U-100 [Novolog See Rx Instructions .ROUTE .COMPLEX 01/27/21 09/06/21 U-100 Insulin aspart] furosemide 40 mg tablet 80 mg PO DAILY tablet 08/23/21 09/06/21 spironolactone 25 mg tablet 50 mg PO DAILY tablet 08/23/21 09/06/21 buspirone 5 mg PO BID 09/03/21 09/06/21 aripiprazole 10 mg PO HS 09/06/21 09/06/21 dulaglutide [Trulicity] 1.5 mg SUBCUT WEEKLY 09/06/21 09/06/21 hydrocodone-acetaminophen 1 tablet PO BID PRN 09/06/21 09/06/21 milnacipran [Savella] 12.5 mg PO DAILY 09/06/21 09/06/21 montelukast 10 mg PO HS 09/06/21 09/06/21 rivaroxaban [Xarelto] 20 mg PO DAILY 09/06/21 09/06/21 Allergies Allergy/AdvReac Type Severity Reaction Status Date / Time epinephrine Allergy Severe Unknown Verified 09/06/21 07:38 ibuprofen Allergy Intermediate Unknown Verified 09/06/21 07:38 bupropion Allergy Unknown Unknown Verified 09/06/21 07:38 celecoxib Allergy Unknown Unknown Verified 09/06/21 07:38 Sulfa (Sulfonamide Allergy Unknown Unknown Verified 09/06/21 07:38 Antibiotics) tetanus and diphtheria Allergy Unknown Unknown Verified 09/06/21 07:38 toxoids vancomycin AdvReac Severe renal Verified 09/06/21 07:38 failure Review of Systems Review of Systems: All systems reviewed & are unremarkable except as noted in HPI and below PMFSH Past Medical History Medical History Anxiety Arthritis Asthma 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 BMI 50.0-59.9, adult CAD (coronary artery disease) CHF (congestive heart failure) Colon cancer screening Dialysis patient for 6 weeks for sepsis 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 Diverticulitis DM2 (diabetes mellitus, type 2) DVT (deep venous thrombosis) (~2015) 03/2000 & 04/2016 Fatty liver Fibromyalgia (~2011) Foreign body of knee Headache History of angina History of DVT (deep vein thrombosis) Hyperlipidemia associated with type 2 diabetes mellitus Hypertension associated with diabetes Kidney stone Left knee DJD Left knee injury Left knee pain Major depression, recurrent Migraines Non-cardiac chest pain Obesity, morbid, BMI 40.0-49.9 SHREYA on CPAP Ovarian cyst Overweight PCOS (polycystic ovarian syndrome) Peripheral vascular disease Post concussive syndrome (~2017) Pulmonary embolism Renal failure (~2017) Sepsis Sleep-disordered breathing Tear of meniscus of knee Uterine fibroid Surgical History Surgical History History of adenoidectomy Hist
[2021-09-06 15:16] LABS: Lactic Acid Reflex 1.7 mmol/L (0.4-2.0)
[2021-09-06 15:25] LABS: Alanine Aminotransferase 36 U/L (14-59); Albumin Level 3.7 g/dL (3.4-5.0); Alkaline Phosphatase 152 U/L (46-116); Anion Gap 11 mmol/L (8-16); Aspartate Amino Transferase 22 U/L (15-37); Bilirubin,Total 0.3 mg/dL (0.00-1.00); Blood Urea Nitrogen 16 mg/dL (7-18); Calcium 9.5 mg/dL (8.5-10.1); Carbon Dioxide 32 mmol/L (21-32); Chloride 91 mmol/L (98-108); Estimated CRCL calculation 67 ml/min; Estimated Glomerular Filt Rate 46; Glucose 236 mg/dL (70-99); Magnesium 1.9 mg/dL (1.8-2.4); NT Pro B Type Natriuretic Pept 39 pg/mL (0-125); Osmolality Calculated 287 mOsm/kg (285-295); Potassium 3.7 mmol/L (3.5-5.1); Sodium 134 mmol/L (136-145); Thyroid Stimulating Hormone 0.76 uIU/mL (0.36-3.74); Total Protein 7.8 g/dL (6.4-8.2); Troponin I 4.4 ng/L (0.00-60.4)
[2021-09-06] MEDS: MORPHINE SULFATE (*CRX) 2 MG/ML INJ IV PUSH (15:34)
[2021-09-06 15:37] LABS: Add Urine Microscopic? NO; Appearance Urine Clear (Clear); Bilirubin Urine Negative (Negative); Blood Urine Negative (Negative); Color Urine Light Yellow (Yellow); Glucose Urine UA Negative (Negative); Ketones Urine Negative (Negative); Leukocyte Esterase Ur Negative (Negative); Nitrate Urine Negative (Negative); Protein Urine Negative (Negative); Urobilinogen Urine 0.2 mg/dL (0.2-1.0)
[2021-09-06] MEDS: MORPHINE SULFATE (*CRX) 4 MG/ML INJ IV PUSH (16:30)
[2021-09-06] MEDS: ONDANSETRON INJ 4 MG/2 ML VIAL IV PUSH ×2 (16:49→19:35)
[2021-09-06 17:34] LABS: SARS-CoV-2 Ag Negative (Negative)
[2021-09-06] MEDS: traMADol HCL (*CRX) 50 MG TABLET PO (19:35)
[2021-09-06 20:18] LABS: Troponin I 5.6 ng/L (0.00-60.4)
--- NOTE | 2021-09-06 20:48 | ADMGEN ---
This patient, Olivia Fernandez, was admitted to 2nd Floor Room 227-2. Patient/family oriented to hospital policies and general routines including ID bracelet, bed and alarms, visiting hours, pain management, procedures, bathroom and other care routines, personal items, smoking policy, room service/diet, and visiting hours. Information on how to activate the Rapid Response Team has been discussed. Patient/Family are encouraged to report perceived risks to care and to ask questions if they do not understand what they are told or what they should do.
[2021-09-06] MEDS: GABAPENTIN 400 MG CAPSULE 800 MG PO (21:25)
[2021-09-06] MEDS: POTASSIUM CHLORIDE 20 MEQ TABLET PO (21:25)
[2021-09-06] MEDS: MONTELUKAST SODIUM 10 MG TABLET PO (21:26)
[2021-09-06] MEDS: oxyCODONE HCL (*CRX) 5 MG TAB IR PO (21:26)
[2021-09-06] MEDS: traZODone HCL 50 MG TABLET PO (21:27)
[2021-09-06] MEDS: busPIRone HCL 5 MG TABLET PO (21:27)
[2021-09-06] MEDS: PROPRANOLOL HCL 60 MG CAPSULE CR 120 MG PO (21:27)
[2021-09-06] MEDS: NYSTATIN 100,000 UNITS/ML SUSP 5 ML ORAL.SUSP PO (21:28)
[2021-09-06] MEDS: ARIPiprazole 10 MG TABLET PO (21:28)
[2021-09-06] MEDS: INSULIN GLARGINE (*BKC) 100 UNITS/ML 50 UNITS SUB-Q (21:43)
[2021-09-06 21:48] LABS: Glucose Point of Care 139 mg/dl (65-105)
[2021-09-07] VITALS (17 sets, daily range): BP systolic 99–121; BP diastolic 61–84; PULSE 72–106; RESP 15–20; TEMP 36.4–36.9; O2SAT 92–98
[2021-09-07] MEDS: IPRATROPIUM 0.5 MG/ALBUTEROL SULFATE 2.5 MG AMPUL.NEB 3 ML INHALATION ×4 (00:15→18:49)
[2021-09-07] MEDS: oxyCODONE HCL (*CRX) 5 MG TAB IR PO ×3 (05:00→21:31)
--- NOTE | 2021-09-07 05:10 | PC.NURSE ---
ANTONIO Main informed patient states she would like some Zofran for nausea.
[2021-09-07 05:21] LABS: Hematocrit 46.9 % (35.0-49.0); Hemoglobin 15.2 g/dL (12.0-15.0); Mean Corpuscular HGB Conc 32.4 g/dL (32.0-36.0); Mean Corpuscular Hemoglobin 26.4 pg (27.0-31.0); Mean Corpuscular Volume 81.4 fL (78.0-102.0); Mean Platelet Volume 9.6 fl (9.2-11.8); Platelet Count Result 377 K/mm3 (150-420); Red Blood Count 5.76 M/mm3 (4.20-5.40); Red Cell Distribution Width 13.8 % (11.6-14.4); White Blood Count 15.6 K/mm3 (4.8-10.8)
[2021-09-07 05:28] LABS: Hemoglobin A1C 7.3 % (<5.7)
[2021-09-07 05:33] LABS: Alanine Aminotransferase 64 U/L (14-59); Albumin Level 3.6 g/dL (3.4-5.0); Alkaline Phosphatase 212 U/L (46-116); Anion Gap 8 mmol/L (8-16); Aspartate Amino Transferase 43 U/L (15-37); Bilirubin,Total 0.6 mg/dL (0.00-1.00); Blood Urea Nitrogen 17 mg/dL (7-18); Calcium 9.4 mg/dL (8.5-10.1); Carbon Dioxide 36 mmol/L (21-32); Chloride 91 mmol/L (98-108); Estimated CRCL calculation 71 ml/min; Estimated Glomerular Filt Rate 49; Glucose 138 mg/dL (70-99); Magnesium 2.1 mg/dL (1.8-2.4); Osmolality Calculated 283 mOsm/kg (285-295); Potassium 3.7 mmol/L (3.5-5.1); Sodium 135 mmol/L (136-145); Total Protein 7.5 g/dL (6.4-8.2)
[2021-09-07 05:38] LABS: Lactic Acid Reflex 1.2 mmol/L (0.4-2.0)
--- NOTE | 2021-09-07 06:10 | PC.NURSE ---
States No relief of her throbbing headache where she hit her head, Etelvina Kuo RN informed.
[2021-09-07] MEDS: ONDANSETRON INJ 4 MG/2 ML VIAL IV PUSH ×3 (06:23→18:05)
[2021-09-07] MEDS: GABAPENTIN 400 MG CAPSULE 800 MG PO ×3 (06:24→21:16)
[2021-09-07] MEDS: metOLazone 2.5 MG TABLET PO (09:15)
[2021-09-07] MEDS: FUROSEMIDE 40 MG TABLET 80 MG PO (09:15)
[2021-09-07] MEDS: PANTOPRAZOLE 40 MG TABLET PO (09:15)
[2021-09-07] MEDS: FLUoxetine HCL 20 MG CAPSULE 80 MG PO (09:15)
[2021-09-07] MEDS: SPIRONOLACTONE 25 MG TABLET 50 MG PO (09:15)
[2021-09-07] MEDS: busPIRone HCL 5 MG TABLET PO ×2 (09:15→21:16)
[2021-09-07] MEDS: HYDROmorphone HCL INJ (*CRX) 2 MG/ML VIAL 0.5 MG IV PUSH ×2 (09:16→21:04)
[2021-09-07] MEDS: NYSTATIN 100,000 UNITS/ML SUSP 5 ML ORAL.SUSP PO ×4 (09:16→21:07)
--- NOTE | 2021-09-07 11:24 | PM.IMHP ---
H&P: HPI History of Present Illness Date/Time: 09/07/21 11:24 this is a 51-year-old female who presented to emergency department with complaints of syncopal episode and abdominal pain. Patient has a past medical history of anxiety, arthritis, asthma, SOD, CAD, congestive heart failure,, type 2 diabetes, DVT, PE, fatty liver, fibromyalgia, headaches, hyperlipidemia, hypertension, kidney stone, DJD of the left knee, major depression, migraines, noncardiac related chest pains, obesity, SHREYA, overweight, PCOS, PVD, renal failure and history of angina. According to patient she had a syncopal episode on 09/03/2021 along with abdominal pain and presented to our emergency department diagnostic testing negative, patient discharged home. patient notes that on 09/06/2021 she had another syncopal episode with abdominal pain. Patient notes that she hit her head with her syncopal episode. She also notes that she has a history of headaches and migraines and the only thing that works for her is Dilaudid ,she is also requesting Ativan for her anxiety. Patient has multiple other complaints that are not related to her hospitalization. Patient notes that she has been evaluated by cardiology as well as GI no intervention needed. She still complains of abdominal pain but was able to tolerate her meals. Vital signs 102/74, 80, 18, 97.6, 96% on room air, WBCs 19.2, hemoglobin 16.6, hematocrit 54.3, sodium 134, potassium 3.7, BUN 16, creatinine 1.24, glucose 236, lactic acid 1.7, calcium 9.5, magnesium 1.9, AST 22, ALT 36, troponin 4.4 BNP 39, UA unremarkable, Covid negative, head abdomen and pelvis CT and chest x-ray unremarkable EKG sinus tach with a heart rate of 102. Patient be admitted for abdominal pain, chest pain leukocytosis, acute kidney injury. Patient continues to complain of abdominal pain and a migraine headache, denies any chest pains at this time. Chief Complaint: Syncopal episode, chest pain abdominal pain Review of Systems Review of Systems: A 14 organ system Review of Systems was performed and pertinent positives included in the HPI, otherwise remaining ROS is negative. 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 BMI 50.0-59.9, adult CAD (coronary artery disease) CHF (congestive heart failure) Colon cancer screening Dialysis patient for 6 weeks for sepsis 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 Diverticulitis DM2 (diabetes mellitus, type 2) DVT (deep venous thrombosis) (~2016) 03/2000 & 04/2016 Fatty liver Fibromyalgia (~2011) Foreign body of knee Headache History of angina History of DVT (deep vein thrombosis) Hyperlipidemia associated with type 2 diabetes mellitus Hypertension associated with diabetes Kidney stone Left knee DJD Left knee injury Left knee pain Major depression, recurrent Migraines Non-cardiac chest pain Obesity, morbid, BMI 40.0-49.9 SHREYA on CPAP Ovarian cyst Overweight PCOS (polycystic ovarian syndrome) Peripheral vascular disease Post concussive syndrome (~2017) Pulmonary embolism Renal failure (~2017) Sepsis Sleep-disordered breathing Tear of meniscus of knee Uterine fibroid Surgical History Surgical History History of adenoidectomy History of appendectomy History of cholecystectomy History of hysterectomy History of intravascular stent placement with removal in 2017 History of removal of ovarian cyst Hx of tonsillectomy Previous back surgery L4 and L5 fusion Status post lumbar spine surgery for decompression of spinal cord Family History Family History Mother Hypertension Fibromyalgia Osteoarthritis Asthma Depression Thyroid disorder Father DVT (deep venous thrombosis) Alcoholic Sibling Alcoholic Depression Other Asthma Depression
--- NOTE | 2021-09-07 14:20 | PC.NURSE ---
1400 patient called to room. claims her dexascan claims bs is 258 and when this happens she gives self reg insulin of 6 u. she does not do her accuchecks around meals. she gives self insulin off and on during day when it gets to 258 or higher. kristine is aware. new orders. alysa benoit [id number] verbal order of 6 units humalog insulin given sub in in l upper arm x's one. alysa benoit
[2021-09-07] MEDS: RIVAROXABAN 10 MG TABLET 20 MG PO (16:28)
--- NOTE | 2021-09-07 16:38 | PC.NURSE ---
AC of 156 per pt device
[2021-09-07] MEDS: LORazepam INJ (*CRX) 2 MG/ML VIAL 0.5 MG IV PUSH (18:13)
[2021-09-07] MEDS: traMADol HCL (*CRX) 50 MG TABLET PO (18:13)
[2021-09-07] MEDS: MONTELUKAST SODIUM 10 MG TABLET PO (21:14)
[2021-09-07] MEDS: PROPRANOLOL HCL 60 MG CAPSULE CR 120 MG PO (21:14)
[2021-09-07] MEDS: POTASSIUM CHLORIDE 20 MEQ TABLET PO (21:16)
[2021-09-07] MEDS: ARIPiprazole 10 MG TABLET PO (21:16)
[2021-09-07] MEDS: traZODone HCL 50 MG TABLET PO (21:31)
[2021-09-08] VITALS (8 sets, daily range): BP systolic 101–145; BP diastolic 70–71; PULSE 82–91; RESP 13–18; TEMP 36.4–36.9; O2SAT 91–98
[2021-09-08] MEDS: IPRATROPIUM 0.5 MG/ALBUTEROL SULFATE 2.5 MG AMPUL.NEB 3 ML INHALATION ×2 (00:45→05:57)
[2021-09-08] MEDS: traMADol HCL (*CRX) 50 MG TABLET PO (04:30)
[2021-09-08] MEDS: GABAPENTIN 400 MG CAPSULE 800 MG PO (06:41)
[2021-09-08] MEDS: oxyCODONE HCL (*CRX) 5 MG TAB IR PO (06:42)
[2021-09-08] MEDS: LORazepam INJ (*CRX) 2 MG/ML VIAL 0.5 MG IV PUSH (06:44)
--- NOTE | 2021-09-08 08:42 | P.DS_ITS ---
DS: Admitting Diagnosis Discharge Date 09/08/2021 Admitting Diagnosis Syncopal episode in abdominal pain DS: Discharge Diagnosis Discharge Diagnosis (1) Syncope: Qualifiers: Syncope type: unspecified Qualified Code(s): R55 - Syncope and collapse Code(s): R55 - Syncope and collapse Status: Acute Assessment and Plan: * Similar episode back in 02/03/2021 evaluated by cardiology at that time * Patient on telemetry no arrhythmia * Troponin negative x3 * Orthostatic blood pressure readings, review normal * Continue neurochecks * CT of the head unremarkable and unchanged from previous one on 09/03/2021 * Echo completed at an outside hospital on 01/26/2021 indicated EF of 60% with diastolic dysfunction (2) Headache: Qualifiers: Headache chronicity pattern: acute headache Headache type: unspecified Intractability: not intractable Qualified Code(s): R51.9 - Headache, unspecified Code(s): R51.9 - Headache, unspecified Status: Acute Assessment and Plan: * History of migraines (3) Leukocytosis, unspecified: Qualifiers: Leukocytosis type: unspecified Qualified Code(s): D72.829 - Elevated white blood cell count, unspecified Code(s): D72.829 - Elevated white blood cell count, unspecified Status: Acute Assessment and Plan: * Chronic * WBCs19.2>15.6>13 will trend * Etiology unknown * Blood culture and UA culture no growth. 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: Code(s): K83.8 - Other specified diseases of biliary tract Status: Acute Assessment and Plan: * Follow-up with GI (7) Diastolic dysfunction with heart failure: Qualifiers: Heart failure chronicity: chronic Qualified Code(s): I50.32 - Chronic diastolic (congestive) heart failure Code(s): I50.30 - Unspecified diastolic (congestive) heart failure Status: Acute Assessment and Plan: * Compensated * Continue Lasix 40 mg daily * Last echo indicates EF of 50/60% with diastolic dysfunction * Last BNP 18 * x-ray does not indicate pulmonary edema (8) Hyperlipidemia associated with type 2 diabetes mellitus: Code(s): E11.69 - Type 2 diabetes mellitus with other specified complication; E78.5 - Hyperlipidemia, unspecified Status: Acute Assessment and Plan: * (9) Asthma: Qualifiers: Asthma complication type: with acute exacerbation Asthma persistence: persistent Asthma severity: severe Qualified Code(s): J45.51 - Severe persistent asthma with (acute) exacerbation Code(s): J45.909 - Unspecified asthma, uncomplicated Status: Acute Assessment and Plan: * Continue inhalers in nebulizers (10) Overweight: Code(s): E66.3 - Overweight Status: Acute Assessment and Plan: * Educated on healthy lifestyle (11) DM2 (diabetes mellitus, type 2): Qualifiers: Diabetes mellitus complication status: without complication Diabetes mellitus detention
--- NOTE | 2021-09-08 08:42 | PM.DS ---
DS: Admitting Diagnosis Discharge Date 09/08/2021 Admitting Diagnosis Syncopal episode in abdominal pain DS: Discharge Diagnosis Discharge Diagnosis (1) Syncope: Qualifiers: Syncope type: unspecified Qualified Code(s): R55 - Syncope and collapse Code(s): R55 - Syncope and collapse Status: Acute Assessment and Plan: Similar episode back in 02/03/2021 evaluated by cardiology at that time Patient on telemetry no arrhythmia Troponin negative x3 Orthostatic blood pressure readings, review normal Continue neurochecks CT of the head unremarkable and unchanged from previous one on 09/03/2021 Echo completed at an outside hospital on 01/26/2021 indicated EF of 60% with diastolic dysfunction (2) Headache: Qualifiers: Headache chronicity pattern: acute headache Headache type: unspecified Intractability: not intractable Qualified Code(s): R51.9 - Headache, unspecified Code(s): R51.9 - Headache, unspecified Status: Acute Assessment and Plan: History of migraines (3) Leukocytosis, unspecified: Qualifiers: Leukocytosis type: unspecified Qualified Code(s): D72.829 - Elevated white blood cell count, unspecified Code(s): D72.829 - Elevated white blood cell count, unspecified Status: Acute Assessment and Plan: Chronic WBCs19.2>15.6>13 will trend Etiology unknown Blood culture and UA culture no growth. 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: Code(s): K83.8 - Other specified diseases of biliary tract Status: Acute Assessment and Plan: Follow-up with GI (7) Diastolic dysfunction with heart failure: Qualifiers: Heart failure chronicity: chronic Qualified Code(s): I50.32 - Chronic diastolic (congestive) heart failure Code(s): I50.30 - Unspecified diastolic (congestive) heart failure Status: Acute Assessment and Plan: Compensated Continue Lasix 40 mg daily Last echo indicates EF of 50/60% with diastolic dysfunction Last BNP 18 x-ray does not indicate pulmonary edema (8) Hyperlipidemia associated with type 2 diabetes mellitus: Code(s): E11.69 - Type 2 diabetes mellitus with other specified complication; E78.5 - Hyperlipidemia, unspecified Status: Acute Assessment and Plan: (9) Asthma: Qualifiers: Asthma complication type: with acute exacerbation Asthma persistence: persistent Asthma severity: severe Qualified Code(s): J45.51 - Severe persistent asthma with (acute) exacerbation Code(s): J45.909 - Unspecified asthma, uncomplicated Status: Acute Assessment and Plan: Continue inhalers in nebulizers (10) Overweight: Code(s): E66.3 - Overweight Status: Acute Assessment and Plan: Educated on healthy lifestyle (11) DM2 (diabetes mellitus, type 2): Qualifiers: Diabetes mellitus complication status: without complication Diabetes mellitus adjunct faculty for medical terminology insulin use: without adjunct faculty for medical terminology use Qualified Code(s): E11.9 - Type 2 diabetes mellitus without complications Code(s): E11.9 - Type 2 diabetes mellitus without complications Status: Acute Assessment and Plan: Hemoglobin A1c 7.3 Stable Continue home medication (12) Major depression, recurrent: Qualifiers: Active/Remission status: currently active Major depression episode severity: mild Qualified Code(s):
[2021-09-08 08:53] LABS: Hematocrit 46.6 % (35.0-49.0); Mean Corpuscular HGB Conc 32.2 g/dL (32.0-36.0); Mean Corpuscular Hemoglobin 27.2 pg (27.0-31.0); Mean Corpuscular Volume 84.6 fL (78.0-102.0); Mean Platelet Volume 9.6 fl (9.2-11.8); Platelet Count Result 290 K/mm3 (150-420); Red Blood Count 5.51 M/mm3 (4.20-5.40); Red Cell Distribution Width 13.5 % (11.6-14.4); White Blood Count 13.2 K/mm3 (4.8-10.8)
[2021-09-08 09:10] LABS: Alanine Aminotransferase 54 U/L (14-59); Albumin Level 3.3 g/dL (3.4-5.0); Alkaline Phosphatase 193 U/L (46-116); Anion Gap 8 mmol/L (8-16); Aspartate Amino Transferase 39 U/L (15-37); Bilirubin,Total 0.7 mg/dL (0.00-1.00); Blood Urea Nitrogen 15 mg/dL (7-18); Calcium 9.2 mg/dL (8.5-10.1); Carbon Dioxide 35 mmol/L (21-32); Chloride 87 mmol/L (98-108); Estimated CRCL calculation 71 ml/min; Estimated Glomerular Filt Rate 49; Glucose 277 mg/dL (70-99); Osmolality Calculated 280 mOsm/kg (285-295); Sodium 130 mmol/L (136-145); Total Protein 7.1 g/dL (6.4-8.2)
[2021-09-08] MEDS: SPIRONOLACTONE 25 MG TABLET 50 MG PO (09:25)
[2021-09-08] MEDS: HYDROmorphone HCL INJ (*CRX) 2 MG/ML VIAL 0.5 MG IV PUSH (09:27)
[2021-09-08] MEDS: NYSTATIN 100,000 UNITS/ML SUSP 5 ML ORAL.SUSP PO (09:29)
[2021-09-08] MEDS: metOLazone 2.5 MG TABLET PO (09:29)
[2021-09-08] MEDS: busPIRone HCL 5 MG TABLET PO (09:30)
[2021-09-08] MEDS: PANTOPRAZOLE 40 MG TABLET PO (09:30)
[2021-09-08] MEDS: FLUoxetine HCL 20 MG CAPSULE 80 MG PO (09:30)
[2021-09-08] MEDS: FUROSEMIDE 40 MG TABLET 80 MG PO (09:30)
[2021-09-08 11:52] LABS: Glucose Point of Care 180 mg/dl (65-105)
--- NOTE | 2021-09-08 14:12 | PC.NURSE ---
Pt discharged to home with VSS. Discharge instructions given to pt. Medications reviewed. Right wrist IV removed and dressing applied.
--- NOTE | 2021-09-11 09:57 | PC.NURSE ---
Pt states she received and understood her discharge instructions. Pt also states the nurses were all fabulous!. And that's compared to my families recent care at [facility] in [facility]. You guys were so much better.
== END 2021-09-08 13:25 | disposition home or self-care (01) ==
LOC: CHSED 18:01 → CHS2ND 19:02
PROVIDERS: Nurse Practitioner; Admitting Provider Internal Medicine; Emergency Provider Emergency Medicine; PCP Family Medicine; Visit Provider Internal Medicine
DX: R55 Syncope and collapse (principal); R10.9 Unspecified abdominal pain; R07.9 Chest pain, unspecified; R51.9 Headache, unspecified; I25.10 Atherosclerotic heart disease of native coronary artery without angina pectoris; I11.0 Hypertensive heart disease with heart failure; I73.9 Peripheral vascular disease, unspecified; I50.30 Unspecified diastolic (congestive) heart failure; D72.829 Elevated white blood cell count, unspecified; J45.909 Unspecified asthma, uncomplicated; E11.9 Type 2 diabetes mellitus without complications; E78.5 Hyperlipidemia, unspecified; E66.9 Obesity, unspecified; E66.01 Morbid (severe) obesity due to excess calories; E28.2 Polycystic ovarian syndrome; M79.7 Fibromyalgia; K57.30 Diverticulosis of large intestine without perforation or abscess without bleeding; K76.0 Fatty (change of) liver, not elsewhere classified; M17.12 Unilateral primary osteoarthritis, left knee; G47.33 Obstructive sleep apnea (adult) (pediatric); F41.9 Anxiety disorder, unspecified; F32.9 Major depressive disorder, single episode, unspecified; Z20.822 Contact with and (suspected) exposure to COVID-19; Z79.01 Long term (current) use of anticoagulants; Z79.4 Long term (current) use of insulin; Z86.718 Personal history of other venous thrombosis and embolism; Z86.711 Personal history of pulmonary embolism; Z87.442 Personal history of urinary calculi
CPT/HCPCS: 36415; 70450; 71045; 74177; 76705; 80053; 81003; 82948; 83036; 83605; 83735; 83880; 84443; 84484; 85025; 85027; 85380; 85610; 85730; 87040; 87077; 87086; 87088; 87186; 87426; 93005; 94640; 96365; 96367; 96374; 96375; 96376; 99285; A9270; C9803; G0378; J0456; J0696; J1170; J1815; J2060; J2270; J2405; Q9967

== ENCOUNTER 2021-09-17 13:57 | Emergency (ER) | payer OTHER, MEDICAID, SELFPAY ==
--- NOTE | ~2021-09-17 | XR_ITS ---
EXAMINATION: XR chest 1V portable EXAM DATE: 09/17/2021 14:55 INDICATION: SOB/weakness. TECHNIQUE: Portable AP frontal chest x-ray was obtained. Comparison is made to prior examination from 09/06/2021. FINDINGS: The lungs are clear. There are no pleural effusions. The cardiomediastinal silhouette is within normal limits. There is no pneumothorax suspected. The bones and soft tissues are unremarkab le. IMPRESSION: No acute cardiopulmonary findings. Reviewed, dictated and finalized at location A.
[2021-09-17 14:05] VITALS: BP 108/75; PULSE 92; RESP 18; TEMP 36.3; O2SAT 98
--- NOTE | 2021-09-17 14:18 | ED.SOB ---
HPI - SOB/Dyspnea General Chief Complaint: Shortness of Breath/Dyspnea Stated Complaint: SOB,Weakness,headache Source: patient Mode of arrival: ambulatory History of Present Illness HPI Narrative: 51-year-old female with a history of obesity, SHREYA, asthma, migraine, depression, nonocclusive coronary artery disease, diastolic CHF diabetes mellitus, anxiety, recurrent DVT/ PE on Xarelto, dysfunction of the sphincter of Oddi, fibromyalgia, arthritis, left knee meniscus tear presents to the ER with -- shortness of breath the past 2 days. No cough or sputum production. No chest pain. no fever -- Muscle cramps off and on for the past 6 days. -- Generalized weakness. -- multiple bruises from episodes of falling down. patient was admitted to the hospital on 09/07/20192021 for abdominal pain and syncopal spells. the patient went to a primary care physician this morning for some muscle spasms, generalized weakness, shortness of breath for which she was transferred to the ER further management. MD elicited complaint: shortness of breath Pertinent past history: asthma Onset (ago): day(s) ( Started 2 days ago) Timing: constant Exacerbating factors: exertion Relieving factors: rest Known history of: asthma Associated symptoms: denies other symptoms Treatment prior to arrival: none Related Data Home Medications Medication Instructions Recorded Confirmed gabapentin 800 mg tablet 800 mg PO TID 01/08/21 09/17/21 insulin glargine 100 unit/mL (3 50 unit SUBCUT BID 01/08/21 09/17/21 mL) subcutaneous pen blood-glucose meter [Advocate 01/25/21 09/06/21 Redi-Code Glu Monitor] fluoxetine [Prozac] 80 mg PO DAILY 01/25/21 09/17/21 hydroxyzine HCl 25 mg PO TID PRN 01/25/21 09/17/21 metolazone 2.5 mg PO DAILY 01/25/21 09/17/21 potassium chloride 20 meq PO HS 01/25/21 09/17/21 propranolol 120 mg PO HS 01/25/21 09/17/21 insulin aspart U-100 [Novolog See Rx Instructions .ROUTE .COMPLEX 01/27/21 09/17/21 U-100 Insulin aspart] furosemide 40 mg tablet 80 mg PO DAILY tablet 08/23/21 09/17/21 spironolactone 25 mg tablet 50 mg PO DAILY tablet 08/23/21 09/17/21 buspirone 5 mg PO BID 09/03/21 09/17/21 Savella 12.5 mg PO DAILY 09/06/21 09/17/21 Trulicity 1.5 mg SUBCUT WEEKLY 09/06/21 09/17/21 Xarelto 20 mg PO DAILY 09/06/21 09/17/21 aripiprazole 10 mg PO HS 09/06/21 09/17/21 hydrocodone-acetaminophen 1 tablet PO BID PRN 09/06/21 09/17/21 montelukast 10 mg PO HS 09/06/21 09/17/21 Allergies Allergy/AdvReac Type Severity Reaction Status Date / Time epinephrine Allergy Severe Unknown Verified 09/17/21 14:14 ibuprofen Allergy Intermediate Unknown Verified 09/17/21 14:14 bupropion Allergy Unknown Unknown Verified 09/17/21 14:14 celecoxib Allergy Unknown Unknown Verified 09/17/21 14:14 Sulfa (Sulfonamide Allergy Unknown Unknown Verified 09/17/21 14:14 Antibiotics) tetanus and diphtheria Allergy Unknown Unknown Verified 09/17/21 14:14 toxoids vancomycin AdvReac Severe renal Verified 09/17/21 14:14 failure Review of Systems Review of Systems: All systems reviewed & are unremarkable except as noted in HPI and below Constitutional: Constitutional: Reports as per HPI and Reports no additional constitutional complaints Eyes: Eyes: Reports as per HPI and Reports no additional eye complaints ENT: Reports system reviewed and no additional complaints, except as documented and Reports as per HPI Cardiovascular: Cardiovascular: Reports as per HPI and Reports no additional cardiovascular complaints Respiratory: Respiratory: Reports as per HPI and Reports dyspnea Comments: She complains of intermittent wheezing. Gastrointestinal: Gastrointestinal: Reports as per HPI and Reports no additional gastrointestinal complaints Comments: Denied abdominal pain. Genitourinary: Genitourinary: Reports no additional female genitourinary complaints Musculoskeletal: Musculoskeletal: Reports muscle cramps Integumentary/Breasts: Skin/Breast: Repo
--- NOTE | 2021-09-17 14:36 | ECG_ITS ---
Measurements Intervals Manning Rate: 90 P: 58 MI: 154 QRS: 7 QRSD: 94 T: 10 QT: 366 QTc: 448 Interpretive Statements SINUS RHYTHM POOR R-WAVE PROGRESSION NO SIGNIFICANT CHANGE COMPARED TO THE PRIOR TRACING Electronically Signed On 09-18-2021 14:19:33 CDT by Estelle De La Fuente M.D.
[2021-09-17 15:06] LABS: Basophils Absolute Auto 0.05 K/mm3 (0.00-0.10); Basophils Percent Auto 0.4 % (0.0-1.0); Eosinophils Absolute Auto 0.16 K/mm3 (0.02-0.50); Eosinophils Percent Auto 1.2 % (1.0-6.0); Hematocrit 46.6 % (35.0-49.0); Hemoglobin 15.5 g/dL (12.0-15.0); Immature Granulocyte Absolute 0.06 K/mm3 (0.00-0.00); Immature Granulocyte Percent A 0.5 % (0.0-0.0); Lymphocytes Absolute Auto 2.63 K/mm3 (1.10-4.50); Lymphocytes Percent Auto 20.5 % (18.0-42.0); Mean Corpuscular HGB Conc 33.3 g/dL (32.0-36.0); Mean Corpuscular Hemoglobin 27.7 pg (27.0-31.0); Mean Corpuscular Volume 83.2 fL (78.0-102.0); Mean Platelet Volume 9.6 fl (9.2-11.8); Monocytes Absolute Auto 0.78 K/mm3 (0.10-0.90); Monocytes Percent Auto 6.1 % (2.0-11.0); Neutrophils Absolute Auto 9.2 K/mm3 (1.7-7.2); Neutrophils Percent Auto 71.3 % (50.0-70.0); Platelet Count Result 367 K/mm3 (150-420); Red Cell Distribution Width 14.4 % (11.6-14.4); White Blood Count 12.9 K/mm3 (4.8-10.8)
[2021-09-17 15:17] LABS: INR 1.3; Partial Thromboplastin Time 30.7 SEC (23.90-30.70)
[2021-09-17 15:21] LABS: Alanine Aminotransferase 30 U/L (14-59); Albumin Level 3.6 g/dL (3.4-5.0); Alkaline Phosphatase 143 U/L (46-116); Anion Gap 4 mmol/L (8-16); Aspartate Amino Transferase 22 U/L (15-37); Bilirubin,Total 0.3 mg/dL (0.00-1.00); Blood Urea Nitrogen 20 mg/dL (7-18); Calcium 9.4 mg/dL (8.5-10.1); Carbon Dioxide 42 mmol/L (21-32); Chloride 90 mmol/L (98-108); Estimated CRCL calculation 67 ml/min; Estimated Glomerular Filt Rate 46; Glucose 202 mg/dL (70-99); Osmolality Calculated 290 mOsm/kg (285-295); Potassium 2.7 mmol/L (3.5-5.1); Sodium 136 mmol/L (136-145); Troponin I 5.1 ng/L (0.00-60.4)
[2021-09-17 15:25] LABS: Lactic Acid Reflex 1.6 mmol/L (0.4-2.0)
[2021-09-17 16:00] VITALS: BP 134/83; PULSE 88; RESP 16; O2SAT 96
[2021-09-17 16:21] LABS: Add Urine Microscopic? NO; Appearance Urine Clear (Clear); Bilirubin Urine Negative (Negative); Blood Urine Negative (Negative); Color Urine Light Yellow (Yellow); Glucose Urine UA Negative (Negative); Ketones Urine Negative (Negative); Leukocyte Esterase Ur Negative (Negative); Nitrate Urine Negative (Negative); Protein Urine Negative (Negative); Specific Grav Ur <= 1.005 (1.010-1.020); Urobilinogen Urine 0.2 mg/dL (0.2-1.0); pH Urine 6.5 (5.0-8.0)
[2021-09-17] MEDS: ONDANSETRON INJ 4 MG/2 ML VIAL IV PUSH (16:26)
[2021-09-17] MEDS: HYDROmorphone HCL INJ (*CRX) 2 MG/ML VIAL 0.5 MG IM ×2 (16:28→17:35)
[2021-09-17] MEDS: KCL 20 MEQ/SW 100 ML 100 ML 50 MEQ IVPB (16:29)
[2021-09-17] MEDS: SPIRONOLACTONE 25 MG TABLET 50 MG PO (16:50)
[2021-09-17] MEDS: SODIUM CHLORIDE 0.9% IV 1,000 ML 500 ML (16:50)
[2021-09-17 16:58] LABS: Magnesium 2.3 mg/dL (1.8-2.4)
[2021-09-17] MEDS: POTASSIUM CHLORIDE 20 MEQ TABLET 40 MEQ PO ×2 (17:01→18:48)
[2021-09-17 17:58] VITALS: BP 129/65; PULSE 75; RESP 16; TEMP 36.7; O2SAT 96
[2021-09-17 19:45] VITALS: BP 131/67; PULSE 69; RESP 16; O2SAT 98
[2021-09-17 20:16] LABS: Anion Gap 1 mmol/L (8-16); Blood Urea Nitrogen 19 mg/dL (7-18); Calcium 9.1 mg/dL (8.5-10.1); Carbon Dioxide 43 mmol/L (21-32); Chloride 93 mmol/L (98-108); Estimated CRCL calculation 73 ml/min; Estimated Glomerular Filt Rate 51; Glucose 194 mg/dL (70-99); Osmolality Calculated 291 mOsm/kg (285-295); Potassium 3.2 mmol/L (3.5-5.1); Sodium 137 mmol/L (136-145)
[2021-09-17 20:41] VITALS: BP 124/61; PULSE 71; RESP 18; TEMP 36.3; O2SAT 97
== END 2021-09-17 20:45 | disposition home or self-care (01) ==
PROVIDERS: Emergency Provider Internal Medicine Critical Care Medicine; PCP Family Medicine
DX: M62.838 Other muscle spasm (principal); E87.6 Hypokalemia; N28.9 Disorder of kidney and ureter, unspecified; I50.32 Chronic diastolic (congestive) heart failure
CPT/HCPCS: 36415; 71045; 80048; 80053; 81003; 83605; 83735; 84484; 85025; 85610; 85730; 93005; 96365; 96366; 96372; 96375; 99284; A9270; J1170; J2405; J3480; J7030

== ENCOUNTER 2022-02-13 11:28 | Outpatient (CLI) | payer OTHER, MEDICAID, SELFPAY ==
--- NOTE | ~2022-02-13 | XR_ITS ---
EXAM: XR knee RT 3V DATE: 02/13/2022 12:09 HISTORY: pain in right knee after falling directly onto knee today . COMPARISON: None available. FINDINGS: Normal mineralization. No fracture or dislocation. No lytic or blastic lesion. Severe medi al joint space narrowing and moderate tricompartmental osteophytosis. No erosion or periosteal change . Soft tissues within normal limits. Small volume knee joint fluid. IMPRESSION: Tricompartmental right knee osteoarthritis, severe in the medial compartment. Reviewed, dictated and finalized at location K. IMPRESSION: Tricompartmental right knee osteoarthritis, severe in the medial co mpartment.
== END 2022-02-13 11:29 | disposition home or self-care (01) ==
LOC: CHSIMG 11:36
PROVIDERS: PCP Family Medicine; Visit Provider Nurse Practitioner Family
DX: M25.561 Pain in right knee (principal); M17.11 Unilateral primary osteoarthritis, right knee
CPT/HCPCS: 73562

== ENCOUNTER 2022-04-09 14:39 | Outpatient (CLI) | payer MEDICAID, SELFPAY ==
[2022-04-09 15:05] LABS: Hematocrit 47.2 % (35.0-49.0); Hemoglobin 15.9 g/dL (12.0-15.0); Mean Corpuscular HGB Conc 33.7 g/dL (32.0-36.0); Mean Corpuscular Hemoglobin 28.2 pg (27.0-31.0); Mean Corpuscular Volume 83.8 fL (78.0-102.0); Mean Platelet Volume 9.7 fl (9.2-11.8); Platelet Count Result 351 K/mm3 (150-420); Red Blood Count 5.63 M/mm3 (4.20-5.40); Red Cell Distribution Width 13.5 % (11.6-14.4); White Blood Count 11.5 K/mm3 (4.8-10.8)
[2022-04-09 15:20] LABS: Creatinine Urine 55.42 mg/dL (40-278); MALB Creatinine Ratio 23.4 mg/g (0-30); Microalbumin Urine Random < 13.0 mg/L
[2022-04-09 15:31] LABS: Hemoglobin A1C 8.3 % (<5.7)
[2022-04-09 15:51] LABS: Alanine Aminotransferase 26 U/L (14-59); Albumin Level 3.9 g/dL (3.4-5.0); Alkaline Phosphatase 128 U/L (46-116); Anion Gap 8 mmol/L (8-16); Aspartate Amino Transferase 20 U/L (15-37); Bilirubin,Total 0.2 mg/dL (0.00-1.00); Blood Urea Nitrogen 17 mg/dL (7-18); Calcium 9.5 mg/dL (8.5-10.1); Carbon Dioxide 34 mmol/L (21-32); Chloride 95 mmol/L (98-108); Cholesterol 206 mg/dL (0-200); Estimated Glomerular Filt Rate 38; Glucose 230 mg/dL (70-99); HDL Direct 67 mg/dL (40-60); LDL Cholesterol Calculated 109 mg/dL (<130); Osmolality Calculated 292 mOsm/kg (285-295); Potassium 3.2 mmol/L (3.5-5.1); Sodium 137 mmol/L (136-145); Total Protein 7.8 g/dL (6.4-8.2); Triglycerides 152 mg/dL (0-150)
[2022-04-09 17:58] LABS: Appearance Urine Clear (Clear); Bilirubin Urine Negative (Negative); Blood Urine Negative (Negative); Glucose Urine UA 1+ (Negative); Ketones Urine Negative (Negative); Leukocyte Esterase Ur Negative (Negative); Nitrate Urine Negative (Negative); Protein Urine Negative (Negative); Specific Grav Ur 1.015 (1.010-1.020); Urobilinogen Urine 0.2 mg/dL (0.2-1.0); pH Urine 5.5 (5.0-8.0)
[2022-04-09 18:03] LABS: Add Urine Microscopic? YES; Bacteria Urine Trace /hpf; Color Urine Light Yellow (Yellow); RBC Urine 0-2 /hpf (0-2); Squamous Epithelial Cell Urine Few /hpf (Few); WBC Urine 0-3 /hpf (0-3)
[2022-04-09 18:04] LABS: INR 2.2; Prothrombin Time 22.4 Seconds (9.50-12.10)
== END 2022-04-09 14:40 | disposition home or self-care (01) ==
LOC: CHSLAB 14:41
PROVIDERS: PCP Family Medicine; Visit Provider Family Medicine
DX: R10.9 Unspecified abdominal pain (principal); E11.59 Type 2 diabetes mellitus with other circulatory complications; I10 Essential (primary) hypertension
CPT/HCPCS: 36415; 80053; 80061; 81001; 82043; 83036; 85027; 85610

== ENCOUNTER 2022-06-12 14:42 | Outpatient (CLI) | payer BC, OTHER, SELFPAY ==
[2022-06-12 15:02] LABS: Hematocrit 50.8 % (35.0-49.0); Hemoglobin 16.8 g/dL (12.0-15.0); Mean Corpuscular HGB Conc 33.1 g/dL (32.0-36.0); Mean Corpuscular Hemoglobin 28.6 pg (27.0-31.0); Mean Corpuscular Volume 86.4 fL (78.0-102.0); Mean Platelet Volume 9.5 fl (9.2-11.8); Platelet Count Result 427 K/mm3 (150-420); Red Blood Count 5.88 M/mm3 (4.20-5.40); Red Cell Distribution Width 13.1 % (11.6-14.4)
[2022-06-12 15:08] LABS: White Blood Count 23.8 K/mm3 (4.8-10.8)
[2022-06-12 15:15] LABS: Prothrombin Time 11.3 Seconds (9.50-12.10)
[2022-06-12 15:19] LABS: Hemoglobin A1C 7.9 % (<5.7)
[2022-06-12 15:41] LABS: Alanine Aminotransferase 44 U/L (14-59); Albumin Level 3.9 g/dL (3.4-5.0); Alkaline Phosphatase 124 U/L (46-116); Anion Gap 9 mmol/L (8-16); Aspartate Amino Transferase 23 U/L (15-37); Bilirubin,Total 0.4 mg/dL (0.00-1.00); Blood Urea Nitrogen 26 mg/dL (7-18); Calcium 9.8 mg/dL (8.5-10.1); Carbon Dioxide 36 mmol/L (21-32); Chloride 90 mmol/L (98-108); Estimated Glomerular Filt Rate 41; Glucose 252 mg/dL (70-99); Osmolality Calculated 293 mOsm/kg (285-295); Potassium 3.5 mmol/L (3.5-5.1); Sodium 135 mmol/L (136-145)
[2022-06-12 16:16] LABS: Total Cells Counted 100
[2022-06-12 16:17] LABS: Band Neutrophils Percent 1 % (0-6); Basophils Percent Manual 0 % (0-1); Eosinophils Absolute Manual 0.95 K/mm3 (0.02-0.5); Eosinophils Percent Manual 4 % (1-6); Lymphocytes Absolute Manual 6.66 K/mm3 (1.1-4.5); Lymphocytes Percent Manual 28 % (18-44); Monocytes Absolute Manual 0.47 K/mm3 (0.1-0.90); Monocytes Percent Manual 2 % (3-9); Neutrophils Percent Manual 65 % (46-73); Platelet Estimate Adequate (Adequate)
[2022-06-16 18:08] LABS: Vitamin D 25 Hydroxy 19 ng/mL (30-100)
== END 2022-06-12 14:43 | disposition home or self-care (01) ==
PROVIDERS: PCP Family Medicine; Visit Provider Nurse Practitioner Family
DX: E11.9 Type 2 diabetes mellitus without complications (principal); E87.6 Hypokalemia; J45.901 Unspecified asthma with (acute) exacerbation; Z79.01 Long term (current) use of anticoagulants; Z79.899 Other long term (current) drug therapy
CPT/HCPCS: 36415; 80053; 82306; 83036; 85025; 85610

== ENCOUNTER 2022-07-10 16:56 | Outpatient (CLI) | payer BC, OTHER, SELFPAY ==
[2022-07-10 17:12] LABS: Basophils Absolute Auto 0.09 K/mm3 (0.00-0.10); Basophils Percent Auto 0.7 % (0.0-1.0); Eosinophils Absolute Auto 0.37 K/mm3 (0.02-0.50); Eosinophils Percent Auto 2.9 % (1.0-6.0); Hematocrit 47.7 % (35.0-49.0); Hemoglobin 16.1 g/dL (12.0-15.0); Immature Granulocyte Absolute 0.08 K/mm3 (0.00-0.00); Immature Granulocyte Percent A 0.6 % (0.0-0.0); Lymphocytes Absolute Auto 3.76 K/mm3 (1.10-4.50); Lymphocytes Percent Auto 29.3 % (18.0-42.0); Mean Corpuscular HGB Conc 33.8 g/dL (32.0-36.0); Mean Corpuscular Hemoglobin 28.4 pg (27.0-31.0); Mean Corpuscular Volume 84.3 fL (78.0-102.0); Mean Platelet Volume 9.8 fl (9.2-11.8); Monocytes Absolute Auto 0.76 K/mm3 (0.10-0.90); Monocytes Percent Auto 5.9 % (2.0-11.0); Neutrophils Absolute Auto 7.8 K/mm3 (1.7-7.2); Neutrophils Percent Auto 60.6 % (50.0-70.0); Platelet Count Result 346 K/mm3 (150-420); Red Blood Count 5.66 M/mm3 (4.20-5.40); Red Cell Distribution Width 12.5 % (11.6-14.4); White Blood Count 12.9 K/mm3 (4.8-10.8)
[2022-07-10 17:24] LABS: INR 2.3; Prothrombin Time 23.4 Seconds (9.50-12.10)
[2022-07-10 17:32] LABS: Alanine Aminotransferase 42 U/L (14-59); Alkaline Phosphatase 120 U/L (46-116); Anion Gap 8 mmol/L (8-16); Aspartate Amino Transferase 26 U/L (15-37); Bilirubin,Total 0.3 mg/dL (0.00-1.00); Blood Urea Nitrogen 16 mg/dL (7-18); Calcium 9.7 mg/dL (8.5-10.1); Carbon Dioxide 34 mmol/L (21-32); Chloride 94 mmol/L (98-108); Estimated Glomerular Filt Rate 51; Glucose 268 mg/dL (70-99); Osmolality Calculated 292 mOsm/kg (285-295); Potassium 4.2 mmol/L (3.5-5.1); Sodium 136 mmol/L (136-145); Total Protein 7.8 g/dL (6.4-8.2)
== END 2022-07-10 16:57 | disposition home or self-care (01) ==
LOC: CHSLAB 16:58
PROVIDERS: PCP Family Medicine; Visit Provider Nurse Practitioner Family
DX: D72.829 Elevated white blood cell count, unspecified (principal); E87.6 Hypokalemia; Z79.01 Long term (current) use of anticoagulants; Z51.81 Encounter for therapeutic drug level monitoring
CPT/HCPCS: 36415; 80053; 85025; 85610

== ENCOUNTER 2022-10-07 08:46 | Outpatient (CLI) | payer BC, OTHER, SELFPAY ==
--- NOTE | ~2022-10-07 | MM_ITS ---
EXAMINATION: MM diagnostic gifty BI w elvin HISTORY: Left breast lump TECHNIQUE: ML, MLO and CC 3-D tomosynthesis images of both breasts were performed and synthetic 2-D i mages were generated. CAD analysis was submitted and interpreted. COMPARISON: None BREAST PARENCHYMAL COMPOSITION: The breasts are almost entirely fatty. FINDINGS: No suspicious mass or architectural distortion, malignant calcification, skin thickening or retraction is detected. IMPRESSION: 1. No mammographic evidence of malignancy 2. Routine annual mammographic screening is recommended BI-RADS Category 1: Negative Reviewed, dictated and finalized at location A.
== END 2022-10-07 08:47 | disposition home or self-care (01) ==
LOC: CHSIMG 08:47
PROVIDERS: PCP Family Medicine; Visit Provider Family Medicine
DX: N63.23 Unspecified lump in the left breast, lower outer quadrant (principal)
CPT/HCPCS: 77062; 77066; G0279

== ENCOUNTER 2023-02-27 14:37 | Outpatient (NON) | payer BC, OTHER, SELFPAY | END 2023-02-27 14:38 | disposition home or self-care (01) | LOC: CHSLAB 14:41 | PROVIDERS: PCP Family Medicine; Visit Provider Family Medicine | DX: L57.0 Actinic keratosis (principal) | CPT/HCPCS: 88305 ==

== ENCOUNTER 2023-06-18 10:58 | Outpatient (CLI) | payer BC, OTHER, SELFPAY ==
[2023-06-18 11:17] LABS: Basophils Percent Auto 0.9 % (0.0-1.0); Eosinophils Absolute Auto 0.44 K/mm3 (0.02-0.50); Eosinophils Percent Auto 4.1 % (1.0-6.0); Hemoglobin 17.2 g/dL (12.0-15.0); Immature Granulocyte Absolute 0.03 K/mm3 (0.00-0.00); Immature Granulocyte Percent A 0.3 % (0.0-0.0); Lymphocytes Absolute Auto 3.03 K/mm3 (1.10-4.50); Lymphocytes Percent Auto 28.5 % (18.0-42.0); Mean Corpuscular HGB Conc 33.1 g/dL (32.0-36.0); Mean Corpuscular Hemoglobin 28.4 pg (27.0-31.0); Mean Corpuscular Volume 85.8 fL (78.0-102.0); Mean Platelet Volume 9.6 fl (9.2-11.8); Monocytes Absolute Auto 0.54 K/mm3 (0.10-0.90); Monocytes Percent Auto 5.1 % (2.0-11.0); Neutrophils Absolute Auto 6.5 K/mm3 (1.7-7.2); Neutrophils Percent Auto 61.1 % (50.0-70.0); Platelet Count Result 309 K/mm3 (150-420); Red Blood Count 6.06 M/mm3 (4.20-5.40); Red Cell Distribution Width 13.2 % (11.6-14.4); White Blood Count 10.6 K/mm3 (4.8-10.8)
[2023-06-18 11:27] LABS: Creatinine Urine 64.41 mg/dL (40-278); MALB Creatinine Ratio 20.1 mg/g (0-30); Microalbumin Urine Random < 13.0 mg/L
[2023-06-18 11:30] LABS: Hemoglobin A1C 7.4 % (<5.7)
[2023-06-18 12:32] LABS: Alanine Aminotransferase 41 U/L (14-59); Albumin Level 4.3 g/dL (3.4-5.0); Alkaline Phosphatase 131 U/L (46-116); Anion Gap 6 mmol/L (8-16); Aspartate Amino Transferase 24 U/L (15-37); Bilirubin,Total 0.6 mg/dL (0.00-1.00); Blood Urea Nitrogen 15 mg/dL (7-18); Calcium 10.4 mg/dL (8.5-10.1); Carbon Dioxide 34 mmol/L (21-32); Chloride 97 mmol/L (98-108); Cholesterol 201 mg/dL (0-200); Estimated Glomerular Filt Rate 55; Glucose 149 mg/dL (70-99); HDL Direct 79 mg/dL (40-60); LDL Cholesterol Calculated 102 mg/dL (<130); Osmolality Calculated 287 mOsm/kg (285-295); Potassium 4.7 mmol/L (3.5-5.1); Sodium 137 mmol/L (136-145); Total Protein 8.2 g/dL (6.4-8.2); Triglycerides 100 mg/dL (0-150)
== END 2023-06-18 10:59 | disposition home or self-care (01) ==
LOC: CHSLAB 11:00
PROVIDERS: PCP Family Medicine; Visit Provider Nurse Practitioner Family
DX: Z00.00 Encounter for general adult medical examination without abnormal findings (principal)
CPT/HCPCS: 36415; 80053; 80061; 82043; 83036; 85025

== ENCOUNTER 2024-04-21 08:33 | Outpatient (CLI) | payer BC, MEDICAID, SELFPAY ==
--- NOTE | 2024-04-21 08:47 | ECG_ITS ---
Test Date: 2024-04-21 08:57:22 Measurements Intervals [place] Rate: 105 P: 71 NV: 137 QRS: 58 QRSD: 85 T: 47 QT: 338 QTc: 448 Interpretive Statements SINUS TACHYCARDIA BORDERLINE R WAVE PROGRESSION, ANTERIOR LEADS BORDERLINE ECG No previous ECG available for comparison Electronically Signed On 04-21-2024 09:39:16 BACK TENDER PAPER MACHINE by Alphonso Martinez D.O.
[2024-04-21 08:48] LABS: Basophils Absolute Auto 0.16 K/mm3 (0.00-0.10); Eosinophils Absolute Auto 0.47 K/mm3 (0.02-0.50); Eosinophils Percent Auto 3.1 % (1.0-6.0); Hematocrit 55.6 % (35.0-49.0); Hemoglobin 19.1 g/dL (12.0-15.0); Immature Granulocyte Absolute 0.07 K/mm3 (0.00-0.00); Immature Granulocyte Percent A 0.5 % (0.0-0.0); Lymphocytes Absolute Auto 3.84 K/mm3 (1.10-4.50); Mean Corpuscular HGB Conc 34.4 g/dL (32-36); Mean Corpuscular Hemoglobin 28.3 pg (27.0-31.0); Mean Corpuscular Volume 82.5 fL (78.0-102.0); Mean Platelet Volume 9.3 fl (9.2-11.8); Monocytes Absolute Auto 0.89 K/mm3 (0.10-0.90); Monocytes Percent Auto 5.8 % (2.0-11.0); Neutrophils Absolute Auto 9.93 K/mm3 (1.70-7.20); Neutrophils Percent Auto 64.6 % (50.0-70.0); Platelet Count Result 375 K/mm3 (150-420); Red Blood Count 6.74 M/mm3 (4.20-5.40); Red Cell Distribution Width 12.4 % (11.6-14.4); White Blood Count 15.4 K/mm3 (4.8-10.8)
[2024-04-21 08:57] LABS: Hemoglobin A1C 7.1 % (<5.7)
[2024-04-21 09:42] LABS: Alanine Aminotransferase 31 U/L (14-59); Albumin Level 4.5 g/dL (3.4-5.0); Alkaline Phosphatase 152 U/L (46-116); Anion Gap 12 mmol/L (4-12); Aspartate Amino Transferase 21 U/L (15-37); Bilirubin,Total 0.8 mg/dL (0.00-1.00); Blood Urea Nitrogen 23 mg/dL (7-18); Calcium 10.6 mg/dL (8.5-10.1); Carbon Dioxide 31 mmol/L (21-32); Chloride 92 mmol/L (98-108); Estimated Glomerular Filt Rate 47; Glucose 169 mg/dL (70-99); Osmolality Calculated 287 mOsm/kg (285-295); Potassium 3.7 mmol/L (3.5-5.1); Sodium 135 mmol/L (136-145); Total Protein 8.7 g/dL (6.4-8.2)
[2024-04-21 10:01] LABS: MRSA (PCR) NOT DETECTED (NOT DETECTE)
[2024-04-23 21:33] LABS: Hematocrit 60.8 % (35.0-45.0); Hemoglobin 19.4 g/dL (11.7-15.5); MCH 28.4 pg (27.0-33.0); MCV 89.1 fL (80.0-100.0); RDW 13.5 % (11.0-15.0); Red Blood Cell Count 6.82 Million/uL (3.80-5.10)
[2024-04-26 15:07] LABS: Vitamin D 1,25 (OH)2 Total 57 pg/mL (18-72); Vitamin D2 1,25 (OH)2 <8 pg/mL; Vitamin D3 1,25 (OH)2 57 pg/mL
== END 2024-04-21 08:34 | disposition home or self-care (01) ==
PROVIDERS: PCP Family Medicine; Visit Provider Family Medicine
DX: E11.9 Type 2 diabetes mellitus without complications (principal); D75.1 Secondary polycythemia; I25.10 Atherosclerotic heart disease of native coronary artery without angina pectoris; E55.9 Vitamin D deficiency, unspecified; Z79.899 Other long term (current) drug therapy; R00.0 Tachycardia, unspecified
CPT/HCPCS: 36415; 80053; 82652; 83021; 83036; 85025; 86900; 86901; 87641; 93005

== ENCOUNTER 2024-08-13 10:35 | Outpatient (CLI) | payer BC, SELFPAY ==
[2024-08-13 10:55] LABS: Basophils Absolute Auto 0.06 K/mm3 (0.00-0.10); Basophils Percent Auto 0.6 % (0.0-1.0); Eosinophils Absolute Auto 0.48 K/mm3 (0.02-0.50); Eosinophils Percent Auto 4.4 % (1.0-6.0); Hematocrit 47.9 % (35.0-49.0); Immature Granulocyte Absolute 0.03 K/mm3 (0.00-0.00); Immature Granulocyte Percent A 0.3 % (0.0-0.0); Lymphocytes Absolute Auto 2.68 K/mm3 (1.10-4.50); Lymphocytes Percent Auto 24.7 % (18.0-42.0); Mean Corpuscular HGB Conc 31.3 g/dL (32-36); Mean Corpuscular Hemoglobin 26.4 pg (27.0-31.0); Mean Corpuscular Volume 84.3 fL (78.0-102.0); Mean Platelet Volume 9.4 fl (9.2-11.8); Monocytes Absolute Auto 0.68 K/mm3 (0.10-0.90); Monocytes Percent Auto 6.3 % (2.0-11.0); Neutrophils Absolute Auto 6.92 K/mm3 (1.70-7.20); Neutrophils Percent Auto 63.7 % (50.0-70.0); Platelet Count Result 249 K/mm3 (150-420); Red Blood Count 5.68 M/mm3 (4.20-5.40); Red Cell Distribution Width 13.3 % (11.6-14.4); White Blood Count 10.9 K/mm3 (4.8-10.8)
[2024-08-13 11:10] LABS: INR 1.6; Prothrombin Time 16.7 Seconds (9.50-12.1)
[2024-08-13 11:34] LABS: Alanine Aminotransferase 22 U/L (14-59); Albumin Level 3.8 g/dL (3.4-5.0); Alkaline Phosphatase 159 U/L (46-116); Anion Gap 8 mmol/L (4-12); Aspartate Amino Transferase < 10 U/L (15-37); Bilirubin,Total 0.3 mg/dL (0.00-1.00); Blood Urea Nitrogen 16 mg/dL (7-18); Calcium 9.5 mg/dL (8.5-10.1); Carbon Dioxide 32 mmol/L (21-32); Chloride 101 mmol/L (98-108); Estimated Glomerular Filt Rate 52; Glucose 123 mg/dL (70-99); Osmolality Calculated 294 mOsm/kg (285-295); Potassium 4.5 mmol/L (3.5-5.1); Sodium 141 mmol/L (136-145); Total Protein 7.2 g/dL (6.4-8.2)
[2024-08-13 11:39] LABS: Hemoglobin A1C 6.9 % (<5.7)
== END 2024-08-13 10:36 | disposition home or self-care (01) ==
LOC: CHSLAB 10:36
PROVIDERS: PCP Family Medicine; Visit Provider Family Medicine
DX: I50.32 Chronic diastolic (congestive) heart failure (principal); E11.9 Type 2 diabetes mellitus without complications; R10.9 Unspecified abdominal pain
CPT/HCPCS: 36415; 80053; 83036; 85025; 85610

== ENCOUNTER 2024-09-23 09:20 | Outpatient (CLI) | payer BC, MEDICAID, SELFPAY ==
--- NOTE | ~2024-09-23 | XR_ITS ---
Lumbosacral Spine: AP and lateral views Clinical History: Radiculopathy Findings: Suspected mild compression deformities of T12. There is posterior fusion from L5 to S1. The re is mild to moderate degenerative change at L4-L5. There is mild facet arthropathy the upper lumbar spine. The sacroiliac joints are normally outlined. Impression: Suspected mild compression deformity of T12. Postoperative change of the lower lumbar spine, as above. Mild spondylosis otherwise. Reviewed, dictated and finalized at location M. Impression: Suspected mild compression deformity of T12. Postoperative change of the lower lumbar spine, as above. Mild spondylosis otherwise.
--- NOTE | ~2024-09-23 | XR_ITS ---
XR toe 1st LT min 2V Ordering provider: Earnest Jason DO History: . DORSAL SIDE OF 1ST DIGIT X1WK . Comparison: None. FINDINGS: BONES: No acute fracture or dislocation. JOINT SPACES: Mild osteoarthritic changes of the first metatarsophalangeal and interphalangeal joints . SOFT TISSUES: Normal. IMPRESSION: No acute osseous abnormality. Mild osteoarthritic changes. Reviewed, dictated and finalized at location A.
--- OUTSIDE RECORDS SUMMARY | 2024-09-23 09:42 | XMS_ITS | Clinical Summary ---
Author Organization [facility] Healthcare Address [address] [place] [address] Care Team Providers Care Compression Molding Machine Operator Name Role Phone Damien Hernandez MD Primary Care Provider [phone] Monique Almendarez MD Unavailable Juan Manuel Yun MD Unavailable [phone] Wilian Joe MD Unavailable [phone] Allergies Active Allergy Reactions Criticality Noted Date Comments Bupropion Unknown,Other (See comments) Low 05/04/2013 insomnia Reaction: sleeplessness Celecoxib Hives,Anaphylaxis,Ot he r (See comments) High 05/04/2013 Reaction: Epinephrine Anaphylaxis High 03/20/2018 Ibuprofen Rash,Other (See comments),Stomach upset Medium 08/11/2017 Hx JANE Sulfa (Sulfonamide Antibiotics) Anaphylaxis,Other (See comments),Rash High 04/09/2015 Tetanus Vaccines And Toxoid Other (See comments) Low 06/01/2018 strong rxn when [address] (PROTONIX) 40 mg EC tablet Take 1 tablet (40 mg total) by mouth daily 30 tablet 09/10/19 20 Active albuterol HFA (PROVENTIL HFA,VENTOLIN HFA,PROAIR HFA) 90 mcg/actuation inhaler Inhale 2 puffs every 6 (six) hours as needed 08/25/19 20 Active ipratropium-albut Royce (DUO-NEB) 0.5-2.5 mg/3 mL nebulizer solution Inhale 3 mL every 6 (six) hours as needed 11/03/19 19 Active spironolactone (ALDACTONE) 25 mg tablet Take 25 mg by mouth daily 08/25/19 20 Active FLUoxetine (PROzac) 40 mg capsule Take 80 mg by mouth daily Active OneTouch Ultra2 Meter misc 06/19/19 21 Active potassium chloride ER 20 mEq CR tablet Take 20 mEq by mouth nightly 07/20/19 21 Active hydrOXYzine (ATARAX) 25 mg tablet Take 25 mg by mouth every 8 (eight) hours as needed 09/30/19 21 Active BD Veo Insulin Syr Half Unit 0.3 mL 31 gauge x 15/64 syringe 09/07/19 21 Active glucagon (BAQSIMI) 3 mg/actuation spray,non-aerosol Use one actuation into a single nostril. If no response, may repeat in 15 minutes using a new intranasal device. 2 each 10/27/19 21 Active BD Insulin Syringe Ultra-Fine 0.5 mL 30 gauge x 1/2 syringe To be used with insulin 3 times daily 100 each 2 10/31/19 21 Active gabapentin (NEURONTIN) 800 mg tablet Take 800 mg by mouth 3 (three) times a day Active metOLazone (ZAROXOLYN) 2.5 mg tablet Take 2.5 mg by mouth 3 (three) times a week Friday Active propranolol LA (INDERAL LA) 120 mg 24 hr capsule Take 120 mg by mouth nightly Active budesonide-formot Royce (SYMBICORT) 80-4.5 mcg/actuation inhaler Inhale 2 puffs 2 (two) times a day Rinse mouth with water after use. Do not swallow. 1 Inhaler 1 01/22/20 21 Active furosemide (LASIX) 40 mg tablet Take 1 tablet (40 mg total) by mouth 2 (two) times a day 60 tablet 1 01/22/20 21 Active montelukast (SINGULAIR) 10 mg tablet 03/28/20 21 Active BASAGLAR 100 unit/mL (3 mL) pen for injectionIndicati ons:Uncontrolled type 2 diabetes mellitus with hyperglycemia (HCC) INJECT 50 UNITS IN THE MORNING AND 25 UNITS AT NIGHT, MAX DAILY DOSE OF 90 UNITS 90 mL 3 05/08/20 21 Active insulin aspart (NovoLOG) 100 unit/mL (3 mL) pen for injectionIndicati ons:Uncontrolled type 2 diabetes mellitus with hyperglycemia (HCC) INJECT 4 UNITS BEFORE MEALS IF BG>125 SLIDING SCALE 4:50 CORRECTION FOR BG>175 MAX DAILY DOSEIS 40 UNITS 15 mL 3 06/12/20 21 Active dulaglutide (Trulicity) 1.5 mg/0.5 mL pen injector INJECT 0.5 ML SUBCUTANEOUSLY ONCE A WEEK 2 mL 2 07/09/19 22 Active BD Ultra-Fine Priyanka Pen Needle 32 gauge x 5/32 needleIndications :Uncontrolled type 2 diabetes mellitus with hyperglycemia (HCC) Use one pen needle per insulin shot 4 times per day. 360 each 3 07/23/19 22 Active Savella 12.5 mg tablet Take 25 mg by mouth daily 07/13/19 22 Active busPIRone (BUSPAR) 5 mg tablet Take 5 mg by mouth 07/28/19 22 Active ARIPiprazole (ABILIFY) 5 mg tablet Take 5 mg by mouth nightly at bedtime 07/28/19 22 Active Xarelto 20 mg tablet 09/04/19 22 Active diazePAM (VALIUM) 10 mg tabletIndications :Take 1 Tab by mouth 45 Min Prior to procedure , Must have Network Associate Take 1 tablet (10 mg total) by mouth once for 1 dose Take 30 minutes before procedure and must have a paratransit driver. 1 tablet 09/05/19 22 Active blood glucose diagnostic (OneTouch Ultra Blue Test Strip) stripIndications: Type 2 diabetes mellitus with hyperglycemia, without long-term current use of insulin ([facility]) Use to test blood sugar before meals 270 each 2 09/21/19 22 Active blood-glucose sensor (Dexcom G6 Sensor) deviceIndications :Type 2 diabetes mellitus with hyperglycemia, without long-term current use of insulin ([facility]) Will use 1 sensor every 10 days. 1 box = 3 sensors. 3 each 11 11/09/19 22 Active blood-glucose transmitter (Dexcom G6 Transmitter) deviceIndications :Type 2 diabetes mellitus with hyperglycemia, without long-term current use of insulin ([facility]) Will use 1 transmitter every 90 days 1 each 3 12/22/19 22 Active traZODone (DESYREL) 50 mg tablet TAKE 1 TABLET BY MOUTH EVERY DAY AT BEDTIME NEEDED FOR INSOMNIA 12/14/19 22 Active HYDROcodone-aceta minophen (NORCO) 5-325 mg per tabletIndications :Pain Take 1 tablet by mouth 2 (two) times a day as needed for pain 46 tablet 02/27/20 22 Active blood-glucose meter,continuous (Dexcom G6 Basket Patcher) miscIndications:T ype 2 diabetes mellitus with hyperglycemia, without long-term current use of insulin (HCC) 1 Dexcom G6 Basket Patcher 1 each 08/21/19 23 Active Active Problems Problem Noted Date Diagnosed Date Localized osteoarthritis of left knee 12/25/2021 Lumbosacral spondylosis without myelopathy 07/16 Postlaminectomy syndrome, lumbar 04/27/2021 Radiculopathy, lumbosacral region 04/27/2021 Arthritis of right knee 04/27/2021 Other headache syndrome 01/18/2021 Acute on chronic systolic congestive heart failu re 01/17/2021 Severe persistent asthma with exacerbation 01/17 CHF (congestive heart failur e), NYHA class I, acute on chronic, combined 01/17/2021 Fatty liver 10/26/2020 Overview (12/18/2021): Fibrosis-4 (FIB-4) Calculator: 0.63 at 12/18/2021 8:07 AM Calculated from: SGOT/AST: 14 Units/L at 01/17/2021 3:30 PM SGPT/ALT: 13 Units/L at 01/17/2021 3:30 PM Platelets: 314 K/cumm at 01/21/2021 8:59 AM Age: 51 years Assessment & Plan (10/27/2020 10:40 AM CDT): Needs optimal glycemic control. Also high risk for chronic vitamin-D deficiency Colon cancer screening 10/23/2020 Overview (12/22/2020): Added automatically from request for surgery [id number] Vitamin D deficiency 06/16/2020 Has immunity to COVID-19 virus 06/16/2020 Overview (08/03/2021): Pfizer vaccine 02/26/2021, 12/26/2020 Assessment & Plan (12/18/2021 8:13 AM CDT): Fully vaccinated, eligible for booster. Assessment & Plan (09/17/2021 10:49 AM CDT): Pfizer vaccine x 2; qualifies for booster Assessment & Plan (08/03/2021 1:43 PM PHYSICIAN PRESIDENT): Pfizer vaccine 02/26/2021, 12/26/2020. May be due for booster in the near future Spondylolisthesis of lumbar region 02/09/2019 Palpitations 11/20/2018 Acute diastolic heart failure 10/29/2018 Chest pain 10/29/2018 Hematuria 10/27/2018 Sepsis 08/19/2018 Hypotension 08/09/2018 Assessment & Plan (08/09/2018 9:30 AM PHYSICIAN PRESIDENT): Likely 2/2 double dosing on patient's BP meds and addition of tizanidine. Denied taking her own BP meds yesterday, but has pill box w/ yesterday's doses missing. States she took them the night before. Given her lasix, lisinopril, metoprolol and spironolactone yesterday afternoon. She is s/p 2L IVFs w/ improved BP 115/67 this AM. -Hold diuretics and antihypertensives today and she can restart tomorrow. -monitor. Incontinence 08/09/2018 Assessment & Plan (08/09/2018 9:28 AM PHYSICIAN PRESIDENT): Could possibly have stress incontinence vs. OAB. She reports saddle anesthesia, but no explanation on imaging. Per Neuro, could possibly have a neuropathy or mononeuropathy causing sxs. Per RNs, voiding w/o difficulty or incontinence last night and this AM despite IVFs. -F/u Neuro vs. Neuromuscular as outpt to monitor sxs and possibly pursue EMG testing if persists per Neuro recs. -f/u with PCP. Acute midline low back pain with bilateral sciat ica 08/08/2018 Assessment & Plan (08/09/2018 9:29 AM PHYSICIAN PRESIDENT): Acute on chronic 2/2 DDD vs malingering. Imaging w/ no acute fxs or severe stenosis. NSGY w/ no plans for surgery. Pain out of proportion of exam. Asking for IV Dilaudid last night. Noted to be getting in and out of bed and ambulating w/o difficulty when not aware she is being examined. -Will dc home today. F/u with her Orthopedist. Can be referred to pain management prn for outpt injection. Given INR of 2.7 she is not a candidate at this time. Will need to hold coumadin prior to outpatient procedure. -Continue cheduled Tylenol 1000mg, gabapentin to 600mg TID and add flexeril tid. Will Rx a few doses of oxycodone prn. Assessment & Plan (08/08/2018 1:31 PM PHYSICIAN PRESIDENT): Acute on chronic with reports of saddle anesthesia. Neurology reviewed repeat MRI w/ contrast and no areas of abnormal enhancement. Per Neuro, unknown etiology of her symptoms but it is not due to cord compression or cauda equina involvement. Possibly d/t a peripheral neuropathy or mononeuropathy. -scheduled Tylenol 1000mg Q6, increase gabapentin to 600mg TID, oxycodone 5mg Q4 prn for pain -If no improvement, could consider pain consult tomorrow for possible injection. -Per recs, f/u with Neuro vs. Neuromuscular as outpt to monitor sxs and possibly pursue EMG testing. Heart failure with preserved ejection fraction 0 08/08/2018 Assessment & Plan (10/27/2020 10:40 AM CDT): Need to minimize risk of hypoglycemia Assessment & Plan (08/09/2018 9:30 AM PHYSICIAN PRESIDENT): -hold lisinopril, metoprolol, lasix, spironolactone. Restart tomorrow. Assessment & Plan (08/08/2018 1:32 PM PHYSICIAN PRESIDENT): Euvolemic on exam. -continue lisinopril, metoprolol, lasix, spironolactone. Type 2 diabetes mellitus with hyperglycemia ([facility]) 08/08/2018 Overview (10/30/2020): October 2020: C-peptide 5.5; AMANDA-65 Ab neg Assessment & Plan (10/27/2020 11:01 AM CDT): Intelligent, motivated and will do well with more advanced Education. Previous benefit from Trulicity, and this may actually help her fatty liver, as well Needs medication adjustments, and we good candidate for insulin pump therapy. For now, she would benefit from a Kahlil continuous glucose monitoring system. Needs follow-up labs, particularly to screen for possible type 1 diabetes Assessment & Plan (08/09/2018 9:14 AM PHYSICIAN PRESIDENT): BG 213 this AM. -Restart metformin -continue Trulicity Qweek Assessment & Plan (08/08/2018 1:37 PM PHYSICIAN PRESIDENT): BG as high as 397 in the ED. BMP stable. Takes Metformin bid and Trulicity Qweek. States last A1c was 8.0. She was given a dose of metformin in the ED. -Hold metformin -SSI Convulsions 09/22/2017 Deep vein thrombosis (DVT) (CMS/HCC) 08/06/2017 Assessment & Plan (08/09/2018 9:14 AM PHYSICIAN PRESIDENT): W/ hx of PE currently on coumadin 10mg daily. INR therapeutic. -continue coumadin 10mg daily. Assessment & Plan (08/08/2018 1:38 PM PHYSICIAN PRESIDENT): W/ hx of PE currently on coumadin 10mg daily. INR therapeutic. -No surgical plans, so will continue coumadin 10mg daily. Essential (primary) hypertension 08/06/2017 Assessment & Plan (08/08/2018 1:39 PM PHYSICIAN PRESIDENT): BP stable. -continue lisinopril, metoprolol, lasix Hyperlipidemia, mixed 08/06/2017 Assessment & Plan (10/27/2020 10:43 AM CDT): Also managed by Cardiology. Needs optimal glycemic control and consider statin Hypertensive heart disease without heart failure 08/06/2017 Other pulmonary embolism without acute cor pulmo nale 08/06/2017 Nonintractable headache History of DVT (deep vein thrombosis) Fibromyalgia PCOD (polycystic ovarian disease) Atrial septal aneurysm Acute on chronic congestive heart failure Moderate persistent asthma with exacerbation Resolved Problems Problem Noted Date Diagnosed Date Resolved Date Colon cancer screening 10/23/202010/25 Overview (10/23/2020): Added automatically from request for surgery [id number] Immunizations Immunization Administration Dates Next Due Influenza, Quadrivalent, Spl it, Preservative Free, Intramuscular 02/23/2021,04/27/2016 Influenza, Trivalent, Preservative Free, Intramu scular 04/08/2014 Pneumococcal Polysaccharide PPV23 04/27/2016 Surgical History Surgery Date Site/Laterality Comments APPENDECTOMY HYSTERECTOMY CHOLECYSTECTOMY SPINAL FUSION SECTION TUBAL LIGATION 06/16/1999 - 06/15/2000 Medical History Medical History Date Comments Depression DVT (deep venous thrombosis) (HCC) Pulmonary embolism (HCC) CHF (congestive heart failure) (HCC) Obesity Fibromyalgia GERD (gastroesophageal reflux disease) Anxiety PCOD (polycystic ovarian disease) Heart failure (HCC) Irregular heartbeat Gastric reflux Kidney failure after spider bit e; resolved Fibromyalgia Vitamin D deficiency 2020 Type 2 diabetes mellitus (HCC) 2014 Hypertension 1996 Arthritis 1999 Asthma 1982 Heart disease 2015 Sleep apnea 2020 Family History Medical History Relation Name Comments Alcohol abuse Brother Anirudh Cancer Father Sergio Heart disease Father Sergio Anemia Mother Abdiaziz Asthma Mother Abdiaziz Cancer Mother Abdiaziz Hypertension Mother Abdiaizz Obesity Mother Abdiaziz Thyroid disease Mother Abdiaziz Vitamin D deficiency Mother Abdiaziz Alcohol abuse Other Arthritis Other Clotting disorder Other Mental illness Other Obesity Sister Sis Relation Name Status Comments Brother Anirudh Father Sergio Mother Abdiaziz Other Sister Sis Social History Tobacco Use Types Packs/Day Years Used Date Smoking Tobacco: Never Smokeless Tobacco: Never Alcohol Use Standard Drinks/Week Comments No 0 (1 standard drink = 0.6 oz pur e alcohol) Personal Safety Answer Date Recorded Getting School Help Needed Not on file 08/15 Comments No Sex and Gender Information Value Date Recorded Sex Assigned at Not on file Legal Sex Female 4:21 AM PHYSICIAN PRESIDENT Gender Identity Not on file Sexual Orientation Not on file Obstetrics History Last Filed Vital Signs Vital Sign Reading Time Taken Comments Blood Pressure 163/107 02/22/2022 10:48 AM CDT Pulse 99 02/22/2022 10:48 AM CDT Temperature 36.7 C (98 F) 02/20/2022 9:32 AM CDT Respiratory Rate 15 02/22/2022 10:4 8 AM CDT Oxygen Saturation 98% 02/22/2022 10: 48 AM CDT Inhaled Oxygen Concentration - - Weight 138.5 kg (305 lb 6.4 oz) 04/27/2021 8:51 AM PHYSICIAN PRESIDENT Height 160 cm (5' 3 ) 04/27/2021 8:51 AM PHYSICIAN PRESIDENT Body Mass Index 54.1 04/27/2021 8:51 AM PHYSICIAN PRESIDENT Plan of Treatment Health Maintenance Due Date Last Done Comments Albumin Creatinine Ratio, Urine 1971 Breast Cancer Screening-Mammogram 1971 Colon Cancer Screening-Colonoscopy 1971 Depression Screening 1971 Hepatitis C Screening 1971 Dilated Eye Exam 1971 Foot Exam 1971 DTaP/Tdap/Td Vaccine (1 - Tdap) 1982 Hepatitis B Screening 1989 Regular Well Visit/Exam 18-64 1989 Pneumococcal vaccine <65 (2 of 2 - PCV) 04/27/2017 04/27/2016 Lipid Panel 08/21/2019 08/20/2018 Hemoglobin A1C 04/28/2021 10/26/2020, 09/25/2017 Zoster Vaccine (1 of 2) 2021 eGFR 01/21/2022 01/21/2021, 12/2020, 01/19/2021, Additional history exists Covid-19 Vaccine (3 - 2023-2 5 season) 2024 02/26/2021, 12/26/2020 Influenza Vaccine (Season Ended) 2025 02/23/2021, 04/27/2016, 04/08/2014 Procedures Procedure Name Priority Date/Time Associated Diagnosis Comments EGFR Routine 01/21/2021 8:59 AM CDT POCT HEMOGLOBIN A1C Routine 10/26/2020 2 :32 PM CDT Uncontrolled type 2 diabetes mellitus with hyperglycemia (HCC) from Last 3 Months or Most Recently Relevant to Health Maintenance Results * eGFR (01/21/2021 8:59 AM CDT) eGFR 87 mL/min/1.7 3 m2 POLLY KUMAR Comment: Interpretive Data Reference Interval Normal >/= 90 mL/min/1.73m2 Mildly decreased* 60 - 89 mL/min/1.73m2 Mildly to moderately decreased 45 - 59 mL/min/1.73m2 Moderately to severely decreased 30 - 44 mL/min/1.73m2 Severely decreased 15 - 29 mL/min/1.73m2 Kidney Failure < 15 mL/min/1.73m2 *Relative to young adult level Estimated glomerular filtration rate is determined by the CKD-EPI equation recommended by the National Kidney Foundation (KDIGO 2012 Clinical Practice Guideline for the Evaluation and Management of Chronic Kidney Disease. Kidney Intnl Suppl Jun 2012;3:1). The CKD-EPI equation should not be used for patients with unstable renal function and has not been validated in children and those over 70. Current interpretive data was last reviewed 2020 Blood specimen (specimen) 01/21/2021 8:59 AM CDT 01/21/2021 9:22 AM CDT Cassandra Alexander MD LAB BLOOD ORDERABL ES Final Result POLLY [address] [facility] Department [place] [address] * POCT hemoglobin A1c (10/26/2020 2:32 PM CDT) Hemoglobin A1C, POC 8.2 Blood specimen (specimen) 10/26/2020 2:32 PM CDT Monique Almendarez MD POINT OF CARE TEST ORDERABL ES Final Result from Last 3 Months or Most Recently Relevant to Health Maintenance Insurance [employer] [facility] HMO [facility] CHOICE PLUS [employer] [facility] [employer] Advance Directives For more information, please contact: [phone] * Full Code (Latest Code Status on File) Date Activated Date Inactivated Comments 01/17/2021 7:49 PM 01/21/2021 9:44 PM * Full Code Date Activated Date Inactivated Comments 11/20/2018 6:22 PM 11/22/2018 2:19 AM * Full Code Date Activated Date Inactivated Comments 08/08/2018 12:20 PM 08/09/2018 4:03 PM Care Teams Compression Molding Machine Operator Relationship Specialty Start Date End Date Damien Hernandez MD PCP - General Internal Medicine 10/02/20 Monique Almendarez MD Referring Physician Endocrinology Diabetes & Metabolism 10/26/20 Juan Manuel Yun MD [address] [place] [address] Consulting Physician Cardiology 10/26/20 Wilian Joe MD [address] [place] [address] [place] [id number] Consulting Physician Interventional Cardiology 01/21/21
--- OUTSIDE RECORDS SUMMARY | 2024-09-23 09:42 | XMS_ITS | Encounter Summary ---
Author Organization [facility] Address [facility] [place] [address] Care Team Providers Care Cdl Bulk Driver Name Role Phone Scar Maxwell MD Primary Care Provider [phone] Mohan Choudhary MD Unavailable Unavailab Laith Young MD Unavailable Trevor Hayes MD Unavailable [phone] New Referring, Provider Primary Care Provider Un available Earnest Jason DO Primary Care Provider [phone] Reason for Visit * Reason Onset Date Comments Follow Up Call 11/13/2018 Encounter Details Date Type Department Care Team (Late st Contact Info) Description 11/13/2018 Patient Outreach [facility] [address] [place] [address] Yamile Porter RN Follow Up Call Social History Tobacco Use Types Packs/Day Years Used Date Smoking Tobacco: Never Smokeless Tobacco: Never Alcohol Use Standard Drinks/Week Comments Yes 0 (1 standard drink = 0.6 oz pure alcohol) ,occasionnaly had 2 cocktail last nite Comments No Sex and Gender Information Value Date Recorded Sex Assigned at Female 10/27/2018 10:02 PM CDT Legal Sex Female 9:17 PM CDT Gender Identity Female 10/27/2018 10:02 PM CDT Sexual Orientation Straight 10/27/2018 10 :02 PM CDT 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 Answer Date of Assessment Author Status No 11/11/2018 10:27 AM CDT Acti ve * Do you have serious difficulty walking or climbing stairs? Answer Date of Assessment Author Status No 11/11/2018 10:27 AM Carlee Lim RN Active * Do you have difficulty dressing or bathing? Answer Date of Assessment Author Status No 11/11/2018 10:27 AM Carlee Lim RN Active * Because of a physical, mental, or emotional condition, do you have difficulty doing errands alone such as visiting a doctor's office or shopping? Answer Date of Assessment Author Status No 11/11/2018 10:27 AM Carlee Lim RN Active documented as of this encounter Mental Status * Because of a physical, mental, or emotional condition, do you have serious difficulty concentrating, remembering, or making decisions? Answer Entry Date Author Status No 11/11/2018 10:27 AM Carlee Lim RN Active documented in this encounter Plan of Treatment Not on file documented as of this encounter Visit Diagnoses Not on filedocumented in this encounter Additional Health Concerns Infection Onset Date Last Indicated Resolved Time MRSA 05/04/2017 05/04/2017 COVID-19 Rule Out 06/02/2022 06/02/2022 06/02/2022 6:13 PM PLASTER MIXER RSV 06/02/2022 06/02/2022 06/12/2022 12:3 3 AM PLASTER MIXER COVID-19 Rule Out 06/12/2022 06/12/2022 06/12/2022 8:35 PM PLASTER MIXER RSV 06/12/2022 06/12/2022 06/22/2022 12:3 2 AM PLASTER MIXER documented as of this encounter Care Teams Cdl Bulk Driver Relationship Specialty Start Date End Date Scar Maxwell MD [address] [place] [address] PCP - General FAMILY PRACTICE 07/16/17 11/28/21 New Referring, Provider PCP - General UNKNOWN PHYSICIAN SPECIALTY 11/29/21 06/04/22 Earnest Jason DO [address] [place] [address] PCP - General FAMILY PRACTICE 06/05/22 Mohan Choudhary MD [facility] [address] Adult Neurologist CARDIOVASCULAR DISEASE 07/16/17 07/01/19 Laith Smith MD [facility] [place] [address] Vascular/Adult Neurologist INTERNAL MEDICINE 08/08/17 Trevor Hayes MD [address] [place] [address] Consulting Physician CARDIOVASCULAR DISEASE 07/02/19 documented as of this encounter
--- OUTSIDE RECORDS SUMMARY | 2024-09-23 09:42 | XMS_ITS | Referral Summary ---
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 1 tablet 09/05/19 22 Active blood glucose diagnostic (OneTouch Ultra Blue Test Strip) stripIndications: Type 2 diabetes mellitus with hyperglycemia, without long-term current use of insulin ([facility]) Use to test blood sugar before meals 270 each 2 09/21/19 22 Active blood-glucose sensor (Dexcom G6 Sensor) deviceIndications :Type 2 diabetes mellitus with hyperglycemia, without long-term current use of insulin ([facility]) Will use 1 sensor every 10 days. 1 box = 3 sensors. 3 each 11 11/09/19 22 Active blood-glucose transmitter (Dexcom G6 Transmitter) deviceIndications :Type 2 diabetes mellitus with hyperglycemia, without long-term current use of insulin ([facility]) Will use 1 transmitter every 90 days [...] 02/27/20 22 Active blood-glucose meter,continuous (Dexcom G6 [place]) miscIndications:T ype 2 diabetes mellitus with hyperglycemia, without long-term current use of insulin (HCC) 1 Dexcom G6 [place] 1 each 08/21/19 23 Active Active Problems [...] (12/22/2020): Added automatically from request for surgery [id number] Vitamin D deficiency 06/16/2020 Has immunity to COVID-19 virus 06/16/2020 Overview (08/03/2021): Pfizer vaccine 02/26/2021, 12/26/2020 Assessment & Plan (12/18/2021 8:13 AM CDT): Fully vaccinated, eligible for booster. Assessment & Plan (09/17/2021 10:49 AM CDT): Pfizer vaccine x 2; qualifies for booster Assessment & Plan (08/03/2021 1:43 PM [facility]): Pfizer vaccine 02/26/2021, 12/26/2020. May be due for booster in the near future Spondylolisthesis of lumbar region 02/09/2019 Palpitations 11/20/2018 Acute diastolic heart failure 10/29/2018 Chest pain 10/29/2018 Hematuria 10/27/2018 Sepsis 08/19/2018 Hypotension 08/09/2018 Assessment & Plan (08/09/2018 9:30 AM [facility]): Likely 2/2 double dosing on patient's BP [...] 08/09/2018 Assessment & Plan (08/09/2018 9:28 AM [facility]): Could possibly have stress incontinence vs. OAB. [...] 08/08/2018 Assessment & Plan (08/09/2018 9:29 AM [facility]): Acute on chronic 2/2 DDD vs malingering. [...] prn. Assessment & Plan (08/08/2018 1:31 PM [facility]): Acute on chronic with reports of saddle [...] hypoglycemia Assessment & Plan (08/09/2018 9:30 AM [facility]): -hold lisinopril, metoprolol, lasix, spironolactone. Restart tomorrow. Assessment & Plan (08/08/2018 1:32 PM [facility]): Euvolemic on exam. -continue lisinopril, metoprolol, lasix, spironolactone. Type 2 diabetes mellitus with hyperglycemia ([facility] /[facility]) 08/08/2018 Overview (10/30/2020): October 2020: C-peptide 5.5; [...] diabetes Assessment & Plan (08/09/2018 9:14 AM [facility]): BG 213 this AM. -Restart metformin -continue Trulicity Qweek Assessment & Plan (08/08/2018 1:37 PM [facility]): BG as high as 397 in the ED. BMP stable. Takes Metformin bid and Trulicity Qweek. States last A1c was 8.0. She was given a dose of metformin in the ED. -Hold metformin -SSI Convulsions 09/22/2017 Deep vein thrombosis (DVT) (CMS/HCC) 08/06/2017 Assessment & Plan (08/09/2018 9:14 AM [facility]): W/ hx of PE currently on coumadin 10mg daily. INR therapeutic. -continue coumadin 10mg daily. Assessment & Plan (08/08/2018 1:38 PM [facility]): W/ hx of PE currently on coumadin 10mg daily. INR therapeutic. -No surgical plans, so will continue coumadin 10mg daily. Essential (primary) hypertension 08/06/2017 Assessment & Plan (08/08/2018 1:39 PM [facility]): BP stable. -continue lisinopril, metoprolol, lasix Hyperlipidemia, [...] (10/23/2020): Added automatically from request for surgery [id number] Immunizations Immunization Administration Dates Next Due Influenza, Quadrivalent, Spl it, Preservative Free, Intramuscular 02/23/2021,04/27/2016 Influenza, Trivalent, Preservative Free, Intramu scular 04/08/2014 Pneumococcal Polysaccharide PPV23 04/27/2016 Social History Tobacco Use Types Packs/Day Years [...] on file Legal Sex Female 4:21 AM [facility] Gender Identity Not on file Sexual Orientation Not on file Last Filed Vital Signs Vital Sign Reading Time Taken Comments Blood Pressure 163/107 02/22/2022 10:48 AM CDT Pulse 99 02/22/2022 10:48 AM CDT Temperature 36.7 C (98 F) 02/20/2022 9:32 AM CDT Respiratory Rate 15 02/22/2022 10:4 8 AM CDT Oxygen Saturation 98% 02/22/2022 10: 48 AM CDT Inhaled Oxygen Concentration - - Weight 138.5 kg (305 lb 6.4 oz) 04/27/2021 8:51 AM [facility] Height 160 cm (5' 3 ) 04/27/2021 8:51 AM [facility] Body Mass Index 54.1 04/27/2021 8:51 AM [facility] Plan of Treatment Not on file Procedures Procedure Name Priority Date/Time Associated Diagnosis Comments EGFR Routine 01/21/2021 8:59 AM CDT POCT HEMOGLOBIN A1C Routine 10/26/2020 2 :32 PM CDT Uncontrolled type 2 diabetes mellitus with hyperglycemia (HCC) from Last 3 Months or Most Recently Relevant to Health Maintenance Results * eGFR (01/21/2021 8:59 AM CDT) eGFR 87 mL/min/1.7 3 m2 [facility] Comment: Interpretive Data Reference Interval Normal >/= [...] LAB BLOOD ORDERABL ES Final Result [facility] [address] [facility] [place] [address] * POCT hemoglobin A1c (10/26/2020 2:32 PM CDT) Hemoglobin A1C, POC 8.2 Blood specimen (specimen) 10/26/2020 2:32 PM CDT Monique Almendarez MD POINT OF CARE TEST ORDERABL ES Final Result from Last 3 Months or Most Recently Relevant to Health Maintenance Insurance [facility] [facility] H[facility]/PPO Address: [address] [address] [place] [address] [employer] [facility] PPO [employer] Advance Directives For more information, please contact: [phone] * Full Code (Latest Code Status on File) Date Activated Date Inactivated Comments 01/17/2021 7:49 PM 01/21/2021 9:44 PM * Full Code Date Activated Date Inactivated Comments 11/20/2018 6:22 PM 11/22/2018 2:19 AM * Full Code Date Activated Date Inactivated Comments 08/08/2018 12:20 PM 08/09/2018 4:03 PM Care Teams Tube Skiver Relationship Specialty Start Date End Date Damien Hernandez MD PCP - General Internal Medicine 10/02/20 Monique Almendarez MD Referring Physician Endocrinology Diabetes & Metabolism 10/26/20 Juan Manuel Yun MD [address] [facility] [place] [address] Consulting Physician Cardiology 10/26/20 Wilian Joe MD [address] [place] [address] [place] [id number] Consulting Physician Interventional Cardiology 01/21/21
--- OUTSIDE RECORDS SUMMARY | 2024-09-23 09:42 | XMS_ITS | Encounter Summary ---
Author Organization [facility] Address [address] [place] [address] Care Team Providers Care Motorcycle Racer Name Role Phone Scar Maxwell MD Primary Care Provider [phone] Mohan Choudhary MD Unavailable Unavailab Laith Young MD Unavailable Trevor Hayes MD Unavailable [phone] New Referring, Provider Primary Care Provider Un available Earnest Jason DO Primary Care Provider [phone] Encounter Details Date Type Department Care Team (Late st Contact Info) Description 11/04/2018 Patient Outreach [facility] [address] [place] [address] Yamile Porter RN Social History Tobacco Use Types Packs/Day Years Used Date Smoking Tobacco: Never Smokeless Tobacco: Never Alcohol Use Standard Drinks/Week Comments Yes 0 (1 standard drink = 0.6 oz pur e alcohol) wine once every 6 months Comments No Sex and Gender Information Value [...] Answer Date of Assessment Author Status No 10/27/2018 10:06 PM CDT Acti ve * RETIRED Are you blind or do you have serious difficulty seeing, even when wearing glasses? Answer Date of Assessment Author Status No 10/27/2018 10:06 PM ISMAELT Acti ve * Do you have serious difficulty walking or climbing stairs? Answer Date of Assessment Author Status No 10/27/2018 10:06 PM Amara Khanna RN Active * Do you have difficulty dressing or bathing? Answer Date of Assessment Author Status No 10/27/2018 10:06 PM Amara Khanna RN Active * Because of a physical, mental, or emotional condition, do you have difficulty doing errands alone such as visiting a doctor's office or shopping? Answer Date of Assessment Author Status No 10/27/2018 10:06 PM Amara Khanna RN Active documented as of this encounter Mental Status * Because of a physical, mental, or emotional condition, do you have serious difficulty concentrating, remembering, or making decisions? Answer Entry Date Author Status No 10/27/2018 10:06 PM Amara Khanna RN Active documented in this encounter Plan of Treatment Not on file documented as of this encounter Visit Diagnoses Not on filedocumented in this encounter Additional Health Concerns Infection Onset Date Last Indicated Resolved Time MRSA 05/04/2017 05/04/2017 COVID-19 Rule Out 06/02/2022 06/02/2022 06/02/2022 6:13 PM SAND MIXER RSV 06/02/2022 06/02/2022 06/12/2022 12:3 3 AM SAND MIXER COVID-19 Rule Out 06/12/2022 06/12/2022 06/12/2022 8:35 PM SAND MIXER RSV 06/12/2022 06/12/2022 06/22/2022 12:3 2 AM SAND MIXER documented as of this encounter Care Teams Motorcycle Racer Relationship Specialty Start Date End Date Scar Maxwell MD [address] [place] [address] PCP - General FAMILY PRACTICE 07/16/17 11/28/21 New Referring, Provider PCP - General UNKNOWN PHYSICIAN SPECIALTY 11/29/21 06/04/22 Earnest Jason DO [address] [place] [address] PCP - General FAMILY PRACTICE 06/05/22 Mohan Choudhary MD [address] [place] [address] [employer] Fashion Editor CARDIOVASCULAR DISEASE 07/16/17 07/01/19 Laith Smith MD [address] [place] [address] Vascular/Fashion Editor INTERNAL MEDICINE 08/08/17 Trevor Hayes MD [address] [place] [address] Consulting Physician CARDIOVASCULAR DISEASE 07/02/19 documented as of this encounter
--- OUTSIDE RECORDS SUMMARY | 2024-09-23 09:42 | XMS_ITS | Encounter Summary ---
Author Organization [facility] Address [facility] [place] [address] Care Team Providers Care Special Deputy Sheriff Name Role Phone Scar Maxwell MD Primary Care Provider [phone] Mohan Choudhary MD Unavailable Unavailab Laith Young MD Unavailable Trevor Hayes MD Unavailable [phone] New Referring, Provider Primary Care Provider Un available Earnest Jason DO Primary Care Provider [phone] Encounter Details Date Type Department Care Team (Late st Contact Info) Description 11/21/2018 Abstract [facility] CONVERSION [address] [place] [id number] , Generic Conversion, Social History Tobacco Use Types Packs/Day Years [...] Rule Out 06/02/2022 06/02/2022 06/02/2022 6:13 PM RADIO ARTIST RSV 06/02/2022 06/02/2022 06/12/2022 12:3 3 AM RADIO ARTIST COVID-19 Rule Out 06/12/2022 06/12/2022 06/12/2022 8:35 PM RADIO ARTIST RSV 06/12/2022 06/12/2022 06/22/2022 12:3 2 AM RADIO ARTIST documented as of this encounter Care Teams Special Deputy Sheriff Relationship Specialty Start Date End Date Scar Maxwell MD [address] [place] [address] PCP - General FAMILY PRACTICE 07/16/17 11/28/21 New Referring, Provider PCP - General UNKNOWN PHYSICIAN SPECIALTY 11/29/21 06/04/22 Earnest Jason DO [address] [place] [address] PCP - General FAMILY PRACTICE 06/05/22 Mohan Choudhary MD [address] Manager Environmental Services CARDIOVASCULAR DISEASE 07/16/17 07/01/19 Laith Smith MD [address] [place] [address] Vascular/Manager Environmental Services INTERNAL MEDICINE 08/08/17 Trevor Hayes MD [address] [place] [address] Consulting Physician CARDIOVASCULAR DISEASE 07/02/19 documented as of this encounter
--- OUTSIDE RECORDS SUMMARY | 2024-09-23 09:43 | XMS_ITS | Data Portability ---
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 Patient admitted to [facility] on 07/17/2024:with syncope and chest pain, workup was unremarkable her blood pressure upon arrival was slightly low with systolics 100s CTA of the chest was negative for PE echo no significant findings, lab results unremarkable negative troponin she was discharged home KAY Armenta consult note from [facility] : 54-year-old female with below mentioned past medical history presented to hospital with syncope and fall. As per patient yesterday afternoon while she was standing and putting clothes away in close it she suddenly she chest pain and then she ended up on floor. She regained consciousness right away. When she tried to get up she had pain in her knee and pain in her head. Shortly after while washing her hand in the bathroom patient had another episode of syncope. At that point also she ended up on floor. Due to this to episode she decided to come to emergency room. In ER while waiting in ER patient states that she was having multiple episode of palpitation and near-syncope. She denied any fever chills nausea vomiting diarrhea bleeding. She had intermittent chest pain. She has a history of PE she is on warfarin. INR is normal. She also has a history of CHF and she is on Lasix and spironolactone. Today she reports dizzy episodes , SOB, and chest pressure, central at rest and with exertion with walking up stairs. chest pain occurs once daily. these symptoms are new over the past 1 month. no recurrent syncopal episodes. She also reports palpitations- flip flop feeling into her throat, this symptom does not occur with the chest pain. Cardiovascular studies summary: EK07/12/24 reviewed by me shows: Sinus rhythm. Echocardiogram: 06/2024 Poor acoustic windows with limited interruption. Ventricular wall thickness is mildly increased. LV ejection fraction is normal at 58%. Normal global left ventricular function. Grade 1 Diastolic Dysfunction with normal left atrial pressures. Normal RV systolic function. Stress studies: 09/2015 LV ejection fraction at rest is 60- 65%. Negative dobutamine stress ECG for ischemia. Negative stress echo for ischemia. CTA chest for PE: 06/2024 No pulmonary embolism or aortic dissection. No pulmonary infiltrates or pleural effusions. EKG is normal sinus rhythm no acute ST or T wave changes Assessment and Plan Syncope /chest pain/palpitations CTA negative for PE Echo normal LVEF no significant valvular disease,Diastolic dysfunction Orthostatic vitals are negative in office today she is not on any antihypertensive except for spironolactone 50 and Lasix 40 daily 2 week holter monitor: TSH DSC she is unable to walk due to recent right knee replacement and recent fall injuring the knee It did not add any antianginal beta-jane therapy as her blood pressure is in the 100s over 60s We discussed possible etiologies for syncope she has not had any recurrence since her hospitalization History of PE on coumadin Therapeutic INR during hospitalization Hyperlipidemia - LDL 62 Hypertension Blood pressure is borderline low 100/60 She is on spironolactone 50 and Lasix 40 daily She does have a history of fluid retention and history of diastolic dysfunction She has tried to reduce her spironolactone in the past but had issues with volume overload Follow-up in 1 month we will review her dobutamine stress echo, labs, symptoms,, 2-week Holter monitor results Lifestyle modification counselling: [- Advised about weight management with changes in diet and increasing exercise.] [- counselled about risks associated with smoking including increased risk of AMI, stroke, PAD, lung disease, and cancers; and benefits of quitting.] ROS: 12-point ROS has been completed and negative, exception(s) noted in the HPI and in the scanned history/ROS form. Physical Exam: The patient was examined in the clinic. Gen: appears well with no acute distress HEENT: TOMAS, MMM, no thyromegaly, no palor, no JVD Cardiovascular: S1S2, RRR, [no murmur], no rubs or gallops were heard, PPP, [no] pedal edema Resp: non-labored breathing, clear to auscultation bilaterally Abdomen: Bowel sounds normal, non-tender Neuro: A*O*3, no gross motor or sensory dysfunction in any of the four extremities Skin: No rash, no cyanosis, no clubbing [email or web address] Not available 08/11/2024 13:28:39 09/03/2024 09/03/2024 Mrs. 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 Last seen 07/2024 following a [facility] admission with syncope and chest pain , unremarkable workup other than hypotension noted systolic in the 100s. CTA negative for PE, trop negative. In clinic we discussed admission and symptoms and DSE was ordered, the test was inconclusive given patient had chest pain, and not well visualized anterior and lateral segments. She reports she is off her 50mg spironolactone now for about 2 weeks, PCP d/c due to borderline BP. but now is having leg swelling and weight gain and has used metolazone 2.5mg with her lasix 40mg daily 2x this week, previously did not use metolazone more than once in a few months. She has not had any syncope, but has central chest pressure into the left arm, worse with exertion. She walked with her father in the park and was significantly SOB And had chest pain a few weeks ago. no palpitations, mild leg edema, no orthopnea. Last visit: (Chris Sanz 07/2024) Patient admitted to [facility] on 07/17/2024:with syncope and chest pain, workup was unremarkable her blood pressure upon arrival was slightly low with systolics 100s CTA of the chest was negative for PE echo no significant findings, lab results unremarkable negative troponin she was discharged home Cardiovascular studies summary: Echocardiogram: 06/2024 Poor acoustic windows with limited interruption. Ventricular wall thickness is mildly increased. LV ejection fraction is normal at 58%. Normal global left ventricular function. Grade 1 Diastolic Dysfunction with normal left atrial pressures. Normal RV systolic function. Stress studies: 08/2024 Inconclusive stress test with chest pain with dobtutamine that resolved with rest and few segments now seen well. Anterolateral and lateral segments not seen well. The patient had chest pain during stress. Chest Pain resolved in recovery. The Dobutamine Protocol was used. The Ejection Fraction estimate at peak dobutamine infusion is >70%. The left ventricular chamber size was decreased at peak stress. Assessment and Plan chest pain with exertion, SOB NYHA class ii, syncopal event 1 month ago CTA negative for PE Echo normal LVEF no significant valvular disease,Diastolic dysfunction 2 week monitor is still pending- will review when received inconclusive DSE due to chest pain: we discussed option for CTA coronary vs CArdiac catheterization, risk, benefits, procedure. AFter discussing her symptoms and continued angina with exertion, recommend [facility]. Will plan on heart catheterization today given patient's symptoms Risks, benefits and alternatives of cardiac catheterization and peripheral angiogram were discussed. Risks including but not limited to bleeding, arrhythmias, allergic reactions to medications/contra st, acute renal failure which may require dialysis, acute myocardial infarction, emergency coronary bypass surgery, stroke and . Questions were answered to their satisfaction and understanding. Patient agreed to proceed will plan on heart catheterization History of PE on eliquis- will have to hold prior to cath and she is aware Therapeutic INR during hospitalization Hyperlipidemia - LDL 62 03/2019 lipid panel in 2 week with f/u bmp Hypertension Blood pressure better today 118/78 Spironolactone 50 mg was stopped 2 weeks ago -she is on Lasix 40 daily diastolic dysfunction Patient was on 50 mg of spironolactone Stopped 2 weeks ago due to hypotension and history of syncope. She reports lower extremity edema and having to use metolazone 2 times in the past week which she previously did not use due to volume overload I recommend a BMP today if her K is within normal limits we can resume spironolactone 25 mg at a lower dose Evaluate her symptoms and to log her blood pressure Repeat BMP in 1 to 2 weeks after initiation of spironolactone Follow up post cath, will review monitor when completed, at follow up assess her BP And if tolerating lower dose spironolactone Lifestyle modification counselling: [- Advised about weight management with changes in diet and increasing exercise.] [- counselled about risks associated with smoking including increased risk of AMI, stroke, PAD, lung disease, and cancers; and benefits of quitting.] ROS: 12-point ROS has been completed and negative, exception(s) noted in the HPI and in the scanned history/ROS form. Physical Exam: The patient was examined in the clinic. Gen: appears well with no acute distress HEENT: TOMAS, MMM, no thyromegaly, no palor, no JVD Cardiovascular: S1S2, RRR, [no murmur], no rubs or gallops were heard, PPP, mild bilateral 1+ pedal edema Resp: non-labored breathing, clear to auscultation bilaterally-no crackles Abdomen: Bowel sounds normal, non-tender Neuro: A*O*3, no gross motor or sensory dysfunction in any of the four extremities Skin: No rash, no cyanosis, no clubbing [email or web address] Not available 09/03/2024 22:45:56 09/21/2024 09/21/2024 The history and physical has been reviewed, the patient has been examined and no change has occurred in the patient's condition since the history and physical was completed. [email or web address] Not available 09/21/2024 07:05:31 Plan of Treatment Reminders Order Date Submit Date Provider Last Modified By Organization Details Last Modified Time Details Appointments Establish ed Patient 15.EST 2024 09:30A William Parisi Not available Not available Not available Lab BMP, serum or plasma 2024 025 [facility], [address] [place] [address], [id number], 09/03/2024 19:34:08 TSH, serum or plasma 2024 025 [facility], [address] [place] [address], [id number], 08/11/2024 16:54:52 Referral None recorded. Procedures None recorded. Surgeries None recorded. Imaging None recorded. Medication Orders None recorded. Patient TargetsNo targets recorded. Patient InstructionsNo instructions recorded. Reason for Referral None Reported. Results Created Date Observation Date Name Description Value Unit Range Abnormal Flag Note LastModifiedBy Organization Detail LastModifiedTime 08/11/1908/11/2024 TSH, serum or plasm a TSH; reflex to free T4 Not Available [facility] [address] [place] [address], [id number], 08/11/2024 16:54:52 08/11/19 25 08/11/2024 TSH, serum or plasm a TSH3 1.368 uIU/m L .340-5 .600 Not Available [facility] [address] [place] [address], [id number], 08/11/2024 16:54:52 08/11/19 25 08/12/2024 TSH, ultra -sens itive , serum TSH3 1.311 uIU/m L .340-5 .600 Not Available [facility] [address] [place] [address], [id number], 08/12/2024 14:58:56 09/04/19 25 09/03/2024 BMP, serum or plasm a basic met. panel Not Available [facility] [address] [place] [address], [id number], 09/03/2024 19:34:08 09/04/19 25 09/03/2024 BMP, serum or plasm a glucose 155 mg/dL 70-100 high Not Available [facility] [address] [place] [address], [id number], 09/03/2024 19:34:08 09/04/19 25 09/03/2024 BMP, serum or plasm a sodium 140 mmol/ L 136-14 6 Not Available [facility] [address] [place] [address], [id number], 09/03/2024 19:34:08 09/04/19 25 09/03/2024 BMP, serum or plasm a potassium 3.5 mmol/ L 3.5-5. 1 Not Available [facility] [address] [place] [address], [id number], 09/03/2024 19:34:08 09/04/19 25 09/03/2024 BMP, serum or plasm a chloride 96 mmol/ L 98-110 low Not Available [facility] [address] [place] [address], [id number], 09/03/2024 19:34:08 09/04/19 25 09/03/2024 BMP, serum or plasm a CO2 36 mEq/L 20-32 high Not Available [facility] [address] [place] [address], [address], 09/03/2024 19:34:08 09/04/19 25 09/03/2024 BMP, serum or plasm a anion gap 12 mmol/ L 10-22 Not Available [facility] [address] [place] [address], [id number], 09/03/2024 19:34:08 09/04/19 25 09/03/2024 BMP, serum or plasm a calcium 10.3 mg/dL 8.4-10 .4 Not Available [facility] [address] [place] [address], [id number], 09/03/2024 19:34:08 09/04/19 25 09/03/2024 BMP, serum or plasm a BUN 15 mg/dL 7-21 Not Available [facility] [address] [place] [address], [id number], 09/03/2024 19:34:08 09/04/19 25 09/03/2024 BMP, serum or plasm a creatinine 1.2 mg/dL 0.7-1. 3 Not Available [facility] [address] [place] [address], [address], 09/03/2024 19:34:08 09/04/19 25 09/03/2024 BMP, serum or plasm a CKD-epi GFR 54 low eGFR was calcu lated using the 2020 CKD-E PI equat ion. (Ambulatory Care Coordinator jose guadalupe Kidne y Disea se has an eGFR less than 60 mL/mi n/1.7 3mm for a perio d of three month s or more. ) This calcu latio n has not been valid ated for patie nt ages <18 or >90 years old. Not Available [facility] [address], [address], 09/03/2024 19:34:08 08/11/19 25 08/11/2024 elect rocar diogr am, routi ne ECG, 12 leads min No observ ation record ed. INTERFACE [facility] [address] [address], [place], [address], 08/11/2024 11:59:37 08/15/19 25 08/11/2024 elect rocar diogr am, routi ne ECG, 12 leads min No observ ation record ed. INTERFACE [facility] [address] [address], [place], [address], 08/14/2024 14:45:04 08/26/19 25 08/20/2024 stres s echoc ardio [facility] [address] [facility] [place] [address] Ph: [phone] [email or web address] Dobuta mine Echoca rdiogr am Report Name: Olivia Zimmerman Study Date: 2024 : 1969 3[birth year] Gender : Female Age: 54 yrs Height : 63 in Weight : 241 lb BSA: 2.1 m2 Orderi ng Physic fouzia: Wilian Leigh Perfor med By: Damian Negron RDCS Reason For Study: Chest Pain R07.9 Patien t Locati on: CARDIO LOGY Medica tions: See chart Interp retati on Summar y Inconc lusive stress test with chest pain with dobtut amine that resolv ed with rest and few segmen ts now seen well. Db latera l and latera l segmen ts not seen well. The patien t had chest pain during stress . Chest Pain resolv ed in recove ry. The Dobuta mine Protoc ol was used. The Ejecti on Fracti on estima te at peak dobuta mine infusi on is >70%. The left ventri cular chambe r size was decrea sed at peak stress . PROCED URE: A dobuta mine stress echoca rdiogr am was perfor med includ ing 2D, limite d Color, limite d Dopple r. Test perfor med by: Yang pina RN. Physic fouzia superv ision provid ed by: Aurelio Dixon MD. Inform ed consen t for Dobuta mine Stress Echoca rdiogr am, and use of a contra st agent as needed , was obtain ed prior to the proced ure. Echoca rdiogr aphic images were obtain ed before , during and after stress . The patien t was monito red closel y during stress and in recove ry until the heart rate and blood pressu re return ed to [facility], and then was transf erred to the [facility] room in stable condit ion. There were no compli cation s. PROTOC OL: The Dobuta mine Protoc ol was used. utamin e lot# and expira tion: Lot [id number], Exp 04/10, [facility] 23042- 203-80 -. Atr opine lot# and expira tion: Lot [id number], Exp 04/09, [facility] 50969- 1706-1 . D5W Lot [id number] , Exp 12/08, [facility] [id number] Dobuta mine 25cc Used: 8cc Wasted : 17cc. REASON FOR STOPPI NG: The test was stoppe d due to reachi ng target heartr ate. The patien t had chest pain during stress . Chest Pain resolv ed in recove ry. PARAME TERS: Test perfor med by: Yang pina RN. BLOOD PRESSU RE: [facility] ne blood pressu re was normal . ARRHYT HMIA: No signif icant ECG change s or arrhyt hmias with dobuta mine infusi on. ECG-RE ST: [facility] displa ys normal sinus rhythm . ECG-ST RESS: No diagno stic ST segmen t change s were seen. REST ECHO: The Ejecti on Fracti on estima te at rest is 55-60% . The left ventri cular global systol ic functi on is normal . The left ventri cular wall motion is normal . PEAK ECHO: The Ejecti on Fracti on estima te at peak dobuta mine infusi on is >70%. db latera l and latera l segmen ts not seen well. The left ventri cular chambe r size was decrea sed at peak stress . RECOVE RY: EKG return ed to [facility]. All sympto ms resolv ed in recove ry. ECHO CONTRA ST: 6 mL dilute d Optiso n (Perfl utren Protei n-Type A Micros pheres ) admini stered during echoca rdiogr am. 4 mL dilute d Optiso n was wasted during echoca rdiogr am. 1 vials of Optiso n (Perfl utren Protei n-Type A Micros pheres ) were used during echoca rdiogr am. Optiso n lot # [id number]. Optiso n expira tion date 026. Optiso n [facility] [id number] 1626. Stress Result s Maximu m Predic biju HR: 167 bpm Target HR: 142 bpm % Maximu m Predic biju HR: 93 % Durati on Heart Stage (mm:ss ) Rate BP Commen t (bpm) Restin g 88 132/74 10mcg/ kg/min 2:00 90 138/74 20mcg/ kg/min 2:00 86 142/88 40mcg/ kg/min 2:45 148 152/80 Atropi ne 0.3mg IVP @1459, RPP 22,496 R 1:00 156 162/94 2:00 127 158/88 2:00 107 152/80 1:00 96 / Stress Durati on: 11:45 mm:ss Recove ry Time: 1:00 mm:ss Maximu m Stress HR: 156 bpm Measur ement Normal s Electr onical ly signed by:Tonia olmos MD 2024 06:02 AM cc: Olivia Zimmerman 2024 STRESS ECHO INTERFACE [facility] [address], [place], [address], 08/25/2024 07:03:48 09/03/19 dobut amine stres s echoc ardio gram (PROC ) No observ ation record ed. BARCODE Not Available 2024 15:39:30 09/14/19 25 08/11/2024 cuong r monit or No observ ation record ed. INTERFACE [facility] [address], [place], [address], 09/13/2024 10:00:12 09/22/19 25 09/21/2024 elect felice diogr am, routi ne ECG, 12 leads min No observ ation record ed. INTERFACE [facility] [address] [address], [place], [address], 09/21/2024 06:31:19 Result Notes None recorded. Problems Name Problem SNOMED Code Status Onset Date Resolution Date Notes Provider Name and Address Organization Details Recorded Time Syncope symptom 547063411 Active [address] [facility] 5 16:25:30 Heat syncope 48799337 Active 2024 LISA PARISI PA-C [address], [place], [address], [facility] 5 11:49:04 Syncope and collapse 912383344 Active 2024 LISA PARISI PA-C [address] , [place], [address], [facility] 5 11:49:34 Palpitations 73049531 Active [address] [facility] 5 12:03:06 Chest pain 94738438 Active [address] [facility] 5 12:07:40 Difficulty walking 697329310 Active [address] [facility] 5 12:09:41 Diastolic dysfunction 9520368 Active 2024 LISA PARISI PA-C [address], [place], [address], [facility] 5 13:29:02 Mixed hyperlipidemia 513135081 Active 2024 LISA PARISI PA-C [address], [place], [address], [facility] 5 13:29:11 Syncope 183359211 Active 2024 LISA PARISI PA-C [address], [place], [address], [facility] 5 22:46:06 Essential hypertension 59110742 Active 2024 LISA PARISI PA-C [address], [place], [address], [facility] 5 22:46:16 Cardiovascular stress test abnormal 286249752 Active [address] [facility] 5 17:36:06 Problem Notes None recorded. Procedures Surgical History Date Name Laterality Status Provider Name and Address Organization Details Recorded Time Appendectomy completed Not Available Health Note 08/09/2024 20:22:42 delivery completed Not Available Health Note 08/09/2024 20:22:42 Colonoscopy with biopsy completed Not Available Health Note 08/09/2024 20:22:42 Removal of gallbladder completed Not Available Health Note 08/09/2024 20:22:42 Total hysterectomy completed Not Available Health Note 08/09/2024 20:22:42 Create eardrum opening completed Not Available Health Note 08/09/2024 20:22:42 Removal of tonsils completed Not Available Health Note 08/09/2024 20:22:42 Total knee arthroplasty completed Not Available Health Note 08/09/2024 20:22:42 Imaging Results Imaging Date Name Status LastModified by Organization Details LastModified Time 08/11/2024 electrocardiogram, routine ECG, 12 leads min completed [facility]FACE [facility] [address] [address], [place], [address], 08/11/2024 11:59:37 08/11/2024 electrocardiogram, routine ECG, 12 leads min completed INTERFACE [facility] [address] [address], [place], [address], 08/14/2024 14:45:04 08/20/2024 stress echocardiogram completed INTERFACE [facility] [address], [place], [address], 08/25/2024 07:03:48 09/02/2024 dobutamine stress echocardiogram (PROC) completed BARCODE Information not available 09/02/2024 15:39:30 08/11/2024 holter monitor completed INTERFACE [facility] [address] [facility] [place] [address], [place], [address], 09/13/2024 10:00:12 09/21/2024 electrocardiogram, routine ECG, 12 leads min completed INTERFACE [facility] [address] [address], [place], [address], 09/21/2024 06:31:19 Procedure Notes None recorded. Medical Equipment None Reported. Allergies Allergen ID Allergen Name Allergen Category Reaction Reaction Severity Criticality Documentation Date Start Date Code Code System Note Provider Name and Address Organization Details Recorded Time Substance with sulfonami de structure and antibacte rial mechanism of action (substanc e) medicatio n anaphylax is Not available Not available 07/16/20232006 08945 8003 SNOMED React ion: Anaph ylaxi s; Not Available Not Available Not Available 0366142 tetanus toxoid fluid medicatio n anaphylax is Not available Not available 07/16/20232006 72780 UNK React ion: Anaph ylaxi s; Not Available Not Available Not Available 6908367 celecoxib medicatio n anaphylax is Not available Not available 03/24/20242007 10912 7 RxNorm React ion: Anaph ylaxi s; Not Available Not Available Not Available 610594 Wellbutri n medicatio n Not available Not available Not available 07/14/20232006 89857 RxNorm Comme nt: Annot ation s: SINDE (ALEXIS) , TERRANCE 2015 3:18P M insom fabi; ; Not Available Not Available Not Available [id number] codeine medicatio n Not available Not available Not available 07/14/20232006 2670 RxNorm Not Available Not Available Not Available [id number] irbes[place] n medicatio n Not available Not available Not available 07/14/20232006 59367 RxNorm Not Available Not Available Not Available 116725 epinephri ne medicatio n Not available Not available Not available 07/14/20232007 3992 RxNorm Comme nt: Annot ation s: SINDE (ALEXIS) , TERRANCE 2015 3:19P M V FIB; ; Not Available Not Available Not Available Medications Name Sig Start Date Stop Date Status Note LastModified by Organization Details LastModified Time fluoxetine 40 mg capsule TAKE TWO CAPSULES BY MOUTH DAILY active Not Available Not Available No t Available furosemide 40 mg tablet TAKE ONE TABLET BY MOUTH DAILY active Not Available Not Available No t Available metolazone 2.5 mg tablet TAKE ONE TABLET BY MOUTH three times WEEKLY ON FRIDAY, FRIDAY , AND FRIDAY active Not Available Not Available No t Available metformin 500 mg tablet TAKE ONE TABLET BY MOUTH TWICE DAILY active Not Available Not Available No t Available tizanidine 2 mg tablet TAKE TWO TABLETS BY MOUTH AT BEDTIME NEEDED FOR MUSCLE SPASM active Not Available Not Available No t Available ondansetron HCl 4 mg tablet TAKE 1 TABLET BY MOUTH EVERY 6 HOURS NEEDED FOR NAUSEA OR VOMITING active Not Available Not Available No t Available prednisone 20 mg tablet TAKE 2 TABLETS BY MOUTH EVERY DAY FOR 5 DAYS active Not Available Not Available No t Available hydrocodone 10 mg-acetamin ophen 325 mg tablet TAKE ONE TABLET BY MOUTH EVERY 4 HOURS NEEDED FOR PAIN active Not Available Not Available No t Available spironolact one 25 mg tablet TAKE ONE TABLET BY MOUTH DAILY active Not Available Not Available No t Available cefadroxil 500 mg capsule TAKE 1 CAPSULE BY MOUTH EVERY 12 HOURS FOR 7 DAYS active Not Available Not Available No t Available warfarin 6 mg tablet Take 1 tablet every day by oral route. 09/03 completed Not Available Not Available Not Available gabapentin 800 mg tablet TAKE ONE TABLET BY MOUTH THREE TIMES DAILY active Not Available Not Available No t Available trazodone 100 mg tablet TAKE ONE TABLET BY MOUTH AT BEDTIME active Not Available Not Available No t Available hydrocodone 7.5 mg-acetamin ophen 325 mg tablet TAKE ONE TABLET BY MOUTH EVERY 4 HOURS NEEDED FOR PAIN 09/03 completed Not Available Not Available Not Available pantoprazol e 40 mg tablet,ned yed release TAKE ONE TABLET BY MOUTH EVERY MORNING active Not Available Not Available No t Available buspirone 10 mg tablet TAKE ONE TABLET BY MOUTH TWICE DAILY active Not Available Not Available No t Available warfarin 5 mg tablet TAKE ONE TABLET BY MOUTH DAILY 09/03 completed Not Available Not Available Not Available lorazepam 1 mg tablet TAKE ONE TABLET BY MOUTH DAILY NEEDED FOR ANXIETY active Not Available Not Available No t Available spironolact one 50 mg tablet TAKE ONE TABLET BY MOUTH DAILY 09/03 completed Not Available Not Available Not Available oxycodone 5 mg tablet TAKE 1 TABLET BY MOUTH EVERY 4 HOURS NEEDED FOR SEVERE PAIN FOR 5 DAYS 08/11 completed Not Available Not Available Not Available enoxaparin 40 mg/0.4 mL subcutaneou s syringe INJECT THE contents of ONE syringe SUBCUTANE OUSLY (0.4mg) ONCE DAILY STARTING THREE DAYS BEFORE surgery 08/11 completed Not Available Not Available Not Available aripiprazol e 10 mg tablet TAKE ONE TABLET BY MOUTH AT BEDTIME active Not Available Not Available No t Available sodium,pota ssium,mag sulfates 17.5 gram-3.13 gram-1.6 gram oral soln TAKE DIRECTED BY YOUR GI PROVIDER. PLEASE REFER TO YOUR PREP INSTRUCTI ON LETTER FOR INSTRUCTI ONS. 08/11 completed Not Available Not Available Not Available Eliquis 5 mg tablet TAKE ONE TABLET BY MOUTH TWICE DAILY active Not Available Not Available No t Available Farxiga 10 mg tablet TAKE ONE TABLET BY MOUTH DAILY active Not Available Not Available No t Available Dexcom G6 Sensor device CHANGE sensor EVERY 10 DAYS active Not Available Not Available No t Available Dexcom G6 Securities Lending Trader USE DIRECTED active Not Available Not Available No t Available Dexcom G6 Transmitter device CHANGE EVERY THREE MONTHS active Not Available Not Available No t Available Trulicity 3 mg/0.5 mL subcutaneou s pen injector Inject by subcutane ous route. active Not Available Not Available No t Available Trulicity 4.5 mg/0.5 mL subcutaneou s pen injector INJECT 4.5mg SUBCUTANE OUSLY ONCE WEEKLY active Not Available Not Available No t Available Vitals Date Recorded Heart rate Oxygen saturation Oxygen saturation in Arterial blood by Pulse oximetry Body weight Systolic blood pressure Diastolic blood pressure Provider Name and Address Organization Details Last Updated DateTime 5 96 /min 96 % 96 % 025682. 64 g 106 mm[Hg] 76 mm[Hg] [facility] 5 11:41:09 Date Recorded Heart rate Oxygen saturation Oxygen saturation in Arterial blood by Pulse oximetry Body weight Systolic blood pressure Diastolic blood pressure Provider Name and Address Organization Details Last Updated DateTime 5 98 /min 96 % 96 % 379660. 66 g 118 mm[Hg] 78 mm[Hg] [facility] 5 16:04:01 Social History Question Answer Notes LastModified by Organizat ion Details LastModified Time Tobacco Smoking Status Never Smoker Not Available Health Note 08/09/2024 20:22:42 Do You Have An Advance Directive? Yes 5 [email or web address] Information not available 09/21/2024 What Is Your Level Of Alcohol Consumption? Occasional [email or web address] Information not available 08/09/2024 How Many Times Per Week Do You Consume Alcohol? Less Than 1 Time Per Week [email or web address] Information not available 08/09/2024 What Is Your Level Of Caffeine Consumption? Moderate [email or web address] Information not available 08/09/2024 What Is Your Code Status? Full Code [email or web address] Information not available 08/09/2024 Are You Currently Employed? 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 Less Than 1 Time Per Week [email or web address] Information not available 08/09/2024 What Was The Date Of Your Most Recent Tobacco Screening? 08/11/2024 [email or web address] Information not available 08/09/2024 What Is Your Relationship Status? [email or web address] Information not available 08/09/2024 Do You Use Any Illicit Or Recreational Drugs? No [email or web address] Information not available 08/09/2024 Sex: Unknown Functional Status Question Answer Note LastModified by Organizat ion Details LastModified Time What is your exercise level? Occasional [email or web address] Information not available 08/09/2024 Mental Status None recorded. Family History Relationship Description Onset Age of this Age Resolved Age Notes LastModified by Organization Details LastModified Time Son Attention deficit hyperactivit y disorder [email or web address] Not available 08/09 20:22:41 Son Asthma [email or web address] Not available 20:22:41 Daughter Attention deficit hyperactivit y disorder [email or web address] Not available 08/09 20:22:41 Mother Arthritis [email or web address] Not available 08/09/2024 20:22:41 Mother Asthma [email or web address] Not available 20:22:41 Mother Hypertensive disorder [email or web address] Not available 2024 20:22:41 Mother Hypercholest erolemia [email or web address] Not available 2024 20:22:41 Mother Osteoporosis [email or web address] Not availa ble 08/09/2024 20:22:41 Mother Disorder of thyroid gland [email or web address] Not available 2024 20:22:41 Maternal Grandfather Arthritis [email or web address] Not available 07/18 20:22:41 Maternal Grandmother Arthritis [email or web address] Not available 02/2 09/2024 20:22:41 Maternal Grandmother Diabetes mellitus [email or web address] Not available 2024 20:22:41 Maternal Grandmother Heart disease [email or web address] Not available 2024 20:22:41 Maternal Grandmother Hypertensive disorder [email or web address] Not available 2024 20:22:41 Maternal Grandmother Hypercholest erolemia [email or web address] Not available 2024 20:22:41 Maternal Grandmother Kidney disease [email or web address] Not available 2024 20:22:41 Maternal Grandmother Osteoporosis [email or web address] Not available 0 08/09/2024 20:22:41 Father Family history of malignant neoplasm [email or web address] Not available 2024 20:22:41 Father Chronic obstructive pulmonary disease [email or web address] Not available 2024 20:22:41 Paternal Grandfather Heart disease [email or web address] Not available 2024 20:22:41 Paternal Grandfather Hypertensive disorder [email or web address] Not available 2024 20:22:41 Paternal Grandmother Heart disease [email or web address] Not available 2024 20:22:41 Paternal Grandmother Hypertensive disorder [email or web address] Not available 2024 20:22:41 Medical History Condition Response Diabetes Y Anxiety Disorder Y Bleeding Disorder N Attention-deficit Hyperactivity Disorder N High Blood Pressure Y Arthritis Y Hyperlipidemia N Cancer N Stroke N Thyroid Problems N Asthma Y Depression Y COPD N Anemia N Seizures N Heart Disease N Fibromyalgia Y Osteoporosis N Kidney Disease N Gynecological HistoryNo gynecological history recorded. Obstetrics History GPAL:G 0 P 0 0 0 0 Past Encounters Encounter ID Performer Location Encounter Start Date Encounter Closed Date Diagnosis/Indication Diagnosis SNOMED-CT Code Diagnosis ICD10 Code Diagnosis Note [id number] WILIAN AMARO MD [address] [facility] [facility] ([place]) [address] [place] [address] 08/11/2024 10:42:30 08/11/2024 13:59:23 Syncope and collapse 929529542 R55 Diastolic dysfunction 35 99757 I51.89 Mixed hyperlipidemia 267 538622 E78.2 [id number] WILIAN AMARO MD [address] [facility] ([place]) [address] [place] [address] 09/03/2024 15:07:10 09/03/2024 16:48:16 Diastolic dysfunction 4237793 I51.89 Syncope 065208002 R55 Chest pain 75903216 R07. 9 Essential hypertension 83260553 I10 Mixed hyperlipidemia 267 862106 E78.2 [id number] WILIAN AMARO MD [facility] ([place]) [address] [place] [address], [address] Floor [facility] [place] VILLALBA [address] 09/21/2024 06:00:28 09/21/2024 07:05:41 Health Concerns Section Related Observation LastModified by Organization Detai ls LastModified Time None Recorded Concern Status LastModified by Organization Details LastModified Time None Recorded Advance Directives Directive Y: 09/21/2024 Payers Encounter Date Sequence Insurance Name Policy Number Policy Larkin Covered Member ID Larkin Member ID Guarantor Name 08/11/2024 1 [place] [id number] Israel Fernandez [id number] Olivia Fernandez 08/11/2024 2 [place] [facility] Olivia Fernandez [id number] Olivia Fernandez 09/03/2024 1 [place] [id number] Israel Fernandez [id number] Olivia Fernandez 09/03/2024 2 [place] [facility] Olivia Fernandez [id number] Olivia Fernandez 09/21/2024 1 [place] [id number] Israel Fernandez [id number] Olivia Fernandez 09/21/2024 2 [place] [facility] Olivia Fernandez [id number] Olivia Fernandez OBGyn Episode No OBEpisode recorded.
--- OUTSIDE RECORDS SUMMARY | 2024-09-23 09:43 | XMS_ITS | Encounter Summary ---
Author Organization [facility] Address [address] [place] [address] Care Team Providers Care Customer Success Associate Name Role Phone Scar Maxwell MD Primary Care Provider [phone] Mohan Choudhary MD Unavailable Unavailab Laith Young MD Unavailable Trevor Hayes MD Unavailable [phone] New Referring, Provider Primary Care Provider Un available Earnest Jason DO Primary Care Provider [phone] Encounter Details Date Type Department Care Team (Late st Contact Info) Description 08/30/2017 Abstract [facility] CONVERSION [address] [place] [address] , Generic Conversion, Social History Tobacco Use Types Packs/Day Years Used Date Smoking Tobacco: Never Smokeless Tobacco: Never Alcohol Use Standard Drinks/Week Comments No 0 (1 standard drink = 0.6 oz pur e alcohol) Comments Unknown Sex and Gender Information Value Date Recorded [...] on file documented as of this encounter Plan of Treatment Not on file documented as of this encounter Visit Diagnoses Not on filedocumented in this encounter Additional Health Concerns Infection Onset Date Last Indicated Resolved Time MRSA 05/04/2017 05/04/2017 COVID-19 Rule Out 06/02/2022 06/02/2022 06/02/2022 6:13 PM COMPLIANCE ADMINISTRATOR RSV 06/02/2022 06/02/2022 06/12/2022 12:3 3 AM COMPLIANCE ADMINISTRATOR COVID-19 Rule Out 06/12/2022 06/12/2022 06/12/2022 8:35 PM COMPLIANCE ADMINISTRATOR RSV 06/12/2022 06/12/2022 06/22/2022 12:3 2 AM COMPLIANCE ADMINISTRATOR documented as of this encounter Care Teams Customer Success Associate Relationship Specialty Start Date End Date Scar Maxwell MD [address] [place] [address] PCP - General FAMILY PRACTICE 07/16/17 11/28/21 New Referring, Provider PCP - General UNKNOWN PHYSICIAN SPECIALTY 11/29/21 06/04/22 Earnest Jason DO [address] [place] [address] PCP - General FAMILY PRACTICE 06/05/22 Mohan Choudhary MD [address] [place] [address] Quality Technician [employer]erg[employer] CARDIOVASCULAR DISEASE 07/16/17 07/01/19 Laith Smith MD [address] [place] [address] Vascular/Quality Technician [employer] INTERNAL MEDICINE 08/08/17 Trevor Hayes MD [address] [place] [address] Consulting Physician CARDIOVASCULAR DISEASE 07/02/19 documented as of this encounter
--- OUTSIDE RECORDS SUMMARY | 2024-09-23 09:43 | XMS_ITS | Clinical Summary ---
Author Organization [facility] Address [address] [place] [address] Care Team Providers Care Commercial Correspondent Name Role Phone Laith Smith MD Unavailable Trevor Hayes MD Unavailable [phone] Earnest Jason DO Primary Care Provider [phone] Allergies Active Allergy Reactions Criticality Noted Date Comments Bupropion Other (see comment) Low 05/04/2013 sleeplessness Celecoxib Anaphylaxis High 05/04/2013 Epinephrine Other (see comment) High 05/04/2013 V-fib Ibuprofen Rash,GI Upset Low 08/11/2017 Sulfa Antibiotics Anaphylaxis,Rash High 04/09/2015 Sulfamethazine Anaphylaxis,Rash High 05/04/2013 Tetanus Toxoid Other (see comment) High 05/04/2013 Severe Muscle Atrophy Medications * This document contains information received from the source organization and may not represent a complete record from that organization. VENTOLIN HFA 108 (90 Base) MCG/ACT inhaler Inhale 2 puffs into the lungs as needed for Wheezing. 3 8 Active fluoxetine 40 MG capsule Take 80 mg by mouth daily. Active magnesium oxide 400 MG tablet Take 400 mg by mouth 2 (two) times daily. Active pantoprazole EC 40 MG tabletIndicatio ns:Gastroesopha geal reflux disease without esophagitis Take 1 tablet (40 mg total) by mouth daily. 30 tablet 1 Active ARIPiprazole 10 MG tablet Take 10 mg by mouth nightly at bedtime. 2 Active busPIRone 10 MG tablet Take 10 mg by mouth 3 (three) times daily. 2 Active TRULICITY 1.5 MG/0.5ML Solution Pen-injector Inject 1.5 mg into the skin once a week. 2 Active gabapentin 800 MG tablet Take 800 mg by mouth 3 (three) times daily. 2 Active HYDROcodone-jamil taminophen 5-325 MG tablet Take 1 tablet by mouth 2 (two) times daily as needed. 2 Active hydrOXYzine 25 MG tablet Take 25 mg by mouth 3 (three) times daily as needed. 2 Active BASAGLAR KWIKPEN 100 UNIT/ML injection (PEN) INJECT 50 UNITS SUBCUTANEOUS EVERY MORNING AND 25 UNITS EVERY NIGHT AT BEDTIME. MAX DAILY DOSE OF 90 UNITS 2 Active metOLazone 2.5 MG tablet Take 25 mg by mouth 3 (three) times a week. 2 Active SAVELLA 12.5 MG tablet Take 12.5 mg by mouth daily. 2 Active montelukast 10 MG tablet Take 10 mg by mouth daily. 2 Active potassium chloride CR 20 MEQ Tab CR tablet Take 1 tablet by mouth nightly at bedtime. at bedtime. 2 Active propranolol LA 120 MG 24 hr capsule Take 120 mg by mouth daily. 2 Active XARELTO 20 MG Tab tablet Take 20 mg by mouth daily. 2 Active traZODone 50 MG tablet Take 100 mg by mouth nightly at bedtime. 2 Active furosemide 40 MG tablet Take 40 mg by mouth 2 (two) times daily. 2 Active spironolactone 50 MG tablet Take 50 mg by mouth daily. 2 Active apixaban (ELIQUIS) 5 MG tabletIndicatio ns:Deep Vein Thrombosis,Hist ory of Pulmonary Embolism Take 1 tablet (5 mg total) by mouth 2 (two) times daily. Indications: Blood Clot in a Deep Vein, History of Pulmonary Embolism 60 tablet 2 2 Active Active Problems Problem Noted Date Diagnosed Date Osteoarthritis of right knee , unspecified osteoarthritis type 05/04/2024 Hypoxia 06/12/2022 Pneumonia 06/03/2022 Spondylolisthesis of lumbar region 02/09/2019 Chest pain 10/29/2018 Acute diastolic heart failure ([facility]) 10/29/2018 Hematuria 10/27/2018 Sepsis ([facility]) 08/19/2018 Hypertensive heart disease without heart failure 08/06/2017 Other pulmonary embolism wit hout acute cor pulmonale, unspecified chronicity 08/06/2017 Deep vein thrombosis (DVT) o f lower extremity, unspecified chronicity, unspecified laterality, unspecified vein 08/06/2017 Hyperlipidemia, mixed 08/06/2017 Essential (primary) hypertension 08/06/2017 Encounters Date Type Department Care Team Description 07/01/2024 Telephone [facility] [address] [place] [address] Elie Pool, PT Fax Documentation (PT Discharge Report signed by Mila Sanchez MD) from Last 3 Months Family History Medical History Relation Comments Heart Attack Father Heart Attack Maternal Grandfather Stroke Maternal Grandfather Heart Attack Maternal Grandmother Open Heart Maternal Grandmother Stroke Maternal Grandmother Valve Disease Maternal Grandmother Hypertension Mother Heart Attack Paternal Grandfather Open Heart Paternal Grandfather Stroke Paternal Grandfather Valve Disease Paternal Grandfather Heart Attack Paternal Grandmother Open Heart Paternal Grandmother Stroke Paternal Grandmother Valve Disease Paternal Grandmother Relation Status Comments Father DVT Maternal Grandfather Maternal Grandmother Mother Paternal Grandfather Paternal Grandmother Social History Tobacco Use Types Packs/Day Years Used Date Smoking Tobacco: Never Smokeless Tobacco: Never Alcohol Use Standard Drinks/Week Comments Yes 0 (1 standard drink = 0.6 oz pure alcohol) VERY RARELY, ONCE EVERY SIX MONTHS Comments No Sex and Gender Information Value [...] file Not on file Not on file Last Filed Vital Signs Vital Sign Reading Time Taken Comments Blood Pressure 83/48 06/14/2022 7:57 AM DIGITAL MARKETING LEAD Pulse 76 06/14/2022 7:57 AM DIGITAL MARKETING LEAD Temperature 36.4 C (97.5 F) 06/14/2022 7:57 AM DIGITAL MARKETING LEAD Respiratory Rate 18 06/14/2022 7:57 AM DIGITAL MARKETING LEAD Oxygen Saturation 97% 06/14/2022 7:57 AM DIGITAL MARKETING LEAD Inhaled Oxygen Concentration - - Weight 128 kg (282 lb 3 oz) 06/12/2022 6:[address] Height 160 cm (5' 3 ) 06/12/2022 6:40 PM DIGITAL MARKETING LEAD Body Mass Index 49.99 06/12/2022 6:40 PM DIGITAL MARKETING LEAD Plan of Treatment Health Maintenance Due Date Last Done Comments Colorectal Cancer Screening Colonoscopy (10 Years) 1971 Annual Physical 1974 DTaP, Tdap and Td Vaccines ( 1 - Tdap) 1990 Hepatitis B Vaccines (1 of 3 - 19+ 3-dose series) 1990 Mammogram Screening 2011 Pneumococcal Vaccine: Pediatrics (0 to 5 Years) and At-Risk Patients (6 to 64 Years) (2 of 2 - PCV) 04/27/2017 04/27/2016 Zoster Vaccines (1 of 2) 2021 COVID-19 Vaccine (3 - 2023-2 5 season) 2024 02/26/2021, 12/26/2020 Hepatitis C Completed 08/21/2018 Meningococcal B Vaccine Aged Out No l onger eligible based on patient's age to complete this topic Meningococcal Vaccine Aged Out No sandro yudelka eligible based on patient's age to complete this topic RSV Immunizations Under 20 Months Aged Out No longer eligible b ased on patient's age to complete this topic Goals Goal Patient Goal Type Associated Problems Recent Progress Patient-Stated? 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 HEP B CORE IGM NON-REACT SABRA NON-REACT SABRA 08/25/2018 1:05 PM CDT [facility] Comment: IgM ANTI HBc NOT DETECTED. DOES NOT EXCLUDE THE POSSIBILITY OF EXPOSURE TO OR INFECTION WITH HBV. NO RETEST REQUIRED. HIGH DOSES OF BIOTIN MAY INTERFERE WITH THIS TEST RESULT. CORRELATION TO CLINICAL HISTORY AND PRESENTATION RECOMMENDED. HAV IGM NON-REACT SABRA NON-REACT SABRA 08/25/2018 1:05 PM CDT [facility] Comment: IgM ANTI HAV NOT DETECTED. DOES NOT EXCLUDE THE POSSIBILITY OF EXPOSURE TO OR INFECTION WITH HAV. LEVELS OF IgM ANTI HAV MAY BE BELOW THE CUTOFF IN EARLY INFECTION. HEPATITIS C AB NON-REACT SABRA NON-REACT SABRA 08/25/2018 1:05 PM CDT [facility] Comment: ANTIBODIES TO HCV NOT DETECTED. DOES NOT EXCLUDE THE POSSIBILITY OF EXPOSURE TO HCV. 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 Advance Directives and Living Will 11/29/2021 5:28 PM 11/08/18 [place] [employer] [employer] FORM POWER OF ATOMIC WELDER FOR HEALTH CARE * Full Code (Latest Code Status on File) Date Activated Date Inactivated Comments 06/12/2022 9:26 PM 06/14/2022 8:52 PM * Full Code Date Activated Date Inactivated Comments 06/03/2022 12:18 AM 06/05/2022 3:17 PM * Full Code Date Activated Date Inactivated Comments 02/10/2019 12:38 AM 02/12/2019 8:52 PM * Full Code Date Activated Date Inactivated Comments 11/07/2018 6:12 PM 11/11/2018 7:31 PM * Full Code Date Activated Date Inactivated Comments 10/27/2018 11:24 PM 11/02/2018 6:48 PM Care Teams Commercial Correspondent Relationship Specialty Start Date End Date Earnest Jason DO [address] [place] [address] PCP - General FAMILY PRACTICE 06/05/22 Laith Smith MD Vascular/Inspector [employer] INTERNAL MEDICINE 08/08/17 Trevor Hayes MD [address] [place] [address] Consulting Physician CARDIOVASCULAR DISEASE 07/02/19
--- OUTSIDE RECORDS SUMMARY | 2024-09-23 09:43 | XMS_ITS | Encounter Summary ---
Author Organization [facility] Address [address] [place] [address] Phone Care Team Providers Care Customs Inspector Name Role Phone Damien Hernandez MD Primary Care Provider [phone] Monique Almendarez MD Unavailable Juan Manuel Yun MD Unavailable [phone] Juan Manuel Yun MD Unavailable [phone] Wilian Joe MD Unavailable [phone] Encounter Details Date Type Department Care Team (Late st Contact Info) Description 10/23/2020 Telephone [facility] G[facility] 8th [place] [address] [place] [address] Dianne Andrade CMA Social History Tobacco Use Types Packs/Day Years Used Date Smoking Tobacco: Never Smokeless Tobacco: Never Alcohol Use Standard Drinks/Week Comments No 0 (1 standard drink = 0.6 oz pur e alcohol) Comments No Sex and Gender Information Value Date Recorded Sex Assigned at Not on file Legal Sex Female 4:21 AM BIOLOGY LECTURER Gender Identity Not on file Sexual Orientation Not on file documented as of this encounter Plan of Treatment Not on file documented as of this encounter Visit Diagnoses Not on filedocumented in this encounter Care Teams Customs Inspector Relationship Specialty Start Date End Date Damien Hernandez MD PCP - General Internal Medicine 10/02/20 Monique Almendarez MD Referring Physician Endocrinology Diabetes & Metabolism 10/26/20 Juan Manuel Yun MD [address] [place] [address] Consulting Physician Hand Surgery 10/26/20 10/26/20 Juan Manuel Yun MD [address] [place] [address] Consulting Physician Cardiology 10/26/20 Wilian Joe MD [address] [place] [address] [place] [address] Consulting Physician Interventional Cardiology 01/21/21 documented as of this encounter
--- OUTSIDE RECORDS SUMMARY | 2024-09-23 09:43 | XMS_ITS | Encounter Summary ---
Author Organization [facility] Address [address] [place] [address] Care Team Providers Care Print Production Coordinator Name Role Phone Laith Smith MD Unavailable Trevor Hayes MD Unavailable [phone] Earnest Jason DO Primary Care Provider [phone] Encounter Details Date Type Department Care Team (Late st Contact Info) Description 06/06/2022 Hospital Follow-up Call [place] [address] [place] [address] Maria R Pickens RN Social History Tobacco Use Types Packs/Day [...] file Not on file Not on file COVID-19 Exposure Response Date Recorded In the last 10 days, have yo u been in contact with someone who was confirmed or suspected to have Coronavirus/COVID-19? No / Unsure 06/02/2022 4:16 PM DISTRICT WIRE CHIEF documented as of this encounter Functional Status * RETIRED Are you deaf or do you have serious difficulty hearing Answer Date of Assessment Author Status No 06/03/2022 2:00 AM DISTRICT WIRE CHIEF Activ e * RETIRED Are you blind or do you have serious difficulty seeing, even when wearing glasses? Answer Date of Assessment Author Status No 06/03/2022 2:00 AM DISTRICT WIRE CHIEF Activ e * Do you have serious difficulty walking or climbing stairs? Answer Date of Assessment Author Status No 06/03/2022 2:00 AM Kurtis Schneider RN A ctive * Do you have difficulty dressing or bathing? Answer Date of Assessment Author Status No 06/03/2022 2:00 AM Kurtis Schneider RN A ctive * Because of a physical, mental, or emotional condition, do you have difficulty doing errands alone such as visiting a doctor's office or shopping? Answer Date of Assessment Author Status No 06/03/2022 2:00 AM Kurtis Schneider RN A ctive documented as of this encounter Mental Status * Because of a physical, mental, or emotional condition, do you have serious difficulty concentrating, remembering, or making decisions? Answer Entry Date Author Status No 06/03/2022 2:00 AM DISTRICT WIRE CHIEF Kurtis Greer RN A ctive documented in this encounter Plan of Treatment Not on file documented as of this encounter Visit Diagnoses Not on filedocumented in this encounter Additional Health Concerns Infection Onset Date Last Indicated Resolved Time MRSA 05/04/2017 05/04/2017 RSV 06/02/2022 06/02/2022 06/12/2022 12:3 3 AM DISTRICT WIRE CHIEF COVID-19 Rule Out 06/12/2022 06/12/2022 06/12/2022 8:35 PM DISTRICT WIRE CHIEF RSV 06/12/2022 06/12/2022 06/22/2022 12:3 2 AM DISTRICT WIRE CHIEF documented as of this encounter Care Teams Print Production Coordinator Relationship Specialty Start Date End Date Earnest Jason DO [address] [place] [address] PCP - General FAMILY PRACTICE 06/05/22 Laith Smith MD Vascular/Private Tutors And Teachers INTERNAL MEDICINE 08/08/17 Trevor Hayes MD [address] [place] [address] Consulting Physician CARDIOVASCULAR DISEASE 07/02/19 documented as of this encounter
--- OUTSIDE RECORDS SUMMARY | 2024-09-23 09:43 | XMS_ITS | Encounter Summary ---
Author Organization [facility] Address [address] [place] [address] Care Team Providers Care Delinquent Tax Collection Assistant Name Role Phone Scar Maxwell MD Primary Care Provider Mohan Choudhary MD Unavailable Unavailab Laith Young MD Unavailable Trevor Hayes MD Unavailable [phone] New Referring, Provider Primary Care Provider Un available Earnest Jason DO Primary Care Provider [phone] Encounter Details Date Type Department Care Team (Late st Contact Info) Description 07/22/2017 Abstract [facility] [address] [place] [address] Mohan Choudhary MD Social History Tobacco Use Types Packs/Day Years Used Date Smoking Tobacco: Never Comments Unknown Sex and Gender Information Value Date Recorded Sex Assigned at Female 10/27/2018 10:02 PM CDT Legal Sex Female 9:17 PM CDT Gender Identity Female 10/27/2018 10:02 PM CDT Sexual Orientation Straight 10/27/2018 10 :02 PM CDT documented as of this encounter Plan of Treatment Not on file documented as of this encounter Visit Diagnoses Not on filedocumented in this encounter Additional Health Concerns Infection Onset Date Last Indicated Resolved Time MRSA 05/04/2017 05/04/2017 COVID-19 Rule Out 06/02/2022 06/02/2022 06/02/2022 6:13 PM ACTUARIAL SCIENCE PROFESSOR RSV 06/02/2022 06/02/2022 06/12/2022 12:3 3 AM ACTUARIAL SCIENCE PROFESSOR COVID-19 Rule Out 06/12/2022 06/12/2022 06/12/2022 8:35 PM ACTUARIAL SCIENCE PROFESSOR RSV 06/12/2022 06/12/2022 06/22/2022 12:3 2 AM ACTUARIAL SCIENCE PROFESSOR documented as of this encounter Care Teams Delinquent Tax Collection Assistant Relationship Specialty Start Date End Date Scar Maxwell MD [address] [place] [address] PCP - General FAMILY PRACTICE 07/16/17 11/28/21 New Referring, Provider PCP - General UNKNOWN PHYSICIAN SPECIALTY 11/29/21 06/04/22 Earnest Jason DO [address] [place] [address] PCP - General FAMILY PRACTICE 06/05/22 Mohan Choudhary MD [address] [place] [id number] [place] [address] Professor Of Rhetoric CARDIOVASCULAR DISEASE 07/16/17 07/01/19 Laith Smith MD [address] [place] [address] Vascular/Professor Of Rhetoric INTERNAL MEDICINE 08/08/17 Trevor Hayes MD [address] [place] [address] Consulting Physician CARDIOVASCULAR DISEASE 07/02/19 documented as of this encounter
== END 2024-09-23 09:21 | disposition home or self-care (01) ==
LOC: CHSIMG 09:22
PROVIDERS: PCP Family Medicine; Visit Provider Family Medicine
DX: M54.16 Radiculopathy, lumbar region (principal); M79.675 Pain in left toe(s); G89.29 Other chronic pain; M43.06 Spondylolysis, lumbar region
CPT/HCPCS: 72100; 73660

== ENCOUNTER 2024-10-05 14:29 | Outpatient (CLI) | payer BC, MEDICAID, SELFPAY ==
[2024-10-05 15:03] LABS: Uric Acid 5.4 mg/dL (2.6-6.0)
--- OUTSIDE RECORDS SUMMARY | 2024-10-05 16:45 | XMS_ITS | Encounter Summary ---
Author Organization [facility] Address [facility] [place] [address] Care Team Providers Care Manager Shipping Name Role Phone Scar Maxwell MD Primary Care Provider [phone] Mohan Choudhary MD Unavailable Unavailab Laith Young MD Unavailable Trevor Hayes MD Unavailable [phone] New Referring, Provider Primary Care Provider Un available Earnest Jason DO Primary Care Provider [phone] Reason for Visit * Reason Onset Date Comments Follow Up Call 11/13/2018 Encounter Details Date Type Department Care Team (Late st Contact Info) Description 11/13/2018 Patient Outreach [facility] [address] [place] [address] Yamile Porter RN Follow Up Call Social [...] Rule Out 06/02/2022 06/02/2022 06/02/2022 6:13 PM TOP LIFT TRIMMER RSV 06/02/2022 06/02/2022 06/12/2022 12:3 3 AM TOP LIFT TRIMMER COVID-19 Rule Out 06/12/2022 06/12/2022 06/12/2022 8:35 PM TOP LIFT TRIMMER RSV 06/12/2022 06/12/2022 06/22/2022 12:3 2 AM TOP LIFT TRIMMER documented as of this encounter Care Teams Manager Shipping Relationship Specialty Start Date End Date Scar Maxwell MD [address] [place] [address] PCP - General FAMILY PRACTICE 07/16/17 11/28/21 New Referring, Provider PCP - General UNKNOWN PHYSICIAN SPECIALTY 11/29/21 06/04/22 Earnest Jason DO [address] [place] [address] PCP - General FAMILY PRACTICE 06/05/22 Mohan Choudhary MD [facility] [address] Surgical Technology Instructor CARDIOVASCULAR DISEASE 07/16/17 07/01/19 Laith Smith MD [facility] [place] [address] Vascular/Surgical Technology Instructor INTERNAL MEDICINE 08/08/17 Trevor Hayes MD [address] [place] [address] Consulting Physician CARDIOVASCULAR DISEASE 07/02/19 documented as of this encounter
--- OUTSIDE RECORDS SUMMARY | 2024-10-05 16:45 | XMS_ITS | Clinical Summary ---
Author Organization [facility] Address [address] [place] [address] Care Team Providers Care Shuttle Hand Name Role Phone Damien Hernandez MD Primary Care Provider [phone] Monique Almendarez MD Unavailable Juan Manuel Yun [...] Min Prior to procedure , Must have Delinquent Notice Machine Operator Take 1 tablet (10 mg total) by mouth once for 1 dose Take 30 minutes before procedure and must have a regional tanker truck driver. 1 tablet 09/05/19 22 Active blood glucose diagnostic (OneTouch Ultra Blue Test Strip) stripIndications: Type 2 diabetes mellitus with hyperglycemia, without long-term current use of insulin ([facility]) Use to test blood sugar before meals 270 each 2 09/21/19 22 Active blood-glucose sensor (Dexcom G6 Sensor) deviceIndications :Type 2 diabetes mellitus with hyperglycemia, without long-term current use of insulin ([facility]) Will use 1 sensor every 10 days. 1 box = 3 sensors. 3 each 11 11/09/19 22 Active blood-glucose transmitter (Dexcom G6 Transmitter) deviceIndications :Type 2 diabetes mellitus with hyperglycemia, without long-term current use of insulin ([facility]) Will use 1 transmitter every 90 [...] 02/27/20 22 Active blood-glucose meter,continuous (Dexcom G6 Gis Analyst Developer) miscIndications:T ype 2 diabetes mellitus with hyperglycemia, without long-term current use of insulin (HCC) 1 Dexcom G6 Gis Analyst Developer 1 each 08/21/19 23 Active Active Problems [...] (12/22/2020): Added automatically from request for surgery [id number] Vitamin D deficiency 06/16/2020 Has immunity to COVID-19 virus 06/16/2020 Overview (08/03/2021): Pfizer vaccine 02/26/2021, 12/26/2020 Assessment & Plan (12/18/2021 8:13 AM CDT): Fully vaccinated, eligible for booster. Assessment & Plan (09/17/2021 10:49 AM CDT): Pfizer vaccine x 2; qualifies for booster Assessment & Plan (08/03/2021 1:43 PM TRIM CARPENTER): Pfizer vaccine 02/26/2021, 12/26/2020. May be due for booster in the near future Spondylolisthesis of lumbar region 02/09/2019 Palpitations 11/20/2018 Acute diastolic heart failure 10/29/2018 Chest pain 10/29/2018 Hematuria 10/27/2018 Sepsis 08/19/2018 Hypotension 08/09/2018 Assessment & Plan (08/09/2018 9:30 AM TRIM CARPENTER): Likely 2/2 double dosing on patient's BP [...] 08/09/2018 Assessment & Plan (08/09/2018 9:28 AM TRIM CARPENTER): Could possibly have stress incontinence vs. OAB. [...] 08/08/2018 Assessment & Plan (08/09/2018 9:29 AM TRIM CARPENTER): Acute on chronic 2/2 DDD vs malingering. [...] prn. Assessment & Plan (08/08/2018 1:31 PM TRIM CARPENTER): Acute on chronic with reports of saddle [...] hypoglycemia Assessment & Plan (08/09/2018 9:30 AM TRIM CARPENTER): -hold lisinopril, metoprolol, lasix, spironolactone. Restart tomorrow. Assessment & Plan (08/08/2018 1:32 PM TRIM CARPENTER): Euvolemic on exam. -continue lisinopril, metoprolol, lasix, spironolactone. Type 2 diabetes mellitus with hyperglycemia ([facility]) 08/08/2018 Overview (10/30/2020): October 2020: C-peptide [...] diabetes Assessment & Plan (08/09/2018 9:14 AM TRIM CARPENTER): BG 213 this AM. -Restart metformin -continue Trulicity Qweek Assessment & Plan (08/08/2018 1:37 PM TRIM CARPENTER): BG as high as 397 in the ED. BMP stable. Takes Metformin bid and Trulicity Qweek. States last A1c was 8.0. She was given a dose of metformin in the ED. -Hold metformin -SSI Convulsions 09/22/2017 Deep vein thrombosis (DVT) (CMS/HCC) 08/06/2017 Assessment & Plan (08/09/2018 9:14 AM TRIM CARPENTER): W/ hx of PE currently on coumadin 10mg daily. INR therapeutic. -continue coumadin 10mg daily. Assessment & Plan (08/08/2018 1:38 PM TRIM CARPENTER): W/ hx of PE currently on coumadin 10mg daily. INR therapeutic. -No surgical plans, so will continue coumadin 10mg daily. Essential (primary) hypertension 08/06/2017 Assessment & Plan (08/08/2018 1:39 PM TRIM CARPENTER): BP stable. -continue lisinopril, metoprolol, lasix Hyperlipidemia, [...] (10/23/2020): Added automatically from request for surgery [id number] Immunizations Immunization Administration Dates Next Due Influenza, [...] Mother Abdiaziz Cancer Mother Abdiaziz Hypertension Mother Abdiaziz Obesity Mother Abdiaziz Thyroid disease Mother Abdiaziz [...] on file Legal Sex Female 4:21 AM TRIM CARPENTER Gender Identity Not on file Sexual Orientation [...] (305 lb 6.4 oz) 04/27/2021 8:51 AM TRIM CARPENTER Height 160 cm (5' 3 ) 04/27/2021 8:51 AM TRIM CARPENTER Body Mass Index 54.1 04/27/2021 8:51 AM TRIM CARPENTER Plan of Treatment Health Maintenance Due Date [...] LAB BLOOD ORDERABL ES Final Result [facility] [address] [facility] [place] [address] * POCT hemoglobin A1c (10/26/2020 2:32 PM CDT) Hemoglobin A1C, POC 8.2 Blood specimen (specimen) 10/26/2020 2:32 PM CDT Monique Almendarez MD POINT OF CARE TEST ORDERABL ES Final Result from Last 3 Months or Most Recently Relevant to Health Maintenance Insurance AETNA [facility] HMO [facility] CHOICE PLUS [facility] HMO/PPO Address: [address] [address] [place] [address] [facility]NA [facility] AETNA Advance Directives For more information, please contact: [phone] * Full Code (Latest Code Status on File) Date Activated Date Inactivated Comments 01/17/2021 7:49 PM 01/21/2021 9:44 PM * Full Code Date Activated Date Inactivated Comments 11/20/2018 6:22 PM 11/22/2018 2:19 AM * Full Code Date Activated Date Inactivated Comments 08/08/2018 12:20 PM 08/09/2018 4:03 PM Care Teams Shuttle Hand Relationship Specialty Start Date End Date Damien Hernandez MD PCP - General Internal Medicine 10/02/20 Monique Almendarez MD Referring Physician Endocrinology Diabetes & Metabolism 10/26/20 Juan Manuel Yun MD [address] [place] [address] Consulting Physician Cardiology 10/26/20 Wilian Joe MD [address] [place] [address] [place] [address] Consulting Physician Interventional Cardiology 01/21/21
--- OUTSIDE RECORDS SUMMARY | 2024-10-05 16:45 | XMS_ITS | Referral Summary ---
Author Organization [facility] Healthcare Address [address] [place] [address] Care Team Providers Care Senior Credit Officer Name Role Phone Damien Hernandez MD Primary Care Provider [phone] Monique Almendarez MD Unavailable Juan Manuel Yun [...] Min Prior to procedure , Must have Cardiographer Take 1 tablet (10 mg total) by mouth once for 1 dose Take 30 minutes before procedure and must have a catshovel driver. 1 tablet 09/05/19 22 Active blood glucose diagnostic (OneTouch Ultra Blue Test Strip) stripIndications: Type 2 diabetes mellitus with hyperglycemia, without long-term current use of insulin ([facility]) Use to test blood sugar before meals 270 each 2 09/21/19 22 Active blood-glucose sensor (Dexcom G6 Sensor) deviceIndications :Type 2 diabetes mellitus with hyperglycemia, without long-term current use of insulin ([facility]) Will use 1 sensor every 10 days. 1 box = 3 sensors. 3 each 11 11/09/19 22 Active blood-glucose transmitter (Dexcom G6 Transmitter) deviceIndications :Type 2 diabetes mellitus with hyperglycemia, without long-term current use of insulin ([facility]) Will use 1 transmitter every 90 days [...] 02/27/20 22 Active blood-glucose meter,continuous (Dexcom G6 General Operations Agent) miscIndications:T ype 2 diabetes mellitus with hyperglycemia, without long-term current use of insulin (HCC) 1 Dexcom G6 General Operations Agent 1 each 08/21/19 23 Active Active Problems [...] (12/22/2020): Added automatically from request for surgery [id number] Vitamin D deficiency 06/16/2020 Has immunity to COVID-19 virus 06/16/2020 Overview (08/03/2021): Pfizer vaccine 02/26/2021, 12/26/2020 Assessment & Plan (12/18/2021 8:13 AM CDT): Fully vaccinated, eligible for booster. Assessment & Plan (09/17/2021 10:49 AM CDT): Pfizer vaccine x 2; qualifies for booster Assessment & Plan (08/03/2021 1:43 PM SINGEING TORCH OPERATOR): Pfizer vaccine 02/26/2021, 12/26/2020. May be due for booster in the near future Spondylolisthesis of lumbar region 02/09/2019 Palpitations 11/20/2018 Acute diastolic heart failure 10/29/2018 Chest pain 10/29/2018 Hematuria 10/27/2018 Sepsis 08/19/2018 Hypotension 08/09/2018 Assessment & Plan (08/09/2018 9:30 AM SINGEING TORCH OPERATOR): Likely 2/2 double dosing on patient's BP [...] 08/09/2018 Assessment & Plan (08/09/2018 9:28 AM SINGEING TORCH OPERATOR): Could possibly have stress incontinence vs. OAB. [...] 08/08/2018 Assessment & Plan (08/09/2018 9:29 AM SINGEING TORCH OPERATOR): Acute on chronic 2/2 DDD vs malingering. [...] prn. Assessment & Plan (08/08/2018 1:31 PM SINGEING TORCH OPERATOR): Acute on chronic with reports of saddle [...] hypoglycemia Assessment & Plan (08/09/2018 9:30 AM SINGEING TORCH OPERATOR): -hold lisinopril, metoprolol, lasix, spironolactone. Restart tomorrow. Assessment & Plan (08/08/2018 1:32 PM SINGEING TORCH OPERATOR): Euvolemic on exam. -continue lisinopril, metoprolol, lasix, spironolactone. Type 2 diabetes mellitus with hyperglycemia ([facility]) 08/08/2018 Overview (10/30/2020): October 2020: C-peptide 5.5; [...] diabetes Assessment & Plan (08/09/2018 9:14 AM SINGEING TORCH OPERATOR): BG 213 this AM. -Restart metformin -continue Trulicity Qweek Assessment & Plan (08/08/2018 1:37 PM SINGEING TORCH OPERATOR): BG as high as 397 in the ED. BMP stable. Takes Metformin bid and Trulicity Qweek. States last A1c was 8.0. She was given a dose of metformin in the ED. -Hold metformin -SSI Convulsions 09/22/2017 Deep vein thrombosis (DVT) (CMS/HCC) 08/06/2017 Assessment & Plan (08/09/2018 9:14 AM SINGEING TORCH OPERATOR): W/ hx of PE currently on coumadin 10mg daily. INR therapeutic. -continue coumadin 10mg daily. Assessment & Plan (08/08/2018 1:38 PM SINGEING TORCH OPERATOR): W/ hx of PE currently on coumadin 10mg daily. INR therapeutic. -No surgical plans, so will continue coumadin 10mg daily. Essential (primary) hypertension 08/06/2017 Assessment & Plan (08/08/2018 1:39 PM SINGEING TORCH OPERATOR): BP stable. -continue lisinopril, metoprolol, lasix Hyperlipidemia, [...] (10/23/2020): Added automatically from request for surgery [id number] Immunizations Immunization Administration Dates Next Due Influenza, [...] on file Legal Sex Female 4:21 AM SINGEING TORCH OPERATOR Gender Identity Not on file Sexual Orientation [...] (305 lb 6.4 oz) 04/27/2021 8:51 AM SINGEING TORCH OPERATOR Height 160 cm (5' 3 ) 04/27/2021 8:51 AM SINGEING TORCH OPERATOR Body Mass Index 54.1 04/27/2021 8:51 AM SINGEING TORCH OPERATOR Plan of Treatment Not on file Procedures [...] LAB BLOOD ORDERABL ES Final Result [facility] [id number] [facility] Department [place] [address] * POCT hemoglobin A1c (10/26/2020 2:32 PM CDT) Hemoglobin A1C, POC 8.2 Blood specimen (specimen) 10/26/2020 2:32 PM CDT Monique Almendarez MD POINT OF CARE TEST ORDERABL ES Final Result from Last 3 Months or Most Recently Relevant to Health Maintenance Insurance [facility] CHOICE PLUS [facility] HMO/PPO Address: [address] [address] [place] [address] AETNA [facility] PPO AETNA Advance Directives For more information, please contact: [phone] * Full Code (Latest Code Status on File) Date Activated Date Inactivated Comments 01/17/2021 7:49 PM 01/21/2021 9:44 PM * Full Code Date Activated Date Inactivated Comments 11/20/2018 6:22 PM 11/22/2018 2:19 AM * Full Code Date Activated Date Inactivated Comments 08/08/2018 12:20 PM 08/09/2018 4:03 PM Care Teams Senior Credit Officer Relationship Specialty Start Date End Date Damien Hernandez MD PCP - General Internal Medicine 10/02/20 Monique Almnedarez MD Referring Physician Endocrinology Diabetes & Metabolism 10/26/20 Juan Manuel Yun MD [address] [facility] [place] [address] Consulting Physician Cardiology 10/26/20 Wilian Joe MD [address] [facility] [address] [place] [address] [place] [address] Consulting Physician Interventional Cardiology 01/21/21
--- OUTSIDE RECORDS SUMMARY | 2024-10-05 16:45 | XMS_ITS | Encounter Summary ---
Author Organization [facility] Address [address] [place] [address] Care Team Providers Care Senior Office Support Assistant Sosa Name Role Phone Scar Maxwell MD Primary Care Provider [phone] Mohan Choudhary MD Unavailable Unavailab Laith Young MD Unavailable Trevor Hayes MD Unavailable [phone] New Referring, Provider Primary Care Provider Un available Earnest Jason DO Primary Care Provider [phone] Encounter Details Date Type Department Care Team (Late st Contact Info) Description 08/30/2017 Abstract [facility] CONVERSION [address] [place] [address] , Generic Conversion, Social History Tobacco Use [...] Rule Out 06/02/2022 06/02/2022 06/02/2022 6:13 PM FISHING VESSEL OPERATOR RSV 06/02/2022 06/02/2022 06/12/2022 12:3 3 AM FISHING VESSEL OPERATOR COVID-19 Rule Out 06/12/2022 06/12/2022 06/12/2022 8:35 PM FISHING VESSEL OPERATOR RSV 06/12/2022 06/12/2022 06/22/2022 12:3 2 AM FISHING VESSEL OPERATOR documented as of this encounter Care Teams Senior Office Support Assistant Sosa Relationship Specialty Start Date End Date Scar Maxwell MD [address] [place] [address] PCP - General FAMILY PRACTICE 07/16/17 11/28/21 New Referring, Provider PCP - General UNKNOWN PHYSICIAN SPECIALTY 11/29/21 06/04/22 Earnest Jason DO [address] [place] [address] PCP - General FAMILY PRACTICE 06/05/22 Mohan Choudhary MD [address] [place] [address] Photographic Equipment Technician CARDIOVASCULAR DISEASE 07/16/17 07/01/19 Laith Smith MD [address] [place] [address] Vascular/Photographic Equipment Technician INTERNAL MEDICINE 08/08/17 Trevor Hayes MD [address] [place] [address] Consulting Physician CARDIOVASCULAR DISEASE 07/02/19 documented as of this encounter
--- OUTSIDE RECORDS SUMMARY | 2024-10-05 16:45 | XMS_ITS | Encounter Summary ---
Author Organization [facility] Address [address] [place] [address] Care Team Providers Care Hot Wire Glass Tube Cutter Name Role Phone Scar Maxwell MD Primary Care Provider [phone] Mohan Choudhary MD Unavailable Unavailab Laith Young MD Unavailable Trevor Hayes MD Unavailable [phone] New Referring, Provider Primary Care Provider Un available Earnest Jason DO Primary Care Provider [phone] Encounter Details Date Type Department Care Team (Late st Contact Info) Description 07/22/2017 Abstract [facility] [address] [place] [address] Mohan Choudhary MD Social History [...] Rule Out 06/02/2022 06/02/2022 06/02/2022 6:13 PM HARNESS TIER RSV 06/02/2022 06/02/2022 06/12/2022 12:3 3 AM HARNESS TIER COVID-19 Rule Out 06/12/2022 06/12/2022 06/12/2022 8:35 PM HARNESS TIER RSV 06/12/2022 06/12/2022 06/22/2022 12:3 2 AM HARNESS TIER documented as of this encounter Care Teams Hot Wire Glass Tube Cutter Relationship Specialty Start Date End Date Scar Maxwell MD [address] [place] [address] PCP - General FAMILY PRACTICE 07/16/17 11/28/21 New Referring, Provider PCP - General UNKNOWN PHYSICIAN SPECIALTY 11/29/21 06/04/22 Earnest Jason DO [address] [place] [address] PCP - General FAMILY PRACTICE 06/05/22 Mohan Choudhary MD [address] [place] [id number] [place] [address] Pump Runner CARDIOVASCULAR DISEASE 07/16/17 07/01/19 Laith Smith MD [address] [place] [address] Vascular/Pump Runner INTERNAL MEDICINE 08/08/17 Trevor Hayes MD [address] [place] [address] Consulting Physician CARDIOVASCULAR DISEASE 07/02/19 documented as of this encounter
--- OUTSIDE RECORDS SUMMARY | 2024-10-05 16:45 | XMS_ITS | Encounter Summary ---
Author Organization [facility] Address [address] [place] [address] Phone Care Team Providers Care Research Associate Policy Name Role Phone Damien Hernandez MD Primary Care Provider [phone] Monique Almendarez MD Unavailable Juan Manuel Yun MD Unavailable [phone] Juan Manuel Yun MD Unavailable [phone] Wilian Joe MD Unavailable [phone] Encounter Details Date Type Department Care Team (Late st Contact Info) Description 10/23/2020 Telephone [facility] G[facility] 8th [place] [address] [place] [address] Dianne Andrade CMA Social History Tobacco Use Types Packs/Day Years Used Date Smoking Tobacco: Never Smokeless Tobacco: Never Alcohol Use Standard Drinks/Week Comments No 0 (1 standard drink = 0.6 oz pur e alcohol) Comments No Sex and Gender Information Value Date Recorded Sex Assigned at Not on file Legal Sex Female 4:21 AM CHIEF COUNSEL Gender Identity Not on file Sexual Orientation Not on file documented as of this encounter Plan of Treatment Not on file documented as of this encounter Visit Diagnoses Not on filedocumented in this encounter Care Teams Research Associate Policy Relationship Specialty Start Date End Date Damien Hernandez MD PCP - General Internal Medicine 10/02/20 Monique Almendarez MD Referring Physician Endocrinology Diabetes & Metabolism 10/26/20 Juan Manuel Yun MD [address] [facility] [place] [address] Consulting Physician Hand Surgery 10/26/20 10/26/20 Juan Manuel Yun MD [address] [facility] [place] [address] Consulting Physician Cardiology 10/26/20 Wilian Joe MD [address] [facility] [address] [place] [address] [place] [address] Consulting Physician Interventional Cardiology 01/21/21 documented as of this encounter
--- OUTSIDE RECORDS SUMMARY | 2024-10-05 16:45 | XMS_ITS | Encounter Summary ---
Author Organization [facility] Address [facility] [place] [address] Care Team Providers Care Vacation Sales Advisor Name Role Phone Scar Maxwell MD Primary Care Provider [phone] Mohan Choudhary MD Unavailable Unavailab Laith Young MD Unavailable Trevor Hayes MD Unavailable [phone] New Referring, Provider Primary Care Provider Un available Earnest Jason DO Primary Care Provider [phone] Encounter Details Date Type Department Care Team (Late st Contact Info) Description 11/21/2018 Abstract [facility] CONVERSION [address] [place] [id number] , Generic Conversion, Social History Tobacco Use [...] Rule Out 06/02/2022 06/02/2022 06/02/2022 6:13 PM SURGICAL RESIDENT RSV 06/02/2022 06/02/2022 06/12/2022 12:3 3 AM SURGICAL RESIDENT COVID-19 Rule Out 06/12/2022 06/12/2022 06/12/2022 8:35 PM SURGICAL RESIDENT RSV 06/12/2022 06/12/2022 06/22/2022 12:3 2 AM SURGICAL RESIDENT documented as of this encounter Care Teams Vacation Sales Advisor Relationship Specialty Start Date End Date Scar Maxwell MD [address] [place] [address] PCP - General FAMILY PRACTICE 07/16/17 11/28/21 New Referring, Provider PCP - General UNKNOWN PHYSICIAN SPECIALTY 11/29/21 06/04/22 Earnest Jason DO [address] [place] [address] PCP - General FAMILY PRACTICE 06/05/22 Mohan Choudhary MD [address] Heavy Truck Mechanic CARDIOVASCULAR DISEASE 07/16/17 07/01/19 Laith Smith MD [address] [place] [address] Vascular/Heavy Truck Mechanic INTERNAL MEDICINE 08/08/17 Trevor Hayes MD [address] [place] [address] Consulting Physician CARDIOVASCULAR DISEASE 07/02/19 documented as of this encounter
--- OUTSIDE RECORDS SUMMARY | 2024-10-05 16:45 | XMS_ITS | Encounter Summary ---
Author Organization [facility] Address [address] [place] [address] Care Team Providers Care Neurology Director Name Role Phone Scar Maxwell MD Primary Care Provider [phone] Mohan Choudhary MD Unavailable Unavailab Laith Young MD Unavailable Trevor Hayes MD Unavailable [phone] New Referring, Provider Primary Care Provider Un available Earnest Jason DO Primary Care Provider [phone] Encounter Details Date Type Department Care Team (Late st Contact Info) Description 11/04/2018 Patient Outreach [facility] [address] [place] [address] Yamile Porter RN Social History [...] Rule Out 06/02/2022 06/02/2022 06/02/2022 6:13 PM SUPERVISOR PLASMA RSV 06/02/2022 06/02/2022 06/12/2022 12:3 3 AM SUPERVISOR PLASMA COVID-19 Rule Out 06/12/2022 06/12/2022 06/12/2022 8:35 PM SUPERVISOR PLASMA RSV 06/12/2022 06/12/2022 06/22/2022 12:3 2 AM SUPERVISOR PLASMA documented as of this encounter Care Teams Neurology Director Relationship Specialty Start Date End Date Scar Maxwell MD [address] [place] [address] PCP - General FAMILY PRACTICE 07/16/17 11/28/21 New Referring, Provider PCP - General UNKNOWN PHYSICIAN SPECIALTY 11/29/21 06/04/22 Earnest Jason DO [address] [place] [address] PCP - General FAMILY PRACTICE 06/05/22 Mohan Choudhary MD [address] [place] [address] [place] Outside Installation Machinist CARDIOVASCULAR DISEASE 07/16/17 07/01/19 Laith Smith MD [address] [place] [address] Vascular/Outside Installation Machinist INTERNAL MEDICINE 08/08/17 Trevor Hayes MD [address] [place] [address] Consulting Physician CARDIOVASCULAR DISEASE 07/02/19 documented as of this encounter
--- OUTSIDE RECORDS SUMMARY | 2024-10-05 16:45 | XMS_ITS | Encounter Summary ---
Author Organization [facility] Address [address] [place] [address] Care Team Providers Care Maintenance Machinist Name Role Phone Laith Smith MD Unavailable Trevor Hayes MD Unavailable [phone] Earnest Jason DO Primary Care Provider [phone] Encounter Details Date Type Department Care Team (Late st Contact Info) Description 06/06/2022 Hospital Follow-up Call [place] [address] [place] [address] Maria R Pickens RN Social [...] Coronavirus/COVID-19? No / Unsure 06/02/2022 4:16 PM BAGGAGE AGENT documented as of this encounter Functional Status * RETIRED Are you deaf or do you have serious difficulty hearing Answer Date of Assessment Author Status No 06/03/2022 2:00 AM BAGGAGE AGENT Activ e * RETIRED Are you blind or do you have serious difficulty seeing, even when wearing glasses? Answer Date of Assessment Author Status No 06/03/2022 2:00 AM BAGGAGE AGENT Activ e * Do you have serious [...] Date Author Status No 06/03/2022 2:00 AM BAGGAGE AGENT Kurtis Greer RN A ctive documented in this encounter Plan of Treatment Not on file documented as of this encounter Visit Diagnoses Not on filedocumented in this encounter Additional Health Concerns Infection Onset Date Last Indicated Resolved Time MRSA 05/04/2017 05/04/2017 RSV 06/02/2022 06/02/2022 06/12/2022 12:3 3 AM BAGGAGE AGENT COVID-19 Rule Out 06/12/2022 06/12/2022 06/12/2022 8:35 PM BAGGAGE AGENT RSV 06/12/2022 06/12/2022 06/22/2022 12:3 2 AM BAGGAGE AGENT documented as of this encounter Care Teams Maintenance Machinist Relationship Specialty Start Date End Date Earnest Jason DO [address] [place] [address] PCP - General FAMILY PRACTICE 06/05/22 Laith Smith MD Vascular/Office Clerk Routine INTERNAL MEDICINE 08/08/17 Trevor Hayes MD [address] [place] [address] Consulting Physician CARDIOVASCULAR DISEASE 07/02/19 documented as of this encounter
--- OUTSIDE RECORDS SUMMARY | 2024-10-05 16:45 | XMS_ITS | Clinical Summary ---
Author Organization [facility] Address [address] [place] [address] Care Team Providers Care Propeller Layout Worker Name Role Phone Laith Smith MD Unavailable Trevor Hayes MD Unavailable [phone] Earnest Jason DO Primary Care Provider Allergies Active Allergy Reactions Criticality Noted Date [...] Chest pain 10/29/2018 Acute diastolic heart failure ([facility]) 10/29/2018 Hematuria 10/27/2018 Sepsis ([facility]) 08/19/2018 Hypertensive heart disease without heart failure 08/06/2017 Other pulmonary embolism wit hout acute cor pulmonale, unspecified chronicity 08/06/2017 Deep vein thrombosis (DVT) o f lower extremity, unspecified chronicity, unspecified laterality, unspecified vein 08/06/2017 Hyperlipidemia, mixed 08/06/2017 Essential (primary) hypertension 08/06/2017 Family History Medical History Relation Comments Heart [...] Comments Blood Pressure 83/48 06/14/2022 7:57 AM HOST HOSTESS Pulse 76 06/14/2022 7:57 AM HOST HOSTESS Temperature 36.4 C (97.5 F) 06/14/2022 7:57 AM HOST HOSTESS Respiratory Rate 18 06/14/2022 7:57 AM HOST HOSTESS Oxygen Saturation 97% 06/14/2022 7:57 AM HOST HOSTESS Inhaled Oxygen Concentration - - Weight 128 kg (282 lb 3 oz) 06/12/2022 6:[address] Height 160 cm (5' 3 ) 06/12/2022 6:40 PM HOST HOSTESS Body Mass Index 49.99 06/12/2022 6:40 PM HOST HOSTESS Plan of Treatment Health Maintenance Due Date Last Done Comments Colorectal Cancer Screening Colonoscopy (10 Years) 1971 Annual Physical 1974 DTaP, Tdap and Td Vaccines ( 1 - Tdap) 1990 Hepatitis B Vaccines (1 of 3 - 19+ 3-dose series) 1990 Mammogram Screening 2011 Pneumococcal Vaccine: 50+ Years (2 of 2 - PCV) 04/27/2017 04/27/2016 [...] discharge from hospital Lifestyle No Wanda Torrez RN Procedures Procedure Name Priority Date/Time Associated Diagnosis Comments HEPATITIS PANEL,ACUTE Routine 08/21/2018 5:39 PM HOST HOSTESS from Last 3 Months or Most Recently Relevant to Health Maintenance Results * HEPATITIS PANEL,ACUTE (08/21/2018 5:39 PM HOST HOSTESS) HEPATITIS B SURFACE AG NON-REACT SABRA NON-REACT SABRA 08/25/2018 1:[address] [facility] Comment:HBsAg NOT DETECTED. HEP B CORE IGM NON-REACT SABRA NON-REACT SABRA 08/25/2018 1:[address] [facility] Comment: IgM ANTI HBc NOT DETECTED. DOES NOT EXCLUDE THE POSSIBILITY OF EXPOSURE TO OR INFECTION WITH HBV. NO RETEST REQUIRED. HIGH DOSES OF BIOTIN MAY INTERFERE WITH THIS TEST RESULT. CORRELATION TO CLINICAL HISTORY AND PRESENTATION RECOMMENDED. HAV IGM NON-REACT SABRA NON-REACT SABRA 08/25/2018 1:[address] [facility] Comment: IgM ANTI HAV NOT DETECTED. DOES NOT EXCLUDE THE POSSIBILITY OF EXPOSURE TO OR INFECTION WITH HAV. LEVELS OF IgM ANTI HAV MAY BE BELOW THE CUTOFF IN EARLY INFECTION. HEPATITIS C AB NON-REACT SABRA NON-REACT SABRA 08/25/2018 1:[address] [facility] Comment: ANTIBODIES TO HCV NOT DETECTED. DOES NOT EXCLUDE THE POSSIBILITY OF EXPOSURE TO HCV. 08/21/2018 5:39 PM HOST HOSTESS Harrison Lopez MD LABORATORY Final Result [facility] [address] [place] [address], [id number] from Last 3 Months or Most Recently Relevant to Health Maintenance Additional Health Concerns Infection Onset Date Last Indicated MRSA 05/04/2017 05/04/2017 Insurance [facility] MEDICAID Advance Directives Documents on File Type Date Recorded Patient Rail Flaw Detector Operator Expl anation Advance Directives and Living Will 11/29/2021 5:28 PM 11/08/18 [place] STAT[employer] SHORT FORM POWER OF AGRICULTURAL SPECIALIST FOR HEALTH CARE * Full Code (Latest [...] 11:24 PM 11/02/2018 6:48 PM Care Teams Propeller Layout Worker Relationship Specialty Start Date End Date Earnest Jason DO [address] [place] [address] PCP - General FAMILY PRACTICE 06/05/22 Laith Smith MD Vascular/Locator INTERNAL MEDICINE 08/08/17 Trevor Hayes MD [address] [place] [id number] Consulting Physician CARDIOVASCULAR DISEASE 07/02/19
== END 2024-10-05 14:30 | disposition home or self-care (01) ==
PROVIDERS: PCP Family Medicine; Visit Provider Nurse Practitioner Family
DX: E79.0 Hyperuricemia without signs of inflammatory arthritis and tophaceous disease (principal)
CPT/HCPCS: 36415; 84550

== ENCOUNTER 2025-01-06 10:06 | Outpatient (CLI) | payer BC, MEDICAID, SELFPAY ==
--- OUTSIDE RECORDS SUMMARY | 2025-01-06 10:11 | XMS_ITS | Clinical Summary ---
Author Organization [facility] Address [address] [place] [address] Care Team Providers Care Director Emergency Name Role Phone Damien Hernandez MD Primary Care Provider [phone] Monique Almendarez MD Unavailable Juan Manuel Yun [...] Min Prior to procedure , Must have Manager Hydraulic Take 1 tablet (10 mg total) by mouth once for 1 dose Take 30 minutes before procedure and must have a services delivery driver. 1 tablet 09/05/19 22 Active blood glucose diagnostic (OneTouch Ultra Blue Test Strip) stripIndications: Type 2 diabetes mellitus with hyperglycemia, without long-term current use of insulin ([facility]) Use to test blood sugar before meals 270 each 2 09/21/19 22 Active blood-glucose sensor (Dexcom G6 Sensor) deviceIndications :Type 2 diabetes mellitus with hyperglycemia, without long-term current use of insulin ([facility]) Will use 1 sensor every 10 days. 1 box = 3 sensors. 3 each 11 11/09/19 22 Active blood-glucose transmitter (Dexcom G6 Transmitter) deviceIndications :Type 2 diabetes mellitus with hyperglycemia, without long-term current use of insulin ([facility]) Will use 1 transmitter every 90 days [...] 02/27/20 22 Active blood-glucose meter,continuous (Dexcom G6 Bank Courier) miscIndications:T ype 2 diabetes mellitus with hyperglycemia, without long-term current use of insulin (HCC) 1 Dexcom G6 Bank Courier 1 each 08/21/19 23 Active Active Problems [...] (12/22/2020): Added automatically from request for surgery [id number] Vitamin D deficiency 06/16/2020 Has immunity to COVID-19 virus 06/16/2020 Overview (08/03/2021): Pfizer vaccine 02/26/2021, 12/26/2020 Assessment & Plan (12/18/2021 8:13 AM CDT): Fully vaccinated, eligible for booster. Assessment & Plan (09/17/2021 10:49 AM CDT): Pfizer vaccine x 2; qualifies for booster Assessment & Plan (08/03/2021 1:43 PM CAN LINE OPERATOR): Pfizer vaccine 02/26/2021, 12/26/2020. May be due for booster in the near future Spondylolisthesis of lumbar region 02/09/2019 Palpitations 11/20/2018 Acute diastolic heart failure 10/29/2018 Chest pain 10/29/2018 Hematuria 10/27/2018 Sepsis 08/19/2018 Hypotension 08/09/2018 Assessment & Plan (08/09/2018 9:30 AM CAN LINE OPERATOR): Likely 2/2 double dosing on patient's [...] 08/09/2018 Assessment & Plan (08/09/2018 9:28 AM CAN LINE OPERATOR): Could possibly have stress incontinence vs. [...] 08/08/2018 Assessment & Plan (08/09/2018 9:29 AM CAN LINE OPERATOR): Acute on chronic 2/2 DDD vs [...] prn. Assessment & Plan (08/08/2018 1:31 PM CAN LINE OPERATOR): Acute on chronic with reports of [...] hypoglycemia Assessment & Plan (08/09/2018 9:30 AM CAN LINE OPERATOR): -hold lisinopril, metoprolol, lasix, spironolactone. Restart tomorrow. Assessment & Plan (08/08/2018 1:32 PM CAN LINE OPERATOR): Euvolemic on exam. -continue lisinopril, metoprolol, lasix, spironolactone. Type 2 diabetes mellitus with hyperglycemia ([facility]) 08/08/2018 Overview (10/30/2020): October 2020: C-peptide 5.5; [...] diabetes Assessment & Plan (08/09/2018 9:14 AM CAN LINE OPERATOR): BG 213 this AM. -Restart metformin -continue Trulicity Qweek Assessment & Plan (08/08/2018 1:37 PM CAN LINE OPERATOR): BG as high as 397 in the ED. BMP stable. Takes Metformin bid and Trulicity Qweek. States last A1c was 8.0. She was given a dose of metformin in the ED. -Hold metformin -SSI Convulsions 09/22/2017 Deep vein thrombosis (DVT) (CMS/HCC) 08/06/2017 Assessment & Plan (08/09/2018 9:14 AM CAN LINE OPERATOR): W/ hx of PE currently on coumadin 10mg daily. INR therapeutic. -continue coumadin 10mg daily. Assessment & Plan (08/08/2018 1:38 PM CAN LINE OPERATOR): W/ hx of PE currently on coumadin 10mg daily. INR therapeutic. -No surgical plans, so will continue coumadin 10mg daily. Essential (primary) hypertension 08/06/2017 Assessment & Plan (08/08/2018 1:39 PM CAN LINE OPERATOR): BP stable. -continue lisinopril, metoprolol, lasix [...] (10/23/2020): Added automatically from request for surgery [id number] Immunizations Immunization Administration Dates Next Due Influenza, [...] on file Legal Sex Female 4:21 AM CAN LINE OPERATOR Gender Identity Not on file Sexual [...] (305 lb 6.4 oz) 04/27/2021 8:51 AM CAN LINE OPERATOR Height 160 cm (5' 3) 04/27/2021 8:51 AM CAN LINE OPERATOR Body Mass Index 54.1 04/27/2021 8:51 AM CAN LINE OPERATOR Plan of Treatment Health Maintenance Due Date [...] 5 season) 2024 02/26/2021, 12/26/2020 Influenza Vaccine (#1) 2025 , 04/27/2016, 04/08/2014 Procedures Procedure Name Priority Date/Time [...] LAB BLOOD ORDERABL ES Final Result [facility] [address] [facility] [place] [address] * POCT hemoglobin A1c (10/26/2020 2:32 PM CDT) Hemoglobin A1C, POC 8.2 Blood specimen (specimen) 10/26/2020 2:32 PM CDT Monique Almendarez MD POINT OF CARE TEST ORDERABL ES Final Result from Last 3 Months or Most Recently Relevant to Health Maintenance Insurance [employer] [facility] HMO [facility] PLUS [employer] [facility] [employer] Advance Directives For more information, please contact: [phone] * Full Code (Latest Code Status on File) Date Activated Date Inactivated Comments 01/17/2021 7:49 PM 01/21/2021 9:44 PM * Full Code Date Activated Date Inactivated Comments 11/20/2018 6:22 PM 11/22/2018 2:19 AM * Full Code Date Activated Date Inactivated Comments 08/08/2018 12:20 PM 08/09/2018 4:03 PM Care Teams Director Emergency Relationship Specialty Start Date End Date Damien Hernandez MD PCP - General Internal Medicine 10/02/20 Monique Almendarez MD Referring Physician Endocrinology Diabetes & Metabolism 10/26/20 Juan Manuel Yun MD [address] [facility] [place] [address] Consulting Physician Cardiology 10/26/20 Wilian Joe MD [address] [facility] [address] [place] [address] [place] [address] Consulting Physician Interventional Cardiology 01/21/21
--- OUTSIDE RECORDS SUMMARY | 2025-01-06 10:11 | XMS_ITS | Referral Summary ---
Author Organization [facility] Address [address] [place] [address] Care Team Providers Care Desolderer Name Role Phone Damien Hernandez MD Primary Care Provider [phone] Monique Almendarez MD Unavailable [phone] Juan Manuel Yun MD Unavailable [phone] [...] Min Prior to procedure , Must have Meal Cooker Take 1 tablet (10 mg total) by mouth once for 1 dose Take 30 minutes before procedure and must have a solo truck driver. 1 tablet 09/05/19 22 Active blood glucose diagnostic (OneTouch Ultra Blue Test Strip) stripIndications: Type 2 diabetes mellitus with hyperglycemia, without long-term current use of insulin ([facility]) Use to test blood sugar before meals 270 each 2 09/21/19 22 Active blood-glucose sensor (Dexcom G6 Sensor) deviceIndications :Type 2 diabetes mellitus with hyperglycemia, without long-term current use of insulin ([facility]) Will use 1 sensor every 10 days. 1 box = 3 sensors. 3 each 11 11/09/19 22 Active blood-glucose transmitter (Dexcom G6 Transmitter) deviceIndications :Type 2 diabetes mellitus with hyperglycemia, without long-term current use of insulin ([facility]) Will use 1 transmitter every 90 days [...] 02/27/20 22 Active blood-glucose meter,continuous (Dexcom G6 Hand Shaker) miscIndications:T ype 2 diabetes mellitus with hyperglycemia, without long-term current use of insulin (HCC) 1 Dexcom G6 Hand Shaker 1 each 08/21/19 23 Active Active Problems [...] (12/22/2020): Added automatically from request for surgery [id number] Vitamin D deficiency 06/16/2020 Has immunity to COVID-19 virus 06/16/2020 Overview (08/03/2021): Pfizer vaccine 02/26/2021, 12/26/2020 Assessment & Plan (12/18/2021 8:13 AM CDT): Fully vaccinated, eligible for booster. Assessment & Plan (09/17/2021 10:49 AM CDT): Pfizer vaccine x 2; qualifies for booster Assessment & Plan (08/03/2021 1:43 PM ELECTRICAL MANUFACTURING ENGINEER): Pfizer vaccine 02/26/2021, 12/26/2020. May be due for booster in the near future Spondylolisthesis of lumbar region 02/09/2019 Palpitations 11/20/2018 Acute diastolic heart failure 10/29/2018 Chest pain 10/29/2018 Hematuria 10/27/2018 Sepsis 08/19/2018 Hypotension 08/09/2018 Assessment & Plan (08/09/2018 9:30 AM ELECTRICAL MANUFACTURING ENGINEER): Likely 2/2 double dosing on patient's BP [...] 08/09/2018 Assessment & Plan (08/09/2018 9:28 AM ELECTRICAL MANUFACTURING ENGINEER): Could possibly have stress incontinence vs. OAB. [...] 08/08/2018 Assessment & Plan (08/09/2018 9:29 AM ELECTRICAL MANUFACTURING ENGINEER): Acute on chronic 2/2 DDD vs malingering. [...] prn. Assessment & Plan (08/08/2018 1:31 PM ELECTRICAL MANUFACTURING ENGINEER): Acute on chronic with reports of saddle [...] hypoglycemia Assessment & Plan (08/09/2018 9:30 AM ELECTRICAL MANUFACTURING ENGINEER): -hold lisinopril, metoprolol, lasix, spironolactone. Restart tomorrow. Assessment & Plan (08/08/2018 1:32 PM ELECTRICAL MANUFACTURING ENGINEER): Euvolemic on exam. -continue lisinopril, metoprolol, lasix, spironolactone. Type 2 diabetes mellitus with hyperglycemia ([facility] /[facility]) 08/08/2018 Overview (10/30/2020): October 2020: C-peptide 5.5; [...] diabetes Assessment & Plan (08/09/2018 9:14 AM ELECTRICAL MANUFACTURING ENGINEER): BG 213 this AM. -Restart metformin -continue Trulicity Qweek Assessment & Plan (08/08/2018 1:37 PM ELECTRICAL MANUFACTURING ENGINEER): BG as high as 397 in the ED. BMP stable. Takes Metformin bid and Trulicity Qweek. States last A1c was 8.0. She was given a dose of metformin in the ED. -Hold metformin -SSI Convulsions 09/22/2017 Deep vein thrombosis (DVT) (CMS/HCC) 08/06/2017 Assessment & Plan (08/09/2018 9:14 AM ELECTRICAL MANUFACTURING ENGINEER): W/ hx of PE currently on coumadin 10mg daily. INR therapeutic. -continue coumadin 10mg daily. Assessment & Plan (08/08/2018 1:38 PM ELECTRICAL MANUFACTURING ENGINEER): W/ hx of PE currently on coumadin 10mg daily. INR therapeutic. -No surgical plans, so will continue coumadin 10mg daily. Essential (primary) hypertension 08/06/2017 Assessment & Plan (08/08/2018 1:39 PM ELECTRICAL MANUFACTURING ENGINEER): BP stable. -continue lisinopril, metoprolol, lasix Hyperlipidemia, [...] (10/23/2020): Added automatically from request for surgery [id number] Immunizations Immunization Administration Dates Next Due Influenza, [...] on file Legal Sex Female 4:21 AM ELECTRICAL MANUFACTURING ENGINEER Gender Identity Not on file Sexual Orientation [...] (305 lb 6.4 oz) 04/27/2021 8:51 AM ELECTRICAL MANUFACTURING ENGINEER Height 160 cm (5' 3) 04/27/2021 8:51 AM ELECTRICAL MANUFACTURING ENGINEER Body Mass Index 54.1 04/27/2021 8:51 AM ELECTRICAL MANUFACTURING ENGINEER Plan of Treatment Not on file Procedures [...] LAB BLOOD ORDERABL ES Final Result [facility] [address] [facility] Department [place] [address] * POCT hemoglobin A1c (10/26/2020 2:32 PM CDT) Hemoglobin A1C, POC 8.2 Blood specimen (specimen) 10/26/2020 2:32 PM CDT Monique Almendarez MD POINT OF CARE TEST ORDERABL ES Final Result from Last 3 Months or Most Recently Relevant to Health Maintenance Insurance [employer] [facility] CHOICE PLUS AETNA [facility] PPO AETNA Advance Directives For more information, please contact: [phone] * Full Code (Latest Code Status on File) Date Activated Date Inactivated Comments 01/17/2021 7:49 PM 01/21/2021 9:44 PM * Full Code Date Activated Date Inactivated Comments 11/20/2018 6:22 PM 11/22/2018 2:19 AM * Full Code Date Activated Date Inactivated Comments 08/08/2018 12:20 PM 08/09/2018 4:03 PM Care Teams Desolderer Relationship Specialty Start Date End Date Damien Hernandez MD PCP - General Internal Medicine 10/02/20 Monique Almendarez MD Referring Physician Endocrinology Diabetes & Metabolism 10/26/20 Juan Manuel Yun MD [address] [place] [address] Consulting Physician Cardiology 10/26/20 Wilian Joe MD [address] [place] [address] [place] [address] Consulting Physician Interventional Cardiology 01/21/21
--- OUTSIDE RECORDS SUMMARY | 2025-01-06 10:11 | XMS_ITS | Encounter Summary ---
Author Organization [facility] Address [address] [place] [address] Care Team Providers Care Chucking Machine Set Up Operator Name Role Phone Scar Maxwell MD Primary Care Provider [phone] Mohan Choudhary MD Unavailable Unavailab Laith Young MD Unavailable Trevor Hayes MD Unavailable [phone] New Referring, Provider Primary Care Provider Un available Earnest Jason DO Primary Care Provider [phone] Encounter Details Date Type Department Care Team (Late st Contact Info) Description 11/04/2018 Patient Outreach [facility] [address] [place] [address] Yaimle Porter RN Social History Tobacco Use Types [...] Rule Out 06/02/2022 06/02/2022 06/02/2022 6:13 PM CAN LABELER RSV 06/02/2022 06/02/2022 06/12/2022 12:3 3 AM CAN LABELER COVID-19 Rule Out 06/12/2022 06/12/2022 06/12/2022 8:35 PM CAN LABELER RSV 06/12/2022 06/12/2022 06/22/2022 12:3 2 AM CAN LABELER documented as of this encounter Care Teams Chucking Machine Set Up Operator Relationship Specialty Start Date End Date Scar Maxwell MD [address] [place] [address] PCP - General FAMILY PRACTICE 07/16/17 11/28/21 New Referring, Provider PCP - General UNKNOWN PHYSICIAN SPECIALTY 11/29/21 06/04/22 Earnest Jasno DO [address] [place] [address] PCP - General FAMILY PRACTICE 06/05/22 Mohan Choudhary MD [address] [place] [address] [place] Russian Teacher CARDIOVASCULAR DISEASE 07/16/17 07/01/19 Laith Smith MD [address] [place] [address] Vascular/Russian Teacher INTERNAL MEDICINE 08/08/17 Trevor Hayes MD [address] [place] [address] Consulting Physician CARDIOVASCULAR DISEASE 07/02/19 documented as of this encounter
--- OUTSIDE RECORDS SUMMARY | 2025-01-06 10:11 | XMS_ITS | Encounter Summary ---
Author Organization [facility] Address [facility] [place] [address] Care Team Providers Care Pantograph I Engraver Name Role Phone Scar Maxwell MD Primary Care Provider [phone] Mohan Choudhary MD Unavailable Unavailab Laith Young MD Unavailable Trevor Hayes MD Unavailable [phone] New Referring, Provider Primary Care Provider Un available Earnest Jason DO Primary Care Provider [phone] Encounter Details Date Type Department Care Team (Late st Contact Info) Description 11/21/2018 Abstract [facility] CONVERSION [address] [place] [id number] , Generic Conversion, Social History Tobacco Use [...] Rule Out 06/02/2022 06/02/2022 06/02/2022 6:13 PM DYNAMO REPAIRER RSV 06/02/2022 06/02/2022 06/12/2022 12:3 3 AM DYNAMO REPAIRER COVID-19 Rule Out 06/12/2022 06/12/2022 06/12/2022 8:35 PM DYNAMO REPAIRER RSV 06/12/2022 06/12/2022 06/22/2022 12:3 2 AM DYNAMO REPAIRER documented as of this encounter Care Teams Pantograph I Engraver Relationship Specialty Start Date End Date Scar Maxwell MD [address] [place] [address] PCP - General FAMILY PRACTICE 07/16/17 11/28/21 New Referring, Provider PCP - General UNKNOWN PHYSICIAN SPECIALTY 11/29/21 06/04/22 Earnest Jason DO [address] [place] [address] PCP - General FAMILY PRACTICE 06/05/22 Mohan Choudhary MD [address] Splitter Hand CARDIOVASCULAR DISEASE 07/16/17 07/01/19 Laith Smith MD [address] [place] [address] Vascular/Splitter Hand INTERNAL MEDICINE 08/08/17 Trevor Hayes MD [address] [place] [address] Consulting Physician CARDIOVASCULAR DISEASE 07/02/19 documented as of this encounter
--- OUTSIDE RECORDS SUMMARY | 2025-01-06 10:11 | XMS_ITS | Encounter Summary ---
Author Organization [facility] Address [facility] [place] [address] Care Team Providers Care Convention Manager Name Role Phone Scar Maxwell MD Primary Care Provider [phone] Mohan Choudhary MD Unavailable Unavailab Laith Young MD Unavailable Trevor Hayes MD Unavailable [phone] New Referring, Provider Primary Care Provider Un available Earnest Jason DO Primary Care Provider [phone] Reason for Visit * Reason Onset Date Comments Follow Up Call 11/13/2018 Encounter Details Date Type Department Care Team (Late st Contact Info) Description 11/13/2018 Patient Outreach [facility] Failure [facility] [address] [place] [address] Yamile Porter RN Follow Up Call Social [...] Rule Out 06/02/2022 06/02/2022 06/02/2022 6:13 PM FOLDER INSPECTOR RSV 06/02/2022 06/02/2022 06/12/2022 12:3 3 AM FOLDER INSPECTOR COVID-19 Rule Out 06/12/2022 06/12/2022 06/12/2022 8:35 PM FOLDER INSPECTOR RSV 06/12/2022 06/12/2022 06/22/2022 12:3 2 AM FOLDER INSPECTOR documented as of this encounter Care Teams Convention Manager Relationship Specialty Start Date End Date Scar Maxwell MD [address] [place] [address] PCP - General FAMILY PRACTICE 07/16/17 11/28/21 New Referring, Provider PCP - General UNKNOWN PHYSICIAN SPECIALTY 11/29/21 06/04/22 Earnest Jason DO [address] [place] [address] PCP - General FAMILY PRACTICE 06/05/22 Mohan Choudhary MD [facility] [address] Blade Bender Furnace Tender CARDIOVASCULAR DISEASE 07/16/17 07/01/19 Laith Smith MD [facility] [place] [address] Vascular/Blade Bender Furnace Tender INTERNAL MEDICINE 08/08/17 Trevor Hayes MD [address] [place] [address] Consulting Physician CARDIOVASCULAR DISEASE 07/02/19 documented as of this encounter
--- OUTSIDE RECORDS SUMMARY | 2025-01-06 10:12 | XMS_ITS | Patient Health Record ---
Author Organization [facility] [address] Address [address] [facility] [address] [place] [address] Care Team Providers Care Rehabilitation Therapy Technician Name Role Phone Anna Lancaster Unavailable [phone] Reason For Referral No Information Medications Medication SIG (Take, Route, Frequency, Duration) Notes Start Date End Date Status Gabapentin 800 MG Oral 12/18/2021 A ctive traZODone HCl 50 MG Oral 12/18/2021 Active Spironolactone 50 MG Oral 12/18/2021 Active Potassium Chloride ER 20 MEQ Oral 12/18/2021 Active Basaglar KwikPen 100 UNIT/ML Subcutaneous 12/18/2021 Active Montelukast Sodium 10 MG Oral 12/18/2021 Active Spironolactone 25 MG Oral 12/18/2021 Active Pantoprazole Sodium 40 MG Oral 12/18/2021 Active Propranolol HCl ER 120 MG Oral 12/18/2021 Active Naloxone HCl 4 MG/0.1ML Nasal 12/18/2021 Active diazePAM 10 MG Oral 12/18/2021 Acti ve Xarelto 20 MG Oral 12/18/2021 Activ e DEXCOM G6 MISCELLANEOUS *Reorder from [facility] for eRx and Interaction Alerts* 12/18/2021 Active Eliquis 5 MG Oral 12/18/2021 Active metOLazone 2.5 MG Oral 12/18/2021 A ctive Savella 25 mg Oral 12/18/2021 Activ e busPIRone HCl 10 MG Oral 12/18/2021 Active Savella 12.5 mg Oral 12/18/2021 Act valentin TRULICITY 3 MG/0.5 ML SUBCUTANEOUS PEN INJECTOR *Reorder from [facility] for eRx and Interaction Alerts* 12/18/2021 Active NovoLOG FlexPen ReliOn 100 UNIT/ML Subcutaneous *Reorder from [facility] for eRx and Interaction Alerts* 12/18/2021 Active Cyclobenzaprine HCl 10 MG Oral 12/18/2021 Active LORazepam 0.5 MG Oral 12/18/2021 Ac tive FLUoxetine HCl 40 MG Oral 12/18/2021 Active Furosemide 40 MG Oral 12/18/2021 Ac tive ProAir HFA 108 (90 Base) MCG/ACT Inhalation 12/18/2021 Active traZODone HCl 100 MG Oral 12/18/2021 Active Fluconazole 150 MG Oral 12/18/2021 Active HYDROcodone-Acetaminop hen 5-325 MG Oral 12/18/2021 Active OneTouch Ultra In Vitro 12/18/2021 Acti ve ARIPiprazole 10 MG Oral 12/18/2021 Active Immunizations Vaccine Route Administration Date Status Comme nts Pfizer Biontech Covid-19 Vac cine 2nd dose Unknown 12/26/2020 Administered Pfizer Biontech Covid-19 Vac cine 2nd dose Unknown 02/26/2021 Administered Pfizer Biontech Covid-19 Vac cine 2nd dose Unknown 01/27/2022 Administered Influenza virus vaccine, quadrivalent (IIV4), split virus, 0.25 mL dosage Unknown 03/16/2021 Administered Plan Of Treatment No Information Medical (General) History Surgical History Surgery Date(Month/Year) Hysterectomy/revise vagina (95820) Removal of gallbladder (31054) Appendectomy (71257) Remove cranial cavity fluid (08055)
--- OUTSIDE RECORDS SUMMARY | 2025-01-06 10:12 | XMS_ITS | Encounter Summary ---
Author Organization [facility] Address [address] [place] [address] Care Team Providers Care Residential Driver Name Role Phone Scar Maxwell MD Primary Care Provider [phone] Mohan Choudhary MD Unavailable Unavailab Laith Young MD Unavailable Trevor Hayes MD Unavailable [phone] New Referring, Provider Primary Care Provider Un available Earnest Jason DO Primary Care Provider [phone] Encounter Details Date Type Department Care Team (Late st Contact Info) Description 08/30/2017 Abstract [facility] CONVERSION [address] [place] [address] , Generic Conversion, Social History Tobacco Use [...] Rule Out 06/02/2022 06/02/2022 06/02/2022 6:13 PM BLOWER MECHANIC RSV 06/02/2022 06/02/2022 06/12/2022 12:3 3 AM BLOWER MECHANIC COVID-19 Rule Out 06/12/2022 06/12/2022 06/12/2022 8:35 PM BLOWER MECHANIC RSV 06/12/2022 06/12/2022 06/22/2022 12:3 2 AM BLOWER MECHANIC documented as of this encounter Care Teams Residential Driver Relationship Specialty Start Date End Date Scar Maxwell MD [address] [place] [address] PCP - General FAMILY PRACTICE 07/16/17 11/28/21 New Referring, Provider PCP - General UNKNOWN PHYSICIAN SPECIALTY 11/29/21 06/04/22 Earnest Jason DO [address] [place] [address] PCP - General FAMILY PRACTICE 06/05/22 Mohan Choudhary MD [address] [place] [address] Aircraft Magneto Mechanic CARDIOVASCULAR DISEASE 07/16/17 07/01/19 Laith Smith MD [address] [place] [id number] Vascular/Aircraft Magneto Mechanic INTERNAL MEDICINE 08/08/17 Trevor Hayes MD [address] [place] [address] Consulting Physician CARDIOVASCULAR DISEASE 07/02/19 documented as of this encounter
--- OUTSIDE RECORDS SUMMARY | 2025-01-06 10:12 | XMS_ITS | Encounter Summary ---
Author Organization [facility] Address [address] [place] [address] Care Team Providers Care Turn Down Attendant Name Role Phone Scar Maxwell MD Primary Care Provider [phone] Mohan Choudhary MD Unavailable Unavailab Laith Young MD Unavailable Trevor Hayes MD Unavailable [phone] New Referring, Provider Primary Care Provider Un available Earnest Jason DO Primary Care Provider [phone] Encounter Details Date Type Department Care Team (Late st Contact Info) Description 07/22/2017 Abstract [facility] [address] [place] [address] Mohan Choudhary MD Social History [...] Rule Out 06/02/2022 06/02/2022 06/02/2022 6:13 PM COMMUNITY PLANNER RSV 06/02/2022 06/02/2022 06/12/2022 12:3 3 AM COMMUNITY PLANNER COVID-19 Rule Out 06/12/2022 06/12/2022 06/12/2022 8:35 PM COMMUNITY PLANNER RSV 06/12/2022 06/12/2022 06/22/2022 12:3 2 AM COMMUNITY PLANNER documented as of this encounter Care Teams Turn Down Attendant Relationship Specialty Start Date End Date Scar Maxwell MD [address] [place] [address] PCP - General FAMILY PRACTICE 07/16/17 11/28/21 New Referring, Provider PCP - General UNKNOWN PHYSICIAN SPECIALTY 11/29/21 06/04/22 Earnest Jason DO [address] [place] [address] PCP - General FAMILY PRACTICE 06/05/22 Mohan Choudhary MD [address] [place] [id number] [place] [address] Education Officer CARDIOVASCULAR DISEASE 07/16/17 07/01/19 Laith Smith MD [address] [place] [address] Vascular/Education Officer INTERNAL MEDICINE 08/08/17 Trevor Hayes MD [address] [place] [address] Consulting Physician CARDIOVASCULAR DISEASE 07/02/19 documented as of this encounter
--- OUTSIDE RECORDS SUMMARY | 2025-01-06 10:12 | XMS_ITS | Data Portability ---
Author Organization [place] - [facility] OFFICE Address [address] [place] [id number] Assessment No assessment recorded. Plan of Treatment Reminders Order Date Submit Date Provider Last Modified By Organization Details Last Modified Time Details Appointments None recorded. Lab None recorded. Referral None recorded. Procedures None recorded. Surgeries None recorded. Imaging electrocar diogram 2019 020 [email or web address] Not available 0 14:07:22 Medication Orders spironolac tone 50 mg tablet 2020 021 ANUJ [facility], [facility] [place], [address], 1 14:51:44 Xarelto 20 mg tablet 2020 021 [email or web address] [facility] [place] [address] [place], [address], 2 12:37:51 metolazone 2.5 mg tablet 2020 021 ANUJ [facility], [facility] [place], [address], 1 15:41:22 potassium chloride ER 20 mEq tablet,ext ended release 2020 021 [email or web address] [facility] [place] [address] [place], [address], 02:13:02 Lasix 40 mg tablet 2019 020 INTERFACE [facility], [facility] [place], [address], 0 11:02:17 lisinopril 5 mg tablet 2019 020 [email or web address] [id number], [address] [place], [address], 1 14:26:18 bumetanide 1 mg tablet 2019 020 mzabad [facility] [address], [address], 0 11:06:10 lisinopril 5 mg tablet 2019 020 [email or web address] [id number], [address] [place], [address], 1 14:26:18 Patient TargetsNo targets recorded. Patient Instructions Encounter Date Encounter Id Patient Instructions Last Modified By Organization Details Last Modified Time 05/02/2021 [id number] Weight loss 20 pounds Exercise advised Low cholesterol diet advised Low sodium diet advised. [email or web address] Not available 05/02/2021 14:49:09 Reason for Referral None Reported. Results Created Date Observation Date Name Description Value Unit Range Abnormal Flag Note LastModifiedBy Organization Detail LastModifiedTime 03/06/20 20 03/03/2020 elect felice bahenagr am No observ ation record ed. [email or web address] Not Available 2019 16:37:43 03/29/20 20 03/27/2020 , [facility] ardio gram No observ ation record ed. [email or web address] [facility] [address] [facility] [address], [place], [address], 03/30/2020 11:23:22 01/16/20 21 01/10/2021 elect rocar diogr am No observ ation record ed. [email or web address] Not Available 2020 15:31:18 Result Notes Documentation Provider Name and Address Organization Details Recorded Time Cbc W/ Diff : 03/26/20:WBC 8.1,RBC 4.94,HGB 13.5,HCT 41.0,PLT 349. [facility] 04/07/2020 12:36:29 Cmp, Serum Or Plasma : 04/25/20:Na 140,K 3.7,Cl 101,CO2 31,GLU 205,BUN 12,Cr 0.85, [facility] 04/27/2020 09:50:01 Pt/inr : 04/25/20 :PT 10.8,INR 1.0 . [facility] 09:50:01 Cbc W/ Diff : 04/25/20:WBC 9.1,RBC 5.42,HGB 14.7,HCT 45.0,PLT 334. Elidia Melchor [facility] 04/27/2020 09:50:01 Problems Name Problem SNOMED Code Status Onset Date Resolution Date Notes Provider Name and Address Organization Details Recorded Time Palpitations 66970153 Active 2018 Asiasari Esteban [facility] 9 15:34:14 Pulmonary embolism 73436354 Active 2018 Asia Esteban [facility] 9 15:34:31 Chest pain 35187701 Active 2018 Hala Aldo [facility] 9 11:37:04 Pre-surgery evaluation Active 2019 Elidia Melchor [facility] 0 14:35:28 Essential hypertension 10233743 Active 2019 Elidia Melchor [facility] 0 14:35:42 Sleep pattern disturbance 41082793 Active 2019 Elidia Melchor [facility] 0 14:35:55 Notes:Chest pain, Blackouts, palpitations. Problem Notes None recorded. Medical Equipment None Reported. Medications Name Sig Start Date Stop Date Status Note LastModified by Organization Details LastModified Time fluoxetin e 40 mg capsule TAKE 2 CAPSULES BY MOUTH DAILY active Not Available Not Available No t Available cyclobenz aprine 10 mg tablet TAKE 1 TABLET BY MOUTH EVERY NIGHT AT BEDTIME NEEDED FOR SPASM active Not Available Not Available No t Available amoxicill in 500 mg capsule 01/10 completed Not Available Not Available Not Available furosemid e 40 mg tablet TAKE 1 TABLET BY MOUTH DAILY active Not Available Not Available No t Available metolazon e 2.5 mg tablet TAKE 1 TABLET BY MOUTH THREE TIMES A WEEK active Not Available Not Available No t Available methocarb humberto 500 mg tablet active Not Available Not Available No t Available buspirone 5 mg tablet TAKE 1 TABLET BY MOUTH TWICE DAILY active Not Available Not Available No t Available nystatin 100,000 unit/mL oral suspensio n SWISH AND SWALLOW 1 ML BY MOUTH DAILY active Not Available Not Available No t Available prednison e 10 mg tablet 05/02 completed Not Available Not Available Not Available gabapenti n 600 mg tablet 04/07 completed Not Available Not Available Not Available ipratropi um 0.5 mg-albute rol 3 mg (2.5 mg base)/3 mL nebulizat ion soln active prn Not Available Not Available Not Available clindamyc in HCl 300 mg capsule 01/10 completed Not Available Not Available Not Available trazodone 50 mg tablet TAKE 1 TABLET BY MOUTH EVERY DAY AT BEDTIME NEEDED FOR INSOMNIA active Not Available Not Available No t Available tizanidin e 4 mg tablet 01/10 completed Not Available Not Available Not Available fluconazo le 150 mg tablet active Not Available Not Available Not Available hydrocodo ne 5 mg-acetam inophen 325 mg tablet TAKE 1 TABLET BY MOUTH TWICE DAILY NEEDED FOR PAIN active Not Available Not Available No t Available warfarin 10 mg tablet 01/10 completed pt not taking 01/10/21 Not Available Not Available Not Available warfarin 7.5 mg tablet 01/10 completed pt not taking 01/10/21 Not Available Not Available Not Available lisinopri l 20 mg tablet Take 1 tablet every day by oral route. 04/01 completed Not Available Not Available Not Available nystatin 500,000 unit tablet 05/02 completed Not Available Not Available Not Available topiramat e 25 mg tablet Take 1 tablet twice a day by oral route. 01/10 completed Not Available Not Available Not Available metronida zole 500 mg tablet 01/10 completed Not Available Not Available Not Available prochlorp erazine maleate 10 mg tablet 01/10 completed Not Available Not Available Not Available acyclovir 400 mg tablet 01/10 completed Not Available Not Available Not Available hydrocodo ne 10 mg-acetam inophen 325 mg tablet 01/10 completed Not Available Not Available Not Available tramadol 50 mg tablet 01/10 completed Not Available Not Available Not Available spironola ctone 25 mg tablet Take 1 tablet every day by oral route. 05/02 completed 2 times daily 05/02/20 mk Not Available Not Available Not Available warfarin 3 mg tablet Take 3 tablets every day by oral route. 01/10 completed pt not taking 01/10/21 Not Available Not Available Not Available oxycodone -acetamin ophen 5 mg-325 mg tablet 01/10 completed Not Available Not Available Not Available warfarin 6 mg tablet 6 mg daily 01/17 completed pt not taking 01/17/21 Not Available Not Available Not Available potassium chloride ER 20 mEq tablet,ex tended release(p art/cryst ) active Not Available Not Available Not Available magnesium oxide 400 mg (241.3 mg magnesium ) tablet 01/10 completed Not Available Not Available Not Available lorazepam 0.5 mg tablet TAKE 1 TABLET EVERY DAY BY ORAL ROUTE DIRECTED FOR 2 DAYS active Not Available Not Available No t Available gabapenti n 800 mg tablet TAKE 1 TABLET BY MOUTH THREE TIMES DAILY active Not Available Not Available No t Available furosemid e 80 mg tablet Take 1 tablet every day by oral route. active pt not taking 01/17/21 Not Available Not Available Not Available trazodone 100 mg tablet TAKE 1 TABLET BY MOUTH EVERY DAY AT BEDTIME active Not Available Not Available No t Available dicyclomi ne 20 mg tablet 01/10 completed Not Available Not Available Not Available OneTouch Ultra Test strips TEST THREE TIMES DAILY active Not Available Not Available No t Available meclizine 25 mg tablet prn active Not Available Not Available Not Available baclofen 10 mg tablet 01/10 completed Not Available Not Available Not Available hydrocodo ne 7.5 mg-acetam inophen 325 mg tablet TAKE 1 TABLET BY MOUTH EVERY 6 HOURS NEEDED FOR PAIN active Not Available Not Available No t Available pantopraz ole 40 mg tablet,de layed release TAKE 1 TABLET BY MOUTH EVERY MORNING active Not Available Not Available No t Available metformin 1,000 mg tablet Take 1 tablet twice a day by oral route. 01/10 completed Not Available Not Available Not Available buspirone 10 mg tablet TAKE 1 TABLET BY MOUTH TWICE DAILY WITH MEALS active Not Available Not Available No t Available warfarin 5 mg tablet TAKE 1 TABLET BY MOUTH DAILY active Not Available Not Available No t Available gabapenti n 300 mg capsule 04/07 completed Not Available Not Available Not Available bumetanid e 1 mg tablet Take 1 tablet every day by oral route. 04/07 completed Not Available Not Available Not Available monteluka st 10 mg tablet TAKE 1 TABLET BY MOUTH EVERY EVENING active Not Available Not Available No t Available hydroxyzi ne HCl 25 mg tablet TAKE 1 TABLET BY MOUTH THREE TIMES DAILY NEEDED active Not Available Not Available No t Available lisinopri l 5 mg tablet Take 1 tablet every day by oral route. 05/02 completed Not Available Not Available Not Available metoprolo l succinate ER 25 mg tablet,ex tended release 24 hr TAKE 1/2 TABLET BY MOUTH DAILY active Not Available Not Available No t Available propranol ol ER 120 mg capsule,2 4 hr,extend ed release TAKE 1 CAPSULE BY MOUTH EVERY EVENING active Not Available Not Available No t Available warfarin 1 mg tablet 6 mg once a day 01/10 completed Not Available Not Available Not Available diazepam 10 mg tablet TAKE 1 TABLET BY MOUTH FOR 1 DOSE TAKE 30 MINUTES BEFORE PROCEDUR E AND MUST HAVE LIBRARY CIRCULATION DEPARTMENT CHIEF active Not Available Not Available No t Available methylpre dnisolone 4 mg tablets in a dose pack 01/10 completed Not Available Not Available Not Available albuterol sulfate HFA 90 mcg/actua tion aerosol inhaler INHALE 1 TO 2 PUFFS BY MOUTH EVERY 4 HOURS NEEDED active Not Available Not Available No t Available ondansetr on 4 mg disintegr ating tablet 01/10 completed Not Available Not Available Not Available dicyclomi ne 10 mg capsule 05/02 completed Not Available Not Available Not Available spironola ctone 50 mg tablet Take 1 tablet every day by oral route. 2021 active Not Available Not Available Not Avai lable diazepam 5 mg tablet 01/10 completed Not Available Not Available Not Available amoxicill in 875 mg-potass ium clavulana te 125 mg tablet 01/10 completed Not Available Not Available Not Available oxycodone 5 mg tablet TAKE 1 TABLET BY MOUTH EVERY 8 HOURS NEEDED FOR PAIN active Not Available Not Available No t Available enoxapari n 120 mg/0.8 mL subcutane ous syringe 01/10 completed Not Available Not Available Not Available aripipraz ole 10 mg tablet TAKE 1 TABLET BY MOUTH AT BEDTIME active Not Available Not Available No t Available Novolog FlexPen U-100 Insulin aspart 100 unit/mL (3 mL) subcutane ous active Not Available Not Available Not Available aripipraz ole 5 mg tablet TAKE 1 TABLET BY MOUTH EVERY DAY AT BEDTIME active Not Available Not Available No t Available metoprolo l tartrate 25 mg tablet 1 tablet twice a day 04/01/19 sm 01/10 completed Not Available Not Available Not Available duloxetin e 60 mg capsule,d elayed release active Not Available Not Available Not Available pregabali n 75 mg capsule 01/10 completed Not Available Not Available Not Available pregabali n 150 mg capsule 01/10 completed Not Available Not Available Not Available Skelaxin 1 tablet 3 times a day 01/10 completed Not Available Not Available Not Available metoprolo l succinate 25 mg, 37.5 mg lucero. (BiD) 01/10 completed Not Available Not Available Not Available gabapenti n 600 mgs, tid 01/10 completed Pt is no mo more on this medicati on Not Available Not Available Not Available Lyrica 50 mg BID 05/02 completed Not Available Not Available Not Available Symbicort 80 mcg-4.5 mcg/actua tion HFA aerosol inhaler INHALE 2 PUFFS INTO THE LUNGS TWICE DAILY. RINSE MOUTH WITH WATER AFTER USE. DO NOT SWALLOW active Not Available Not Available No t Available Savella 12.5 mg tablet TAKE 1 TABLET BY MOUTH DAILY active Not Available Not Available No t Available Savella 25 mg tablet TAKE 1 TABLET BY MOUTH DAILY active Not Available Not Available No t Available OneTouch Delica Lancets 33 gauge TEST THREE TIMES DAILY active Not Available Not Available No t Available Novolog PenFill U-100 Insulin ss active Not Available Not Available Not Available Xarelto 20 mg tablet Take 1 tablet every day by oral route. 2021 active 04/11/21 now on Eliquis per pt./ek Not Available Not Available Not Available Eliquis 5 mg tablet one tablet BID 09/03 completed 09/03/21 not covered by [employer]/ek Not Available Not Available Not Available potassium chloride ER 20 mEq tablet,ex tended release TAKE 1 TABLET BY MOUTH AT BEDTIME active Not Available Not Available No t Available Trulicity 1.5 mg/0.5 mL subcutane ous pen injector ADMINIST ER 1.5 MG UNDER THE SKIN 1 TIME A WEEK active Not Available Not Available No t Available naloxone 4 mg/actuat ion nasal spray USE 1 SPRAY NASALLY ONE TIME active Not Available Not Available No t Available multivit- min no.[id number] 1 tab, OD active Not Available Not Available No t Available Basaglar KwikPen U-100 Insulin 100 unit/mL (3 mL) subcutane ous INJECT 50 UNITS SUBCUTAN EOUS EVERY MORNING AND 25 UNITS EVERY NIGHT AT BEDTIME. MAX DAILY DOSE OF 90 UNITS active Not Available Not Available No t Available magnesium 200 mg (as magnesium oxide) tablet Take 2 tablets every day by oral route before meals. 01/10 completed Not Available Not Available Not Available OneTouch Ultra Blue Test Strip active Not Available Not Available Not Available Dexcom G6 Sensor device USE 1 SENSOR EVERY 10 DAYS active Not Available Not Available No t Available Dexcom G6 Transmitt er device USE EVERY 90 DAYS active Not Available Not Available No t Available BD Priyanka 2nd Gen Pen Needle 32 gauge x 5/32 USE FOUR TIMES DAILY active Not Available Not Available No t Available OneTouch Ultra2 Meter USE DIRECTED active Not Available Not Available No t Available Trulicity 3 mg/0.5 mL subcutane ous pen injector ADMINIST ER 0.5 ML UNDER THE SKIN WEEKLY active Not Available Not Available No t Available Vitals Date Recorded Body height Body mass index (BMI) Body weight Heart rate Respiratory rate Oxygen saturation Oxygen saturation in Arterial blood by Pulse oximetry Systolic And Diastolic Provider Name and Address Organization Details Last Updated DateTime 1 160.02 cm 53.9 kg/m2 358935. 08 g 83 /min 18 /min 97 % 97 % 122/82 mm[Hg] Osiris Proctor [place] [facility] 1 14:58:31 Date Recorded Body height Body mass index (BMI) Body weight Heart rate Respiratory rate Oxygen saturation Oxygen saturation in Arterial blood by Pulse oximetry Systolic And Diastolic Provider Name and Address Organization Details Last Updated DateTime 1 160.02 cm 54 kg/m2 525735. 67 g 110 /min 18 /min 96 % 96 % 110/68 mm[Hg] Osiris Proctor [facility] 1 14:12:16 Date Recorded Body height Body mass index (BMI) Body weight Heart rate Respiratory rate Oxygen saturation Oxygen saturation in Arterial blood by Pulse oximetry Systolic And Diastolic Provider Name and Address Organization Details Last Updated DateTime 0 160.02 cm 51 kg/m2 479063. 6 g 93 /min 18 /min 98 % 98 % 134/84 mm[Hg] Jackie Long [facility] 0 10:37:39 Date Recorded Body height Body mass index (BMI) Body weight Heart rate Oxygen saturation Oxygen saturation in Arterial blood by Pulse oximetry Body temperature Systolic And Diastolic Provider Name and Address Organization Details Last Updated DateTime 0 160.02 cm 50.7 kg/m2 924223. 42 g 85 /min 98 % 98 % 97.9 [degF] 135/80 mm[Hg] Tommy Young [facility] 0 10:36:36 Date Recorded Body height Body mass index (BMI) Body weight Heart rate Oxygen saturation Oxygen saturation in Arterial blood by Pulse oximetry Systolic And Diastolic Provider Name and Address Organization Details Last Updated DateTime 1 160.02 cm 53.9 kg/m2 993772. 08 g 90 /min 94 % 94 % 105/72 mm[Hg] Teri Ti [facility] 1 14:21:41 Social History Question Answer Notes LastModified by Organizat ion Details LastModified Time Tobacco Smoking Status Never Smoker Not Available [employer] 04/18/2020 03:30:41 Do You Have An Advance Directive? No [id number] Information not available 04/18/2020 What Is Your Level Of Caffeine Consumption? None [id number] Information not available 04/18/2020 What Type Of Diet Are You Following? REGULAR [id number] Information not available 04/18/2020 What Was The Date Of Your Most Recent Tobacco Screening? 12/01/2018 [id number] Information not available 04/18/2020 How Much Tobacco Do You Smoke? No [id number] Information not available 04/18/2020 General Stress Level Medium Information not available 12/01/2018 How Many Years Have You Smoked Tobacco? 0 [id number] Information not available 04/18/2020 Sex: Unknown Functional Status Question Answer Note LastModified by Organizat ion Details LastModified Time What is your level of alcohol consumption? Occasional [id number] Information not available 04/18/2020 Do you or have you ever used smokeless tobacco? 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 Never used electronic cigarettes [id number] Information not available 04/18/2020 Mental Status None recorded. Family History Nothing Reported Notes:No known history of ca rdiac disease with mother or father....living. Medical History Condition Response Diabetes Y Blood Clot Y Congestive Heart Failure (CHF) Y Asthma Y Depression Y Warfarin Management Y GERD/Reflux Y Liver Disease Y Heart Disease Y Deep Vein Thrombosis Y Hypertension Y Kidney Disease Y Gynecological HistoryNo gynecological history recorded. Obstetrics History GPAL:G 0 P 0 0 0 0 Past Encounters Encounter ID Performer Location Encounter Start Date Encounter Closed Date Diagnosis/Indication Diagnosis SNOMED-CT Code Diagnosis ICD10 Code Diagnosis Note [id number] Tommy Wells MD [place] OFFICE [address] [place] [address] 12/01/2018 13:49:18 12/01/2018 15:40:33 Palpitations 80402373 R00.2 with chest pain, syncope. Consider implantabl e loop recorder as pt is intolerant of ekg lead. (skin rash). Hesitate to increase beta jane due to low blood pressure. Will get exercise stress echo, to look for any structural heart disease, and to look for any arrhythmia Atypical chest pain 1025 78369 R07.89 [facility] with non obstructiv e disease performed by Dr. Trevino at [facility] in [place], [place]. Essential hypertension 37497406 I10 Controlled . Continue medication s. Sleep ivy renzo disturbance 05272808 G47.9 will order sleep study. Pulmonary embolism 36077 003 I26.99 On coumadin followed by PCP [id number] MD Mattie [facility]hen[facility] Office [address] [place] [address] 04/01/2019 12:13:37 04/01/2019 13:42:28 Palpitations 74945496 R00.2 Better now with Metoprolol Atypical chest pain 1025 33714 R07.89 [facility] with non obstructiv e disease performed by Dr. Trevino at [facility] in [place], [place]. Essential hypertension 41653553 I10 Runs low now. Decrease Lisinopril to 5 mg daily. Continue Metoprolol Sleep ivy renzo disturbance 69935211 G47.9 will order sleep study. Pulmonary embolism 13875 003 I26.99 On coumadin followed by PCP Pre-surger y evaluation 263342196 Z01.818 She had cath recently with no CAD. She should have acceptable risk from cardiac standpoint . Continue BB Given her extensive history of DVT/PE she should be bridged perioperat valentin [id number] MD Mattie Swartz Office [address] [place] [address] 03/03/2020 10:24:21 03/03/2020 11:09:49 Palpitations 56737032 R00.2 Better now with Metoprolol Atypical chest pain 1025 36769 R07.89 [facility] with non obstructiv e disease performed by Dr. Trevino at [facility] in [place], [place]. Essential hypertension 98385292 I10 well controlled Sleep ivy renzo disturbance 86219535 G47.9 Sleep study with no sleep apnea Pulmonary embolism 45402 003 I26.99 On coumadin followed by PCP Chronic di astolic heart failure 380250530 I50.32 Now appears decompensa biju with unclear etiology as she is compliant with diet and medsWill obtain labs to assess her kidney function as she had JANE in prior admissions Will switch Lasix to Bumex 1 mg BIDRepeat 2D echocardio gramWill follow up in the office in 2 weeks [id number] MD Mattie Bahena Office [address] [place] [address] 04/07/2020 10:29:39 04/07/2020 11:27:05 Chronic diastolic heart failure 469565084 I50.32 Now appears decompensa biju with unclear etiology as she is compliant with diet and medsWills witch back to lasix as she responded better to that. WIll increase dose to 80 mg in AM and 40 in pm.Echo reviewed. normal EFLabs reviewed, creatinine normalcons ider repeat sleep study Palpitations 32016093 R0 0.2 Better now with Metoprolol Atypical chest pain 1025 62559 R07.89 [facility] with non obstructiv e disease performed by Dr. Trevino at [facility] in [place], [place]. Essential hypertension 80605690 I10 well controlled Sleep ivy renzo disturbance 18765767 G47.9 Sleep study with no sleep apnea Pulmonary embolism 86803 003 I26.99 On coumadin followed by PCP [id number] MD Mattie Bahena Office [address] [place] [address] 01/10/2021 14:37:47 01/10/2021 15:38:18 Chronic diastolic heart failure 596706383 I50.32 Now appears decompensa biju with unclear etiology as she is compliant with diet and medsContin ue lasix 80 mg in AM and 40 in pm.add metolazone 2.5 mg three days a weekfollow up in 1 week. if still volume overloaded will consider admittion for IV diuresisEc ho reviewed. normal EFLabs reviewed, creatinine normalcons ider repeat sleep study Palpitations 20020396 R0 0.2 Better now with Metoprolol Atypical chest pain 1025 03166 R07.89 [facility] with non obstructiv e disease performed by Dr. Trevino at [facility] in [place], [place]. Essential hypertension 14937735 I10 well controlled Sleep ivy renzo disturbance 66893742 G47.9 Pulmonary embolism 74150 003 I26.99 On coumadin but reports her PCP will not follow INR and want INR followed in our officeWill suze coumadin and start Xarelto. her INR today is 1.5. May start Xarelto today Type 2 toni betes mellitus without complication 484884695 E11.9 Now insulin dependentT reatment and evaluation by endocrinol Mary Lou ssed importance of adequate glycemic control to minimize cardiovasc ular disease progressio n, A1C goal of < 7% for type 2 DM. [id number] MD Mattie Apodaca Office [address] [place] [address] 01/17/2021 13:56:44 01/17/2021 14:32:04 Chronic diastolic heart failure 326612165 I50.32 Now appears decompensa biju with unclear etiology as she is compliant with diet and medsContin ue lasix 80 mg in AM and 40 in pm.add metolazone 2.5 mg three days a weekfollow up in 1 week. if still volume overloaded will consider admittion for IV diuresisEc ho reviewed. normal EFLabs reviewed, creatinine normalcons ider repeat sleep study Patient will be sent to the ER from office for IV lasix. Palpitations 38008437 R0 0.2 Better now with Metoprolol Atypical chest pain 1025 25659 R07.89 [facility] with non obstructiv e disease performed by Dr. Trevino at [facility] in [place], [place]. Essential hypertension [id number] I10 well controlled Sleep ivy renzo disturbance [id number] G47.9 will order sleep study. Pulmonary embolism 27896 003 I26.99 On xarelto Type 2 toni betes mellitus without complication [id number] E11.9 Now insulin dependentT reatment and evaluation by endocrinol ogistNilda ssed importance of adequate glycemic control to minimize cardiovasc ular disease progressio n, A1C goal of < 7% for type 2 DM. [id number] MD Mattie Apodaca Office [address] [address] 05/02/2021 14:08:09 05/02/2021 14:50:49 Chronic diastolic heart failure [id number] I50.32 Now appears OKContinue lasix 80 mg in AM and 40 in pm.add metolazone 2.5 mg three days a weekfollow up in 1 week. if still volume overloaded will consider admittion for IV diuresisEc ho reviewed. normal EFLabs reviewed, creatinine normal Palpitations [id number] R0 0.2 Better now with Propranolo l Atypical chest pain [id number] R07.89 LHC with non obstructiv e disease performed by Dr. Trevino at [facility] in [place], [place]. Essential hypertension [id number] I10 well controlled Sleep ivy renzo disturbance [id number] G47.9 Had sleep study, waiting for cpap with her PCP Pulmonary embolism 29585 003 I26.99 On xarelto Type 2 toni betes mellitus without complication [id number] E11.9 Now insulin dependentT reatment and evaluation by endocrinol Mary Lou ssed importance of adequate glycemic control to minimize cardiovasc ular disease progressio n, A1C goal of < 7% for type 2 DM. Health Concerns Section Related Observation LastModified by Organization Detai ls LastModified Time None Recorded Concern Status LastModified by Organization Details LastModified Time None Recorded Advance Directives Directive N: Payers Insurance Date Sequence Insurance Name Policy Number Policy Larkin Covered Member ID Larkin Member ID Guarantor Name 04/29/2021 1 SAMANTHA (POS) [id number] Israel Fernandez [id number] Olivia Fernandez 01/10/2021 1 [facility] PRIOR TO 12/14/2020 (MEDICAID REPLACEMENT - HMO) Olivia Thomas [facility] [id number] Olivia Fernandez Notes Date Note Type Note Provider Name and Address Organization Details Recorded Time 03/03/2020 text/html 03/03/20 CC: Chest pain, palpitations Patient is a 48 year old female with PMH of Hypertension, diastolic CHF,, 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 She has been doing well up until the last month. She noticed increased fatigue and worsening shortness of breath. She noticed that she is not responding to Lasix (on 80 daily) as she used to before. She gained 9 pounds over the last week only. She has been very compliant with diet as she is trying to loose weight before her wedding next week. She strongly belief the weight she gained over the last week is all fluids. She admits to lower ext edema and abdominal wall edema She presented to [facility] in [place], [place], and lives in [place], [place] with chest pain. Underwent CTA that was suboptimal due to movement, and subsequently had an LHC showing nonobstructive disease. Reports shortness of breath, walking across the parking lot.Reports hand and abdominal swelling.Reports orthopnea, and sleeps in a recliner.Reports PND.Reports nausea/vomiting with headaches. Patient is able to exercise, rides bicycle twice a week. Has some palpitations with this activity, but more so with walking. Will have weight loss surgery in the future.Denies having sleep study. Reports daytime somnolence. Denies LE edema. Denies melena, hematochezia or other major bleeding events. Results from this visit, or from the past:vitamin B12 + folate, serum or blood 03-23-2019 Vitamin B12 607PT/INR 03-23-2019 PT 49.00 INR 4.69CMP 03/23/2019 GL 131 BUN 13 NA 141 K 4.8 CH 102 CO2 30 CR 0.85 CA 9.1 AST 22 ALT 27 ALK PH 102TSH, serum or plasma 03-23-2019 TSH 0.62CBC 03/23/2019 WBC 9.0 RBC 5.10 HGB 14.1 HCT 43.1 PLT [id number] 03/23/2019 7.0 04/01/19 EKG : SinusRhythm ,low voltage in precordial leadsEKG, 12/01/18: Sinus Rhythm. P: normal. low voltage in precordial leads. ST-T: normal. EKG without significant ABN's.XR chest 03/23/2019 No acute cardiopulmonary disease Brad Yun [place], [place] - [facility] 03/03/2020 11:13:39 04/07/2020 text/html 04/07/20 CC: Chest pain, palpitations Patient is a 48 year old female with PMH of Hypertension, diastolic CHF,, multiple PE/DVT on Coumadin, vascular disease/HELLP during , diabetes, presents for cardiac consultation for congestive heart failure Last seen 03/03/20. At that time she was switched to Bumex due to swelling in legs and abdomen and weight gain. She reports that she was responding better to lasix. She continues to have abdominal wall edema and dyspnea with exertion. She is scheduled for MRI later today for back pain.Had an episode about a week ago of CP with left arm pain, was told it was asthma attack, has not had a severe episode since. previosSilvinoe was last seen almost a year ago for pre op clearance prior to back surgery. She has been doing well up until the last month. She noticed increased fatigue and worsening shortness of breath. She noticed that she is not responding to Lasix (on 80 daily) as she used to before. She gained 9 pounds over the last week only. She has been very compliant with diet as she is trying to loose weight before her wedding next week. She strongly belief the weight she gained over the last week is all fluids. She admits to lower ext edema and abdominal wall edema She presented to [facility] in [place], [place], and lives in [place] with chest pain. Underwent CTA that was suboptimal due to movement, and subsequently had an [facility] showing nonobstructive disease. Reports shortness of breath, walking across the parking lot.Reports hand and abdominal swelling.Reports orthopnea, and sleeps in a recliner.Reports PND.Reports nausea/vomiting with headaches. Patient is able to exercise, rides bicycle twice a week. Has some palpitations with this activity, but more so with walking. Will have weight loss surgery in the future.Denies having sleep study. Reports daytime somnolence. Denies LE edema. Denies melena, hematochezia or other major bleeding events. Results from this visit, or from the past:vitamin B12 + folate, serum or blood 03-23-2019 Vitamin B12 607PT/INR 03-23-2019 PT 49.00 INR 4.69CMP 03/23/2019 GL 131 BUN 13 NA 141 K 4.8 CH 102 CO2 30 CR 0.85 CA 9.1 AST 22 ALT 27 ALK PH 102TSH, serum or plasma 03-23-2019 TSH 0.62CBC 03/23/2019 WBC 9.0 RBC 5.10 HGB 14.1 HCT 43.1 PLT [id number] 03/23/2019 7.0 ECG - 03/03/2020 - Low voltage, chest leads; flat T-waves, anterior leads.04/01/19 EKG : SinusRhythm ,low voltage in precordial leadsEKG, 12/01/18: Sinus Rhythm. P: normal. low voltage in precordial leads. ST-T: normal. EKG without significant ABN's. XR chest 03/23/2019 No acute cardiopulmonary disease Mahammad Nour [facility], [place] - [facility] 04/07/2020 12:08:30 01/10/2021 text/html 01/10/2021 CC: Chest pain, palpitations Patient is a 50 year old female with PMH of Hypertension, diastolic CHF,, multiple PE/DVT on Coumadin, vascular disease/HELLP during , diabetes, presents for cardiac consultation for congestive heart failure She was last seen in clinic in March 2020. At that time, she was in decompensated diastolic heart failure and Lasix was increased to 80 mg in the morning and 40 mg in the afternoon. She was lost to follow-up after that. She reports she had a syncopal episode on 12/11/2020 while at home. She states she got out of bed and was making it when she remembers waking up on the floor. She does not remember falling. She was not evaluated at the hospital. She went to her PCP who referred her to ENT for persistent dizziness. She recently established by a new PCP, Dr. Hernandez, who stopped her metoprolol and started propanolol. It is unclear why that change was made. She reports she has had increasing palpitations since switching to propranolol. She also become insulin dependent since she was last seen in clinic. She is now seeing an endocrinolgoist at [facility]. She previously tested negative for sleep apnea but reports she recently tested positive but has not been set up with CPAP yet Previously,Last seen 03/03/20. At that time she was switched to Bumex due to swelling in legs and abdomen and weight gain. She reports that she was responding better to lasix. She continues to have abdominal wall edema and dyspnea with exertion. She is scheduled for MRI later today for back pain.Had an episode about a week ago of CP with left arm pain, was told it was asthma attack, has not had a severe episode since. She was last seen almost a year ago for pre op clearance prior to back surgery. She has been doing well up until the last month. She noticed increased fatigue and worsening shortness of breath. She noticed that she is not responding to Lasix (on 80 daily) as she used to before. She gained 9 pounds over the last week only. She has been very compliant with diet as she is trying to loose weight before her wedding next week. She strongly belief the weight she gained over the last week is all fluids. She admits to lower ext edema and abdominal wall edema She presented to [facility] in [place], [place], and lives in [place], [place] with chest pain. Underwent CTA that was suboptimal due to movement, and subsequently had an C showing nonobstructive disease. Reports shortness of breath, walking across the parking lot.Reports hand and abdominal swelling.Reports orthopnea, and sleeps in a recliner.Reports PND.Reports nausea/vomiting with headaches. Patient is able to exercise, rides bicycle twice a week. Has some palpitations with this activity, but more so with walking. Will have weight loss surgery in the future.Denies having sleep study. Reports daytime somnolence. Denies LE edema. Denies melena, hematochezia or other major bleeding events. Results from this visit, or from the past: 04/25/20 :PT 10.8,INR 1.0 .04/25/20:Na 140,K 3.7,Cl 101,CO2 31,GLU 205,BUN 12,Cr 0.85.04/25/20:WBC 9.1,RBC 5.42,HGB 14.7,HCT 45.0,PLT 334.troponin I, blood 03-26-2020 03/26/20: TROPONIN I < 0.02 ng/mL vitamin B12 + folate, serum or blood 03-23-2019 Vitamin B12 607PT/INR 03-23-2019 PT 49.00 INR 4.69CMP 03/23/2019 GL 131 BUN 13 NA 141 K 4.8 CH 102 CO2 30 CR 0.85 CA 9.1 AST 22 ALT 27 ALK PH 102TSH, serum or plasma 03-23-2019 TSH 0.62CBC 03/23/2019 WBC 9.0 RBC 5.10 HGB 14.1 HCT 43.1 PLT [id number] 03/23/2019 7.0 ECG - 03/03/2020 - Low voltage, chest leads; flat T-waves, anterior leads.04/01/19 EKG : SinusRhythm ,low voltage in precordial leadsEKG, 12/01/18: Sinus Rhythm. P: normal. low voltage in precordial leads. ST-T: normal. EKG without significant ABN's. 03/27/20 ECHO: Study quality: technically difficult. LV chamber size is normal. There is borderline LV hypertrophy. There is normal global systolic function and contractility. The estimated left ventricle ejection fraction is 55-60% (normal). XR chest 03/23/2019 No acute cardiopulmonary disease Brad Callieangelic Yun [place], [place] - [facility] 01/13/2021 02:15:35 01/17/2021 text/html 01/17/21CC : Cardiac follow up50 year old female with PMH of Hypertension, diastolic CHF,, multiple PE/DVT on Xarelto, vascular disease/HELLP during , diabetes is here for follow up. She was last seen in the clinic on 01/10/21, since then she denies ER visits and hospitalizations since she was last seen. Today reportsYes chest pain. Yes shortness of breath at rest. Yes dyspnea on exertion. Yes orthopnea, recliner utilized. No PNDs. Denies heart palpitations. Denies dizziness. Denies syncope or near syncope. Yes ankle or leg edema, hands. No major bleeding events. No reported side effects from medications. Taking medications as prescribed with no missed doses. Denies snoring, daytime somnolence and AM headache. Patient will be sent to the ER from office for IV lasix. PreviouslyShe was in decompensated diastolic heart failure and Lasix was increased to 80 mg in the morning and 40 mg in the afternoon. She reported she had a syncopal episode on 12/11/2020 while at home. She states she got out of bed and was making it when she remembers waking up on the floor. She does not remember falling. She was not evaluated at the hospital. She went to her PCP who referred her to ENT for persistent dizziness. She recently established by a new PCP, Dr. Hernandez, who stopped her metoprolol and started propanolol. It is unclear why that change was made. She reports she has had increasing palpitations since switching to propranolol. She also become insulin dependent since she was last seen in clinic. She is now seeing an endocrinolgoist at [facility]. She previously tested negative for sleep apnea but reports she recently tested positive but has not been set up with CPAP yet Last seen 03/03/20. At that time she was switched to Bumex due to swelling in legs and abdomen and weight gain. She reports that she was responding better to lasix. She continues to have abdominal wall edema and dyspnea with exertion. She is scheduled for MRI later today for back pain.Had an episode about a week ago of CP with left arm pain, was told it was asthma attack, has not had a severe episode since. She was last seen almost a year ago for pre op clearance prior to back surgery. She has been doing well up until the last month. She noticed increased fatigue and worsening shortness of breath. She noticed that she is not responding to Lasix (on 80 daily) as she used to before. She gained 9 pounds over the last week only. She has been very compliant with diet as she is trying to loose weight before her wedding next week. She strongly belief the weight she gained over the last week is all fluids. She admits to lower ext edema and abdominal wall edema She presented to [facility] in [place], [place], and lives in [place] with chest pain. Underwent CTA that was suboptimal due to movement, and subsequently had an [facility] showing nonobstructive disease. Reports shortness of breath, walking across the parking lot.Reports hand and abdominal swelling.Reports orthopnea, and sleeps in a recliner.Reports PND.Reports nausea/vomiting with headaches. Patient is able to exercise, rides bicycle twice a week. Has some palpitations with this activity, but more so with walking. Will have weight loss surgery in the future.Denies having sleep study. Reports daytime somnolence. Denies LE edema. Denies melena, hematochezia or other major bleeding events. Results from this visit, or from the past: 04/25/20 :PT 10.8,INR 1.0 .04/25/20:Na 140,K 3.7,Cl 101,CO2 31,GLU 205,BUN 12,Cr 0.85.04/25/20:WBC 9.1,RBC 5.42,HGB 14.7,HCT 45.0,PLT 334.troponin I, blood 03-26-2020 03/26/20: TROPONIN I < 0.02 ng/mL vitamin B12 + folate, serum or blood 03-23-2019 Vitamin B12 607PT/INR 03-23-2019 PT 49.00 INR 4.69CMP 03/23/2019 GL 131 BUN 13 NA 141 K 4.8 CH 102 CO2 30 CR 0.85 CA 9.1 AST 22 ALT 27 ALK PH 102TSH, serum or plasma 03-23-2019 TSH 0.62CBC 03/23/2019 WBC 9.0 RBC 5.10 HGB 14.1 HCT 43.1 PLT [id number] 03/23/2019 7.0 ECG - 03/03/2020 - Low voltage, chest leads; flat T-waves, anterior leads.04/01/19 EKG : SinusRhythm ,low voltage in precordial leadsEKG, 12/01/18: Sinus Rhythm. P: normal. low voltage in precordial leads. ST-T: normal. EKG without significant ABN's. 03/27/20 ECHO: Study quality: technically difficult. LV chamber size is normal. There is borderline LV hypertrophy. There is normal global systolic function and contractility. The estimated left ventricle ejection fraction is 55-60% (normal). XR chest 03/23/2019 No acute cardiopulmonary disease 01/17/21CC : Cardiac follow up50 year old female with PMH of Hypertension, diastolic CHF, multiple PE/DVT on Coumadin, vascular disease/HELLP during , diabetes is here for follow up. She was last seen in the clinic on , since then Christal denies ER visits and hospitalizations since she was last seen. Today reportsDenies chest pain.Denies shortness of breath at rest. Denies dyspnea on exertion.No orthopnea. No PNDs.Denies heart palpitations.Denies dizziness. Denies syncope or near syncope.No ankle or leg edema.No major bleeding events.No reported side effects from medications. Taking medications as prescribed with no missed doses.Denies snoring, daytime somnolence and AM headache. Leana was in decompensated diastolic heart failure and Lasix was increased to 80 mg in the morning and 40 mg in the afternoon. She was lost to follow-up after that. She had a syncopal episode on 12/11/2020 while at home. She states she got out of bed and was making it when she remembers waking up on the floor. She does not remember falling. She was not evaluated at the hospital. She went to her PCP who referred her to ENT for persistent dizziness. She recently established by a new PCP, Dr. Hernandez, who stopped her metoprolol and started propanolol. It is unclear why that change was made. She reports she has had increasing palpitations since switching to propranolol. She also become insulin dependent since she was last seen in clinic. She is now seeing an endocrinolgoist at [facility]. She previously tested negative for sleep apnea but reports she recently tested positive but has not been set up with CPAP yet Last seen 03/03/20. At that time she was switched to Bumex due to swelling in legs and abdomen and weight gain. She reports that she was responding better to lasix. She continues to have abdominal wall edema and dyspnea with exertion. She is scheduled for MRI later today for back pain.Had an episode about a week ago of CP with left arm pain, was told it was asthma attack, has not had a severe episode since. She was last seen almost a year ago for pre op clearance prior to back surgery. She has been doing well up until the last month. She noticed increased fatigue and worsening shortness of breath. She noticed that she is not responding to Lasix (on 80 daily) as she used to before. She gained 9 pounds over the last week only. She has been very compliant with diet as she is trying to loose weight before her wedding next week. She strongly belief the weight she gained over the last week is all fluids. She admits to lower ext edema and abdominal wall edema She presented to [facility] in [place], [place], and lives in [place] with chest pain. Underwent CTA that was suboptimal due to movement, and subsequently had an [facility] showing nonobstructive disease. Reports shortness of breath, walking across the parking lot.Reports hand and abdominal swelling.Reports orthopnea, and sleeps in a recliner.Reports PND.Reports nausea/vomiting with headaches. Patient is able to exercise, rides bicycle twice a week. Has some palpitations with this activity, but more so with walking. Will have weight loss surgery in the future. Results from this visit, or from the past: 04/25/20 :PT 10.8,INR 1.0 .04/25/20:Na 140,K 3.7,Cl 101,CO2 31,GLU 205,BUN 12,Cr 0.85.04/25/20:WBC 9.1,RBC 5.42,HGB 14.7,HCT 45.0,PLT 334.troponin I, blood 03-26-2020 03/26/20: TROPONIN I < 0.02 ng/mL vitamin B12 + folate, serum or blood 03-23-2019 Vitamin B12 607PT/INR 03-23-2019 PT 49.00 INR 4.69CMP 03/23/2019 GL 131 BUN 13 NA 141 K 4.8 CH 102 CO2 30 CR 0.85 CA 9.1 AST 22 ALT 27 ALK PH 102TSH, serum or plasma 03-23-2019 TSH 0.62CBC 03/23/2019 WBC 9.0 RBC 5.10 HGB 14.1 HCT 43.1 PLT [id number] 03/23/2019 7.0 ECG - 03/03/2020 - Low voltage, chest leads; flat T-waves, anterior leads.04/01/19 EKG : SinusRhythm ,low voltage in precordial leadsEKG, 12/01/18: Sinus Rhythm. P: normal. low voltage in precordial leads. ST-T: normal. EKG without significant ABN's. 03/27/20 ECHO: Study quality: technically difficult. LV chamber size is normal. There is borderline LV hypertrophy. There is normal global systolic function and contractility. The estimated left ventricle ejection fraction is 55-60% (normal). XR chest 03/23/2019 No acute cardiopulmonary disease Tommy Wells MD [address] [place], [address], [facility] - [facility] 01/17/2021 17:33:46 05/02/2021 text/html 05/02/21CC : Cardiac follow up, dyspnea on [id number] year old female with PMH of Hypertension, diastolic CHF,, multiple PE/DVT on Xarelto, vascular disease/HELLP during , and diabetes is here for follow up. She was last seen in the clinic on 01/17/21 , since then she had low K,She had ER visits and hospitalizations since she was last seen. Denies chest pain.Denies shortness of breath at rest. Has mild dyspnea on exertion.No orthopnea. No PNDs.Denies heart palpitations.Denies dizziness. Denies syncope or near syncope.No ankle or leg edema.No major bleeding events.No reported side effects from medications. Taking medications as prescribed with no missed doses.Denies snoring, daytime somnolence and AM headache.*Pt dose not have any lipid labs previously. Previously:She was in decompensated diastolic heart failure and Lasix was increased to 80 mg in the morning and 40 mg in the afternoon. She reported she had a syncopal episode on 12/11/2020 while at home.She states she got out of bed and was making it when she remembers waking up on the floor. She does not remember falling. She was not evaluated at the hospital. She went to her PCP who referred her to ENT for persistent dizziness. She recently established by a new PCP, Dr. Hernandez, who stopped her metoprolol and started propanolol. It is unclear why that change was made. She reports she has had increasing palpitations since switching to propranolol. She also become insulin dependent since she was last seen in clinic. She is now seeing an endocrinolgoist at [facility]. She previously tested negative for sleep apnea but reports she recently tested positive but has not been set up with CPAP yet Last seen 03/03/20. At that time she was switched to Bumex due to swelling in legs and abdomen and weight gain. She reports that she was responding better to lasix. She continues to have abdominal wall edema and dyspnea with exertion. She is scheduled for MRI later today for back pain.Had an episode about a week ago of CP with left arm pain, was told it was asthma attack, has not had a severe episode since. She had back surgery.She noticed increased fatigue and worsening shortness of breath. She noticed that she is not responding to Lasix (on 80 daily) as she used to before. She gained 9 pounds over the last week only. She has been very compliant with diet as she is trying to loose weight before her wedding next week. She strongly belief the weight she gained over the last week is all fluids. She admits to lower ext edema and abdominal wall edema She presented to [facility] in [place], [place], and lives in [place] with chest pain. Underwent CTA that was suboptimal due to movement, and subsequently had an C showing nonobstructive disease. Reported shortness of breath, walking across the parking lot.Reported hand and abdominal swelling.Reported orthopnea, and sleeps in a recliner.Reported PND.Reported nausea/vomiting with headaches. Patient is able to exercise, rides bicycle twice a week. Has some palpitations with this activity, but more so with walking. Will have weight loss surgery in the future. Results from this visit, or from the past:04/25/20 :PT 10.8,INR 1.0 .04/25/20:Na 140,K 3.7,Cl 101,CO2 31,GLU 205,BUN 12,Cr 0.85.04/25/20:WBC 9.1,RBC 5.42,HGB 14.7,HCT 45.0,PLT 334.troponin I, blood : TROPONIN I < 0.02 ng/mLvitamin B12 + folate, serum or blood [id number] B12 607PT/INR 15-03-1315FA 49.00 INR 4.69CMP 03/23/2019 GL 131 BUN 13 NA 141 K 4.8 CH 102 CO2 30 CR 0.85 CA 9.1 AST 22 ALT 27 ALK PH 102TSH, serum or plasma [id number] 0.62CBC 03/23/2019 WBC 9.0 RBC 5.10 HGB 14.1 HCT 43.1 PLT [id number] 03/23/2019 7.0ECG - 03/03/2020 - Low voltage, chest leads; flat T-waves, anterior leads.04/01/19 EKG : SinusRhythm ,low voltage in precordial leadsEKG, 12/01/18: Sinus Rhythm. P: normal. low voltage in precordial leads. ST-T: normal. EKG without significant ABN's.03/27/20 ECHO: Study quality: technically difficult. LV chamber size is normal. There is borderline LV hypertrophy. There is normal global systolic function and contractility. The estimated left ventricle ejection fraction is 55-60% (normal).XR chest 03/23/2019 No acute cardiopulmonary disease Tommy Wells MD [address] [facility], [place], [address], [place] [facility] 05/02/2021 14:50:46 OBGyn Episode No OBEpisode recorded.
--- OUTSIDE RECORDS SUMMARY | 2025-01-06 10:12 | XMS_ITS | Encounter Summary ---
Author Organization [facility] Address [address] [place] [address] Care Team Providers Care Receiving Checker Name Role Phone Laith Smith MD Unavailable Trevor Hayes MD Unavailable [phone] Earnest Jason DO Primary Care Provider [phone] Encounter Details Date Type Department Care Team (Late st Contact Info) Description 06/06/2022 Hospital Follow-up Call [place] [address] [place] [address] Maria R Pickens RN Social [...] Coronavirus/COVID-19? No / Unsure 06/02/2022 4:16 PM RN MEDICATION documented as of this encounter Functional Status * RETIRED Are you deaf or do you have serious difficulty hearing Answer Date of Assessment Author Status No 06/03/2022 2:00 AM RN MEDICATION Activ e * RETIRED Are you blind or do you have serious difficulty seeing, even when wearing glasses? Answer Date of Assessment Author Status No 06/03/2022 2:00 AM RN MEDICATION Activ e * Do you have serious [...] Date Author Status No 06/03/2022 2:00 AM RN MEDICATION Kurtis Greer RN A ctive documented in this encounter Plan of Treatment Not on file documented as of this encounter Visit Diagnoses Not on filedocumented in this encounter Additional Health Concerns Infection Onset Date Last Indicated Resolved Time MRSA 05/04/2017 05/04/2017 RSV 06/02/2022 06/02/2022 06/12/2022 12:3 3 AM RN MEDICATION COVID-19 Rule Out 06/12/2022 06/12/2022 06/12/2022 8:35 PM RN MEDICATION RSV 06/12/2022 06/12/2022 06/22/2022 12:3 2 AM RN MEDICATION documented as of this encounter Care Teams Receiving Checker Relationship Specialty Start Date End Date Earnest Jason DO [address] [place] [address] PCP - General FAMILY PRACTICE 06/05/22 Laith Smith MD Vascular/Informatics Coordinator INTERNAL MEDICINE 08/08/17 Trevor Hayes MD [address] [place] [address] Consulting Physician CARDIOVASCULAR DISEASE 07/02/19 documented as of this encounter
--- OUTSIDE RECORDS SUMMARY | 2025-01-06 10:12 | XMS_ITS | Clinical Summary ---
Author Organization [facility] Address [address] [place] [address] Care Team Providers Care Jacket Preparer Name Role Phone Laith Smtih MD Unavailable Trevor Hayes MD Unavailable [phone] Earnest Jason DO Primary Care Provider [phone] Allergies Active Allergy Reactions Criticality Noted Date [...] Chest pain 10/29/2018 Acute diastolic heart failure ([facility]) 10/29/2018 Hematuria 10/27/2018 Sepsis ([facility]) 08/19/2018 Hypertensive heart disease without [...] Comments Blood Pressure 83/48 06/14/2022 7:57 AM TRANSFER DRIVER Pulse 76 06/14/2022 7:57 AM TRANSFER DRIVER Temperature 36.4 C (97.5 F) 06/14/2022 7:57 AM TRANSFER DRIVER Respiratory Rate 18 06/14/2022 7:57 AM TRANSFER DRIVER Oxygen Saturation 97% 06/14/2022 7:57 AM TRANSFER DRIVER Inhaled Oxygen Concentration - - Weight 128 kg (282 lb 3 oz) 06/12/2022 6:[address] Height 160 cm (5' 3) 06/12/2022 6:40 PM TRANSFER DRIVER Body Mass Index 49.99 06/12/2022 6:40 PM TRANSFER DRIVER Plan of Treatment Health Maintenance Due Date [...] Comments HEPATITIS PANEL,ACUTE Routine 08/21/2018 5:39 PM TRANSFER DRIVER from Last 3 Months or Most Recently Relevant to Health Maintenance Results * HEPATITIS PANEL,ACUTE (08/21/2018 5:39 PM TRANSFER DRIVER) HEPATITIS B SURFACE AG NON-REACT SABRA NON-REACT SABRA 08/25/2018 1:05 PM CDT [facility] Comment:HBsAg NOT DETECTED. HEP B CORE IGM NON-REACT SABRA NON-REACT SABRA 08/25/2018 1:05 PM CDT [facility] Comment: IgM ANTI HBc NOT DETECTED. DOES NOT EXCLUDE THE POSSIBILITY OF EXPOSURE TO OR INFECTION WITH HBV. NO RETEST REQUIRED. HIGH DOSES OF BIOTIN MAY INTERFERE WITH THIS TEST RESULT. CORRELATION TO CLINICAL HISTORY AND PRESENTATION RECOMMENDED. HAV IGM NON-REACT SABRA NON-REACT SABRA 08/25/2018 1:05 PM CDT [facility] Comment: IgM ANTI HAV NOT DETECTED. DOES NOT EXCLUDE THE POSSIBILITY OF EXPOSURE TO OR INFECTION WITH HAV. LEVELS OF IgM ANTI HAV MAY BE BELOW THE CUTOFF IN EARLY INFECTION. HEPATITIS C AB NON-REACT SABRA NON-REACT SABRA 08/25/2018 1:05 PM CDT [facility] Comment: ANTIBODIES TO HCV NOT DETECTED. DOES NOT EXCLUDE THE POSSIBILITY OF EXPOSURE TO HCV. 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
--- OUTSIDE RECORDS SUMMARY | 2025-01-06 10:12 | XMS_ITS | Encounter Summary ---
Author Organization [facility] Address [address] [place] [address] Phone Care Team Providers Care Numerical Control Machine Machinist Name Role Phone Damien Hernandez MD Primary Care Provider [phone] Monique Almendarez MD Unavailable Juan Manuel Yun MD Unavailable [phone] Juan Manuel Yun MD Unavailable [phone] Wilian Joe MD Unavailable [phone] Encounter Details Date Type Department Care Team (Late st Contact Info) Description 10/23/2020 Telephone [facility] 8th [place] [address] [place] [address] Dianne Andrade CMA Social History Tobacco Use Types Packs/Day Years Used Date Smoking Tobacco: Never Smokeless Tobacco: Never Alcohol Use Standard Drinks/Week Comments No 0 (1 standard drink = 0.6 oz pur e alcohol) Comments No Sex and Gender Information Value Date Recorded Sex Assigned at Not on file Legal Sex Female 4:21 AM TITLE I MATH TUTOR Gender Identity Not on file Sexual Orientation Not on file documented as of this encounter Plan of Treatment Not on file documented as of this encounter Visit Diagnoses Not on filedocumented in this encounter Care Teams Numerical Control Machine Machinist Relationship Specialty Start Date End Date Damien Hernandez MD PCP - General Internal Medicine 10/02/20 Monique Almendarez MD Referring Physician Endocrinology Diabetes & Metabolism 10/26/20 Juan Manuel Yun MD [address] [facility] [place] [address] Consulting Physician Hand Surgery 10/26/20 10/26/20 Juan Maneul Yun MD [address] [place] [address] Consulting Physician Cardiology 10/26/20 Wilian Joe MD [address] [place] [address] [place] [address] Consulting Physician Interventional Cardiology 01/21/21 documented as of this encounter
[2025-01-06 11:28] LABS: Alanine Aminotransferase 19 U/L (6-35); Albumin Level 4.3 g/dL (3.5-5.1); Alkaline Phosphatase 121 U/L (38-126); Aspartate Amino Transferase 25 U/L (14-36); Bilirubin,Total 0.7 mg/dL (0.2-1.3); Total Protein 6.9 g/dL (6.3-8.2)
== END 2025-01-06 10:07 | disposition home or self-care (01) ==
PROVIDERS: PCP Family Medicine; Visit Provider Podiatrist Foot & Ankle Surgery
DX: B35.1 Tinea unguium (principal)
CPT/HCPCS: 36415; 80076

== ENCOUNTER 2025-04-28 15:12 | Outpatient (CLI) | payer BC, SELFPAY ==
--- OUTSIDE RECORDS SUMMARY | 2025-04-28 15:14 | XMS_ITS | Clinical Summary ---
Author Organization [facility] Address [address] [place] [address] Care Team Providers Care Photoengraving Printer Name Role Phone Laith Smith MD Unavailable Trevor Hayes MD Unavailable [phone] Earnest Jason DO Primary Care Provider [phone] Allergies Active Allergy Reactions Criticality Noted Date [...] Chest pain 10/29/2018 Acute diastolic heart failure 10/29/2018 Hematuria 10/27/2018 Sepsis 08/19/2018 Hypertensive heart disease without heart failure [...] Comments Blood Pressure 83/48 06/14/2022 7:57 AM SCRAP IRON LOADER Pulse 76 06/14/2022 7:57 AM SCRAP IRON LOADER Temperature 36.4 C (97.5 F) 06/14/2022 7:57 AM SCRAP IRON LOADER Respiratory Rate 18 06/14/2022 7:57 AM SCRAP IRON LOADER Oxygen Saturation 97% 06/14/2022 7:57 AM SCRAP IRON LOADER Inhaled Oxygen Concentration - - Weight 128 kg (282 lb 3 oz) 06/12/2022 6:[address] Height 160 cm (5' 3) 06/12/2022 6:40 PM SCRAP IRON LOADER Body Mass Index 49.99 06/12/2022 6:40 PM SCRAP IRON LOADER Plan of Treatment Health Maintenance Due Date Last Done Comments Colorectal Cancer Screening Colonoscopy (10 Years) 1971 Annual Physical 1974 DTaP, Tdap and Td Vaccines (1 - Tdap) 1990 Hepatitis B Vaccines (1 of 3 - 19+ 3-dose series) 1990 Mammogram Screening 2011 Pneumococcal Vaccine: 50+ Years (2 of 2 - PCV) 04/27/2017 04/27/2016 Zoster Vaccines (1 of 2) 2021 COVID-19 Vaccine (3 - season) 2025 02/26/2021, 12/26/2020 Influenza Adult (#1) 2025 05/15/2023, 02/23/2021, 04/27/2016, Additional history exists Hepatitis C Completed 08/21/2018 Hepatitis A Vaccines Aged Out No long er eligible based on patient's age to complete this topic Meningococcal B Vaccine Aged Out No l onger eligible based on patient's age to complete this topic Meningococcal Vaccine Aged Out No sandro yudelka eligible based on patient's age to complete this topic RSV Immunizations Under 20 Months Aged Out No longer eligible based on patient's age to complete this topic Goals Goal Patient Goal Type Associated Problems Recent Progress Patient-Stated? Author Patient will return to prior living situation and remain independent in ADLs upon discharge from hospital Lifestyle No Wanda Torrez executive compensation analyst Procedure Name Priority Date/Time Associated Diagnosis Comments HEPATITIS PANEL,ACUTE Routine 08/21/2018 5:39 PM SCRAP IRON LOADER from Last 3 Months or Most Recently Relevant to Health Maintenance Results * HEPATITIS PANEL,ACUTE (08/21/2018 5:39 PM SCRAP IRON LOADER) HEPATITIS B SURFACE AG NON-REACT SABRA NON-REACT SABRA 08/25/2018 1:05 PM CDT [facility] Comment:HBsAg NOT DETECTED. HEP B CORE IGM NON-REACT SABRA NON-REACT SABRA 08/25/2018 1:05 PM CDT [facility] Comment: IgM ANTI HBc NOT DETECTED. DOES NOT EXCLUDE THE POSSIBILITY OF EXPOSURE TO OR INFECTION WITH HBV. NO RETEST REQUIRED. HIGH DOSES OF BIOTIN MAY INTERFERE WITH THIS TEST RESULT. CORRELATION TO CLINICAL HISTORY AND PRESENTATION RECOMMENDED. HAV IGM NON-REACT SABRA NON-REACT SABRA 08/25/2018 1:05 PM CDT [facility] Comment: IgM ANTI HAV NOT DETECTED. DOES NOT EXCLUDE THE POSSIBILITY OF EXPOSURE TO OR INFECTION WITH HAV. LEVELS OF IgM ANTI HAV MAY BE BELOW THE CUTOFF IN EARLY INFECTION. HEPATITIS C AB NON-REACT SABRA NON-REACT SABRA 08/25/2018 1:05 PM CDT [facility] Comment: ANTIBODIES TO HCV NOT DETECTED. DOES NOT EXCLUDE THE POSSIBILITY OF EXPOSURE TO HCV. 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
--- OUTSIDE RECORDS SUMMARY | 2025-04-28 15:14 | XMS_ITS | Encounter Summary ---
Author Organization [facility] Address [address] [place] [address] Care Team Providers Care Is Manager Name Role Phone Scar Maxwell MD Primary Care Provider [phone] Mohan Choudhary MD Unavailable Unavailab Laith Young MD Unavailable Trevor Hayes MD Unavailable [phone] New Referring, Provider Primary Care Provider Un available Earnest Jason DO Primary Care Provider [phone] Encounter Details Date Type Department Care Team (Late st Contact Info) Description 08/30/2017 Abstract [facility] CONVERSION [address] [place] [address] , Generic Conversion, Social History Tobacco Use [...] Rule Out 06/02/2022 06/02/2022 06/02/2022 6:13 PM HYPNOTHERAPIST RSV 06/02/2022 06/02/2022 06/12/2022 12:3 3 AM HYPNOTHERAPIST COVID-19 Rule Out 06/12/2022 06/12/2022 06/12/2022 8:35 PM HYPNOTHERAPIST RSV 06/12/2022 06/12/2022 06/22/2022 12:3 2 AM HYPNOTHERAPIST documented as of this encounter Care Teams Is Manager Relationship Specialty Start Date End Date Scar Maxwell MD [address] [place] [address] PCP - General FAMILY PRACTICE 07/16/17 11/28/21 New Referring, Provider PCP - General UNKNOWN PHYSICIAN SPECIALTY 11/29/21 06/04/22 Earnest Jason DO [address] [place] [address] PCP - General FAMILY PRACTICE 06/05/22 Mohan Choudhary MD [address] [place] [address] Equipment Lead CARDIOVASCULAR DISEASE 07/16/17 07/01/19 Laith Smith MD [address] [place] [address] Vascular/Equipment Lead INTERNAL MEDICINE 08/08/17 Trevor Hayes MD [address] [place] [address] Consulting Physician CARDIOVASCULAR DISEASE 07/02/19 documented as of this encounter
--- OUTSIDE RECORDS SUMMARY | 2025-04-28 15:14 | XMS_ITS | Encounter Summary ---
Author Organization [facility] Address [address] [place] [address] Care Team Providers Care Interactive Media Marketing Strategist Name Role Phone Scar Maxwell MD Primary Care Provider [phone] Mohan Choudhary MD Unavailable Unavailab Laith Young MD Unavailable Trevor Hayes MD Unavailable [phone] New Referring, Provider Primary Care Provider Un available Earnest Jason DO Primary Care Provider [phone] Encounter Details Date Type Department Care Team (Late st Contact Info) Description 11/04/2018 Patient Outreach [facility] [address] [place] [address] Yamile Porter RN Social History [...] Rule Out 06/02/2022 06/02/2022 06/02/2022 6:13 PM HAIRSPRING TRUING INSPECTOR RSV 06/02/2022 06/02/2022 06/12/2022 12:3 3 AM HAIRSPRING TRUING INSPECTOR COVID-19 Rule Out 06/12/2022 06/12/2022 06/12/2022 8:35 PM HAIRSPRING TRUING INSPECTOR RSV 06/12/2022 06/12/2022 06/22/2022 12:3 2 AM HAIRSPRING TRUING INSPECTOR documented as of this encounter Care Teams Interactive Media Marketing Strategist Relationship Specialty Start Date End Date Scar Maxwell MD [address] [place] [address] PCP - General FAMILY PRACTICE 07/16/17 11/28/21 New Referring, Provider PCP - General UNKNOWN PHYSICIAN SPECIALTY 11/29/21 06/04/22 Earnest Jason DO [address] [place] [address] PCP - General FAMILY PRACTICE 06/05/22 Mohan Choudhary MD [address] Sheet Folder CARDIOVASCULAR DISEASE 07/16/17 07/01/19 Laith Smith MD [address] [place] [address] Vascular/Sheet Folder INTERNAL MEDICINE 08/08/17 Trevor Hayes MD [address] [place] [address] Consulting Physician CARDIOVASCULAR DISEASE 07/02/19 documented as of this encounter
--- OUTSIDE RECORDS SUMMARY | 2025-04-28 15:14 | XMS_ITS | Encounter Summary ---
Author Organization [facility] Address [facility] [place] [address] Care Team Providers Care Inspector Government Property Name Role Phone Scar Maxwell MD Primary Care Provider [phone] Mohan Choudhary MD Unavailable Unavailab Laith Young MD Unavailable Trevor Hayes MD Unavailable [phone] New Referring, Provider Primary Care Provider Un available Earnest Jason DO Primary Care Provider [phone] Encounter Details Date Type Department Care Team (Late st Contact Info) Description 11/21/2018 Abstract [facility] CONVERSION [address] [place] [id number] , Generic Conversion, Social History Tobacco Use [...] Rule Out 06/02/2022 06/02/2022 06/02/2022 6:13 PM COOK [place]ON[place] RSV 06/02/2022 06/02/2022 06/12/2022 12:3 3 AM COOK [place] COVID-19 Rule Out 06/12/2022 06/12/2022 06/12/2022 8:35 PM COOK [place] RSV 06/12/2022 06/12/2022 06/22/2022 12:3 2 AM COOK [place] documented as of this encounter Care Teams Inspector Government Property Relationship Specialty Start Date End Date Scar Maxwell MD [address] [place] [address] PCP - General FAMILY PRACTICE 07/16/17 11/28/21 New Referring, Provider PCP - General UNKNOWN PHYSICIAN SPECIALTY 11/29/21 06/04/22 Earnest Jason DO [address] [place] [address] PCP - General FAMILY PRACTICE 06/05/22 Mohan Choudhary MD [address] Automotive Software Engineer CARDIOVASCULAR DISEASE 07/16/17 07/01/19 Laith Smith MD [address] [place] [address] Vascular/Automotive Software Engineer INTERNAL MEDICINE 08/08/17 Trevor Hayes MD [address] [place] [address] Consulting Physician CARDIOVASCULAR DISEASE 07/02/19 documented as of this encounter
--- OUTSIDE RECORDS SUMMARY | 2025-04-28 15:14 | XMS_ITS | Encounter Summary ---
Author Organization [facility] Address [facility] [place] [address] Care Team Providers Care Cardiac Monitor Technician Name Role Phone Scar Maxwell MD Primary Care Provider [phone] Mohan Choudhary MD Unavailable Unavailab Laith Young MD Unavailable Trevor Hayes MD Unavailable [phone] New Referring, Provider Primary Care Provider Un available Earnest Jason DO Primary Care Provider [phone] Reason for Visit * Reason Onset Date Comments Follow Up Call 11/13/2018 Encounter Details Date Type Department Care Team (Late st Contact Info) Description 11/13/2018 Patient Outreach [facility] Heart Failure Clinic [address] [place] [address] Yamile Porter RN Follow Up Call Social [...] Rule Out 06/02/2022 06/02/2022 06/02/2022 6:13 PM FOOTBALL SCOUT RSV 06/02/2022 06/02/2022 06/12/2022 12:3 3 AM FOOTBALL SCOUT COVID-19 Rule Out 06/12/2022 06/12/2022 06/12/2022 8:35 PM FOOTBALL SCOUT RSV 06/12/2022 06/12/2022 06/22/2022 12:3 2 AM FOOTBALL SCOUT documented as of this encounter Care Teams Cardiac Monitor Technician Relationship Specialty Start Date End Date Scar Maxwell MD [address] [place] [address] PCP - General FAMILY PRACTICE 07/16/17 11/28/21 New Referring, Provider PCP - General UNKNOWN PHYSICIAN SPECIALTY 11/29/21 06/04/22 Earnest Jason DO [address] [place] [address] PCP - General FAMILY PRACTICE 06/05/22 Mohan Choudhary MD [facility] [address] Barrel Roller Operator CARDIOVASCULAR DISEASE 07/16/17 07/01/19 Laith Smith MD [facility] [place] [address] Vascular/Barrel Roller Operator INTERNAL MEDICINE 08/08/17 Trevor Hayes MD [address] [place] [address] Consulting Physician CARDIOVASCULAR DISEASE 07/02/19 documented as of this encounter
--- OUTSIDE RECORDS SUMMARY | 2025-04-28 15:14 | XMS_ITS | Clinical Summary ---
Author Organization [facility] Healthcare Address [address] [place] [address] Care Team Providers Care Rigger Chief Name Role Phone Damien Hernandez MD Primary Care Provider [phone] Monique Almendarez MD Unavailable [phone] Juan Manuel Yun MD Unavailable [phone] [...] Min Prior to procedure , Must have Emergency Dept Tech Take 1 tablet (10 mg total) by mouth once for 1 dose Take 30 minutes before procedure and must have a clark driver. 1 tablet 09/05/19 22 Active blood glucose diagnostic (OneTouch Ultra Blue Test Strip) stripIndications: Type 2 diabetes mellitus with hyperglycemia, without long-term current use of insulin ([facility]) Use to test blood sugar before meals 270 each 2 09/21/19 22 Active blood-glucose sensor (Dexcom G6 Sensor) deviceIndications :Type 2 diabetes mellitus with hyperglycemia, without long-term current use of insulin ([facility]) Will use 1 sensor every 10 days. 1 box = 3 sensors. 3 each 11 11/09/19 22 Active blood-glucose transmitter (Dexcom G6 Transmitter) deviceIndications :Type 2 diabetes mellitus with hyperglycemia, without long-term current use of insulin ([facility]) Will use 1 transmitter every [...] 02/27/20 22 Active blood-glucose meter,continuous (Dexcom G6 Conservation Technician) miscIndications:T ype 2 diabetes mellitus with hyperglycemia, without long-term current use of insulin (HCC) 1 Dexcom G6 Conservation Technician 1 each 08/21/19 23 Active Active Problems [...] (12/22/2020): Added automatically from request for surgery [id number] Vitamin D deficiency 06/16/2020 Has immunity to COVID-19 virus 06/16/2020 Overview (08/03/2021): Pfizer vaccine 02/26/2021, 12/26/2020 Assessment & Plan (12/18/2021 8:13 AM CDT): Fully vaccinated, eligible for booster. Assessment & Plan (09/17/2021 10:49 AM CDT): Pfizer vaccine x 2; qualifies for booster Assessment & Plan (08/03/2021 1:43 PM PUMP HOUSE TECHNICIAN): Pfizer vaccine 02/26/2021, 12/26/2020. May be due for booster in the near future Spondylolisthesis of lumbar region 02/09/2019 Palpitations 11/20/2018 Acute diastolic heart failure 10/29/2018 Chest pain 10/29/2018 Hematuria 10/27/2018 Sepsis 08/19/2018 Hypotension 08/09/2018 Assessment & Plan (08/09/2018 9:30 AM PUMP HOUSE TECHNICIAN): Likely 2/2 double dosing on patient's BP [...] 08/09/2018 Assessment & Plan (08/09/2018 9:28 AM PUMP HOUSE TECHNICIAN): Could possibly have stress incontinence vs. OAB. [...] 08/08/2018 Assessment & Plan (08/09/2018 9:29 AM PUMP HOUSE TECHNICIAN): Acute on chronic 2/2 DDD vs malingering. [...] prn. Assessment & Plan (08/08/2018 1:31 PM PUMP HOUSE TECHNICIAN): Acute on chronic with reports of saddle [...] hypoglycemia Assessment & Plan (08/09/2018 9:30 AM PUMP HOUSE TECHNICIAN): -hold lisinopril, metoprolol, lasix, spironolactone. Restart tomorrow. Assessment & Plan (08/08/2018 1:32 PM PUMP HOUSE TECHNICIAN): Euvolemic on exam. -continue lisinopril, metoprolol, lasix, spironolactone. Type 2 diabetes mellitus with hyperglycemia ([facility]) 08/08/2018 Overview (10/30/2020): October 2020: [...] diabetes Assessment & Plan (08/09/2018 9:14 AM PUMP HOUSE TECHNICIAN): BG 213 this AM. -Restart metformin -continue Trulicity Qweek Assessment & Plan (08/08/2018 1:37 PM PUMP HOUSE TECHNICIAN): BG as high as 397 in the ED. BMP stable. Takes Metformin bid and Trulicity Qweek. States last A1c was 8.0. She was given a dose of metformin in the ED. -Hold metformin -SSI Convulsions 09/22/2017 Deep vein thrombosis (DVT) (CMS/HCC) 08/06/2017 Assessment & Plan (08/09/2018 9:14 AM PUMP HOUSE TECHNICIAN): W/ hx of PE currently on coumadin 10mg daily. INR therapeutic. -continue coumadin 10mg daily. Assessment & Plan (08/08/2018 1:38 PM PUMP HOUSE TECHNICIAN): W/ hx of PE currently on coumadin 10mg daily. INR therapeutic. -No surgical plans, so will continue coumadin 10mg daily. Essential (primary) hypertension 08/06/2017 Assessment & Plan (08/08/2018 1:39 PM PUMP HOUSE TECHNICIAN): BP stable. -continue lisinopril, metoprolol, lasix Hyperlipidemia, [...] (10/23/2020): Added automatically from request for surgery [id number] Immunizations Immunization Administration Dates Next Due Influenza, Quadrivalent, Spl it, Preservative Free, Intramuscular 02/23/2021,04/27/2016 Influenza, Trivalent, Preservative Free, Intramu scular 04/08/2014 Pneumococcal Polysaccharide PPV23 04/27/2016 Surgical History Surgery Date Site/Laterality Comments APPENDECTOMY HYSTERECTOMY CHOLECYSTECTOMY SPINAL FUSION SECTION TUBAL LIGATION 06/16/1999 - 06/15/2000 Medical History Medical History Date Comments Depression DVT (deep venous thrombosis) Pulmonary embolism CHF (congestive heart failure) (HCC) Obesity Fibromyalgia GERD (gastroesophageal reflux disease) Anxiety PCOD (polycystic ovarian disease) Heart failure Irregular heartbeat Gastric reflux Kidney failure after spider bit e; resolved Fibromyalgia Vitamin D deficiency 2020 Type 2 diabetes mellitus 2014 Hypertension 1996 Arthritis 1999 Asthma 1982 [...] on file Legal Sex Female 4:21 AM PUMP HOUSE TECHNICIAN Gender Identity Not on file Sexual Orientation [...] (305 lb 6.4 oz) 04/27/2021 8:51 AM PUMP HOUSE TECHNICIAN Height 160 cm (5' 3) 04/27/2021 8:51 AM PUMP HOUSE TECHNICIAN Body Mass Index 54.1 04/27/2021 8:51 AM PUMP HOUSE TECHNICIAN Plan of Treatment Not on file Insurance [employer] [facility] HMO [facility] CHOICE PLUS [facility] [employer] Advance Directives For more information, please contact: [phone] * Full Code (Latest Code Status on File) Date Activated Date Inactivated Comments 01/17/2021 7:49 PM 01/21/2021 9:44 PM * Full Code Date Activated Date Inactivated Comments 11/20/2018 6:22 PM 11/22/2018 2:19 AM * Full Code Date Activated Date Inactivated Comments 08/08/2018 12:20 PM 08/09/2018 4:03 PM Care Teams Rigger Chief Relationship Specialty Start Date End Date Damien Hernandez MD PCP - General Internal Medicine 10/02/20 Monique Almendarez MD Referring Physician Endocrinology Diabetes & Metabolism 10/26/20 Juan Manuel Yun MD [address] [place] [address] [address] Consulting Physician Cardiology 10/26/20 Wilian Joe MD [address] [place] [address] [place] [address] Consulting Physician Interventional Cardiology 01/21/21
--- OUTSIDE RECORDS SUMMARY | 2025-04-28 15:14 | XMS_ITS | Encounter Summary ---
Author Organization [facility] Address [address] [place] [address] Care Team Providers Care Supervisor Shearing Name Role Phone Laith Smith MD Unavailable Trevor Hayes MD Unavailable [phone] Earnest Jason DO Primary Care Provider [phone] Encounter Details Date Type Department Care Team (Late st Contact Info) Description 06/06/2022 Hospital Follow-up Call [place] [address] [place] [address] Maria R Pickens RN Social [...] Coronavirus/COVID-19? No / Unsure 06/02/2022 4:16 PM FILLING MIXER documented as of this encounter Functional Status * RETIRED Are you deaf or do you have serious difficulty hearing Answer Date of Assessment Author Status No 06/03/2022 2:00 AM FILLING MIXER Activ e * RETIRED Are you blind or do you have serious difficulty seeing, even when wearing glasses? Answer Date of Assessment Author Status No 06/03/2022 2:00 AM FILLING MIXER Activ e * Do you have serious [...] Date Author Status No 06/03/2022 2:00 AM FILLING MIXER Kurtis Greer RN A ctive documented in this encounter Plan of Treatment Not on file documented as of this encounter Visit Diagnoses Not on filedocumented in this encounter Additional Health Concerns Infection Onset Date Last Indicated Resolved Time MRSA 05/04/2017 05/04/2017 RSV 06/02/2022 06/02/2022 06/12/2022 12:3 3 AM FILLING MIXER COVID-19 Rule Out 06/12/2022 06/12/2022 06/12/2022 8:35 PM FILLING MIXER RSV 06/12/2022 06/12/2022 06/22/2022 12:3 2 AM FILLING MIXER documented as of this encounter Care Teams Supervisor Shearing Relationship Specialty Start Date End Date Earnest Jason DO [address] [place] [address] PCP - General FAMILY PRACTICE 06/05/22 Laith Smith MD Vascular/Plastic Surgery Manager INTERNAL MEDICINE 08/08/17 Trevor Hayes MD [address] [place] [address] Consulting Physician CARDIOVASCULAR DISEASE 07/02/19 documented as of this encounter
--- OUTSIDE RECORDS SUMMARY | 2025-04-28 15:14 | XMS_ITS | Encounter Summary ---
Author Organization [facility] Address [address] [place] [address] Care Team Providers Care Grain Unloader Name Role Phone Scar Maxwell MD Primary Care Provider [phone] Mohan Choudhary MD Unavailable Unavailab Laith Young MD Unavailable Trevor Hayes MD Unavailable [phone] New Referring, Provider Primary Care Provider Un available Earnest Jason DO Primary Care Provider [phone] Encounter Details Date Type Department Care Team (Late st Contact Info) Description 07/22/2017 Abstract [facility] [address] [place] [address] Mohan Choudhary MD Social History [...] Rule Out 06/02/2022 06/02/2022 06/02/2022 6:13 PM BOILER SHOP SUPERVISOR RSV 06/02/2022 06/02/2022 06/12/2022 12:3 3 AM BOILER SHOP SUPERVISOR COVID-19 Rule Out 06/12/2022 06/12/2022 06/12/2022 8:35 PM BOILER SHOP SUPERVISOR RSV 06/12/2022 06/12/2022 06/22/2022 12:3 2 AM BOILER SHOP SUPERVISOR documented as of this encounter Care Teams Grain Unloader Relationship Specialty Start Date End Date Scar Maxwell MD [address] [place] [address] PCP - General FAMILY PRACTICE 07/16/17 11/28/21 New Referring, Provider PCP - General UNKNOWN PHYSICIAN SPECIALTY 11/29/21 06/04/22 Earnest Jason DO [address] [place] [address] PCP - General FAMILY PRACTICE 06/05/22 Mohan Choudhary MD [address] [place] [address] [place] [address] Bleach Tester CARDIOVASCULAR DISEASE 07/16/17 07/01/19 Laith Smith MD [address] [place] [address] Vascular/Bleach Tester INTERNAL MEDICINE 08/08/17 Trevor Hayes MD [address] [place] [address] Consulting Physician CARDIOVASCULAR DISEASE 07/02/19 documented as of this encounter
--- OUTSIDE RECORDS SUMMARY | 2025-04-28 15:15 | XMS_ITS | Patient Health Record ---
Author Organization [facility] Address [address] [facility] [address] [place] [address] Care Team Providers Care Finance And Administration Manager Name Role Phone Anna Lancaster Unavailable [phone] Reason For Referral No Information Medications Medication SIG (Take, Route, Frequency, Duration) Notes Start Date End Date Status Gabapentin 800 MG Tablet Oral 12/18/2021 Active traZODone HCl 50 MG Tablet Oral 12/18/2021 Active Spironolactone 50 MG Tablet Oral 12/18/2021 Active Potassium Chloride ER 20 MEQ Tablet Extended Release Oral 12/18/2021 Active Basaglar KwikPen 100 UNIT/ML Solution Pen-injector Subcutaneous 12/18/2021 Active Montelukast Sodium 10 MG Tablet Oral 12/18/2021 Active Spironolactone 25 MG Tablet Oral 12/18/2021 Active Pantoprazole Sodium 40 MG Tablet Delayed Release Oral 12/18/2021 Active Propranolol HCl ER 120 MG Capsule Extended Release 24 Hour Oral 12/18/2021 Active Naloxone HCl 4 MG/0.1ML Liquid Nasal 12/18/2021 Active diazePAM 10 MG Tablet Oral 12/18/2021 Active Xarelto 20 MG Tablet Oral 12/18/2021 Active DEXCOM G6 EACH MISCELLANEOUS *Reorder from [employer] for eRx and Interaction Alerts* 12/18/2021 Active Eliquis 5 MG Tablet Oral 12/18/2021 Active metOLazone 2.5 MG Tablet Oral 12/18/2021 Active Savella 25 mg Tablet Oral 12/18/2021 Active busPIRone HCl 10 MG Tablet Oral 12/18/2021 Active Savella 12.5 mg Tablet Oral 12/18/2021 Active TRULICITY 3 MG/0.5 ML SUBCUTANEOUS PEN INJECTOR *Reorder from [facility] for eRx and Interaction Alerts* 12/18/2021 Active NovoLOG FlexPen ReliOn 100 UNIT/ML Solution Pen-injector Subcutaneous *Reorder from [facility] for eRx and Interaction Alerts* 12/18/2021 Active Cyclobenzaprine HCl 10 MG Tablet Oral 12/18/2021 Active LORazepam 0.5 MG Tablet Oral 12/18/2021 Active FLUoxetine HCl 40 MG Capsule Oral 12/18/2021 Active Furosemide 40 MG Tablet Oral 12/18/2021 Active ProAir HFA 108 (90 Base) MCG/ACT Aerosol Solution Inhalation 12/18/2021 Active traZODone HCl 100 MG Tablet Oral 12/18/2021 Active Fluconazole 150 MG Tablet Oral 12/18/2021 Active HYDROcodone-Acetaminop hen 5-325 MG Tablet Oral 12/18/2021 Active OneTouch Ultra Strip In Vitro 12/18/2021 Active ARIPiprazole 10 MG Tablet Oral 12/18/2021 Active Immunizations Vaccine Route Administration Date Status Comme nts Influenza virus vaccine, quadrivalent (IIV4), split virus, 0.25 mL dosage Unknown 03/16/2021 Administered Pfizer Biontech Covid-19 Vac cine 2nd dose Unknown 12/26/2020 Administered Pfizer Biontech Covid-19 Vac cine 2nd dose Unknown 02/26/2021 Administered Pfizer Biontech Covid-19 Vac cine 2nd dose Unknown 01/27/2022 Administered Social History Social History Additional Details Category Social Info Options Details Migrated Social History Migrated Social History Alcohol Intake: None 07/28/2021,Tobacco Years: Never smoker 07/28/2021 Plan Of Treatment No Information Medical (General) History Surgical History Surgery Date(Month/Year) Hysterectomy/revise vagina (36673) Removal of gallbladder (11419) Appendectomy (19278) Remove cranial cavity fluid (82232)
--- OUTSIDE RECORDS SUMMARY | 2025-04-28 15:15 | XMS_ITS | Encounter Summary ---
Author Organization [facility] Address [address] [place] [address] Phone Care Team Providers Care Photo Printer Name Role Phone Damien Hernandez MD Primary Care Provider [phone] Monique Almendarez MD Unavailable Juan Manuel Yun MD Unavailable [phone] Juan Manuel Yun MD Unavailable [phone] Wilian Joe MD Unavailable [phone] Encounter Details Date Type Department Care Team (Late st Contact Info) Description 10/23/2020 Telephone [facility] Gastroenterology [facility] [facility] 8th [place] [address] [place] [address] Dianne Andrade CMA Social History Tobacco Use Types Packs/Day Years Used Date Smoking Tobacco: Never Smokeless Tobacco: Never Alcohol Use Standard Drinks/Week Comments No 0 (1 standard drink = 0.6 oz pur e alcohol) Comments No Sex and Gender Information Value Date Recorded Sex Assigned at Not on file Legal Sex Female 4:21 AM EVENT MARKETING SPECIALIST Gender Identity Not on file Sexual Orientation Not on file documented as of this encounter Functional Status * BP Location Answer Date of Assessment Author Left arm 10/26/2020 2:26 PM Quesada CMA * BP Location Answer Date of Assessment Author Left arm 10/26/2020 2:26 PM CDT [place] CMA documented as of this encounter Plan of Treatment Not on file documented as of this encounter Visit Diagnoses Not on filedocumented in this encounter Care Teams Photo Printer Relationship Specialty Start Date End Date Damien Hernandez MD PCP - General Internal Medicine 10/02/20 Monique Almendarez MD Referring Physician Endocrinology Diabetes & Metabolism 10/26/20 Juan Manuel Yun MD [address] [facility] [place] [address] Consulting Physician Hand Surgery 10/26/20 10/26/20 Juan Manuel Yun MD [address] [facility] [place] [address] Consulting Physician Cardiology 10/26/20 Wilian Joe MD [address] [place] [address] [place] [address] Consulting Physician Interventional Cardiology 01/21/21 documented as of this encounter
--- OUTSIDE RECORDS SUMMARY | 2025-04-28 15:15 | XMS_ITS | Data Portability ---
Author Organization [place] - [facility] OFFICE Address [address] [place] [id number] Assessment No assessment recorded. Plan of Treatment Reminders Order Date Submit Date Provider Last Modified By Organization Details Last Modified Time Details Appointments None recorded. Lab None recorded. Referral None recorded. Procedures None recorded. Surgeries None recorded. Imaging electrocar diogram 2019 020 [email or web address] Not available 0 14:07:22 Medication Orders spironolac tone 50 mg tablet 2020 021 ANUJ [facility], [facility] [place], [address], 1 14:51:44 Xarelto 20 mg tablet 2020 021 [email or web address] [facility] [place] [address] [place], [address], 2 12:37:51 metolazone 2.5 mg tablet 2020 021 ANUJ [facility], [facility] [place], [address], 1 15:41:22 potassium chloride ER 20 mEq tablet,ext ended release 2020 021 mzabad [facility] [place] [address] [place], [address], 02:13:02 Lasix 40 mg tablet 2019 020 INTERFACE [facility], [facility] [place], [address], 0 11:02:17 lisinopril 5 mg tablet 2019 020 [email or web address] [id number], [address] [place], [address], 1 14:26:18 bumetanide 1 mg tablet 2019 020 mzabad [facility] [address], [address], 0 11:06:10 lisinopril 5 mg tablet 2019 020 [email or web address] [id number], [address] [place], [address], 1 14:26:18 Patient TargetsNo targets recorded. Patient Instructions Encounter Date Encounter Id Patient Instructions Last Modified By Organization Details Last Modified Time 05/02/2021 [id number] Weight loss 20 pounds Exercise advised Low cholesterol diet advised Low sodium diet advised. [email or web address] Not available 05/02/2021 14:49:09 Reason for Referral None Reported. Results Created Date Observation Date Name Description Value Unit Range Abnormal Flag Note LastModifiedBy Organization Detail LastModifiedTime 03/06/20 20 03/03/2020 elect felice bahenagr am No observ ation record ed. [email or web address] Not Available 2019 16:37:43 03/29/20 20 03/27/2020 , [facility] ardio gram No observ ation record ed. [email or web address] [facility] [address], [place], [address], 03/30/2020 11:23:22 01/16/20 21 01/10/2021 elect rocar diogr am No observ ation record ed. [email or web address] Not Available 2020 15:31:18 Result Notes Documentation Provider Name and Address Organization Details Recorded Time Cbc W/ Diff : 03/26/20:WBC 8.1,RBC 4.94,HGB 13.5,HCT 41.0,PLT 349. [facility] 04/07/2020 12:36:29 Cmp, Serum Or Plasma : 04/25/20:Na 140,K 3.7,Cl 101,CO2 31,GLU 205,BUN 12,Cr 0.85, [facility] 04/27/2020 09:50:01 Pt/inr : 04/25/20 :PT 10.8,INR 1.0 . [facility] 09:50:01 Cbc W/ Diff : 04/25/20:WBC 9.1,RBC 5.42,HGB 14.7,HCT 45.0,PLT 334. Elidia Melchor [facility] 04/27/2020 09:50:01 Problems Name Problem SNOMED Code Status Onset Date Resolution Date Notes Provider Name and Address Organization Details Recorded Time Palpitations 02147569 Active 2018 Asiasari Esteban [facility] 9 15:34:14 Pulmonary embolism 98188594 Active 2018 Asia Esteban [facility] 9 15:34:31 Chest pain 92927110 Active 2018 Hala Aldo [facility] 9 11:37:04 Pre-surgery evaluation Active 2019 Elidia Melchor [facility] 0 14:35:28 Essential hypertension 08506520 Active 2019 Elidia Melchor [facility] 0 14:35:42 Sleep pattern disturbance 94316410 Active 2019 Elidia Melchor [facility] 0 14:35:55 Notes:Chest pain, Blackouts, palpitations. 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 08 g 83 /min 18 /min 97 % 97 % 122/82 mm[Hg] Osiris Proctor [place] - [facility] 1 14:58:31 Date Recorded Body height Body mass index (BMI) Body weight Heart rate Respiratory rate Oxygen saturation Oxygen saturation in Arterial blood by Pulse oximetry Systolic And Diastolic Provider Name and Address Organization Details Last Updated DateTime 1 160.02 cm 54 kg/m2 198350. 67 g 110 /min 18 /min 96 % 96 % 110/68 mm[Hg] Osiris Proctor [facility] 1 14:12:16 Date Recorded Body height Body mass index (BMI) Body weight Heart rate Respiratory rate Oxygen saturation Oxygen saturation in Arterial blood by Pulse oximetry Systolic And Diastolic Provider Name and Address Organization Details Last Updated DateTime 0 160.02 cm 51 kg/m2 838597. 6 g 93 /min 18 /min 98 % 98 % 134/84 mm[Hg] Jackie Long [facility] 0 10:37:39 Date Recorded Body height Body mass index (BMI) Body weight Heart rate Oxygen saturation Oxygen saturation in Arterial blood by Pulse oximetry Body temperature Systolic And Diastolic Provider Name and Address Organization Details Last Updated DateTime 0 160.02 cm 50.7 kg/m2 114068. 42 g 85 /min 98 % 98 % 97.9 [degF] 135/80 mm[Hg] Tommy Young [facility] 0 10:36:36 Date Recorded Body height Body mass index (BMI) Body weight Heart rate Oxygen saturation Oxygen saturation in Arterial blood by Pulse oximetry Systolic And Diastolic Provider Name and Address Organization Details Last Updated DateTime 1 160.02 cm 53.9 kg/m2 282018. 08 g 90 /min 94 % 94 % 105/72 mm[Hg] Teri Ti [facility] 1 14:21:41 Social History Question Answer Notes LastModified by Organizat ion Details LastModified Time Tobacco Smoking Status Never Smoker Not Available [employer] 04/18/2020 03:30:41 Do You Have An Advance Directive? No [id number] Information not available 04/18/2020 What Is Your Level Of Caffeine Consumption? None [id number] Information not available 04/18/2020 What Type Of Diet Are You Following? REGULAR [id number] Information not available 04/18/2020 What Was The Date Of Your Most Recent Tobacco Screening? 12/01/2018 [id number] Information not available 04/18/2020 How Much Tobacco Do You Smoke? No [id number] Information not available 04/18/2020 General Stress Level Medium [email or web address] Information not available 12/01/2018 How Many Years Have You Smoked Tobacco? 0 [id number] Information not available 04/18/2020 Sex: Unknown Functional Status Question Answer Note LastModified by Organizat ion Details LastModified Time What is your level of alcohol consumption? Occasional [id number] Information not available 04/18/2020 Do you or have you ever used smokeless tobacco? 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 Never used electronic cigarettes [id number] Information not available 04/18/2020 Mental Status None [...] Diagnosis SNOMED-CT Code Diagnosis ICD10 Code Diagnosis IMO Codes Diagnosis Note [id number] Tommy Wells MD [place] OFFICE [facility] [place] [address] 12/01/2018 13:49:18 12/01/2018 15:40:33 Palpitations 84035030 R00.2 with chest pain, syncope. Consider implantabl e loop recorder as pt is intolerant of ekg lead. (skin rash). Hesitate to increase beta jane due to low blood pressure. Will get exercise stress echo, to look for any structural heart disease, and to look for any arrhythmia Atypical chest pain 1025 38561 R07.89 [facility] with non obstructiv e disease performed by Dr. Trevino at [facility] in [place], [place]. Essential hypertension 88023599 I10 Controlled . Continue medication s. Sleep ivy renzo disturbance 98656107 G47.9 will order sleep study. Pulmonary embolism 73119 003 I26.99 On coumadin followed by PCP [id number] MD Mattie Bahena Office [address] [place] [address] 04/01/2019 12:13:37 04/01/2019 13:42:28 Palpitations 56730363 R00.2 Better now with Metoprolol Atypical chest pain 1025 26739 R07.89 [facility] with non obstructiv e disease performed by Dr. Trevino at [facility] in [place], [place]. Essential hypertension 78769682 I10 Runs low now. Decrease Lisinopril to 5 mg daily. Continue Metoprolol Sleep ivy renzo disturbance 66320121 G47.9 will order sleep study. Pulmonary embolism 02658 003 I26.99 On coumadin followed by PCP Pre-surger y evaluation 692582181 Z01.818 She had cath recently with no CAD. She should have acceptable risk from cardiac standpoint . 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 Trevino at [facility] in [place], [place]. Essential hypertension 91050136 I10 well controlled Sleep ivy renzo disturbance 60387779 G47.9 Sleep study with no sleep apnea Pulmonary embolism 83535 003 I26.99 On coumadin followed by PCP Chronic di astolic heart failure 670062626 I50.32 Now appears decompensa biju with unclear etiology as she is compliant with diet and medsWill obtain labs to assess her kidney function as she had JANE in prior admissions Will switch Lasix to Bumex 1 mg BIDRepeat 2D echocardio gramWill follow up in the office in 2 weeks [id number] MD Mattie Bahena Office [address] [place] [address] 04/07/2020 10:29:39 04/07/2020 11:27:05 Chronic diastolic heart failure 175613003 I50.32 Now appears decompensa biju with unclear etiology as she is compliant with diet and medsWills witch back to lasix as she responded better to that. WIll increase dose to 80 mg in AM and 40 in pm.Echo reviewed. normal EFLabs reviewed, creatinine normalcons ider repeat sleep study Palpitations 14143107 R0 0.2 Better now with Metoprolol Atypical chest pain 1025 23816 R07.89 [facility] with non obstructiv e disease performed by Dr. Trevino at [facility] in [place], [place]. Essential hypertension 04360644 I10 well controlled Sleep ivy renzo disturbance 89465873 G47.9 Sleep study with no sleep apnea Pulmonary embolism 98713 003 I26.99 On coumadin followed by PCP [id number] MD Mattie Bahena Office [address] [place] [address] 01/10/2021 14:37:47 01/10/2021 15:38:18 Chronic diastolic heart failure 469859635 I50.32 Now appears decompensa biju with unclear etiology as she is compliant with diet and medsContin ue lasix 80 mg in AM and 40 in pm.add metolazone 2.5 mg three days a weekfollow up in 1 week. if still volume overloaded will consider admittion for IV diuresisEc ho reviewed. normal EFLabs reviewed, creatinine normalcons ider repeat sleep study Palpitations 51169166 R0 0.2 Better now with Metoprolol Atypical chest pain 1025 26159 R07.89 [facility] with non obstructiv e disease performed by Dr. Trevino at [facility] in [place], [place]. Essential hypertension 08209192 I10 well controlled Sleep ivy renzo disturbance 83449116 G47.9 Pulmonary embolism 88149 003 I26.99 On coumadin but reports her PCP will not follow INR and want INR followed in our officeFranklynll suze coumadin and start Xarelto. her INR today is 1.5. May start Xarelto today Type 2 toni betes mellitus without complication 914995738 E11.9 Now insulin dependentT reatment and evaluation by endocrinol Mary Lou ssed importance of adequate glycemic control to minimize cardiovasc ular disease progressio n, A1C goal of < 7% for type 2 DM. [id number] MD Mattie Apodaca Office [address] [place] [address] 01/17/2021 13:56:44 01/17/2021 14:32:04 Chronic diastolic heart failure 544311744 I50.32 Now appears decompensa biju with unclear [...] ER from office for IV lasix. Palpitations 66315967 R0 0.2 Better now with Metoprolol Atypical chest pain 1025 72100 R07.89 [facility] with non obstructiv e disease performed by Dr. Trevino at [facility] in [place], [place]. Essential hypertension 88038014 I10 well controlled Sleep ivy renzo disturbance 68202392 G47.9 will order sleep study. Pulmonary embolism 62810 003 I26.99 On xarelto Type 2 toni betes mellitus without complication 520658364 E11.9 Now insulin dependentT reatment and evaluation by endocrinol padminiistNilda ssed importance of adequate glycemic control to minimize cardiovasc ular disease progressio n, A1C goal of < 7% for type 2 DM. [id number] MD Mattie Apodaca Office [address] [place] [address] 05/02/2021 14:08:09 05/02/2021 14:50:49 Chronic diastolic heart failure 880362360 I50.32 Now appears OKContinue lasix 80 mg in AM and 40 in pm.add metolazone 2.5 mg three days a weekfollow up in 1 week. if still volume overloaded will consider admittion for IV diuresisEc ho reviewed. normal EFLabs reviewed, creatinine normal Palpitations 06835668 R0 0.2 Better now with Propranolo l Atypical chest pain 1025 13287 R07.89 [facility] with non obstructiv e disease performed by Dr. Trevino at [facility] in [place], [place]. Essential hypertension 79516631 I10 well controlled Sleep ivy renzo disturbance 13170622 G47.9 Had sleep study, waiting for cpap with her PCP Pulmonary embolism 36232 003 I26.99 On xarelto Type 2 toni betes mellitus without complication 044105911 E11.9 Now insulin dependentT reatment and evaluation by endocrinol padminiistNilda ssed importance of adequate glycemic control to [...] ID Guarantor Name 04/29/2021 1 SAMANTHA (POS) [id number] Israel Fernandez [id number] Olivia Fernandez 01/10/2021 1 [facility] PRIOR TO 12/14/2020 (MEDICAID REPLACEMENT - HMO) Olivia Thomas [facility] [id number] Olivia Fernandez Notes Date Note Type Note [...] and abdominal wall edema She presented to [facility] in [place], [place], and lives in [place], [place] with chest pain. Underwent CTA that [...] RBC 5.10 HGB 14.1 HCT 43.1 PLT [id number] 03/23/2019 7.0 04/01/19 EKG : SinusRhythm ,low voltage in precordial leadsEKG, 12/01/18: Sinus Rhythm. P: normal. low voltage in precordial leads. ST-T: normal. EKG without significant ABN's.XR chest 03/23/2019 No acute cardiopulmonary disease [facility] 03/03/2020 11:13:39 04/07/2020 text/html [...] has not had a severe episode since. previosulyShe was last seen almost a year ago [...] and abdominal wall edema She presented to [facility] in [place], [place], and lives in [place], [place] with chest pain. Underwent CTA that [...] RBC 5.10 HGB 14.1 HCT 43.1 PLT [id number] 03/23/2019 7.0 ECG - 03/03/2020 - Low voltage, chest leads; flat T-waves, anterior leads.04/01/19 EKG : SinusRhythm ,low voltage in precordial leadsEKG, 12/01/18: Sinus Rhythm. P: normal. low voltage in precordial leads. ST-T: normal. EKG without significant ABN's. XR chest 03/23/2019 No acute cardiopulmonary disease Brad Yun [place], [place] - [facility] 04/07/2020 12:08:30 01/10/2021 [...] She is now seeing an endocrinolgoist at [facility]. She previously tested negative for [...] and abdominal wall edema She presented to [facility] in [place], [place], and lives in [place], [place] with chest pain. Underwent CTA that [...] RBC 5.10 HGB 14.1 HCT 43.1 PLT [id number] 03/23/2019 7.0 ECG - 03/03/2020 - Low [...] XR chest 03/23/2019 No acute cardiopulmonary disease Yulianaaleksander Maria Victoria Schultzrupinder [place], [place] - [facility] 01/13/2021 02:15:35 [...] She is now seeing an endocrinolgoist at [facility]. She previously tested negative for [...] and abdominal wall edema She presented to [facility] in [place], [place], and lives in [place], [place] with chest pain. Underwent CTA that was suboptimal due to movement, and subsequently had an [facility] showing nonobstructive disease. Reports shortness of breath, [...] RBC 5.10 HGB 14.1 HCT 43.1 PLT [id number] 03/23/2019 7.0 ECG - 03/03/2020 - Low [...] She is now seeing an endocrinolgoist at [facility]. She previously tested negative for [...] and abdominal wall edema She presented to [facility] in [place], [place], and lives in [place] with chest pain. Underwent CTA that was suboptimal due to movement, and subsequently had an [facility] showing nonobstructive disease. Reports shortness of breath, [...] RBC 5.10 HGB 14.1 HCT 43.1 PLT [id number] 03/23/2019 7.0 ECG - 03/03/2020 - Low [...] No acute cardiopulmonary disease Tommy Wells MD [address] [place], [address], [facility] - [facility] 01/17/2021 17:33:46 05/02/2021 text/html 05/02/21CC : Cardiac follow up, dyspnea on [id number] year old female with PMH of Hypertension, [...] She is now seeing an endocrinolgoist at [facility]. She previously tested negative for [...] and abdominal wall edema She presented to [facility] in [place], [place], and lives in [place], [place] with chest pain. Underwent CTA that [...] ng/mLvitamin B12 + folate, serum or blood [id number] B12 607PT/INR 52-70-9201VN 49.00 INR 4.69CMP 03/23/2019 GL 131 BUN 13 NA 141 K 4.8 CH 102 CO2 30 CR 0.85 CA 9.1 AST 22 ALT 27 ALK PH 102TSH, serum or plasma [id number] 0.62CBC 03/23/2019 WBC 9.0 RBC 5.10 HGB 14.1 HCT 43.1 PLT [id number] 03/23/2019 7.0ECG - 03/03/2020 - Low voltage, [...] No acute cardiopulmonary disease Tommy Wells MD [address] [facility], [place], [address], [facility] - [facility] 05/02/2021 14:50:46 OBGyn Episode No OBEpisode recorded.
--- OUTSIDE RECORDS SUMMARY | 2025-04-28 15:15 | XMS_ITS | Data Portability ---
Author Organization [facility], [address] [facility] ([place]) Address [address] 4th [place] [address] Care Team Providers Care Co Founder And Director Name Role Phone SUZY WILSON Primary Care Provider [phone] WILIAN AMARO Patients Transporter Assessment Encounter Date Assessment Date Assessment LastModified by Organization Details LastModified Time 08/11/2024 08/11/2024 Mrs. 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 Patient admitted to [facility] on 07/17/2024:with syncope and chest pain, workup was unremarkable her blood pressure upon arrival was slightly low with systolics 100s CTA of the chest was negative for PE echo no significant findings, lab results unremarkable negative troponin she was discharged home KAY Armenta consult note from [facility] : 54-year-old female with below mentioned past [...] Skin: No rash, no cyanosis, no clubbing [email or web address] Not available 08/11/2024 13:28:39 09/03/2024 09/03/2024 Mrs. 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 Last seen 07/2024 following a [facility] admission with syncope and chest pain , [...] visit: (Chris Sanz 07/2024) Patient admitted to [facility] on 07/17/2024:with syncope and chest [...] symptoms and continued angina with exertion, recommend [facility]. Will plan on heart catheterization today given [...] Skin: No rash, no cyanosis, no clubbing Not available 09/03/2024 22:45:56 09/21/2024 09/21/2024 The history and physical has been reviewed, the patient has been examined and no change has occurred in the patient's condition since the history and physical was completed. [email or web address] Not available 09/21/2024 07:05:31 10/13/2024 10/13/2024 Mrs. 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 At today's visit we are also reviewing her blood pressure as we added spironolactone at last visit in August in reviewing monitor due to complaints of palpitations. Patient underwent left heart cath September 21 showing mild nonobstructive CAD. She underwent this due to complaints of chest pain with exertion shortness of breath [place] CARNEY class II and a syncopal event with a CTA which was negative for PE echo was normal and an inconclusive stress test dobutamine due to chest pain. At last visit she was somewhat hypertensive we added this spironolactone 25 mg, she was on this previously but at a higher dose of 50 this was stopped prior to this due to episode of hypotension and syncope. However she had since developed lower extremity edema and had to use metolazone. Her monitor which was obtained due to syncopal event did reveal sinus rhythm average rate of 87 bpm runs of nonsustained SVT rare PACs and PVCs this was obtained from August 11 to August 25, 2024 At today's visit patient states she is doing much better now that she is back on her spironolactone. She has not needed metolazone. Her lower extremity edema is resolved. She has no shortness of breath orthopnea PND. She has no chest pain. She does have occasional palpitations. Last visit: (Saw Umu 08/2024)Last seen 07/2024 following a [facility] admission with syncope and chest pain , [...] no palpitations, mild leg edema, no orthopnea. Cardiovascular studies summary: Echocardiogram: 06/2024 Poor acoustic windows with limited interruption. Ventricular wall thickness is mildly increased. LV ejection fraction is normal at 58%. Normal global left ventricular function. Grade 1 Diastolic Dysfunction with normal left atrial pressures. Normal RV systolic function. Cardiac Cath: 09/2024 R dominant. Mild non- obstructive CAD. Stress studies: 08/2024 Inconclusive stress test with [...] chamber size was decreased at peak stress. Barrel Coater: 08/11/2024- 025 Predomintnaly sinus rhythm with an average heart rate of 87 bpm. Runs of non- sustained SVT were seen. Rare PACs and PVCs. Assessment and Plan chest pain with exertion, SOB NYHA class ii, syncopal event 1 month ago CTA negative for PE Echo normal LVEF no significant valvular disease,Diastolic dysfunction 2 week monitor normal sinus rhythm, rare PACs PVCs 2 episodes of SVT inconclusive DSE due to chest pain--> left heart cath September 21, 2024 mild nonobstructive CAD-her heart catheterization report today all questions answered Unremarkable cardiac workup. No coronary artery disease Palpitations We reviewed her Holter monitor no significant findings other than 2 episodes of SVT the longest episode was 10 beats. She states she is continue to be somewhat symptomatic palpitation Add Mag-Ox 200 mg daily Add low-dose Coreg 3.125 mg we did discuss this may lower heart rate and blood pressure. She is to call us if she does not tolerate medications. All questions answered, discussed adequate hydration oral intake. Avoid excess heat History of PE She is on Eliquis Hyperlipidemia -LDL 80 09/2024 lipid panel reviewed her lipid panel today. It is all within normal limits. Hypertension Blood pressure is normal she is back on spironolactone 25 mg as well as Lasix 40 daily diastolic dysfunction Continue spironolactone 25 mg and Lasix 40 daily Her symptoms of lower extremity edema have resolved. We discussed her prior echocardiogram BMP today Follow up 4 to 6 months. We will make a patient case to call her in around 6 months for follow-up visit. At next follow-up visit we will review her blood pressure monitor her volume on spironolactone and history of diastolic dysfunction Lifestyle modification counselling: [- Advised about weight [...] no rubs or gallops were heard, PPP, no pedal edema Resp: non-labored breathing, clear to auscultation bilaterally-no crackles Abdomen: Bowel sounds normal, non-tender Neuro: A*O*3, no gross motor or sensory dysfunction in any of the four extremities Skin: No rash, no cyanosis, no clubbing [email or web address] Not available 10/13/2024 20:59:48 Plan of Treatment Reminders Order Date Submit Date Provider Last Modified By Organization Details Last Modified Time Details Appointments Establish ed Patient 15.EST 2024 11:00A William Parisi Not available Not available Not available Lab BMP, serum or plasma 2024 025 [facility], [address] [place] [address], [id number], 09/03/2024 19:34:08 TSH, serum or plasma 2024 025 [facility], [address] [place] [address], [id number], 08/11/2024 16:54:52 Referral None recorded. Procedures None recorded. Surgeries None recorded. Imaging None recorded. Medication Orders None recorded. Patient TargetsNo targets recorded. Patient InstructionsNo instructions recorded. Reason for Referral None Reported. Results Created Date Observation Date Name Description Value Unit Range Abnormal Flag Note LastModifiedBy Organization Detail LastModifiedTime 08/11/19 25 08/11/2024 TSH, serum or plasm a TSH; reflex to free T4 Not Available [facility] [address] [place] [address], [id number], 08/11/2024 16:54:52 08/11/19 25 08/11/2024 TSH, serum or plasm a TSH3 1.368 uIU/m L .340-5 .600 Not Available [facility] [address] [place] [address], [id number], 08/11/2024 16:54:52 08/11/19 25 08/12/2024 TSH, ultra -sens itive , serum TSH3 1.311 uIU/m L .340-5 .600 Not Available [facility] [address] [place] [address], [id number], 08/12/2024 14:58:56 09/04/19 25 09/03/2024 BMP, serum or plasm a basic met. panel Not Available [facility] [address] [place] [address], [id number], 09/03/2024 19:34:08 09/04/19 25 09/03/2024 BMP, serum or plasm a glucose 155 mg/dL 70-100 high Not Available [facility] [address] [place] [address], [id number], 09/03/2024 19:34:08 09/04/19 25 09/03/2024 BMP, serum or plasm a sodium 140 mmol/ L 136-14 6 Not Available [facility] [address] [place] [address], [id number], 09/03/2024 19:34:08 09/04/19 25 09/03/2024 BMP, serum or plasm a potassium 3.5 mmol/ L 3.5-5. 1 Not Available [facility] [address] [place] [address], [id number], 09/03/2024 19:34:08 09/04/19 25 09/03/2024 BMP, serum or plasm a chloride 96 mmol/ L 98-110 low Not Available [facility] [address] [place] [address], [id number], 09/03/2024 19:34:08 09/04/19 25 09/03/2024 BMP, serum or plasm a CO2 36 mEq/L 20-32 high Not Available [facility] [address] [place] [address], [id number], 09/03/2024 19:34:08 09/04/19 25 09/03/2024 BMP, serum or plasm a anion gap 12 mmol/ L 10-22 Not Available [facility] - [facility] [address] [place] [address], 56805, 09/03/2024 19:34:08 09/04/19 25 09/03/2024 BMP, serum or plasm a calcium 10.3 mg/dL 8.4-10 .4 Not Available [facility] - [facility] [address] [place] [address], [id number], 09/03/2024 19:34:08 09/04/19 25 09/03/2024 BMP, serum or plasm a BUN 15 mg/dL 7-21 Not Available [facility] - [facility] [address] [place] [address], 33301, 09/03/2024 19:34:08 09/04/19 25 09/03/2024 BMP, serum or plasm a creatinine 1.2 mg/dL 0.7-1. 3 Not Available [facility] [address] [place] [address], [id number], 09/03/2024 19:34:08 09/04/19 25 09/03/2024 BMP, serum or plasm a CKD-epi GFR 54 low eGFR was calcu lated using the 2020 CKD-E PI equat ion. (Darwin Carreon y Ziyad se has an eGFR less than 60 mL/mi n/1.7 3mm for a perio d of three month s or more. ) This calcu latio n has not been valid ated for patie nt ages <18 or >90 years old. Not Available [facility] [address] [place] [address], [id number], 09/03/2024 19:34:08 09/21/19 25 09/20/2024 CBC CBC Not Available [facility] [address] [place] [address], [id number], 09/20/2024 10:56:22 09/21/19 25 09/20/2024 CBC WBC 11.2 K/uL 3.8-11 .2 Not Available [facility] [address] [place] [address], 48871, 09/20/2024 10:56:22 09/21/19 25 09/20/2024 CBC RBC 5.18 M/uL 3.92-5 .10 high Not Available [facility] [address] [place] [address], 42391, 09/20/2024 10:56:22 09/21/19 25 09/20/2024 CBC HGB 14.1 g/dL 11.8-1 5.3 Not Available [facility] [address] [place] [address], 85920, 09/20/2024 10:56:22 09/21/19 25 09/20/2024 CBC HCT 43.6 % 36.5-4 4.8 Not Available [facility] [address] [place] [address], 07391, 09/20/2024 10:56:22 09/21/19 25 09/20/2024 CBC MCV 84.2 fL 80.0-9 9.0 Not Available [facility] [address] [place] [address], 42436, 09/20/2024 10:56:22 09/21/19 25 09/20/2024 CBC MCH 27.2 pg 25.5-3 3.6 Not Available [facility] [address] [place] [address], 56713, 09/20/2024 10:56:22 09/21/19 25 09/20/2024 CBC MCHC 32.3 g/dL 32.0-3 6.0 Not Available [facility] [address] [place] [address], 24227, 09/20/2024 10:56:22 09/21/19 25 09/20/2024 CBC RDW-SD 43.8 fL 35.1 - 46.3 Not Available [facility] [address] [place] [address], 47730, 09/20/2024 10:56:22 09/21/19 25 09/20/2024 CBC plt 307 K/uL 130-40 0 Not Available [facility] [address] [place] [address], 18541, 09/20/2024 10:56:22 09/21/19 25 09/20/2024 CBC MPV 10.2 fL 9.3-12 .8 Not Available [facility] [address] [place] [address], 25440, 09/20/2024 10:56:22 09/21/19 25 09/20/2024 lipid panel , serum lipid profile Not Available [facility] [address] [place] [address], 10827, 09/20/2024 11:20:44 09/21/19 25 09/20/2024 lipid panel , serum cholesterol 181 mg/dL <25-20 0 Not Available [facility] [address] [place] [address], 78386, 09/20/2024 11:20:44 09/21/19 25 09/20/2024 lipid panel , serum triglyceride 147 mg/dL 15-200 Not Available [facility] [address] [place] [address], 31217, 09/20/2024 11:20:44 09/21/19 25 09/20/2024 lipid panel , serum HDL 72 mg/dL >40 Not Available [facility] [address] [place] [address], 47429, 09/20/2024 11:20:44 09/21/19 25 09/20/2024 lipid panel , serum LDL, calculated 80 mg/dL 5-100 Not Available [facility] [address] [place] [address], 53389, 09/20/2024 11:20:44 09/21/19 25 09/20/2024 lipid panel , serum VLDL 29 mg/dL 1-40 Not Available [facility] [address] [place] [address], [id number], 09/20/2024 11:20:44 09/21/19 25 09/20/2024 lipid panel , serum chol/HDL 2.5 ratio 0.0-4. 4 Not Available [facility] [address] [place] [address], 59711, 09/20/2024 11:20:44 09/22/19 25 09/21/2024 gluco se, finge rstic k, blood glucose 174 mg/dL 72-100 Not Available [facility] [address] [facility], 3rd Floor, [place], [address], 09/21/2024 06:36:42 10/14/19 25 10/13/2024 BMP, serum or plasm a basic met. panel Not Available [facility] [address] [place] [address], [id number], 10/13/2024 16:43:28 10/14/19 25 10/13/2024 BMP, serum or plasm a glucose 128 mg/dL 70-100 high Not Available [facility] [address] [place] [address], 25474, 10/13/2024 16:43:28 10/14/19 25 10/13/2024 BMP, serum or plasm a sodium 140 mmol/ L 136-14 6 Not Available [facility] [address] [place] [address], 56370, 10/13/2024 16:43:28 10/14/19 25 10/13/2024 BMP, serum or plasm a potassium 4.7 mmol/ L 3.5-5. 1 Not Available [facility] [address] [place] [address], 83438, 10/13/2024 16:43:28 10/14/19 25 10/13/2024 BMP, serum or plasm a chloride 101 mmol/ L 98-110 Not Available [facility] [address] [place] [address], 69603, 10/13/2024 16:43:28 10/14/19 25 10/13/2024 BMP, serum or plasm a CO2 31 mEq/L 20-32 Not Available [facility] [address] [place] [address], 65484, 10/13/2024 16:43:28 10/14/19 25 10/13/2024 BMP, serum or plasm a anion gap 13 mmol/ L 10-22 Not Available [facility] [address] [place] [address], 26806, 10/13/2024 16:43:28 10/14/19 25 10/13/2024 BMP, serum or plasm a calcium 9.8 mg/dL 8.4-10 .4 Not Available [facility] [address] [place] [address], 43676, 10/13/2024 16:43:28 10/14/19 25 10/13/2024 BMP, serum or plasm a BUN 18 mg/dL 7-21 Not Available [facility] [address] [place] [address], 65103, 10/13/2024 16:43:28 10/14/19 25 10/13/2024 BMP, serum or plasm a creatinine 1.1 mg/dL 0.7-1. 3 Not Available [facility] [address] [place] [address], 12638, 10/13/2024 16:43:28 10/14/19 25 10/13/2024 BMP, serum or plasm a CKD-epi GFR 60 eGFR was calcu lated using the 2020 CKD-E PI equat ion. (Receptionist jose guadalupe Biancane y Disea se has an eGFR less than 60 mL/mi n/1.7 3mm for a perio d of three month s or more. ) This calcu latio n has not been valid ated for patie nt ages <18 or >90 years old. Not Available [facility] [address] [place] [address], 56902, 10/13/2024 16:43:28 08/11/19 25 08/11/2024 elect rocar diogr am, routi ne ECG, 12 leads min No observ ation record ed. INTERFACE [facility] [address] [address], [place], [address], 08/11/2024 11:59:37 08/15/19 25 08/11/2024 elect rocar diogr am, routi ne ECG, 12 leads min No observ ation record ed. INTERFACE [facility] [address] [address], [place], [address], 08/14/2024 14:45:04 08/26/19 25 08/20/2024 stres s echoc ardio [facility] [address] [place] [address] Ph: [email or web address] Echoca rdiogr am Report Name: Olivia Zimmerman Study Date: 2024 : 1969 2477 Gender : Female Age: 54 yrs Height : 63 in Weight : 241 lb BSA: 2.1 m2 Orderi Physic fouzia: Wilian Leigh K Perfor med By: Damian Negron RDCS Reason [...] and blood pressu re return ed to [facility], and then was transf erred to the [facility] room in stable condit ion. There were no compli cation s. PROTOC OL: The [employer] Protoc ol was used. utamin e lot# and expira tion: Lot [id number], Exp 04/10, [facility] 98763- 203-80 -. Atr opine lot# and expira tion: Lot [id number], Exp 04/09, [facility] 21093- 1706-1 . D5W Lot [id number] , Exp 12/08, [facility] [id number] 3555 [employer] mine 25cc Used: 8cc Wasted : 17cc. REASON FOR STOPPI NG: The test was stoppe d due to reachi ng target heartr ate. The patien t had chest pain during stress . Chest Pain resolv ed in recove ry. PARAME TERS: Test perfor med by: Yang pina RN. BLOOD PRESSU RE: Baseli ne blood pressu re was normal . ARRHYT HMIA: No signif icant ECG change s or arrhyt hmias with dobuta mine infusi on. ECG-RE ST: The baseli ne ECG displa ys normal sinus rhythm [...] . RECOVE RY: EKG return ed to [facility]. All sympto ms resolv ed in recove [...] echoca rdiogr am. Optiso n lot # [id number]. Optiso n expira tion date 026. Optiso n [facility] [id number]. Stress Result s Maximu m Predic biju [...] - [facility] [address], [place], [address], 08/25/2024 07:03:48 09/03/19 25 dobut amine stres s echoc ardio gram (PROC ) No observ ation record ed. BARCODE Not Available 2024 15:39:30 09/14/19 25 08/11/2024 cuong r monit or No observ ation record ed. INTERFACE [employer] [address] [facility] [address], [place], [address], 09/13/2024 10:00:12 09/22/19 25 09/21/2024 elect rocar diogr am, routi ne ECG, 12 leads min No observ ation record ed. INTERFACE [facility] [address] [address], [place], [address], 09/21/2024 06:31:19 09/26/19 25 09/21/2024 elect rocar diogr am, routi ne ECG, 12 leads min No observ ation record ed. INTERFACE [facility] [address] [address], [place], [address], 09/25/2024 18:16:51 12/19/19 25 07/28/2017 imagi ng/di agnos tic resul t No observ ation record ed. [email or web address] Not Available 0 12/18/2024 03:41:21 12/19/19 25 10/12/2018 imagi ng/di agnos tic resul t No observ ation record ed. [email or web address] Not Available 0 12/18/2024 03:41:39 12/19/19 25 10/12/2018 imagi ng/di agnos tic resul t No observ ation record ed. [email or web address] Not Available 0 12/18/2024 03:41:40 12/19/19 25 01/22/2019 imagi ng/di agnos tic resul t No observ ation record ed. [email or web address] Not Available 0 12/18/2024 03:41:48 12/19/19 25 06/11/2019 imagi ng/di agnos tic resul t No observ ation record ed. [email or web address] Not Available 0 12/18/2024 03:42:01 Result Notes None recorded. Problems Name Problem SNOMED Code Status Onset Date Resolution Date Notes Provider Name and Address Organization Details Recorded Time Syncope symptom 197334784 Active 2024 Val Bruce [facility] 5 16:25:30 Heat syncope 56109461 Active 2024 LISA PARISI PA-C [address] [place] [address], [address], [facility] 5 11:49:04 Syncope and collapse 179897639 Active 2024 LISA PARISI PA-C [address] [place] [address], [address], [facility] 5 11:49:34 Palpitations 65633186 Active 2024 Marce Anderson [facility] 5 12:03:06 Chest pain 33749064 Active 2024 Marce Anderson [facility] 5 12:07:40 Difficulty walking 094651198 Active 2024 Marce Anderson [facility] 5 12:09:41 Diastolic dysfunction 1144209 Active 2024 LISA PARISI PA-C [address] [facility], [place], [address], [facility] 5 13:29:02 Mixed hyperlipidemia 842477178 Active 2024 LISA PARISI PA-C [address] [facility], [place], [address], [facility] 5 13:29:11 Syncope 001121708 Active 2024 LISA PARISI PA-C [address] [facility], [place], [address], [facility] 5 22:46:06 Essential hypertension 09373479 Active 2024 LISA PARISI PA-C [address] [facility], [place], [address], [facility] 5 22:46:16 Cardiovascular stress test abnormal 163761468 Active 2024 Marce Todd [facility] 5 17:36:06 Hyperlipidemia 10201220 Active 2024 Lucinda Anthony [facility] 5 20:59:20 Problem Notes None recorded. Procedures Surgical History [...] Available Health Note 08/09/2024 20:22:42 Imaging Results None recorded. Procedure Notes None recorded. Medical Equipment None Reported. Allergies Allergen ID Allergen Name Allergen Category Reaction Reaction Severity Criticality Documentation Date Start Date Code Code System Note Provider Name and Address Organization Details Recorded Time Substance with sulfonami de structure and antibacte rial mechanism of action (substanc e) medicatio n anaphylax is Not available Not available 07/16/20232006 25692 8003 SNOMED React ion: Anaph ylaxi s; Not Available [facility] 4 04:03:38 [id number] tetanus toxoid fluid medicatio n anaphylax is Not available Not available 07/16/20232006 React ion: Anaph ylaxi s; Not Available [facility] 4 04:03:38 4118346 celecoxib medicatio n anaphylax is Not available Not available 03/24/20242007 72755 7 RxNorm React ion: Anaph ylaxi s; Not Available [facility] 4 21:16:34 665479 Wellbutri n medicatio n Not available Not available Not available 07/14/20232006 01517 RxNorm Comme nt: Annot ation s: SINDE (ALEXIS) , TERRANCE 2015 3:18P M insom fabi; ; Not Available [facility] 4 22:42:27 099716 codeine medicatio n Not available Not available Not available 07/14/20232006 2670 RxNorm Not Available [facility] 4 22:42:27 447202 irbesarta n medicatio n Not available Not available Not available 07/14/20232006 33703 RxNorm Not Available [facility] 4 22:42:27 147904 epinephri ne medicatio n Not available Not available Not available 07/14/20232007 3992 RxNorm Comme nt: Annot ation s: SINDE (ALEXIS) , TERRANCE 2015 3:19P M V FIB; ; Not Available [facility] 4 22:42:27 Medications Name Sig Start Date Stop Date Status Note LastModified by Organization Details LastModified Time fluoxetine 40 mg capsule TAKE TWO CAPSULES BY MOUTH DAILY active Not Available Not Available No t Available amoxicillin 500 mg capsule TAKE FOUR CAPSULES BY MOUTH ONE HOUR BEFORE APPOINTME NT active Not Available Not Available No t [...] BY MOUTH AT BEDTIME NEEDED FOR MUSCLE SPASMS active Not Available Not Available No t Available clindamycin HCl 300 mg capsule TAKE ONE CAPSULE BY MOUTH THREE TIMES DAILY FOR 5 DAYS active Not Available Not Available No t Available ondansetron HCl 4 mg tablet TAKE 1 TABLET BY MOUTH EVERY 6 HOURS NEEDED FOR NAUSEA OR VOMITING active Not Available Not Available No t Available prednisone 20 mg tablet TAKE 2 TABLETS BY MOUTH EVERY DAY FOR 5 DAYS 10/13 completed Not Available Not Available Not Available hydrocodone 10 mg-acetamin ophen 325 mg tablet TAKE ONE TABLET BY MOUTH EVERY 4 HOURS NEEDED FOR PAIN active Not Available Not Available No t Available spironolact one 25 mg tablet TAKE ONE TABLET BY MOUTH DAILY active Not Available Not Available No t Available carvedilol 3.125 mg tablet TAKE ONE TABLET BY MOUTH TWICE DAILY active Not Available Not Available No t Available cefadroxil 500 mg capsule TAKE 1 CAPSULE BY MOUTH EVERY 12 HOURS FOR 7 DAYS 10/13 completed Not Available Not Available Not Available warfarin 6 mg tablet Take 1 [...] completed Not Available Not Available Not Available mupirocin 2 % topical ointment APPLY TO THE AFFECTED AREA(S) topically TWICE DAILY FOR TWO WEEKS active Not Available Not Available No t Available lorazepam 1 mg tablet TAKE ONE TABLET BY MOUTH DAILY NEEDED FOR ANXIETY 10/13 completed Not Available Not Available Not Available colchicine 0.6 mg tablet TAKE TWO TABLETS NOW AND ONE TABLET AN HOUR LATER active Not Available Not Available No t Available clotrimazol e 1 % topical cream APPLY TOPICALLY TO AFFECTED AREA(S) EVERY 12 HOURS FOR 4 WEEKS active Not Available Not Available No t Available spironolact one 50 mg tablet TAKE ONE TABLET BY MOUTH DAILY 09/03 completed Not Available Not Available Not Available magnesium 250 mg (as magnesium oxide) tablet Take 1 tablet every day by oral route. 2024 active Not Available Not Available Not Avai lable oxycodone 5 mg tablet TAKE 1 TABLET [...] 200 mg (as magnesium oxide) tablet Take 1 tablet by oral route. 10/13 completed Not Available Not Available Not Available Dexcom G6 Sensor device CHANGE sensor EVERY 10 DAYS active Not Available Not Available No t Available Dexcom G6 Field Professional USE DIRECTED active Not Available Not Available No t Available Dexcom G6 Transmitter device CHANGE EVERY THREE MONTHS active Not Available Not Available No t Available Trulicity 3 mg/0.5 mL subcutaneou s pen injector Inject by subcutane ous route. 10/13 completed Not Available Not Available Not Available Trulicity 4.5 mg/0.5 mL subcutaneou s pen injector INJECT 4.5mg SUBCUTANE OUSLY ONCE WEEKLY 10/13 completed Not Available Not Available Not Available Mounjaro 5 mg/0.5 mL subcutaneou s pen injector INJECT 5mg SUBCUTANE OUSLY ONCE WEEKLY active Not Available Not Available No t Available Vitals Date Recorded Heart rate Oxygen saturation Oxygen saturation in Arterial blood by Pulse oximetry Body weight Systolic And Diastolic Provider Name and Address Organization Details Last Updated DateTime 5 96 /min 96 % 96 % 615306. 64 g 106/76 mm[Hg] [facility] 5 11:41:09 Date Recorded Heart rate Oxygen saturation Oxygen saturation in Arterial blood by Pulse oximetry Body weight Systolic And Diastolic Provider Name and Address Organization Details Last Updated DateTime 5 98 /min 96 % 96 % 470344. 66 g 118/78 mm[Hg] [facility] 5 16:04:01 Date Recorded Heart rate Oxygen saturation Oxygen saturation in Arterial blood by Pulse oximetry Body weight Systolic And Diastolic Provider Name and Address Organization Details Last Updated DateTime 5 86 /min 96 % 96 % 281443. 92 g 112/82 mm[Hg] [facility] 5 10:48:29 Social History Question Answer Notes LastModified by Organizat ion Details LastModified Time Tobacco Smoking Status Never Smoker Not Available Health Note 08/09/2024 20:22:42 Do You Have An Advance Directive? Yes 5 [email or web address] Information not available 09/21/2024 What Is Your Level Of Caffeine Consumption? Moderate [email or web address] Information not available 08/09/2024 What Is Your Code Status? Full Code [email or web address] Information not available 08/09/2024 How Many Times Per Week Do You Exercise? Less Than 1 Time Per Week [email or web address] Information not available 08/09/2024 What Was The Date Of Your Most Recent Tobacco Screening? 08/11/2024 [email or web address] Information not available 08/09/2024 What Is Your Relationship Status? [email or web address] Information not available 08/09/2024 Sex: Unknown Functional Status Question Answer Note LastModified by Organizat ion Details LastModified Time How many times per week do you consume alcohol? Less than 1 time per week [email or web address] Information not available 08/09/2024 Do you use any illicit or recreational drugs? No [email or web address] Information not available 08/09/2024 What is your level of alcohol consumption? Occasional [email or web address] Information not available 08/09/2024 Are you currently employed? 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 Occasional [email or web address] [...] 20:22:41 Maternal Grandmother Arthritis [email or web address] Not available 07/18 20:22:41 Maternal Grandmother Diabetes mellitus [email or web address] Not [...] available 2024 20:22:41 Medical History Condition Response Anxiety Disorder Y Diabetes Y Bleeding Disorder N Attention-deficit Hyperactivity Disorder N High Blood Pressure Y Arthritis Y Hyperlipidemia N Cancer N Thyroid Problems N Stroke N Asthma Y Depression Y COPD N Seizures N Anemia N Heart Disease N Fibromyalgia Y Osteoporosis N Kidney Disease N Gynecological HistoryNo gynecological history recorded. Obstetrics History GPAL:G 0 P 0 0 0 0 Past Encounters Encounter ID Performer Location Encounter Start Date Encounter Closed Date Diagnosis/Indication Diagnosis SNOMED-CT Code Diagnosis ICD10 Code Diagnosis IMO Codes Diagnosis Note [id number] LISA PARISI PA-C [address] ([place]) [address] [place] [address] 08/11/2024 10:42:30 08/11/2024 13:59:23 Syncope and collapse 347991769 R55 18478 Diastolic dysfunction 35 66524 I51.89 769152 Mixed hyperlipidemia 267 321083 E78.2 34768 [id number] LISA PARISI PA-C [address] [facility] ([place]) [address] [place] [address] 09/03/2024 15:07:10 09/03/2024 16:48:16 Diastolic dysfunction 5301458 I51.89 [id number] Syncope 873020192 R55 [id number] Chest pain 15910781 R07. 9 04238200 Essential hypertension 86218175 I10 14878 Mixed hyperlipidemia 267 601740 E78.2 80461 [id number] WILIAN AMARO MD [facility] ([place]) [address] [place] [address], [address] [place] [phone] 09/21/2024 06:00:28 10/06/2024 07:39:15 [id number] LISA PARISI PA-C [address] [place] [address] Cardiolog y ([place]) [address] [place] [phone] 10/13/2024 10:19:30 10/13/2024 17:27:35 Essential hypertension 01737635 I10 31260 Diastolic dysfunction 35 52441 I51.89 290500 Hyperlipidemia 98350849 E78.5 35713674 History of pulmonary embolus 735312529 Z86.921 [id number] Health Concerns Section Related Observation LastModified by Organization Detai ls LastModified Time None Recorded Concern Status LastModified by Organization Details LastModified Time None Recorded Advance Directives Directive Y: 09/21/2024 Payers Insurance Date Sequence Insurance Name Policy Number Policy Larkin Covered Member ID Larkin Member ID Guarantor Name 04/22/2025 2 [place] [employer] [place] [employer] Olivia Fernandez [id number] Olivia Fernandez 04/22/2025 1 [place] [id number] Israel Fernandez [id number] Olivia Fernandez OBGyn Episode No OBEpisode recorded.
[2025-04-28 15:20] LABS: Add Urine Microscopic? YES; Appearance Urine Clear (Clear); Glucose Urine UA 3+ (Negative); Leukocyte Esterase Ur Trace LEU/UL (Negative); Nitrate Urine Negative (Negative); Specific Grav Ur <= 1.005 (1.010-1.020)
== END 2025-04-28 15:13 | disposition home or self-care (01) ==
LOC: CHSLAB 15:13
PROVIDERS: PCP Family Medicine; Visit Provider Family Medicine
DX: N39.0 Urinary tract infection, site not specified (principal)
CPT/HCPCS: 81001; 87077; 87086; 87088; 87186